=== PATIENT | female | born 1960 | race American Indian/Alaskan Native ===

== ENCOUNTER 2016-06-07 11:50 | Inpatient (IN) | payer OTHER ==
--- NOTE | 2016-06-07 12:10 | PDOC ---
History of Present Illness <Farrah Cortez - Last Filed: 06/08/16 00:45> - General History Source: Patient Exam Limitations: Clinical Condition - History of Present Illness Travel History: No Initial Comments: 06/07/16 12:28 55 yr female sent from [facility] for eval of Gtube that keeps falling out, NH states she needs larger tube. <Mary Arias - Last Filed: 06/10/16 09:44> - General Chief Complaint: G Tube Problem Stated Complaint: Tube Problem Time Seen by Provider: 06/07/16 12:09 Past History <Farrah Cortez - Last Filed: 06/08/16 00:45> - Past Medical History Dementia: Yes GI Disorders: Yes (PEG TUBE) Seizures: Yes (EPILEPSY) - Surgical History GI Surgery: Yes (GT - TUBE PLACEMENT) - Immunization History Immunization Up to Date: Yes - Psycho/Social/Smoking Cessation Hx Anxiety: No Suicidal Ideation: No Smoking History: Never smoked Have you smoked in the past 12 months: No Information on smoking cessation initiated: No Hx Alcohol Use: No Drug/Substance Use Hx: No Substance Use Type: None Hx Substance Use Treatment: No <Mary rAias - Last Filed: 06/10/16 09:44> - Past Medical History Allergies/Adverse Reactions: Allergies Allergy/AdvReac Type Severity Reaction Status Date / Time No Known Drug Allergies Allergy Verified 03/30/16 12:25 latex AdvReac Unknown Verified 03/30/16 12:25 Home Medications: Ambulatory Orders Acetaminophen Oral Solution [Tylenol 160mg/5mL Oral Solution -] 20 ml GT Q6H PRN 07/22/15 Valproate Sodium [Valproic Acid] 500 mg GT BID 07/22/15 Honey [Medihoney] 1 applic TD DAILY 03/30/16 *Physical Exam - Vital Signs Last Vital Signs Temp Pulse Resp BP Pulse Ox 98.4 F 88 17 165/90 97 06/07/16 11:57 06/07/16 15:48 06/07/16 15:48 06/07/16 15:48 06/07/16 15:48 <Farrah Cortez - Last Filed: 06/08/16 00:45> - Vital Signs Last Vital Signs Temp Pulse Resp BP Pulse Ox 98.4 F 83 18 161/94 98 06/07/16 11:57 06/07/16 11:57 06/07/16 11:57 06/07/16 11:57 06/07/16 11:57 - Physical Exam General Appearance: Yes: Nourished, Cachetic HEENT: positive: EOMI Respiratory/Chest: positive: Lungs Clear, Normal Breath Sounds Cardiovascular: positive: Regular Rhythm, Regular Rate Gastrointestinal/Abdominal: positive: Soft, Distended, Other (gtube in place 16 surinamese ). negative: Guarding <Mary Arias - Last Filed: 06/10/16 09:44> ED Treatment Course - LABORATORY CBC & Chemistry Diagram: 06/08/16 00:15 06/08/16 00:15 - ADDITIONAL ORDERS Additional order review: Laboratory Results 06/07/16 06/07/16 22:19 18:18 POC Glucometer 97.47453 82.57339 06/08/16 06/07/16 06/07/16 00:15 22:19 18:18 RBC 5.08 MCV 94.4 MCHC 32.8 RDW 13.1 MPV 9.3 Neutrophils % 56.0 Lymphocytes % 32.4 Monocytes % 10.6 H Eosinophils % 0.5 Basophils % 0.5 POC Glucometer 97.67567 82.99906 - Medications Given in the ED: ED Medications Discontinued Medications Generic Name Dose Route Start Last Admin Trade Name Dat PRN Reason Stop Dose Admin Morphine Sulfate 2 mg 06/07/16 23:22 06/07/16 23:49 Morphine Injection - IVPUSH 06/07/16 23:23 2 mg ONCE ONE Administration <Farrah Cortez - Last Filed: 06/08/16 00:45> - LABORATORY CBC & Chemistry Diagram: 06/10/16 08:40 06/09/16 07:40 <Mary Arias - Last Filed: 06/10/16 09:44> Progress Note - Progress Note Progress Note: SPOKE WITH DR. FIGUEROA REGARDING G-TUBE REPLACEMENT. UNABLE TO INSERT G-TUBE BACK THROUGH TRACK. DR. FIGUEROA MADE AWARE. PATIENT TO BE ADMITTED FOR POSSIBLE SURGERY SUNDAY OR SUNDAY. ALSO, SPOKE WITH DR. POND. DISCUSSED CASE. WILL ADMIT PATIENT INPATIENT. <Farrah Cortez - Last Filed: 06/08/16 00:45> Medical Decision Making - Medical Decision Making 06/07/16 12:29 cc: Gtube falling out needs larger size tube pt has [address] will consult with GI regarding larger tube placement spoke to (originally replaced 07/13) who will see pt at 5pm at bedside have 18 and 20 surinamese tube at bedside. 06/07/16 12:34 ER attending removed 16 surinamese tube that was in place, blood oozed from the site. unsuccessfull re-insertion with 20 surinamese tube, 18 surinamese tube minimally inserted with some resistance, unable to fully insert. tube taped securely to abdomen awaiting GI Dr. Barrow. 06/07/16 13:16 06/07/16 13:18 06/07/16 18:12 pt awaiting states will be in ER in approx 20 minutes. 06/07/16 19:02 signed out to FAMILY SERVICE WORKER Allen awaiting , <Mary Arias - Last Filed: 06/10/16 09:44> *DC/Admit/Observation/Transfer - Discharge Dispostion Admit: Yes <Farrah Cortez - Last Filed: 06/08/16 00:45> <Mary Arias - Last Filed: 06/10/16 09:44> Diagnosis at time of Disposition: PEG (percutaneous endoscopic gastrostomy) adjustment/replacement/removal, Gastrojejunostomy tube dislodgement - Discharge Dispostion Condition at time of disposition: Stable - Referrals - Patient Instructions
--- NOTE | 2016-06-07 12:53 | PN ---
Progress Note (short form) - Note Progress Note: called by ER regarding G-Tube malfunction. in review of [facility] it appears as though Dr. Peters placed G-Tube in patient 07/13. i advised Mary the ELECT[employer]ICIAN [employer]CRAFT that she should call Dr. Wilkinson / Jacobo for evaluation of the G-Tube.
[2016-06-07] MEDS ORDERED: HEMOQUE TEST 1 EACH EACH ONE (18:16)
[2016-06-07] MEDS ORDERED: morphine CARPU-JECT 2 MG/1 ML DISP.SYRIN IVPUSH ONE (23:22)
[2016-06-07] MEDS: DEXTROSE 5%-0.45% SALINE 1,000 ML IV SCH (23:44)
[2016-06-07] MEDS ORDERED: morphine CARPU-JECT 2 MG/1 ML DISP.SYRIN ONE (23:47)
[2016-06-08 00:35] LABS: BASOPHIL 0.5 % (0-2.0); EOSINOPHIL 0.5 % (0-4.5); MCHC 32.8 g/dl (32.0-36.0); MEAN CELL VOLUME 94.4 fl (80-96); MEAN PLT VOLUME 9.3 fl (7.5-11.1); PLATELET COUNT 201 K/MM3 (134-434); RDW 13.1 % (11.6-15.6); WHITE BLOOD COUNT 7.7 K/mm3 (4.0-10.0)
[2016-06-08 00:55] LABS: ALBUMIN 2.7 g/dl (3.4-5.0); ANION GAP 12 (8-16); BILIRUBIN,TOTAL 0.3 mg/dL (0.2-1.0); CALCIUM 9.1 mg/dL (8.5-10.1); CO2 30 mmol/L (21-32); CREATININE 0.5 mg/dL (0.55-1.02); GLUCOSE,RANDOM 86 mg/dL (74-106); SGOT/AST 33 U/L (15-37); SGPT/ALT 20 U/L (12-78); TOT PROT 8.2 g/dl (6.4-8.2)
[2016-06-08 00:56] LABS: ALK PHOS 36 U/L (45-117)
[2016-06-08] MEDS ORDERED: ACETAMINOPHEN 650 MG/20.3 ML ORAL SOLUTION (CUPS) GT PRN (07:26)
[2016-06-08] MEDS ORDERED: HONEY TD SCH (10:00)
[2016-06-08] MEDS ORDERED: VALPROATE SODIUM 250 MG/5 ML UNIT DOSE CUP GT SCH (10:00)
[2016-06-08 10:30] VITALS: BMI 25.6
[2016-06-08] MEDS ORDERED: VALPROATE SODIUM 500 MG/5 ML VIAL ONE (17:32)
[2016-06-08] MEDS: VALPROATE SODIUM 500 MG/5 ML VIAL IVPB SCH ×2 (18:00→23:20)
--- NOTE | 2016-06-08 19:33 | CONSULT ---
Consult Consult Specialty:: GI Referred by:: Dr Quezada Reason for Consultation:: Dislodged PEG - History of Present Illness Chief Complaint: Brought from [facility] with dislodged PEG History of Present Illness: 55 F with anoxic encephalopathy brought to ER with dislodged PEG I was notified by staff last night and was unable to see patient until today. I advised that she be placed on IVF until PEG placement - History Source History Provided By: Medical Record Limitations to Obtaining History: Clinical Condition - Past Medical History MANAGER IMAGING: Yes: Dementia, Seizure, Other (dysphagia, aphasia) ...: No - Alcohol/Substance Use Hx Alcohol Use: No History of Substance Use: reports: None - Smoking History Smoking history: Never smoked Have you smoked in the past 12 months: No - Social History Usual Living Arrangement: Halfway ADL: Support Services History of Recent Travel: No Home Medications - Allergies Allergies/Adverse Reactions: Allergies Allergy/AdvReac Type Severity Reaction Status Date / Time No Known Drug Allergies Allergy Verified 03/30/16 12:25 latex AdvReac Unknown Verified 03/30/16 12:25 - Home Medications Home Medications: Ambulatory Orders Acetaminophen Oral Solution [Tylenol 160mg/5mL Oral Solution -] 20 ml GT Q6H PRN 07/22/15 Valproate Sodium [Valproic Acid] 500 mg GT BID 07/22/15 Honey [Medihoney] 1 applic TD DAILY 03/30/16 Physical Exam-GI Vital Signs: Vital Signs Temperature 97 F L 06/08/16 10:22 Pulse Rate 92 H 06/08/16 10:22 Respiratory Rate 14 06/08/16 10:22 Blood Pressure 140/99 06/08/16 10:22 O2 Sat by Pulse Oximetry (%) 100 06/08/16 10:22 Constitutional: Yes: Well Nourished HENT: Yes: Normocephalic Neck: Yes: Supple Cardiovascular: Yes: Regular Rate and Rhythm Respiratory: Yes: CTA Bilaterally Gastrointestinal Inspection: Yes: WNL, Other (G tube site noted. No evidence of infection) ...Auscultate: Yes: Normoactive Bowel Sounds ...Palpate: Yes: Soft Labs: CBC, BMP 06/08/16 00:15 06/08/16 00:15 Hepatic Panel Total Bilirubin 0.3 mg/dL (0.2-1.0) D 06/08/16 00:15 AST 33 U/L (15-37) D 06/08/16 00:15 ALT 20 U/L (12-78) 06/08/16 00:15 Alkaline Phosphatase 36 U/L (45-117) L D 06/08/16 00:15 Albumin 2.7 g/dl (3.4-5.0) L D 06/08/16 00:15 Assessment/Plan Patietn in need of endoscopic PEG placement Will try to arrange for tomorrow but may be deferred until Sunday if unable to do
[2016-06-09] MEDS: DEXTROSE 5%-0.45% SALINE 1,000 ML IV SCH (00:59)
--- NOTE | 2016-06-09 02:04 | HP ---
Admitting History and Physical - Admission History of Present Illness: 55 F with anoxic encephalopathy brought to ER from [facility] with dislodged PEG patient unable to provide hx / non verbal she was started on IVF until PEG placement History Source: Medical Record Limitations to Obtaining History: Clinical Condition (anoxic encephalopathy) - Past Medical History MECHANIC RECOVERY: Yes: Dementia, Seizure, Other (dysphagia, aphasia) ...: No - Advance Directives Advance Directives: Yes: Health Care Proxy, DNR - Smoking History Smoking history: Never smoked Have you smoked in the past 12 months: No - Alcohol/Substance Use Hx Alcohol Use: No History of Substance Use: reports: None - Social History ADL: Support Services History of Recent Travel: No Home Medications - Allergies Allergies/Adverse Reactions: Allergies Allergy/AdvReac Type Severity Reaction Status Date / Time No Known Drug Allergies Allergy Verified 03/30/16 12:25 latex AdvReac Unknown Verified 03/30/16 12:25 - Home Medications Home Medications: Ambulatory Orders Acetaminophen Oral Solution [Tylenol 160mg/5mL Oral Solution -] 20 ml GT Q6H PRN 07/22/15 Valproate Sodium [Valproic Acid] 500 mg GT BID 07/22/15 Honey [Medihoney] 1 applic TD DAILY 03/30/16 Review of Systems - Review of Systems Constitutional: reports: No Symptoms Eyes: reports: No Symptoms Physical Examination Vital Signs: Vital Signs Temperature 98.4 F 06/08/16 22:00 Pulse Rate 93 H 06/08/16 22:00 Respiratory Rate 18 06/09/16 01:06 Blood Pressure 121/68 06/08/16 22:00 O2 Sat by Pulse Oximetry (%) 100 06/09/16 01:06 Constitutional: Yes: Mild Distress Eyes: Yes: Conjunctiva Clear HENT: Yes: Atraumatic Neck: Yes: Trachea Midline Cardiovascular: Yes: Regular Rate and Rhythm Respiratory: Yes: Regular, CTA Bilaterally Gastrointestinal: Yes: Normal Bowel Sounds, Soft, Other (peg site with minimal clear d/c) Musculoskeletal: Yes: Joint Stiffness, Other (contracted / muscle wasting) Edema: No Peripheral Pulses: Left Radial: 1+ Integumentary: Yes: WNL Neurological: Yes: Pre-Existing Deficit Problem List - Problems (1) Gastrojejunostomy tube dislodgement Code(s): Z43.4 - ENCOUNTER FOR ATTN TO OTH ARTIF OPENINGS OF DIGESTIVE TRACT (2) Anoxic brain damage Code(s): G93.1 - ANOXIC BRAIN DAMAGE, NOT ELSEWHERE CLASSIFIED (3) Seizure as late effect of cerebrovascular accident (CVA) Code(s): I69.398 - OTHER SEQUELAE OF CEREBRAL INFARCTION R56.9 - UNSPECIFIED CONVULSIONS Assessment/Plan awaiting GI for placement of G tube IV fluids with D5 until PEG replaced
[2016-06-09 08:13] LABS: BASOPHIL 0.5 % (0-2.0); EOSINOPHIL 0.8 % (0-4.5); MCH 32.3 pg (25.7-33.7); MCHC 33.9 g/dl (32.0-36.0); MEAN CELL VOLUME 95.1 fl (80-96); MEAN PLT VOLUME 8.7 fl (7.5-11.1); NEUTROPHILS 53.4 % (42.8-82.8); PLATELET COUNT 151 K/MM3 (134-434); RDW 13.1 % (11.6-15.6); WHITE BLOOD COUNT 6.1 K/mm3 (4.0-10.0)
[2016-06-09] MEDS ORDERED: PT OWN MED DRAWER 7, Y5N ONE ×2 (08:30→22:19)
[2016-06-09 08:36] LABS: ALK PHOS 29 U/L (45-117); ANION GAP 6 (8-16); BILIRUBIN,TOTAL 0.4 mg/dL (0.2-1.0); CALCIUM 7.7 mg/dL (8.5-10.1); CO2 28 mmol/L (21-32); CREATININE 0.3 mg/dL (0.55-1.02); GLUCOSE,RANDOM 109 mg/dL (74-106); SGOT/AST 21 U/L (15-37); SGPT/ALT 16 U/L (12-78); TOT PROT 6.4 g/dl (6.4-8.2)
[2016-06-09] MEDS: VALPROATE SODIUM 500 MG/5 ML VIAL IVPB SCH ×2 (09:39→22:27)
[2016-06-09] MEDS: ACETAMINOPHEN 650 MG SUPP.RECT PR PRN (17:28)
--- NOTE | 2016-06-09 17:41 | PN ---
Progress Note (short form) - Note Progress Note: in bed no distress non verbal Vital Signs Period Temp Pulse Resp BP Sys/Florentino Pulse Ox Last 24 Hr 97.8 F-98.9 F 90-100 18-18 121-140/68-78 100-100 neck supple heart reg lung clear bilet abd soft / peg site clean / no erythema ext contractures no edema + wasting CBC, BMP 06/09/16 07:40 06/09/16 07:40 discussed with GI for PEG placement today or tomorrow will keep IV fluids pending placement Problem List - Problems (1) Gastrojejunostomy tube dislodgement Code(s): Z43.4 - ENCOUNTER FOR ATTN TO OTH ARTIF OPENINGS OF DIGESTIVE TRACT (2) Anoxic brain damage Code(s): G93.1 - ANOXIC BRAIN DAMAGE, NOT ELSEWHERE CLASSIFIED (3) Seizure as late effect of cerebrovascular accident (CVA) Code(s): I69.398 - OTHER SEQUELAE OF CEREBRAL INFARCTION R56.9 - UNSPECIFIED CONVULSIONS
--- NOTE | 2016-06-09 17:44 | PN ---
Progress Note (short form) - Note Progress Note: Events noted Patient with anoxic encephalop-athy now with dislodged PEG Current Medications Generic Name Dose Route Start Last Admin Trade Name Freq PRN Reason Stop Dose Admin Acetaminophen 650 mg 06/08/16 07:26 Tylenol Oral Solution - GT Q6H PRN PAIN Acetaminophen 650 mg 06/09/16 17:04 06/09/16 17:28 Tylenol Suppository - [place] 650 mg Q6H PRN Administration FEVER OR PAIN Dextrose/Sodium Chloride 1,000 mls @ 100 mls/hr 06/07/16 23:30 06/09/16 00:59 D5-1/2ns - IV 100 mls/hr ASDIR JOSSE Administration Valproate Sodium 500 mg 06/08/16 16:15 06/09/16 09:39 Depacon Injection - IVPB 500 mg BID JOSSE Administration Exam: Awake, unresponsive Last Vital Signs Temp Pulse Resp BP Pulse Ox 98.9 F 100 H 18 122/74 100 06/09/16 15:20 06/09/16 15:20 06/09/16 11:49 06/09/16 15:20 06/09/16 11:44 Lungs clear Cor Reg Abd soft CBC, BMP 06/09/16 07:40 06/09/16 07:40 Hepatic Panel Total Bilirubin 0.4 mg/dL (0.2-1.0) D 06/09/16 07:40 AST 21 U/L (15-37) D 06/09/16 07:40 ALT 16 U/L (12-78) 06/09/16 07:40 Alkaline Phosphatase 29 U/L (45-117) L 06/09/16 07:40 Albumin 2.0 g/dl (3.4-5.0) L D 06/09/16 07:40 A/P Dislodged PEG-will need endoscopic replacement Will do tomorrow as Sunday is a holiday and she would have to wait 3 days otherwise.
[2016-06-10] MEDS: DEXTROSE 5%-0.45% SALINE 1,000 ML IV SCH (00:55)
[2016-06-10 09:02] LABS: BASOPHIL 0.5 % (0-2.0); EOSINOPHIL 1.2 % (0-4.5); MCH 32.1 pg (25.7-33.7); MCHC 33.4 g/dl (32.0-36.0); MEAN PLT VOLUME 8.4 fl (7.5-11.1); NEUTROPHILS 57.9 % (42.8-82.8); PLATELET COUNT 147 K/MM3 (134-434); RDW 12.5 % (11.6-15.6); WHITE BLOOD COUNT 4.8 K/mm3 (4.0-10.0)
[2016-06-10 09:16] LABS: INR 1.12 (0.82-1.09); PROTHROMBIN TIME (PATIENT) 12.4 SEC (9.98-11.88)
[2016-06-10 09:44] LABS: ALBUMIN 2.1 g/dl (3.4-5.0); ANION GAP 2 (8-16); CO2 22 mmol/L (21-32); GLUCOSE,RANDOM 83 mg/dL (74-106)
[2016-06-10 09:48] LABS: ALK PHOS 30 U/L (45-117); BILIRUBIN,TOTAL 0.6 mg/dL (0.2-1.0); CREATININE 0.4 mg/dL (0.55-1.02); SGPT/ALT 22 U/L (12-78); TOT PROT 6.8 g/dl (6.4-8.2)
[2016-06-10 09:55] LABS: SGOT/AST 40 U/L (15-37)
[2016-06-10] MEDS: VALPROATE SODIUM 500 MG/5 ML VIAL IVPB SCH ×2 (09:59→21:19)
--- NOTE | 2016-06-10 13:20 | PN ---
Progress Note (short form) - Note Progress Note: Events noted Patient with anoxic encephalop-athy now with dislodged PEG Current Medications Generic Name Dose Route Start Last Admin Trade Name Freq PRN Reason Stop Dose Admin Acetaminophen 650 mg 06/08/16 07:26 Tylenol Oral Solution - GT Q6H PRN PAIN Acetaminophen 650 mg 06/09/16 17:04 06/09/16 17:28 Tylenol Suppository - [place] 650 mg Q6H PRN Administration FEVER OR PAIN Dextrose/Sodium Chloride 1,000 mls @ 100 mls/hr 06/07/16 23:30 06/09/16 00:59 D5-1/2ns - IV 100 mls/hr ASDIR JOSSE Administration Valproate Sodium 500 mg 06/08/16 16:15 06/09/16 09:39 Depacon Injection - IVPB 500 mg BID JOSSE Administration Exam: Awake, unresponsive Last Vital Signs Temp Pulse Resp BP Pulse Ox 98.4 F 95 H 19 134/91 96 06/10/16 10:00 06/10/16 10:00 06/10/16 10:00 06/10/16 10:00 06/10/16 09:00 Lungs clear Cor Reg Abd soft CBC, BMP 06/10/16 08:40 06/10/16 06:00 Hepatic Panel Total Bilirubin 0.6 mg/dL (0.2-1.0) D 06/10/16 06:00 AST 40 U/L (15-37) H D 06/10/16 06:00 ALT 22 U/L (12-78) D 06/10/16 06:00 Alkaline Phosphatase 30 U/L (45-117) L 06/10/16 06:00 Albumin 2.1 g/dl (3.4-5.0) L 06/10/16 06:00 A/P Dislodged PEG-will need endoscopic replacement Based on OR schedule, will replace tomorrow AM.
[2016-06-10] MEDS: DEXTROSE 5%-NORMAL SALINE 1,000 ML IV SCH (19:00)
[2016-06-10] MEDS ORDERED: PT OWN MED DRAWER 7, Y5N ONE (21:05)
--- NOTE | 2016-06-10 22:51 | PN ---
Progress Note (short form) - Note Progress Note: in bed no distress non verbal Vital Signs Period Temp Pulse Resp BP Sys/Florentino Pulse Ox Last 24 Hr 97.8 F-98.9 F 90-100 18-18 121-140/68-78 100-100 neck supple heart reg lung clear bilet abd soft / peg site clean / no erythema ext contractures no edema + wasting CBC, BMP 06/10/16 08:40 06/10/16 06:00 discussed with GI this afternoon for PEG placement tomorrow ( due to OR schedule) will keep IV fluids pending placement Problem List - Problems (1) Gastrojejunostomy tube dislodgement Code(s): Z43.4 - ENCOUNTER FOR ATTN TO OTH ARTIF OPENINGS OF DIGESTIVE TRACT (2) Anoxic brain damage Code(s): G93.1 - ANOXIC BRAIN DAMAGE, NOT ELSEWHERE CLASSIFIED (3) Seizure as late effect of cerebrovascular accident (CVA) Code(s): I69.398 - OTHER SEQUELAE OF CEREBRAL INFARCTION R56.9 - UNSPECIFIED CONVULSIONS
--- NOTE | 2016-06-11 08:52 | PN ---
Progress Note (short form) - Note Progress Note: patient remains stable scheduled for PEG this am hyponatremia --- IV changed to NS awaiting this am labs Vital Signs Period Temp Pulse Resp BP Sys/Florentino Pulse Ox Last 24 Hr 97.7 F-98.6 F 80-103 18-20 134-149/70-91 96-96 neck - jvd heart regular lungs clear bilat abd soft ext contracted CBC, BMP 06/10/16 08:40 06/10/16 06:00 medically stable for PEG placement this am Problem List - Problems (1) Gastrojejunostomy tube dislodgement Code(s): Z43.4 - ENCOUNTER FOR ATTN TO OTH ARTIF OPENINGS OF DIGESTIVE TRACT (2) Anoxic brain damage Code(s): G93.1 - ANOXIC BRAIN DAMAGE, NOT ELSEWHERE CLASSIFIED (3) Seizure as late effect of cerebrovascular accident (CVA) Code(s): I69.398 - OTHER SEQUELAE OF CEREBRAL INFARCTION R56.9 - UNSPECIFIED CONVULSIONS
[2016-06-11] MEDS: VALPROATE SODIUM 500 MG/5 ML VIAL IVPB SCH ×2 (09:34→21:19)
[2016-06-11 10:00] LABS: BASOPHIL 0.6 % (0-2.0); EOSINOPHIL 0.4 % (0-4.5); MCH 32.5 pg (25.7-33.7); MCHC 33.9 g/dl (32.0-36.0); MEAN CELL VOLUME 95.8 fl (80-96); MEAN PLT VOLUME 8.5 fl (7.5-11.1); NEUTROPHILS 60.1 % (42.8-82.8); PLATELET COUNT 127 K/MM3 (134-434); RDW 12.6 % (11.6-15.6); WHITE BLOOD COUNT 5.2 K/mm3 (4.0-10.0)
[2016-06-11 10:08] LABS: CALCIUM 7.9 mg/dL (8.5-10.1); CREATININE 0.3 mg/dL (0.55-1.02)
[2016-06-11] MEDS ORDERED: PROPOFOL 20 ML ONE (12:14)
[2016-06-11] MEDS ORDERED: CLINDAMYCIN PHOSPHATE 600 MG/4 ML VIAL ONE (12:24)
--- NOTE | 2016-06-11 13:52 | PN ---
Progress Note (short form) - Note Progress Note: ADDENDUM: S/P PEG. Procedure tolerated well May resume TF with Jevity as per dietary recommendation. PEG maintenance orders written
[2016-06-11] MEDS: AMINO ACIDS/PROTEIN HYDROLYS SUGAR-FREE 30 ML PACKET GT SCH (17:08)
[2016-06-11] MEDS: DEXTROSE 5%-NORMAL SALINE 1,000 ML IV SCH (18:38)
[2016-06-11] MEDS ORDERED: PT OWN MED DRAWER 7, Y5N ONE (20:34)
[2016-06-12] MEDS: ACETAMINOPHEN 650 MG SUPP.RECT PR PRN (06:21)
[2016-06-12] MEDS ORDERED: FUROSEMIDE 40 MG/4 ML INJECTABLE VIAL ONE (06:35)
[2016-06-12] MEDS ORDERED: FUROSEMIDE 40 MG/4 ML INJECTABLE VIAL IVPUSH ONE (06:45)
[2016-06-12] MEDS ORDERED: PT OWN MED DRAWER 7, Y5N ONE ×3 (09:01→21:23)
[2016-06-12] MEDS: AMINO ACIDS/PROTEIN HYDROLYS SUGAR-FREE 30 ML PACKET GT SCH ×2 (09:50→17:41)
[2016-06-12] MEDS: VALPROATE SODIUM 500 MG/5 ML VIAL IVPB SCH ×2 (09:50→21:58)
--- NOTE | 2016-06-12 14:54 | PN ---
Progress Note (short form) - Note Progress Note: s/p peg / in bed NAD IV fluids off tolerating feeding "congested "earlier today non verbal Vital Signs Period Temp Pulse Resp BP Sys/Florentino Pulse Ox Last 24 Hr 97.1 F-100.8 F 81-112 18-22 128-142/66-71 100-100 neck supple heart reg S1/s2 Lungs clear abd soft ext contracted CBC, BMP 06/11/16 09:15 06/11/16 09:15 CXR no congestion / infiltrate S/P peg placement tolerating feeding well probably transfer back to [facility] in am Problem List - Problems (1) Gastrojejunostomy tube dislodgement Code(s): Z43.4 - ENCOUNTER FOR ATTN TO OTH ARTIF OPENINGS OF DIGESTIVE TRACT (2) Anoxic brain damage Code(s): G93.1 - ANOXIC BRAIN DAMAGE, NOT ELSEWHERE CLASSIFIED (3) Seizure as late effect of cerebrovascular accident (CVA) Code(s): I69.398 - OTHER SEQUELAE OF CEREBRAL INFARCTION R56.9 - UNSPECIFIED CONVULSIONS
[2016-06-13 07:17] VITALS: PULSE 98
[2016-06-13] MEDS: VALPROATE SODIUM 500 MG/5 ML VIAL IVPB SCH (10:02)
[2016-06-13] MEDS: AMINO ACIDS/PROTEIN HYDROLYS SUGAR-FREE 30 ML PACKET GT SCH (10:02)
[2016-06-13 10:36] VITALS: BP 142/88; TEMP 98.8
--- NOTE | 2016-06-13 12:21 | PATH ---
Surgical Pathology Report Patient Name: DENITA PINK [facility]. Rec. #: [id number] /Age/Gender: 1960 (Age: 55) / F Account: [id number] Location: [facility] PEDS/ADOL Taken: 06/11/2016 Received: 06/12/2016 Reported: 06/13/2016 Physicians: Bogdan Wilkinson M.D. Specimen(s) Received BX ANTRUM Clinical History Dislodged PEG Final Diagnosis STOMACH, ANTRUM, BIOPSY: GASTRIC ANTRAL MUCOSA WITH FOCALLY ACTIVE MARKED CHRONIC GASTRITIS IMMUNOSTAIN FOR H. PYLORI IS POSITIVE FOR ORGANISMS (MANY ORGANISMS). Electronically Signed Sylvester Luke M.D. Gross Description Received in formalin, labeled "biopsy antrum" are 2 hdez, irregular portions of soft tissue measuring 0.3 and 0.5 cm in greatest dimension. The specimens are submitted in toto in one cassette. /06/12/201606/12/2016
== END 2016-06-13 11:22 | DRG 394 ==
LOC: JER 11:50 → JERBED 06-08 00:10 → UNDOADMOB 06-08 00:10 → JERBED 06-08 01:33 → INTOOBSV 06-08 01:33 → J5S 06-08 19:59 → OBSVTOIN 06-08 19:59 → JERBED 06-08 20:53 → J5S 06-08 20:53 → J4S 06-09 04:33
PROVIDERS: ADMIT Family Medicine; ATTEND Family Medicine
PROC: 0DB68ZX Excision of Stomach, Via Natural or Artificial Opening Endoscopic, Diagnostic (ICD-10-PCS; 2016-06-11)
PROC: 0DH63UZ Insertion of Feeding Device into Stomach, Percutaneous Approach (ICD-10-PCS; principal; 2016-06-11 10:00)
DX: K94.23 Gastrostomy malfunction (principal); G93.1 Anoxic brain damage, not elsewhere classified; Y83.8 Other surgical procedures as the cause of abnormal reaction of the patient, or of later complication, without mention of misadventure at the time of the procedure; F03.90 Unspecified dementia, unspecified severity, without behavioral disturbance, psychotic disturbance, mood disturbance, and anxiety; R13.19 Other dysphagia; I69.398 Other sequelae of cerebral infarction; R56.9 Unspecified convulsions; K29.60 Other gastritis without bleeding; R47.02 Dysphasia; Z66 Do not resuscitate
CPT/HCPCS: 36415; 71010-TC; 80048; 80053; 85025; 85610; 86850; 86900; 86901; 88305-TC; 94760; 99283-25

== ENCOUNTER 2018-06-28 20:51 | Inpatient (IN) | payer OTHER ==
--- NOTE | 2018-06-28 21:07 | PDOC ---
Attending Attestation - HPI HPI: 06/28/18 23:10 The patient is a 57 year old female, with a significant past medical history of PEG tube placement, epilepsy, severe dementia, bedbound at baseline, chronic aspirations, who presents to the emergency department via EMS from [facility] with, respiratory distress. As per daughter at bedside, patient aspirates chronically and despite suctioning approximately a canister of fluids she was hypoxic. Allergies: Latex Social history: [facility] Primary Care Physician: Dr. Hogue <Adalberto Rich - Last Filed: 06/28/18 23:10> - Resident Resident Name: Merlyn Epstein - ED Attending Attestation I have performed the following: I have examined & evaluated the patient, The case was reviewed & discussed with the resident, I agree w/resident's findings & plan - Physicial Exam PE: 06/29/18 19:22 Pt comes with SOB; aspiration pneumonia. Bilat decreased and coarse breath sounds. Agree with resident exam - Medical Decision Making 06/29/18 19:22 ABX IVF admit to PMD. <Manuela Garg - Last Filed: 06/29/18 19:23> Attestations - Attestations 06/28/18 23:10 Documentation prepared by Adalberto Rich, acting as certified medical assistant for Manuela Garg MD. <Adalberto Rich - Last Filed: 06/28/18 23:10>
[2018-06-28] MEDS ORDERED: ALBUTEROL SO4 2.5/IPRATROPIUM 0.5 INH SOL 3 ML VIAL.NEB. NEB ONE (21:17)
--- NOTE | 2018-06-28 21:28 | PDOC ---
History of Present Illness - General Chief Complaint: Respiratory Distress Stated Complaint: Respiratory Distress Time Seen by Provider: 06/28/18 21:06 History Source: Patient, Family, Long-Term Records, Old Records Exam Limitations: Dementia - History of Present Illness Initial Comments: 06/28/18 21:20 57YOF with h/o PEG tube placement, epilepsy, severe dementia, bedbound at baseline, chronic aspirations, who was BIBEMS from [facility] for respiratory distress and hypotension. EMS states that she was hypoxic below 92% SpO2 for the duration of their care, and it would dip into the 80s when she was taken off the non-rebreather. They had difficulty measuring her BP but found her to be hypotensive when pressure was measured on the wrist. Per the daughters, the patient had been feeling well lately until tonight. At [facility], they note that the patient acutely became SOB and seemed to aspirate secretions. Staff reportedly suctioned half a cannister of secretions waiting for EMS to arrive. Past History - Past Medical History Allergies/Adverse Reactions: Allergies Allergy/AdvReac Type Severity Reaction Status Date / Time No Known Drug Allergies Allergy Verified 06/28/18 21:13 latex AdvReac Unknown Verified 06/28/18 21:13 Home Medications: Ambulatory Orders Acetaminophen Oral Solution [Tylenol 160mg/5mL Oral Solution -] 20 ml GT Q6H PRN 07/22/15 Valproate Sodium [Valproic Acid] 500 mg GT BID 07/22/15 Albuterol 2.5/Ipratropium 0.5 [Duoneb -] 1 neb IH QID PRN 06/28/18 Calcium Alginate [Du] 1 each TP DAILY 06/28/18 Polyethylene Glycol 3350 [Glycolax] 117 gm GT DAILY 06/28/18 Dementia: Yes GI Disorders: Yes (PEG TUBE) Seizures: Yes (EPILEPSY) - Surgical History GI Surgery: Yes (GT - TUBE PLACEMENT) - Immunization History Immunization Up to Date: Yes - Suicide/Smoking/Psychosocial Hx Smoking History: Unknown if ever smoked Have you smoked in the past 12 months: No Information on smoking cessation initiated: No Hx Alcohol Use: No Drug/Substance Use Hx: No Substance Use Type: None Hx Substance Use Treatment: No Review of Systems - Review of Systems Able to Perform ROS?: No (Dementia) *Physical Exam - Vital Signs Last Vital Signs Temp Pulse Resp BP Pulse Ox 133 H 30 H 166/82 100 06/28/18 21:13 06/28/18 21:13 06/28/18 21:13 06/28/18 21:13 - Physical Exam Comments: 06/28/18 21:10 GENERAL: obtunded, unable to answer questions, decreased response to verbal stimuli HEENT: PERRLA, EOMI, a bit dry mucous membranes, stridor noted but improving throughout my exam NECK/BACK: no spinal stepoff or deformity, no hematoma, neck supple CARDIOVASCULAR: regular rate/rhythm, normal S1S2, no MGR, capillary refill <2 seconds, extremities wwp, no edema LUNGS/RESPIRATORY: labored respirations, no focal areas of decreased lung sounds GI/ABDOMEN: symmetric [id number], normoactive BS, soft, no midline pulsatile masses, no organomegaly : normal external appearance, no lesions, no swelling, non-malodorous EXTREMITIES: chronic muscle atrophy, no acute deformity, no edema SKIN: left lateral ankle with skin ulceration with indwelling surgical screw visualized without active drainage, erythema, warmth, or e/o infection; otherwise skin is warm and dry, no pallor, no jaundice, no rash, no bruising, no skin breakdown, no cuts NEUROLOGICAL: Not alert or oriented, CN II-XII grossly intact, no obvious facial droop, otherwise patient is unable to participate in exam Moderate Sedation - Procedure Monitoring Vital Signs: Procedure Monitoring Vital Signs Temperature Pulse Rate 133 H 06/28/18 21:13 Respiratory Rate 30 H 06/28/18 21:13 Blood Pressure 166/82 06/28/18 21:13 O2 Sat by Pulse Oximetry (%) 100 06/28/18 21:13 ED Treatment Course - LABORATORY CBC & Chemistry Diagram: 06/28/18 21:27 06/28/18 21:27 Medical Decision Making - Medical Decision Making 06/28/18 22:40 Patient appears much more comfortable. No longer stridor, slightly coarse breath sounds, but no respiratory distress. I have placed order for Unasyn for aspiration pneumonitis with high risk for PNA. The Pt is unsafe for discharge at this time. They require further hospital observation, workup, and treatment. She is at high risk for developing PNA given large aspiration event. She was in near respiratory failure per SNF and EMS report. Still pending CMP so patient can be admitted. 06/28/18 23:05 Call has been placed to patient's PCP's on-call provider. Blank Decision to Admit order placed per ED protocol. *DC/Admit/Observation/Transfer Diagnosis at time of Disposition: Pneumonitis Aspiration into airway Qualifiers: Encounter type: initial encounter Qualified Code(s): T17.908A - Unspecified foreign body in respiratory tract, part unspecified causing other injury, initial encounter - Discharge Dispostion Condition at time of disposition: Guarded Decision to Admit order: Yes - Referrals Referrals: Bj Hogue MD [Primary Care Provider] - - Patient Instructions - Post Discharge Activity
[2018-06-28 21:54] LABS: BASO % 0.6 % (0-2.0); EOS % 0.3 % (0-4.5); HEMATOCRIT 50.1 % (32.4-45.2); HEMOGLOBIN 17.1 GM/dL (10.7-15.3); LYMPH % 33.8 % (8-40); MCH 33.4 pg (25.7-33.7); MCHC 34.1 g/dl (32.0-36.0); MEAN CELL VOLUME 98.2 fl (80-96); MONO % 7.4 % (3.8-10.2); NEUT % 57.9 % (42.8-82.8); PLATELET COUNT 190 K/MM3 (134-434); RDW 13.6 % (11.6-15.6); WHITE BLOOD COUNT 6.8 K/mm3 (4.0-10.0)
[2018-06-28 21:56] LABS: VENOUS PH 7.45 (7.32-7.42); VENOUS PO2 73.7 mmHg (28-48)
[2018-06-28] MEDS ORDERED: AMPICILLIN NA/SULBACTAM NA 1.5 GM in SODIUM CHLORIDE 100 ML IVPB ONE (21:56)
[2018-06-28 22:56] LABS: ANION GAP 12 MMOL/L (8-16); BLOOD UREA NITROGEN 16 mg/dL (7-18); CALCIUM 8.9 mg/dL (8.5-10.1); CHLORIDE 98 mmol/L (98-107); CO2 26 mmol/L (21-32); CREATININE 0.6 mg/dL (0.55-1.3); GLUCOSE,RANDOM 99 mg/dL (74-106); MAGNESIUM 2.1 mg/dL (1.8-2.4); PHOSPHOROUS 4.1 mg/dL (2.5-4.9); POTASSIUM 4.3 mmol/L (3.5-5.1); SODIUM 136 mmol/L (136-145)
[2018-06-28 22:57] LABS: ALBUMIN 2.5 g/dl (3.4-5.0); ALK PHOS 53 U/L (45-117); BILIRUBIN,TOTAL 0.3 mg/dL (0.2-1); N-TERMINAL BNP 225.26 pg/ml (5-125); SGOT/AST 66 U/L (15-37); SGPT/ALT 36 U/L (13-61); TOT PROT 9.1 g/dl (6.4-8.2)
[2018-06-29] MEDS ORDERED: ACETAMINOPHEN 650 MG/20.3 ML ORAL SOLUTION (CUPS) GT PRN (09:55)
[2018-06-29] MEDS ORDERED: VANCOMYCIN 1 GM in D5W (PRE-DOCKED) 1,000 MG/250 ML IVPB ONE (10:15)
--- NOTE | 2018-06-29 10:17 | HP ---
Admitting History and Physical - Primary Care Physician PCP: Kevin Quezada - Admission Chief Complaint: SEPSIS WITH RESPIRATORY FAILURE History of Present Illness: 57 Y/O FEMALE WITH HISTORY OF DEMENTIA APHASIA, ATAXIA, DYSPHAGIA WITH PEG TUBE SENT FROM PRISON FOR RESPIRATORY DISTRESS. History Source: Medical Record Limitations to Obtaining History: Clinical Condition, Dementia - Past Medical History [employer] DES[employer]: Yes: Dementia, Seizure, Other (dysphagia, aphasia) - Smoking History Smoking history: Unknown if ever smoked Have you smoked in the past 12 months: No - Alcohol/Substance Use Hx Alcohol Use: No History of Substance Use: reports: None - Social History ADL: Support Services History of Recent Travel: No Home Medications - Allergies Allergies/Adverse Reactions: Allergies Allergy/AdvReac Type Severity Reaction Status Date / Time No Known Drug Allergies Allergy Verified 06/28/18 21:13 latex AdvReac Unknown Verified 06/28/18 21:13 - Home Medications Home Medications: Ambulatory Orders Acetaminophen Oral Solution [Tylenol 160mg/5mL Oral Solution -] 20 ml GT Q6H PRN 07/22/15 Valproate Sodium [Valproic Acid] 500 mg GT BID 07/22/15 Albuterol 2.5/Ipratropium 0.5 [Duoneb -] 1 neb IH QID PRN 06/28/18 Calcium Alginate [Du] 1 each TP DAILY 06/28/18 Polyethylene Glycol 3350 [Glycolax] 117 gm GT DAILY 06/28/18 Review of Systems - Review of Systems Constitutional: reports: Loss of Appetite, Weakness Respiratory: reports: SOB Musculoskeletal: reports: Muscle Weakness Neurological: reports: Pre-Existing Deficit, Weakness Physical Examination Vital Signs: Vital Signs Temperature 98.9 F 06/29/18 09:00 Pulse Rate 99 H 06/29/18 09:00 Respiratory Rate 20 06/29/18 09:00 Blood Pressure 125/59 L 06/29/18 09:00 O2 Sat by Pulse Oximetry (%) 100 06/28/18 21:35 Constitutional: Yes: Mild Distress Eyes: Yes: Other HENT: Yes: Other Cardiovascular: Yes: Tachycardia Respiratory: Yes: Diminished, On Nasal O2 Gastrointestinal: Yes: Tenderness, Other Musculoskeletal: Yes: Muscle Weakness Extremities: Yes: Deformity, Other Integumentary: Yes: Other Labs: CBC, BMP 06/28/18 21:27 06/28/18 21:27 Imaging - Results Chest X-ray: Pending X-ray: Pending Problem List - Problems (1) Respiratory distress Code(s): R06.03 - ACUTE RESPIRATORY DISTRESS (2) Aspiration into airway Code(s): T17.908A - UNSP FB IN RESP TRACT, PART UNSP CAUSING OTH INJURY, INIT Qualifiers: Encounter type: initial encounter Qualified Code(s): T17.908A - Unspecified foreign body in respiratory tract, part unspecified causing other injury, initial encounter (3) Anoxic brain damage Code(s): G93.1 - ANOXIC BRAIN DAMAGE, NOT ELSEWHERE CLASSIFIED (4) Seizure as late effect of cerebrovascular accident (CVA) Code(s): I69.398 - OTHER SEQUELAE OF CEREBRAL INFARCTION; R56.9 - UNSPECIFIED CONVULSIONS Assessment/Plan IV ABX STAT IVF BLOOD AND URINE CX STAT CXR/ABD XRAY NEBS ID CONSULT REPEAT LABS DNR/DNI FAMILY BEDSIDE
[2018-06-29] MEDS ORDERED: PT OWN MED DRAWER 7, Y5N ONE ×3 (10:19→20:50)
[2018-06-29] MEDS ORDERED: LORazepam 2 MG/ML SDV VIAL ONE (10:23)
[2018-06-29 10:41] LABS: HEMATOCRIT 41.6 % (32.4-45.2); HEMOGLOBIN 14.5 GM/dL (10.7-15.3); MCH 34.1 pg (25.7-33.7); MCHC 34.8 g/dl (32.0-36.0); MEAN CELL VOLUME 97.9 fl (80-96); MEAN PLT VOLUME 8.1 fl (7.5-11.1); PLATELET COUNT 165 K/MM3 (134-434); RBC 4.25 M/mm3 (3.60-5.2); RDW 13.5 % (11.6-15.6); WHITE BLOOD COUNT 8.2 K/mm3 (4.0-10.0)
[2018-06-29] MEDS ORDERED: PIPERACILLIN/TAZOB 2.25 GM 2.25 GM in DEXTROSE 5%-WATER - 50 ML IVPB SCH (10:45)
[2018-06-29] MEDS: SODIUM CHLORIDE 1,000 ML IV SCH (10:58)
[2018-06-29 11:15] LABS: ALK PHOS 40 U/L (45-117); ANION GAP 9 MMOL/L (8-16); BILIRUBIN,TOTAL 0.4 mg/dL (0.2-1); BLOOD UREA NITROGEN 18 mg/dL (7-18); CALCIUM 8.5 mg/dL (8.5-10.1); CHLORIDE 99 mmol/L (98-107); CO2 30 mmol/L (21-32); CREATININE 0.5 mg/dL (0.55-1.3); GLUCOSE,RANDOM 88 mg/dL (74-106); LIPASE 147 U/L (73-393); POTASSIUM 4.2 mmol/L (3.5-5.1); SGOT/AST 40 U/L (15-37); SGPT/ALT 25 U/L (13-61); SODIUM 138 mmol/L (136-145); TOT PROT 7.1 g/dl (6.4-8.2)
[2018-06-29] MEDS ORDERED: DEXTROSE 5%-WATER - 50 ML IVPB ONE ×2 (12:22→17:09)
[2018-06-29] MEDS ORDERED: PIPERACILLIN/TAZOBACTAM 2.25 GM VIAL IVPB ONE (12:22)
[2018-06-29] MEDS: VALPROATE SODIUM 250 MG/5 ML UNIT DOSE CUP PO SCH ×2 (12:23→21:12)
[2018-06-29] MEDS: ALBUTEROL SO4 2.5/IPRATROPIUM 0.5 INH SOL 3 ML VIAL.NEB. NEB PRN ×2 (12:35→18:08)
[2018-06-29 13:58] VITALS: BMI 28.8
--- NOTE | 2018-06-29 14:29 | PN ---
Progress Note (short form) - Note Progress Note: ID consult dictated imp/reccd 57 yo female with dementia/aphasia- NHR for 6 years- nonverbal, nonambulatory- has GT admitted with respiratory distress and hypoxia developed acute SOB last night and had suctioning of secretions at [facility] lactic acidosis respiratory distress contiinue zosyn f/u cultures Problem List - Problems (1) Lactic acid acidosis Code(s): E87.2 - ACIDOSIS (2) Respiratory distress Code(s): R06.03 - ACUTE RESPIRATORY DISTRESS
[2018-06-29] MEDS ORDERED: PIPERACILLIN/TAZOB 3.375 GM 3.375 GM in DEXTROSE 5%-WATER - 50 ML IVPB SCH (14:30)
--- NOTE | 2018-06-29 16:19 | CONS ---
INFECTIOUS DISEASE CONSULTATION DATE OF CONSULTATION: DATE OF DICTATION: 06/29/2018 HISTORY OF PRESENT ILLNESS: This is a 57-year-old woman with a history of dementia, aphasia, ataxia, and seizure disorder, who has been a detention resident for the last 6 years. She is bedbound, nonambulatory, has a PEG, and is nonverbal. She was sent to the hospital yesterday, after she developed acute respiratory distress. The family reports that the staff at the detention suctioned half a canister of secretions from her mouth. They report she has chronic aspiration at the detention. She was brought to the emergency room for evaluation. She had no fever. She was noted to be tachycardiac. She was given some fluids. Apparently, this morning, she had a seizure and was given Ativan and Benadryl. I am asked to see her for an elevated lactic acid. The patient is nonverbal. All the history is from the family. She apparently has very few hospitalizations. She has been stabilely at the detention over the last 6 years. They report that she has no decubitus ulcers, but she has a wound on her left ankle where she had a prior ankle fracture and there is a known exposed screw at that site. PAST MEDICAL HISTORY: Is notable for dementia, seizure, dysphagia, aphasia, and G-tube, as well as the ankle fracture. ALLERGIES: She has no known drug allergies. MEDICATIONS: Include acetaminophen, valproic acid, DuoNeb, calcium, alendronate, and MiraLAX. FAMILY HISTORY: Is notable for dementia, including 4 of her 8 siblings have had dementia. REVIEW OF SYSTEMS: Per the family, there has been no nausea or vomiting at the detention that they are aware of or diarrhea. PHYSICAL EXAMINATION: Vital Signs: She has been afebrile since admission. T-maximum was 100.3, currently 79.9, pulse of 109, blood pressure 108/61, respiratory rate is 18. She is saturating 97% on room air. She weighs 73 kg. HEENT: She is normocephalic. Her eyes are anicteric. She has poor dentition. Lungs: Have diminished breath sounds at the bases. Heart: Regular rate and rhythm. Abdomen: Soft. She has a G-tube in place. Extremities: Are without edema. She has on her left ankle an exposed screw without any purulence or drainage. LABORATORY DATA: White count is 8.2, hemoglobin 14.5, platelets are 165. BUN and creatinine are 18 and 10.5. Lactic acid is 3.6. Blood cultures are pending. In summary, this is a 57-year-old woman with dementia, aphasia, from the detention with lactic acidosis and respiratory distress. Her chest x-ray at this point does not reveal any acute infiltrate, though it is obscured by her hand on the right part of her lung. She may have had an acute aspiration, given the description per the family. I would suggest at this time we continue her on Zosyn. Continue IV fluids, as well. Her lactic acidosis could be explained by seizures of which she has a history. Lastly, she appeared quite dehydrated on admission with repeat CBC showing a drop in hemoglobin from 17 to 14. She has not had a UA or urine culture sent, but as we have already started antibiotics at this point I am not sure if there is going to be a value to sending them at this late phase. SUDEEP SHANNON M.D. [id number]
--- NOTE | 2018-06-29 16:40 | EKG ---
Test Reason : Blood Pressure : / mmHG Vent. Rate : 128 BPM Atrial Rate : 115 BPM P-R Int : 120 ms QRS Dur : 060 ms QT Int : 340 ms P-R-T Axes : 075 -09 090 degrees QTc Int : 496 ms POOR DATA QUALITY, INTERPRETATION MAY BE ADVERSELY AFFECTED SINUS TACHYCARDIA LOW VOLTAGE QRS NONSPECIFIC ST AND T WAVE ABNORMALITY ABNORMAL ECG WHEN COMPARED WITH ECG OF 22-JUL-2015 10:57, NON-SPECIFIC CHANGE IN ST SEGMENT IN LATERAL LEADS Confirmed by Cammy Mello ([id number]) on 06/29/2018 4:39:52 PM Referred By: Confirmed By:Cammy Mello
[2018-06-29] MEDS ORDERED: PIPERACILLIN/TAZOBACTAM 3.375 GM VIAL IVPB ONE (17:09)
[2018-06-29] MEDS: PIPERACILLIN/TAZOB 3.375 GM 3.375 GM in DEXTROSE 5%-WATER - 50 ML IVPB SCH (17:13)
[2018-06-30] MEDS: PIPERACILLIN/TAZOB 3.375 GM 3.375 GM in DEXTROSE 5%-WATER - 50 ML IVPB SCH ×3 (02:15→17:24)
[2018-06-30] MEDS ORDERED: DEXTROSE 5%-WATER - 50 ML IVPB ONE ×3 (02:22→17:17)
[2018-06-30] MEDS ORDERED: PIPERACILLIN/TAZOBACTAM 3.375 GM VIAL IVPB ONE ×3 (02:22→17:17)
[2018-06-30 06:01] LABS: HEMATOCRIT 41.5 % (32.4-45.2); HEMOGLOBIN 14.2 GM/dL (10.7-15.3); MCH 33.3 pg (25.7-33.7); MCHC 34.3 g/dl (32.0-36.0); MEAN CELL VOLUME 97.2 fl (80-96); MEAN PLT VOLUME 7.7 fl (7.5-11.1); PLATELET COUNT 158 K/MM3 (134-434); RBC 4.27 M/mm3 (3.60-5.2); RDW 13.4 % (11.6-15.6); WHITE BLOOD COUNT 5.6 K/mm3 (4.0-10.0)
[2018-06-30 06:29] LABS: ALBUMIN 1.9 g/dl (3.4-5.0); ALK PHOS 38 U/L (45-117); ANION GAP 5 MMOL/L (8-16); BILIRUBIN,TOTAL 0.6 mg/dL (0.2-1); BLOOD UREA NITROGEN 13 mg/dL (7-18); CALCIUM 7.7 mg/dL (8.5-10.1); CHLORIDE 102 mmol/L (98-107); CO2 30 mmol/L (21-32); CREATININE 0.5 mg/dL (0.55-1.3); GLUCOSE,RANDOM 78 mg/dL (74-106); POTASSIUM 3.9 mmol/L (3.5-5.1); SGOT/AST 69 U/L (15-37); SGPT/ALT 29 U/L (13-61); SODIUM 137 mmol/L (136-145); TOT PROT 6.9 g/dl (6.4-8.2)
[2018-06-30] MEDS ORDERED: PT OWN MED DRAWER 7, Y5N ONE ×3 (09:05→21:06)
[2018-06-30] MEDS: VALPROATE SODIUM 250 MG/5 ML UNIT DOSE CUP PO SCH ×2 (09:07→21:35)
--- NOTE | 2018-06-30 09:32 | PN ---
Progress Note, Physician Chief Complaint: PATIENT COMFORTABLE NO NEW EVENTS OVERNIGHT - Current Medication List Current Medications: Active Medications Acetaminophen (Tylenol Oral Solution -) 650 mg GT Q6H PRN PRN Reason: PAIN OR FEVER Last Admin: 06/29/18 17:55 Dose: 650 mg Albuterol/Ipratropium (Duoneb -) 1 amp NEB Q6H PRN PRN Reason: SHORTNESS OF BREATH Last Admin: 06/29/18 18:08 Dose: 1 amp Sodium Chloride (Normal Saline -) 1,000 mls @ 75 mls/hr IV ASDIR JOSSE Last Admin: 06/29/18 10:58 Dose: 75 mls/hr Piperacillin Sod/Tazobactam (Sod 3.375 gm/ Dextrose) 50 mls @ 100 mls/hr IVPB Q8H-IV JOSSE; Protocol Last Admin: 06/30/18 09:07 Dose: 100 mls/hr Valproate Sodium (Depakene -) 500 mg PO BID JOSSE Last Admin: 06/30/18 09:07 Dose: 500 mg - Objective Vital Signs: Vital Signs Temperature 98.3 F 06/29/18 18:00 Pulse Rate 79 06/29/18 18:00 Respiratory Rate 24 H 06/29/18 18:00 Blood Pressure 114/57 L 06/29/18 18:00 O2 Sat by Pulse Oximetry (%) 96 06/29/18 21:00 Constitutional: Yes: Other Cardiovascular: Yes: Regular Rate and Rhythm Respiratory: Yes: Wheezes Gastrointestinal: Yes: Soft Genitourinary: Yes: Incontinence Musculoskeletal: Yes: Muscle Weakness Extremities: Yes: Deformity Integumentary: Yes: Other Neurological: Yes: Aphasia, Pre-Existing Deficit Labs: CBC, BMP 06/30/18 05:50 06/30/18 05:50 Problem List - Problems (1) Respiratory distress Code(s): R06.03 - ACUTE RESPIRATORY DISTRESS (2) Aspiration into airway Code(s): T17.908A - UNSP FB IN RESP TRACT, PART UNSP CAUSING OTH INJURY, INIT Qualifiers: Encounter type: initial encounter Qualified Code(s): T17.908A - Unspecified foreign body in respiratory tract, part unspecified causing other injury, initial encounter (3) Anoxic brain damage Code(s): G93.1 - ANOXIC BRAIN DAMAGE, NOT ELSEWHERE CLASSIFIED (4) Seizure as late effect of cerebrovascular accident (CVA) Code(s): I69.398 - OTHER SEQUELAE OF CEREBRAL INFARCTION; R56.9 - UNSPECIFIED CONVULSIONS Assessment/Plan PATIENT IMPROVED STATUS TODAY CONTINUE IV ZOSYN NEBS ORAL CLEANSING WITH SUCTION DVT PROPHYLAXIS START JEVITY 1.5 20CC HOUR INCREASE 10CC Q 6HRS FOR GOAL 55CC/HR ADD PROSTAT
[2018-06-30] MEDS: SODIUM CHLORIDE 1,000 ML IV SCH ×2 (10:45→15:36)
[2018-06-30] MEDS: ALBUTEROL SO4 2.5/IPRATROPIUM 0.5 INH SOL 3 ML VIAL.NEB. NEB PRN (12:08)
[2018-06-30] MEDS: AMINO ACIDS/PROTEIN HYDROLYS 30 ML LIQUID.PKT PO SCH (17:24)
[2018-06-30] MEDS ORDERED: PIPERACILLIN/TAZOB 2.25 GM 2.25 GM in DEXTROSE 5%-WATER - 50 ML IVPB SCH (18:00)
[2018-07-01] MEDS ORDERED: DEXTROSE 5%-WATER - 50 ML IVPB ONE ×4 (01:03→20:50)
[2018-07-01] MEDS ORDERED: PIPERACILLIN/TAZOBACTAM 3.375 GM VIAL IVPB ONE ×4 (01:03→20:49)
[2018-07-01] MEDS: PIPERACILLIN/TAZOB 3.375 GM 3.375 GM in DEXTROSE 5%-WATER - 50 ML IVPB SCH ×3 (01:14→17:37)
[2018-07-01] MEDS ORDERED: PT OWN MED DRAWER 7, Y5N ONE ×3 (09:19→23:12)
[2018-07-01] MEDS: VALPROATE SODIUM 250 MG/5 ML UNIT DOSE CUP PO SCH ×2 (09:28→23:10)
[2018-07-01] MEDS: AMINO ACIDS/PROTEIN HYDROLYS 30 ML LIQUID.PKT PO SCH ×2 (09:28→17:37)
[2018-07-01] MEDS: ALBUTEROL SO4 2.5/IPRATROPIUM 0.5 INH SOL 3 ML VIAL.NEB. NEB PRN ×2 (11:15→15:08)
--- NOTE | 2018-07-01 12:12 | PN ---
Progress Note (short form) - Note Progress Note: tolerating feeds +bm no fevers NAD Vital Signs Period Temp Pulse Resp BP Sys/Florentino Pulse Ox Last 24 Hr 97.5 F-99.4 F 86-94 18-24 112-152/65-79 97-97 cor-rrr lungs clear abd soft,nt ext no edema CBC, BMP 06/30/18 05:50 06/30/18 05:50 Microbiology 06/28/18 21:27 Blood - Peripheral Venous Blood Culture - Preliminary NO GROWTH OBTAINED AFTER 48 HOURS, INCUBATION TO CONTINUE FOR 3 DAYS. 06/28/18 21:27 Blood - Peripheral Venous Blood Culture - Preliminary NO GROWTH OBTAINED AFTER 48 HOURS, INCUBATION TO CONTINUE FOR 3 DAYS. cxray negative a/p 57 yo female with dementia/aphasia- NHR for 6 years- nonverbal, nonambulatory- has GT admitted with respiratory distress and hypoxia developed acute SOB last night and had suctioning of secretions at [facility] seizure 2/2 lactic acidosis-resolving- ?secondary to seizure respiratory distress resolved repeat labs now consider d/c antiiboitcs if lactic acid has resolved no clear source of infection and cultures are negative Problem List - Problems (1) Lactic acid acidosis Code(s): E87.2 - ACIDOSIS (2) Respiratory distress Code(s): R06.03 - ACUTE RESPIRATORY DISTRESS
--- NOTE | 2018-07-01 12:36 | PN ---
Progress Note, Physician - Current Medication List Current Medications: Active Medications Acetaminophen (Tylenol Oral Solution -) 650 mg GT Q6H PRN PRN Reason: PAIN OR FEVER Last Admin: 06/29/18 17:55 Dose: 650 mg Albuterol/Ipratropium (Duoneb -) 1 amp NEB Q6H PRN PRN Reason: SHORTNESS OF BREATH Last Admin: 07/01/18 11:15 Dose: 1 amp Amino Acids (Prosource No Carb Liquid Pkt) 30 ml PO BID@0800,1730 JOSSE Last Admin: 07/01/18 09:28 Dose: 30 ml Sodium Chloride (Normal Saline -) 1,000 mls @ 75 mls/hr IV ASDIR JOSSE Last Admin: 06/30/18 15:36 Dose: 75 mls/hr Piperacillin Sod/Tazobactam (Sod 3.375 gm/ Dextrose) 50 mls @ 100 mls/hr IVPB Q8H-IV JOSSE; Protocol Last Admin: 07/01/18 09:28 Dose: 100 mls/hr Valproate Sodium (Depakene -) 500 mg PO BID JOSSE Last Admin: 07/01/18 09:28 Dose: 500 mg - Objective Vital Signs: Vital Signs Temperature 97.5 F L 07/01/18 09:00 Pulse Rate 94 H 07/01/18 09:00 Respiratory Rate 20 07/01/18 09:00 Blood Pressure 152/79 07/01/18 09:00 O2 Sat by Pulse Oximetry (%) 97 07/01/18 09:00 non verbal Constitutional: Yes: Calm Neck: Yes: Other Cardiovascular: Yes: Regular Rate and Rhythm, S1, S2 Respiratory: Yes: Diminished Gastrointestinal: Yes: Normal Bowel Sounds, Soft, Other ( gtube) Extremities: Yes: Other (flexed) Edema: No Labs: CBC, BMP 06/30/18 05:50 06/30/18 05:50 Problem List - Problems (1) Respiratory distress Assessment/Plan: no fever no wbc count cultures negative santos repeat lactic acid Code(s): R06.03 - ACUTE RESPIRATORY DISTRESS (2) Seizure as late effect of cerebrovascular accident (CVA) Assessment/Plan: lactic acid maybe inc due to seizure will repeat on valproic acid Code(s): I69.398 - OTHER SEQUELAE OF CEREBRAL INFARCTION; R56.9 - UNSPECIFIED CONVULSIONS (3) Anoxic brain damage Assessment/Plan: s/p peg on jevity and prostat heparin sub q for dvt ppx Code(s): G93.1 - ANOXIC BRAIN DAMAGE, NOT ELSEWHERE CLASSIFIED
[2018-07-01 14:31] LABS: HEMOGLOBIN 15.3 GM/dL (10.7-15.3); MCH 34.1 pg (25.7-33.7); MCHC 34.7 g/dl (32.0-36.0); MEAN CELL VOLUME 98.2 fl (80-96); MEAN PLT VOLUME 7.9 fl (7.5-11.1); PLATELET COUNT 148 K/MM3 (134-434); RBC 4.48 M/mm3 (3.60-5.2); RDW 13.6 % (11.6-15.6); WHITE BLOOD COUNT 4.3 K/mm3 (4.0-10.0)
[2018-07-01 15:05] LABS: ANION GAP 6 MMOL/L (8-16); BLOOD UREA NITROGEN 9 mg/dL (7-18); CALCIUM 7.6 mg/dL (8.5-10.1); CHLORIDE 107 mmol/L (98-107); CO2 27 mmol/L (21-32); CREATININE 0.5 mg/dL (0.55-1.3); GLUCOSE,RANDOM 90 mg/dL (74-106); SODIUM 140 mmol/L (136-145)
--- NOTE | 2018-07-01 15:48 | PN ---
Progress Note (short form) - Note Progress Note: elevated lactic acid will get neurology as well to see patient for seizure disorder Problem List - Problems (1) Respiratory distress Code(s): R06.03 - ACUTE RESPIRATORY DISTRESS (2) Seizure as late effect of cerebrovascular accident (CVA) Code(s): I69.398 - OTHER SEQUELAE OF CEREBRAL INFARCTION; R56.9 - UNSPECIFIED CONVULSIONS (3) Anoxic brain damage Code(s): G93.1 - ANOXIC BRAIN DAMAGE, NOT ELSEWHERE CLASSIFIED
--- NOTE | 2018-07-01 21:03 | CONSULT ---
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 Chronic seizure disorder on Depakote 500 q 12 hrs via PEG. Chronic aspiration of oropharyngeal secretions requiring suctioning. Now admitted with increased secretions, stertorous respirations and low grade temps once here (100.3) Started on Zosin. H/H= suggesting dehydration One witnessed seizure noted in the chart. Archives indicate [address] scans of the brain. The first 12/27/06 (performed for uncertain indications) appears normal. The second (07/05/13) is strikingly abnormal with massive hydrocephalus and multiple areas of cortical and deep encephalomalacia appearing more like strokes than degenerative cortical atrophy. PIERO: No bruits. Cor reg. Contractures both ankles and early contractures both knees. NEURO: Awake. No response to name or sternal pressure No response to visual threat. Full roving EOM's (but not suggestive of ongoing seizures). Rigid tone. Brisk reflexes. B/L Babinskis. Only reflex withdrawal response to pain IMP: Severe, B/L cerebral dysfunction. Etiology uncertain but the radiological picture does NOT suggest Alzheimers disease but rather Obstructive hydrocephalus complicated by strokes ? Seizure disorder. Suggest: Continue antibiotics and hydration. Check Valproic acid level. If low would increase Depakote elixor to 500 mg q 8 hrs. Agree with DNR status. Thank you very much, Azeem Wu MD
[2018-07-01] MEDS: SODIUM CHLORIDE 1,000 ML IV SCH (23:10)
[2018-07-01] MEDS: HEPARIN NA (PORCINE) 5,000 UNITS/ML 1ML VIAL SQ SCH (23:11)
[2018-07-02] MEDS ORDERED: PIPERACILLIN/TAZOBACTAM 3.375 GM VIAL IVPB ONE ×3 (02:29→17:59)
[2018-07-02] MEDS ORDERED: DEXTROSE 5%-WATER - 50 ML IVPB ONE ×3 (02:29→17:59)
[2018-07-02] MEDS: PIPERACILLIN/TAZOB 3.375 GM 3.375 GM in DEXTROSE 5%-WATER - 50 ML IVPB SCH ×3 (02:32→18:03)
[2018-07-02] MEDS: AMINO ACIDS/PROTEIN HYDROLYS 30 ML LIQUID.PKT PO SCH ×2 (09:00→18:03)
--- NOTE | 2018-07-02 09:15 | PN ---
Progress Note, Physician Chief Complaint: LACTIC ACID ELEVATED YESTERDAY NO NEW EVENTS - Current Medication List Current Medications: Active Medications Acetaminophen (Tylenol Oral Solution -) 650 mg GT Q6H PRN PRN Reason: PAIN OR FEVER Last Admin: 06/29/18 17:55 Dose: 650 mg Albuterol/Ipratropium (Duoneb -) 1 amp NEB Q6H PRN PRN Reason: SHORTNESS OF BREATH Last Admin: 07/01/18 15:08 Dose: 1 amp Amino Acids (Prosource No Carb Liquid Pkt) 30 ml PO BID@0800,1730 [facility] Last Admin: 07/02/18 09:00 Dose: 30 ml Baclofen (Lioresal -) 5 mg GT TID [facility] Heparin Sodium (Porcine) (Heparin -) 5,000 unit SQ BID [facility] Last Admin: 07/01/18 23:11 Dose: 5,000 unit Sodium Chloride (Normal Saline -) 1,000 mls @ 75 mls/hr IV ASDIR [facility] Last Admin: 07/01/18 23:10 Dose: 75 mls/hr Piperacillin Sod/Tazobactam (Sod 3.375 gm/ Dextrose) 50 mls @ 100 mls/hr IVPB Q8H-IV JOSSE; Protocol Last Admin: 07/02/18 02:32 Dose: 100 mls/hr Valproate Sodium (Depakene -) 500 mg PO BID [facility] Last Admin: 07/01/18 23:10 Dose: 500 mg - Objective Vital Signs: Vital Signs Temperature 98.2 F 07/02/18 06:00 Pulse Rate 80 07/02/18 06:00 Respiratory Rate 20 07/02/18 06:00 Blood Pressure 137/71 07/02/18 06:00 O2 Sat by Pulse Oximetry (%) 97 07/01/18 21:00 Constitutional: Yes: Mild Distress Cardiovascular: Yes: Tachycardia Respiratory: Yes: Wheezes Gastrointestinal: Yes: Soft, Other (GTUBE) Musculoskeletal: Yes: Joint Stiffness, Muscle Weakness Extremities: Yes: Deformity Labs: CBC, BMP 07/01/18 13:40 07/01/18 13:40 Problem List - Problems (1) Respiratory distress Code(s): R06.03 - ACUTE RESPIRATORY DISTRESS (2) Aspiration into airway Code(s): T17.908A - UNSP FB IN RESP TRACT, PART UNSP CAUSING OTH INJURY, INIT Qualifiers: Encounter type: initial encounter Qualified Code(s): T17.908A - Unspecified foreign body in respiratory tract, part unspecified causing other injury, initial encounter (3) Anoxic brain damage Code(s): G93.1 - ANOXIC BRAIN DAMAGE, NOT ELSEWHERE CLASSIFIED (4) Seizure as late effect of cerebrovascular accident (CVA) Code(s): I69.398 - OTHER SEQUELAE OF CEREBRAL INFARCTION; R56.9 - UNSPECIFIED CONVULSIONS Assessment/Plan PATIENT IMPROVED STATUS TODAY CONTINUE IV ZOSYN NEBS ORAL CLEANSING WITH SUCTION DVT PROPHYLAXIS START JEVITY 1.5 20CC HOUR INCREASE 10CC Q 6HRS FOR GOAL 55CC/HR ADD PROSTAT
[2018-07-02 10:26] LABS: HEMATOCRIT 40.6 % (32.4-45.2); MCH 33.8 pg (25.7-33.7); MCHC 34.5 g/dl (32.0-36.0); MEAN CELL VOLUME 97.8 fl (80-96); MEAN PLT VOLUME 7.9 fl (7.5-11.1); PLATELET COUNT 151 K/MM3 (134-434); RBC 4.15 M/mm3 (3.60-5.2); WHITE BLOOD COUNT 4.5 K/mm3 (4.0-10.0)
[2018-07-02 10:41] LABS: ANION GAP 8 MMOL/L (8-16); BLOOD UREA NITROGEN 9 mg/dL (7-18); CHLORIDE 105 mmol/L (98-107); CO2 24 mmol/L (21-32); CREATININE 0.4 mg/dL (0.55-1.3); GLUCOSE,RANDOM 83 mg/dL (74-106); POTASSIUM 3.8 mmol/L (3.5-5.1); SODIUM 137 mmol/L (136-145)
[2018-07-02] MEDS: HEPARIN NA (PORCINE) 5,000 UNITS/ML 1ML VIAL SQ SCH ×2 (10:46→21:38)
[2018-07-02] MEDS: SODIUM CHLORIDE 1,000 ML IV SCH (11:04)
[2018-07-02] MEDS: ALBUTEROL SO4 2.5/IPRATROPIUM 0.5 INH SOL 3 ML VIAL.NEB. NEB PRN ×2 (13:50→19:36)
[2018-07-02] MEDS ORDERED: BACLOFEN 10 MG TABLET (FP) PO SCH (14:00)
[2018-07-02] MEDS ORDERED: PT OWN MED DRAWER 7, Y5N ONE (14:10)
[2018-07-02] MEDS: VALPROATE SODIUM 250 MG/5 ML UNIT DOSE CUP PO SCH ×2 (14:12→21:38)
[2018-07-02] MEDS: BACLOFEN 10 MG TABLET (FP) GT SCH ×2 (14:12→21:39)
[2018-07-03] MEDS ORDERED: PIPERACILLIN/TAZOBACTAM 3.375 GM VIAL IVPB ONE ×2 (01:08→10:06)
[2018-07-03] MEDS ORDERED: DEXTROSE 5%-WATER - 50 ML IVPB ONE ×2 (01:09→10:06)
[2018-07-03] MEDS: PIPERACILLIN/TAZOB 3.375 GM 3.375 GM in DEXTROSE 5%-WATER - 50 ML IVPB SCH ×2 (01:15→10:08)
[2018-07-03] MEDS: VALPROATE SODIUM 250 MG/5 ML UNIT DOSE CUP PO SCH (06:18)
[2018-07-03] MEDS: BACLOFEN 10 MG TABLET (FP) GT SCH (06:18)
[2018-07-03] MEDS: ALBUTEROL SO4 2.5/IPRATROPIUM 0.5 INH SOL 3 ML VIAL.NEB. NEB PRN (07:39)
[2018-07-03 07:46] LABS: HEMATOCRIT 37.9 % (32.4-45.2); HEMOGLOBIN 13.2 GM/dL (10.7-15.3); MCH 34.1 pg (25.7-33.7); MCHC 34.9 g/dl (32.0-36.0); MEAN CELL VOLUME 97.7 fl (80-96); MEAN PLT VOLUME 8.4 fl (7.5-11.1); PLATELET COUNT 142 K/MM3 (134-434); RBC 3.88 M/mm3 (3.60-5.2); WHITE BLOOD COUNT 4.6 K/mm3 (4.0-10.0)
[2018-07-03 08:21] LABS: ANION GAP 8 MMOL/L (8-16); BLOOD UREA NITROGEN 6 mg/dL (7-18); CALCIUM 7.7 mg/dL (8.5-10.1); CHLORIDE 106 mmol/L (98-107); CO2 27 mmol/L (21-32); CREATININE 0.4 mg/dL (0.55-1.3); GLUCOSE,RANDOM 95 mg/dL (74-106); MAGNESIUM 2.2 mg/dL (1.8-2.4); POTASSIUM 3.5 mmol/L (3.5-5.1); SODIUM 141 mmol/L (136-145)
[2018-07-03] MEDS: AMINO ACIDS/PROTEIN HYDROLYS 30 ML LIQUID.PKT PO SCH (08:22)
--- NOTE | 2018-07-03 08:25 | DS ---
Physical Examination Vital Signs: Vital Signs Temperature 99.6 F 07/02/18 16:50 Pulse Rate 71 07/02/18 16:50 Respiratory Rate 20 07/02/18 16:50 Blood Pressure 160/77 07/02/18 16:50 O2 Sat by Pulse Oximetry (%) 97 07/02/18 21:00 Constitutional: Yes: No Distress Cardiovascular: Yes: Regular Rate and Rhythm Respiratory: Yes: CTA Bilaterally Gastrointestinal: Yes: Soft Renal/: Yes: Incontinence Musculoskeletal: Yes: Muscle Weakness Extremities: Yes: Deformity, Other Edema: No Integumentary: Yes: Other Wound/Incision: Yes: Other Neurological: Yes: Pre-Existing Deficit, Weakness Labs: CBC, BMP 07/03/18 06:20 07/03/18 06:20 Discharge Summary Reason For Visit: ASPIRATION INTO AIRWAY PNEUMONITIS Current Active Problems Aspiration into airway (Acute) Lactic acid acidosis (Acute) Pneumonitis (Acute) Respiratory distress (Acute) Respiratory distress (Acute) Procedures: Principal: ADMITTED FOR SEPSIS, TREATED WITH IV ABX, NEBS, ID AND NEURO WORKUP Condition: Guarded - Instructions Diet, Activity, Other Instructions: JEVITY 1.5 DEPAKOTE LEVELS IN 2-3 DAYS THEN Q MONTHLY Referrals: Bj Hogue MD [Primary Care Provider] - Disposition: [facility] - Home Medications Comprehensive Discharge Medication List: Ambulatory Orders Acetaminophen Oral Solution [Tylenol 160mg/5mL Oral Solution -] 20 ml GT Q6H PRN 07/22/15 Albuterol 2.5/Ipratropium 0.5 [Duoneb -] 1 neb IH QID PRN 06/28/18 Calcium Alginate [Du] 1 each TP DAILY 06/28/18 Polyethylene Glycol 3350 [Glycolax] 117 gm GT DAILY 06/28/18 Albuterol 2.5/Ipratropium 0.5 [Duoneb -] 1 amp NEB Q6H PRN amp 07/03/18 Amino Acids/Protein Hydrolys [Prosource No Carb Liquid Pkt] 30 ml PO BID@0800, 1730 packet 07/03/18 Baclofen [Lioresal -] 5 mg GT TID tablet 07/03/18 Valproate Sodium [Depakene -] 500 mg PO TID cup 07/03/18
[2018-07-03 09:03] VITALS: BP 154/68; PULSE 98; TEMP 98.5
[2018-07-03] MEDS: HEPARIN NA (PORCINE) 5,000 UNITS/ML 1ML VIAL SQ SCH (10:08)
--- NOTE | 2018-07-05 07:33 | PN ---
Progress Note (short form) - Note Progress Note: ADDENDUM: pATIENT WITH DIAGNOSIS OF FUNCTIONAL QUADRIPLEGIA Problem List - Problems (1) Respiratory distress Code(s): R06.03 - ACUTE RESPIRATORY DISTRESS (2) Aspiration into airway Code(s): T17.908A - UNSP FB IN RESP TRACT, PART UNSP CAUSING OTH INJURY, INIT Qualifiers: Encounter type: initial encounter Qualified Code(s): T17.908A - Unspecified foreign body in respiratory tract, part unspecified causing other injury, initial encounter (3) Anoxic brain damage Code(s): G93.1 - ANOXIC BRAIN DAMAGE, NOT ELSEWHERE CLASSIFIED (4) Seizure as late effect of cerebrovascular accident (CVA) Code(s): I69.398 - OTHER SEQUELAE OF CEREBRAL INFARCTION; R56.9 - UNSPECIFIED CONVULSIONS
== END 2018-07-03 12:10 | DRG 871 ==
LOC: JER 20:51 → JERBED 23:01 → J8W 06-29 00:53
PROVIDERS: ADMIT Family Medicine; ATTEND Family Medicine
DX: A41.9 Sepsis, unspecified organism (principal); J69.0 Pneumonitis due to inhalation of food and vomit; R53.2 Functional quadriplegia; E87.2 Acidosis; R71.0 Precipitous drop in hematocrit; G93.1 Anoxic brain damage, not elsewhere classified; T17.908A Unspecified foreign body in respiratory tract, part unspecified causing other injury, initial encounter; F03.90 Unspecified dementia, unspecified severity, without behavioral disturbance, psychotic disturbance, mood disturbance, and anxiety; R06.03 Acute respiratory distress
CPT/HCPCS: 36415; 71045-TC-FY; 74018-TC-FY; 80048; 80053; 80164; 82550; 82803; 83605; 83690; 83735; 83880; 84100; 84484; 85025; 85027; 87040; 93005; 93010; 94640; 99285-25; J0475; J1644; J7030

== ENCOUNTER 2018-12-20 16:02 | Inpatient (IN) | payer OTHER ==
[2018-12-20] MEDS ORDERED: ALBUTEROL SO4 2.5/IPRATROPIUM 0.5 INH SOL 3 ML VIAL.NEB. NEB ONE (16:25)
--- NOTE | 2018-12-20 17:37 | PDOC ---
History of Present Illness - General Chief Complaint: G Tube Problem Stated Complaint: GTUBE REPLACEMENT History Source: Family Exam Limitations: No Limitations - History of Present Illness Initial Comments: 12/20/18 17:32 58 yo F wit h/o dementia cva anoxic brain injury, peg tube, seizure disorder recurrent aspiratoins here from [facility] for G tube malfunction. pt daughter at bedside states she has had tube since at least 2016 has been changed several times. last here at [facility]. per nursing at [facility], she just started shift, states there was concern on shift prior that the tube wasn't working and was coming out a bit. unceratin if it was dislodged or dysfunctional. no n/v no f/ c no other known concerns. Past History - Past Medical History Allergies/Adverse Reactions: Allergies Allergy/AdvReac Type Severity Reaction Status Date / Time No Known Drug Allergies Allergy Verified 12/20/18 16:43 latex AdvReac Unknown Verified 12/20/18 16:43 Home Medications: Ambulatory Orders Acetaminophen Oral Solution [Tylenol 160mg/5mL Oral Solution -] 20 ml GT Q6H PRN 07/22/15 Albuterol 2.5/Ipratropium 0.5 [Duoneb -] 1 neb IH QID PRN 06/28/18 Calcium Alginate [Du] 1 each TP DAILY 06/28/18 Polyethylene Glycol 3350 [Glycolax] 117 gm GT DAILY 06/28/18 Albuterol 2.5/Ipratropium 0.5 [Duoneb -] 1 amp NEB Q6H PRN amp 07/03/18 Amino Acids/Protein Hydrolys [Prosource No Carb Liquid Pkt] 30 ml PO BID@0800, 1730 packet 07/03/18 Baclofen [Lioresal -] 5 mg GT TID tablet 07/03/18 Valproate Sodium [Depakene -] 500 mg PO TID cup 07/03/18 COPD: No Dementia: Yes GI Disorders: Yes (PEG TUBE) HTN: Yes Seizures: Yes (EPILEPSY) - Surgical History GI Surgery: Yes (GT - TUBE PLACEMENT) - Immunization History Immunization Up to Date: Yes - Suicide/Smoking/Psychosocial Hx Smoking History: Never smoked Have you smoked in the past 12 months: No Information on smoking cessation initiated: No Hx Alcohol Use: No Drug/Substance Use Hx: No Substance Use Type: None Hx Substance Use Treatment: No Review of Systems - Review of Systems Able to Perform ROS?: No *Physical Exam - Vital Signs Last Vital Signs Temp Pulse Resp BP Pulse Ox 97.8 F 87 20 151/85 98 12/20/18 16:43 12/20/18 16:43 12/20/18 16:43 12/20/18 16:43 12/20/18 16:43 - Physical Exam Comments: 12/20/18 17:34 pt awake eyes open, nonverbal, lungs clear bilat. heart rrr no mrg abd soft, peg tube in place, mild erythema surrounding tube site 1 ena. gi / food contents in the tube. pt contracted. nuero ext contracted. does not follow commands. nonverbal.baseline. Heart Score/ECG Review #1 General ECG Interpretation: Sinus Rhythm, Normal Rate (77), Normal Intervals, No acute ischemic changes ED Treatment Course - LABORATORY CBC & Chemistry Diagram: 12/20/18 21:48 12/20/18 21:48 Medical Decision Making - Medical Decision Making 12/20/18 17:36 58 yo F with h/o peg, aspirations, seizure disorder, anoxic brain injury/ bed bound, here with dysfunctional peg tube. on my exam the tube is unabel to be removed, in place 20 bengali. mild surroudin erythema no warmth. will attempt flushing tube. and d/w pt GI. see's [facility] in the past. pgd, service being covered by DR Evans 12/20/18 18:49 pt peg tube cleared with flushing. gastrograffin in intestines. confirmed. d/w covering GI. there is surrounding erythema will treat for cellulitis. 12/20/18 19:59 d/w dr wheeler, would like pt admitted [facility]/ [facility]. will treat for cellulitis. GI consult in am. 12/20/18 22:15 d/w family regarding goals of care, would like to continue with tube feeds. should be rediscussed on admission. will admit . d/w admitting team. given clindamycin. *DC/Admit/Observation/Transfer Diagnosis at time of Disposition: Cellulitis, PEG tube malfunction - Discharge Dispostion Decision to Admit order: Yes - Referrals - Patient Instructions - Post Discharge Activity
[2018-12-20] MEDS ORDERED: CLINDAMYCIN 900 MG PREMIX IVPB 900 MG/50 ML BAG IVPB ONE ×2 (18:48→22:07)
[2018-12-20 21:54] LABS: BASO % 0.9 % (0-2.0); EOS % 0.4 % (0-4.5); HEMATOCRIT 42.4 % (32.4-45.2); HEMOGLOBIN 14.5 GM/dL (10.7-15.3); LYMPH % 37.4 % (8-40); MCH 33.2 pg (25.7-33.7); MCHC 34.2 g/dl (32.0-36.0); MEAN CELL VOLUME 97.1 fl (80-96); MEAN PLT VOLUME 7.6 fl (7.5-11.1); MONO % 12.7 % (3.8-10.2); NEUT % 48.6 % (42.8-82.8); PLATELET COUNT 134 K/MM3 (134-434); RBC 4.37 M/mm3 (3.60-5.2); WHITE BLOOD COUNT 7.1 K/mm3 (4.0-10.0)
--- NOTE | 2018-12-20 22:11 | HP ---
Admitting History and Physical - Primary Care Physician PCP: Rui Quezada - Admission Chief Complaint: GT leakage with cellulitus at insertion site History Source: Family Member, Medical Record Limitations to Obtaining History: Dementia, Other (aphasic) - Past Medical History EELER: Yes: CVA, Dementia, Seizure, Other (dysphagia, aphasia. Anoxic brain injury ) Gastrointestinal: Yes: Other (PEG tube) - Smoking History Smoking history: Never smoked Have you smoked in the past 12 months: No - Alcohol/Substance Use Hx Alcohol Use: No History of Substance Use: reports: None - Social History Usual Living Arrangement: Yes: Residential ADL: Support Services ([facility]) History of Recent Travel: No Home Medications - Allergies Allergies/Adverse Reactions: Allergies Allergy/AdvReac Type Severity Reaction Status Date / Time No Known Drug Allergies Allergy Verified 12/20/18 16:43 latex AdvReac Unknown Verified 12/20/18 16:43 - Home Medications Home Medications: Ambulatory Orders Acetaminophen Oral Solution [Tylenol 160mg/5mL Oral Solution -] 20 ml GT Q6H PRN 07/22/15 Albuterol 2.5/Ipratropium 0.5 [Duoneb -] 1 neb IH QID PRN 06/28/18 Calcium Alginate [Du] 1 each TP DAILY 06/28/18 Polyethylene Glycol 3350 [Glycolax] 117 gm GT DAILY 06/28/18 Albuterol 2.5/Ipratropium 0.5 [Duoneb -] 1 amp NEB Q6H PRN amp 07/03/18 Amino Acids/Protein Hydrolys [Prosource No Carb Liquid Pkt] 30 ml PO BID@0800, 1730 packet 07/03/18 Baclofen [Lioresal -] 5 mg GT TID tablet 07/03/18 Valproate Sodium [Depakene -] 500 mg PO TID cup 07/03/18 Family Disease History - Family Disease History Family History: Unable to Obtain Review of Systems Unable to obtain ROS, reason: unable to obtain Physical Examination Vital Signs: Vital Signs Temperature 97.8 F 12/20/18 16:43 Pulse Rate 87 12/20/18 16:43 Respiratory Rate 20 12/20/18 16:43 Blood Pressure 151/85 12/20/18 16:43 O2 Sat by Pulse Oximetry (%) 98 12/20/18 16:43 Constitutional: Yes: Mild Distress (grimacing) Eyes: Yes: WNL, Conjunctiva Clear, EOM Intact HENT: Yes: Other (poor dentation, increased oral secretions) Neck: Yes: WNL, Supple, Trachea Midline Cardiovascular: Yes: WNL, Regular Rate and Rhythm Respiratory: Yes: WNL, Regular, Diminished (at bases,) Gastrointestinal: Yes: Normal Bowel Sounds, Soft, Other (PEG to LUQ with purulent draiange and erythema around site) ...Rectal Exam: Yes: Deferred Renal/: Yes: Incontinence, Other (diaper in place) Breast(s): Yes: WNL Musculoskeletal: Yes: Other (contarctures to upper and lower extremeties) Extremities: Yes: Other (B/L contractures) Edema: Yes Edema: LLE: 2+, RLE: 2+ Peripheral Pulses WNL: Yes Integumentary: Yes: Venous Stasis Changes (to LE) Neurological: Yes: Other (reponds to painful stimuli) ...Motor Strength: LUE, LLE (contractured), RUE, RLE Labs: CBC, BMP 12/20/18 21:48 Imaging - Results X-ray: Image Reviewed (AXR: contrast seen in stomach) Problem List - Problems (1) Dementia Assessment/Plan: severe dementia resident of [facility] Code(s): F03.90 - UNSPECIFIED DEMENTIA WITHOUT BEHAVIORAL DISTURBANCE (2) CVA (cerebral vascular accident) Assessment/Plan: CVA with anoxic brain injury and seizures Code(s): I63.9 - CEREBRAL INFARCTION, UNSPECIFIED (3) Severe flexion contractures of all joints Assessment/Plan: PT for passive ROM turning and reposition q 2H Code(s): M24.50 - CONTRACTURE, UNSPECIFIED JOINT (4) Pulmonary aspiration, history of Assessment/Plan: NPO maintain in upright position when TF restarts Code(s): Z87.09 - PERSONAL HISTORY OF OTHER DISEASES OF THE RESPIRATORY SYSTEM (5) Prophylactic measure Assessment/Plan: FEN IVF while NPO monitor electrolytes NPO, no TF at this time DVT heparin tid Dispo admit to med surg full code discharge planning back to [facility] when medically stable Code(s): Z29.9 - ENCOUNTER FOR PROPHYLACTIC MEASURES, UNSPECIFIED (6) detention resident Assessment/Plan: will return to [facility] Code(s): Z59.3 - PROBLEMS RELATED TO LIVING IN RESIDENTIAL INSTITUTION (7) Cellulitis Assessment/Plan: c/w clindamycin PEG care Code(s): L03.90 - CELLULITIS, UNSPECIFIED (8) PEG tube malfunction Assessment/Plan: GI consultation in am maintain NPO except for medications Code(s): K94.23 - GASTROSTOMY MALFUNCTION (9) Anoxic brain damage Code(s): G93.1 - ANOXIC BRAIN DAMAGE, NOT ELSEWHERE CLASSIFIED (10) Seizure as late effect of cerebrovascular accident (CVA) Assessment/Plan: c/w depakene Code(s): I69.398 - OTHER SEQUELAE OF CEREBRAL INFARCTION; R56.9 - UNSPECIFIED CONVULSIONS Visit type - Emergency Visit Emergency Visit: Yes ED Registration Date: 12/20/18 Care time: The patient presented to the Emergency Department on the above date and was hospitalized for further evaluation of their emergent condition. - New Patient This patient is new to me today: Yes Date on this admission: 12/20/18 - Critical Care Critical Care patient: No
[2018-12-20 22:23] LABS: ALBUMIN 1.9 g/dl (3.4-5.0); BILIRUBIN,TOTAL 0.6 mg/dL (0.2-1); BLOOD UREA NITROGEN 17.7 mg/dL (7-18); CALCIUM 8.1 mg/dL (8.5-10.1); CREATININE 0.5 mg/dL (0.55-1.3); POTASSIUM 4.5 mmol/L (3.5-5.1); TOT PROT 8.2 g/dl (6.4-8.2)
[2018-12-20] MEDS ORDERED: ALBUTEROL SO4 2.5/IPRATROPIUM 0.5 INH SOL 3 ML VIAL.NEB. NEB PRN (23:15)
[2018-12-20] MEDS ORDERED: ACETAMINOPHEN GT PRN (23:15)
[2018-12-20] MEDS ORDERED: ACETAMINOPHEN 160 MG/5 ML *Children Solution GT PRN (23:39)
[2018-12-21] MEDS ORDERED: ALBUTEROL SO4 2.5/IPRATROPIUM 0.5 INH SOL 3 ML VIAL.NEB. NEB ONE (00:11)
[2018-12-21] MEDS: SODIUM CHLORIDE 1,000 ML IV SCH ×2 (00:50→12:23)
[2018-12-21] MEDS: CLINDAMYCIN 600MG PREMIX IVPB 600 MG/50 ML BAG IVPB SCH ×2 (02:13→09:39)
[2018-12-21] MEDS: HEPARIN NA (PORCINE) 5,000 UNITS/ML 1ML VIAL SQ SCH ×3 (02:13→18:00)
[2018-12-21 07:52] LABS: BASO % 0.2 % (0-2.0); EOS % 0.2 % (0-4.5); HEMATOCRIT 39.3 % (32.4-45.2); HEMOGLOBIN 13.2 GM/dL (10.7-15.3); LYMPH % 51.1 % (8-40); MCH 32.8 pg (25.7-33.7); MCHC 33.6 g/dl (32.0-36.0); MEAN CELL VOLUME 97.6 fl (80-96); MEAN PLT VOLUME 7.5 fl (7.5-11.1); MONO % 13.5 % (3.8-10.2); PLATELET COUNT 112 K/MM3 (134-434); RBC 4.02 M/mm3 (3.60-5.2); RDW 15.3 % (11.6-15.6); WHITE BLOOD COUNT 5.9 K/mm3 (4.0-10.0)
[2018-12-21] MEDS: VALPROATE SODIUM 250 MG/5 ML UNIT DOSE CUP PO SCH ×4 (07:58→17:41)
[2018-12-21] MEDS: BACLOFEN 10 MG TABLET (FP) GT SCH ×5 (07:59→22:39)
[2018-12-21 08:05] LABS: ALBUMIN 1.7 g/dl (3.4-5.0); BILIRUBIN,TOTAL 0.6 mg/dL (0.2-1); CREATININE 0.5 mg/dL (0.55-1.3); PHOSPHOROUS 4.1 mg/dL (2.5-4.9); POTASSIUM 4.2 mmol/L (3.5-5.1); TOT PROT 7.2 g/dl (6.4-8.2)
[2018-12-21 08:39] LABS: INR 1.19 (0.83-1.09); PROTHROMBIN TIME (PATIENT) 14.1 SEC (9.7-13.0)
--- NOTE | 2018-12-21 11:13 | PN ---
Progress Note (short form) - Note Progress Note: Old gastrostomy tube removed and replaced with 20 Fr replacement tube. Air and water passed through tube successfully. Can begin tube feedings. There does not appear to be significant cellulitis at the G tube site now.
[2018-12-21] MEDS ORDERED: ALBUTEROL SO4 2.5/IPRATROPIUM 0.5 INH SOL 3 ML VIAL.NEB. NEB SCH (12:46)
--- NOTE | 2018-12-21 12:48 | PN ---
Progress Note, Physician - Current Medication List Current Medications: Active Medications Acetaminophen (Tylenol *Children Solution* -) 640 mg GT Q6H PRN PRN Reason: PAIN Albuterol/Ipratropium (Duoneb -) 1 amp NEB Q6H [facility]OS[facility] Baclofen (Lioresal -) 5 mg GT TID JOSSE Last Admin: 12/21/18 09:40 Dose: 5 mg Heparin Sodium (Porcine) (Heparin -) 5,000 unit SQ Q8H-IV JOSES Last Admin: 12/21/18 09:41 Dose: 5,000 unit Sodium Chloride (Normal Saline -) 1,000 mls @ 75 mls/hr IV ASDIR JOSSE Last Admin: 12/21/18 12:23 Dose: 75 mls/hr Clindamycin Phosphate (Cleocin 600 Mg Premix Ivpb -) 600 mg in 50 mls @ 100 mls /hr IVPB Q8H-IV JOSSE; Protocol Last Admin: 12/21/18 09:39 Dose: 100 mls/hr Valproate Sodium (Depakene -) 500 mg PO TID JOSSE Last Admin: 12/21/18 09:39 Dose: 500 mg - Objective Vital Signs: Vital Signs Temperature 98.2 F 12/21/18 11:25 Pulse Rate 72 12/21/18 09:37 Respiratory Rate 22 H 12/21/18 09:37 Blood Pressure 114/52 L 12/21/18 09:37 O2 Sat by Pulse Oximetry (%) 95 12/21/18 02:46 Cardiovascular: Yes: S1, S2 Respiratory: Yes: Rhonchi Gastrointestinal: Yes: Normal Bowel Sounds, Soft, Other (g tube site minimal erythema) Extremities: Yes: Other (contractures) Integumentary: Yes: Pressure Ulcer (left heel) Labs: CBC, BMP 12/21/18 06:25 12/21/18 06:25 INR, PTT INR 1.19 (0.83-1.09) H 12/21/18 06:25 Problem List - Problems (1) PEG tube malfunction Assessment/Plan: Gi consult noted--tube changed feedings jevity 1.5 Code(s): K94.23 - GASTROSTOMY MALFUNCTION (2) Severe flexion contractures of all joints Code(s): M24.50 - CONTRACTURE, UNSPECIFIED JOINT (3) Anoxic brain damage Code(s): G93.1 - ANOXIC BRAIN DAMAGE, NOT ELSEWHERE CLASSIFIED (4) Seizure as late effect of cerebrovascular accident (CVA) Assessment/Plan: continue with meds Code(s): I69.398 - OTHER SEQUELAE OF CEREBRAL INFARCTION; R56.9 - UNSPECIFIED CONVULSIONS (5) Pulmonary aspiration, history of Assessment/Plan: follow up cxr nebs Code(s): Z87.09 - PERSONAL HISTORY OF OTHER DISEASES OF THE RESPIRATORY SYSTEM
--- NOTE | 2018-12-21 13:50 | PN ---
Progress Note (short form) - Note Progress Note: ID consult dictated imp/reccd 58 yo female with dementia, nonverbal sent from [place] with gt malfunction asked to see for possible gt site cellulitis GT changed by GI today no signs of any erythema at the site can d/c antibiotics please call back if needed Problem List - Problems (1) PEG tube malfunction Code(s): K94.23 - GASTROSTOMY MALFUNCTION (2) Cellulitis Code(s): L03.90 - CELLULITIS, UNSPECIFIED
--- NOTE | 2018-12-21 15:08 | CONS ---
INFECTIOUS DISEASE CONSULTATION DATE OF CONSULTATION: DATE OF DICTATION: 12/21/2018 REQUESTED BY: Caren Adler MD HISTORY OF PRESENT ILLNESS: This is a 58-year-old woman admitted from the senior living with a history of dementia. She has been a senior living resident for over 6 years. She is bed-bound and nonambulatory with a PEG tube. She was sent to the emergency room for PEG tube malfunction. She was noted to have some erythema at the site and I am asked to see her for this. She is currently resting comfortably. GI has been by to change her G-tube, which was done successfully, as well. There is no history of any fevers. She is nonverbal and cannot contribute to this history. PAST MEDICAL HISTORY: Notable for dementia, seizure disorder, dysphagia, aphasia. SURGICAL HISTORY: Notable for G-tube and prior ankle fracture. ALLERGIES: She has no known drug allergies. MEDICATIONS: Include acetaminophen, valproic acid, DuoNeb, Tylenol, and Baclofen. SOCIAL HISTORY: She has now resided for many years at the senior living. There is no history of any substance use. FAMILY HISTORY: Notable for dementia in 4 of her 8 siblings. REVIEW OF SYSTEMS: Is not obtainable. PHYSICAL EXAMINATION: General: She is resting comfortably. Vital Signs: She has had no fever since admission. HEENT: She is normocephalic. Musculoskeletal: She has increased tone throughout. Heart: Regular rate and rhythm. Lungs: Clear to auscultation. Abdomen: Soft. She has no erythema at the G-tube site. Extremities: Without edema. LABORATORIES: Her white count is 5.9, hemoglobin 13.2, platelets are 112. Her BUN and creatinine are 18 and 0.5. AST of 38. Blood cultures were sent; it is unclear why. IMAGING: A chest x-ray was done that has not been read yet, but I do not see any gross infiltrate. She had an abdominal x-ray done that was notable for a functional G-tube with tip in the stomach. In summary, this is a 58-year-old woman admitted for G-tube malfunction. There is no evidence of any erythema at the site. I suggest we stop all her antibiotics. Please call back if needed. Management of the remaining problems per the primary service. SUDEEP SHANNON M.D. [id number]
[2018-12-21] MEDS: ALBUTEROL SO4 2.5/IPRATROPIUM 0.5 INH SOL 3 ML VIAL.NEB. NEB SCH ×2 (15:47→20:30)
--- NOTE | 2018-12-21 22:42 | HOSP ---
Subjective - Review of Symptoms Subjective: Brief Note I was previously called by nursing to evaluate this patient for a dislodged G- Tube that had been previously placed in the morning. Pt's nurse had placed a tovar catheter into stoma the prior entry point with no visible bleeding, discharge from the wound site by the time of my arrival in pt' s room On exam Pt was noted to be in no visible distress, afebrile with stable hemodynamics, pt had clear breath sounds with no wheezing, stridor, rales or rhonchi, cardiac exam revealed NRRR, S1 &S2 of nrml intensity and no rubs, murmurs or gallops, Abd exam revealed soft abd with no rigidity guarding or distention+ normoactive bowel sounds. On examination of stoma site there was no visible bleeding, lacertation, or purulent discharge. Pt was not observed to have any visible GI bleeding, though rectal exam was deferred. I recommended for tube feeds to be held and PO medications to be held as well. Nurse confirmed pt's last dose of baclofen & depakote had been given at least 30 mins before dislodgement of PEG tube with no reported complication or resistance. I have ordered 500mg IV depakote to be ordered for next due dose at 2AM until alimentary access can be regained. Additionally I have advised for heparin to be held and provided DVT ppx with SCDs given reported rectal spotted bleeding, possible need for replacement of G tube by GI as well as downtrending Plt count per AM labs. I have placed an order for Abd KUB Xray to further assess for any possible structural issues related to G tube dislodgement. Pt also to have repeat CBC & coags in the morning. Pt's fluids adjusted from NS to D5 0.45 NS at 75ml to provide glucose as pt is NPO and lacks alimentary access. Physical Examination Vital Signs: Vital Signs Temperature 98.9 F 12/21/18 18:00 Pulse Rate 85 12/21/18 18:00 Respiratory Rate 20 12/21/18 18:00 Blood Pressure 125/53 L 12/21/18 18:00 O2 Sat by Pulse Oximetry (%) 95 12/21/18 02:46 Labs: CBC, BMP 12/21/18 06:25 12/21/18 06:25
[2018-12-21] MEDS: DEXTROSE 5%-0.45% SALINE 1,000 ML IV SCH (23:50)
[2018-12-22] MEDS ORDERED: VALPROATE SODIUM 500 MG/5 ML VIAL IVPB ONE ×2 (02:00→12:45)
[2018-12-22] MEDS: BACLOFEN 10 MG TABLET (FP) GT SCH ×3 (06:40→22:42)
[2018-12-22 08:22] LABS: BASO % 0.3 % (0-2.0); EOS % 0.5 % (0-4.5); HEMATOCRIT 37.4 % (32.4-45.2); HEMOGLOBIN 12.8 GM/dL (10.7-15.3); LYMPH % 46.4 % (8-40); MCH 33.4 pg (25.7-33.7); MCHC 34.3 g/dl (32.0-36.0); MEAN CELL VOLUME 97.6 fl (80-96); MEAN PLT VOLUME 7.4 fl (7.5-11.1); MONO % 11.2 % (3.8-10.2); NEUT % 41.6 % (42.8-82.8); PLATELET COUNT 116 K/MM3 (134-434); RBC 3.83 M/mm3 (3.60-5.2); RDW 15.2 % (11.6-15.6); WHITE BLOOD COUNT 5.3 K/mm3 (4.0-10.0)
[2018-12-22] MEDS: ALBUTEROL SO4 2.5/IPRATROPIUM 0.5 INH SOL 3 ML VIAL.NEB. NEB SCH ×4 (08:50→21:20)
[2018-12-22 09:07] LABS: INR 1.13 (0.83-1.09); PROTHROMBIN TIME (PATIENT) 13.4 SEC (9.7-13.0)
[2018-12-22 09:10] LABS: ACTIVATED PTT 36.1 SECONDS (25.2-36.5)
--- NOTE | 2018-12-22 09:13 | PN ---
Progress Note, Physician - Current Medication List Current Medications: Active Medications Acetaminophen (Tylenol *Children Solution* -) 640 mg GT Q6H PRN PRN Reason: PAIN Albuterol/Ipratropium (Duoneb -) 1 amp NEB RQID [facility] Last Admin: 12/22/18 08:50 Dose: 1 amp Baclofen (Lioresal -) 5 mg GT TID [facility] Last Admin: 12/22/18 06:40 Dose: Not Given Dextrose/Sodium Chloride (D5-1/2ns -) 1,000 mls @ 75 mls/hr IV ASDIR [facility] Last Admin: 12/21/18 23:50 Dose: 75 mls/hr Valproate Sodium (Depakene -) 500 mg PO TID [facility] Last Admin: 12/21/18 17:41 Dose: 500 mg - Objective Vital Signs: Vital Signs Temperature 97.5 F L 12/22/18 06:00 Pulse Rate 86 12/22/18 06:00 Respiratory Rate 20 12/22/18 06:00 Blood Pressure 122/65 12/22/18 06:00 O2 Sat by Pulse Oximetry (%) 96 12/21/18 22:00 Cardiovascular: Yes: Regular Rate and Rhythm Respiratory: Yes: On Nasal O2, Rhonchi Gastrointestinal: Yes: Normal Bowel Sounds, Soft Labs: CBC, BMP 12/22/18 07:05 12/21/18 06:25 INR, PTT INR 1.13 (0.83-1.09) H 12/22/18 07:05 Problem List - Problems (1) PEG tube malfunction Assessment/Plan: Gi consult noted--tube changed feedings jevity 1.5 Code(s): K94.23 - GASTROSTOMY MALFUNCTION (2) Severe flexion contractures of all joints Code(s): M24.50 - CONTRACTURE, UNSPECIFIED JOINT (3) Anoxic brain damage Code(s): G93.1 - ANOXIC BRAIN DAMAGE, NOT ELSEWHERE CLASSIFIED (4) Seizure as late effect of cerebrovascular accident (CVA) Assessment/Plan: continue with meds Code(s): I69.398 - OTHER SEQUELAE OF CEREBRAL INFARCTION; R56.9 - UNSPECIFIED CONVULSIONS (5) Pulmonary aspiration, history of Assessment/Plan: follow up cxr nebs pulm consult Code(s): Z87.09 - PERSONAL HISTORY OF OTHER DISEASES OF THE RESPIRATORY SYSTEM
--- NOTE | 2018-12-22 09:56 | PN ---
Progress Note (short form) - Note Progress Note: PULMONARY CONSULTATION DICTATED 12/22/18 IMP H/O ASPIRATION ANOXIC BRAIN INJURY S/P CVA BRONCHOSPASM ? UPPER AIRWAY DEMENTIA SEIZURE DISORDER G-TUBE MALFUNCTION PLAN O2 NEEDED INHALED BRONCHODILATORS PRN G- TUBE PER GI ASPIRATION PRECAUTIONS ENT EVALUATION DR CARLTON Problem List - Problems (1) CVA (cerebral vascular accident) Code(s): I63.9 - CEREBRAL INFARCTION, UNSPECIFIED (2) Dementia Code(s): F03.90 - UNSPECIFIED DEMENTIA WITHOUT BEHAVIORAL DISTURBANCE (3) PEG tube malfunction Code(s): K94.23 - GASTROSTOMY MALFUNCTION (4) Pulmonary aspiration, history of Code(s): Z87.09 - PERSONAL HISTORY OF OTHER DISEASES OF THE RESPIRATORY SYSTEM (5) Anoxic brain damage Code(s): G93.1 - ANOXIC BRAIN DAMAGE, NOT ELSEWHERE CLASSIFIED (6) Seizure as late effect of cerebrovascular accident (CVA) Code(s): I69.398 - OTHER SEQUELAE OF CEREBRAL INFARCTION; R56.9 - UNSPECIFIED CONVULSIONS (7) Bronchospasm Code(s): J98.01 - ACUTE BRONCHOSPASM (8) Severe flexion contractures of all joints Code(s): M24.50 - CONTRACTURE, UNSPECIFIED JOINT
--- NOTE | 2018-12-22 10:32 | PN ---
Progress Note (short form) - Note Progress Note: G tube replaced again. Tube feedings to be resumed. Heparin to be held as there was some bleeding at tube site.
--- NOTE | 2018-12-22 10:41 | EKG ---
Test Reason : Blood Pressure : / mmHG Vent. Rate : 077 BPM Atrial Rate : 077 BPM P-R Int : 086 ms QRS Dur : 064 ms QT Int : 388 ms P-R-T Axes : 068 025 038 degrees QTc Int : 439 ms POOR DATA QUALITY, INTERPRETATION MAY BE ADVERSELY AFFECTED SINUS RHYTHM WITH SHORT MT LOW VOLTAGE QRS BORDERLINE ECG WHEN COMPARED WITH ECG OF 28-JUN-2018 21:02, VENT. RATE HAS DECREASED BY 51 BPM Confirmed by IRAIDA VALENTE MD ([id number]) on 12/22/2018 10:40:43 AM Referred By: Confirmed By:IRAIDA VALENTE MD
[2018-12-22] MEDS ORDERED: PT OWN MED DRAWER 7, Y5N ONE (11:28)
[2018-12-22] MEDS ORDERED: VALPROATE SODIUM 500 MG/5 ML VIAL IVPB SCH (11:45)
--- NOTE | 2018-12-22 12:55 | CONS ---
DATE OF CONSULTATION: 12/22/2018 REFERRING PHYSICIAN: Caren Adler MD History is obtained from medical records. The patient has severe dementia, anoxic brain injury. The patient is a 58-year-old female with past medical history of dementia, status post CVA with anoxic brain injury, status post PEG, seizure disorder, recurrent aspirations, halfway resident, transferred to [facility] from [place] secondary to G-tube malfunction. Apparently the patient had that GT tube since 2016 and it has been changed several times, last here at [facility]. Apparently at the halfway, at the beginning of the shift, there was concern that the tube was not working and possibly dislodged, at which time she was transferred to ER. She was admitted with the above on admission. She was also noted, when being turned or woken up, to have episodes of some shortness of breath and wheezing. On hospitalization, she was started on albuterol inhaler, albuterol nebulizer therapy. She was evaluated by GI and the G tube was replaced without complications. No further history available at this time. Past medical history, again, includes anoxic brain injury, status post CVA, dementia, history of seizures and recurrent aspiration. REVIEW OF SYSTEMS: Unable to obtain. Current medications include Tylenol, Depakote, Depakene, DuoNeb, IV fluid, Lioresal. PHYSICAL EXAMINATION: General: The patient is a well-developed female. Contracted upper extremities, well nourished, awake, nonverbal, not responsive. Vital Signs: She is afebrile. Blood pressure is 123/63. Respiratory rate 20. O2 saturation 96% on room air. HEENT: Normocephalic, atraumatic. Neck: Supple. Heart: Regular, S1, S2. Chest: Clear when patient is at rest, but upon moving, develops wheezing, seems like transmitted upper airway breath sounds. Abdomen: Soft. Bowel sounds are present. Extremities: Upper extremity contractures. LABORATORY DATA: WBC is 5.3, hemoglobin 12.8, hematocrit 37.4, platelet count 116,000. INR is 1.13, BUN 18, creatinine 0.5. Chest x-ray: No infiltrates and no effusions. IMPRESSION: 1. History of aspiration. 2. Anoxic brain injury. 3. Status post cerebrovascular accident. 4. Bronchospasm, possible upper airway, micro-aspiration. 5. Dementia. 6. Seizure disorder. 7. G-tube malfunction. PLAN: O2 as needed, inhaled bronchodilators p.r.n. G tube as per GI. Aspiration precautions. Consider ENT evaluation. STEPHAN CARLTON M.D. [id number]
[2018-12-22] MEDS: VALPROATE SODIUM 250 MG/5 ML UNIT DOSE CUP PO SCH (22:41)
[2018-12-22] MEDS: DEXTROSE 5%-0.45% SALINE 1,000 ML IV SCH (22:48)
[2018-12-23] MEDS: VALPROATE SODIUM 250 MG/5 ML UNIT DOSE CUP PO SCH ×2 (05:58→15:21)
[2018-12-23] MEDS: BACLOFEN 10 MG TABLET (FP) GT SCH ×3 (06:04→22:24)
[2018-12-23 07:39] LABS: BASO % 0.2 % (0-2.0); EOS % 0.7 % (0-4.5); HEMATOCRIT 37.1 % (32.4-45.2); HEMOGLOBIN 12.8 GM/dL (10.7-15.3); LYMPH % 47.3 % (8-40); MCH 33.5 pg (25.7-33.7); MCHC 34.5 g/dl (32.0-36.0); MEAN CELL VOLUME 97.1 fl (80-96); MEAN PLT VOLUME 7.5 fl (7.5-11.1); MONO % 11.3 % (3.8-10.2); NEUT % 40.5 % (42.8-82.8); PLATELET COUNT 123 K/MM3 (134-434); RBC 3.82 M/mm3 (3.60-5.2); WHITE BLOOD COUNT 5.1 K/mm3 (4.0-10.0)
[2018-12-23] MEDS: ALBUTEROL SO4 2.5/IPRATROPIUM 0.5 INH SOL 3 ML VIAL.NEB. NEB SCH ×4 (07:40→20:39)
[2018-12-23 07:49] LABS: ALBUMIN 1.6 g/dl (3.4-5.0); BILIRUBIN,TOTAL 0.3 mg/dL (0.2-1); BLOOD UREA NITROGEN 6.4 mg/dL (7-18); CALCIUM 7.6 mg/dL (8.5-10.1); CREATININE 0.4 mg/dL (0.55-1.3); POTASSIUM 3.8 mmol/L (3.5-5.1); TOT PROT 6.9 g/dl (6.4-8.2)
--- NOTE | 2018-12-23 08:36 | CON.ORTH ---
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 Anoxic brain injury ) Gastrointestinal: Yes: Other (PEG tube) - Alcohol/Substance Use Hx Alcohol Use: No History of Substance Use: reports: None - Smoking History Smoking history: Never smoked Have you smoked in the past 12 months: No - Social History Usual Living Arrangement: Skilled Nursing ADL: Support Services ([facility]) History of Recent Travel: No Home Medications - Allergies Allergies/Adverse Reactions: Allergies Allergy/AdvReac Type Severity Reaction Status Date / Time No Known Drug Allergies Allergy Verified 12/20/18 16:43 latex AdvReac Unknown Verified 12/20/18 16:43 - Home Medications Home Medications: Ambulatory Orders Acetaminophen Oral Solution [Tylenol 160mg/5mL Oral Solution -] 20 ml GT Q6H PRN 07/22/15 Calcium Alginate [Du] 1 each TP BID 06/28/18 Polyethylene Glycol 3350 [Glycolax] 117 gm GT DAILY 06/28/18 Albuterol 2.5/Ipratropium 0.5 [Duoneb -] 1 amp NEB Q6H PRN amp 07/03/18 Baclofen [Lioresal -] 5 mg GT TID tablet 07/03/18 Valproate Sodium [Depakene -] 500 mg PO TID cup 07/03/18 Clotrimazole [Clotrimazole AF] 28 gm TP BID 12/20/18 Physical Exam for Ortho Vital Signs: Vital Signs Temperature 97.6 F 12/23/18 06:00 Pulse Rate 83 12/23/18 06:00 Respiratory Rate 18 12/23/18 06:00 Blood Pressure 123/78 12/23/18 06:00 O2 Sat by Pulse Oximetry (%) 98 12/22/18 21:00 Labs: CBC, BMP 12/23/18 06:45 12/23/18 06:45 INR, PTT INR 1.13 (0.83-1.09) H 12/22/18 07:05 - Lower Extremity Ankle: Yes: Left, Other (+ laceration over late mall, no drainage, no foul odor , no erythema) Imaging - Results X-ray: Report Reviewed, Image Reviewed Assessment/Plan 58 yo F wit h/o dementia cva anoxic brain injury, peg tube, seizure disorder recurrent aspiratoins here from [facility] for G tube malfunction. Pt was noted to have ulceration over left ankle ankle. Previous left ankle ORIF. a/p s/p left ankle orif with pressure ulcer over lateral malleolus wound care pressure heel pads NTD orthopedically reconsult prn d/w Dr. Spaulding
--- NOTE | 2018-12-23 12:50 | PN ---
Progress Note (short form) - Note Progress Note: PULMONARY Pt nonverbal. No fevers recorded. Hypotensive this AM. Vital Signs Period Temp Pulse Resp BP Sys/Florentino Pulse Ox Last 24 Hr 97.6 F-98.7 F 83-94 18-20 123-145/73-81 98 Gen: mildly tachypneic at rest Heart: RRR Lung: decreased breath sounds at the bases Abd: soft, nontender Ext: no edema CBC, BMP 12/23/18 06:45 12/23/18 06:45 Active Medications Acetaminophen (Tylenol *Children Solution* -) 640 mg GT Q6H PRN PRN Reason: PAIN Albuterol/Ipratropium (Duoneb -) 1 amp NEB RQID [facility] Last Admin: 12/23/18 11:23 Dose: 1 amp Baclofen (Lioresal -) 5 mg GT TID [facility] Last Admin: 12/23/18 06:04 Dose: 5 mg Dextrose/Sodium Chloride (D5-1/2ns -) 1,000 mls @ 75 mls/hr IV ASDIR [facility] Last Admin: 12/22/18 22:48 Dose: Not Given Valproate Sodium (Depakene -) 500 mg PO TID [facility]OS[facility] Last Admin: 12/23/18 05:58 Dose: 500 mg Valproate Sodium (Depacon Injection -) 500 mg IVPB BID [facility]OSSE A/P d MP H/O ASPIRATION ANOXIC BRAIN INJURY S/P CVA BRONCHOSPASM ? UPPER AIRWAY DEMENTIA SEIZURE DISORDER G-TUBE MALFUNCTION PLAN O2 NEEDED INHALED BRONCHODILATORS PRN G- TUBE PER GI ASPIRATION PRECAUTIONS ENT EVALUATION
[2018-12-23] MEDS ORDERED: SODIUM CHLORIDE 1,000 ML IV STA (12:52)
--- NOTE | 2018-12-23 14:01 | PN ---
Progress Note, Physician Chief Complaint: patient seen and examined awaiting ENT for see patient for possible upper airway bronchospasm - Current Medication List Current Medications: Active Medications Acetaminophen (Tylenol *Children Solution* -) 640 mg GT Q6H PRN PRN Reason: PAIN Albuterol/Ipratropium (Duoneb -) 1 amp NEB RQID [facility] Last Admin: 12/23/18 11:23 Dose: 1 amp Baclofen (Lioresal -) 5 mg GT TID [facility] Last Admin: 12/23/18 06:04 Dose: 5 mg Valproate Sodium (Depakene -) 500 mg PO TID [facility] Last Admin: 12/23/18 05:58 Dose: 500 mg Valproate Sodium (Depacon Injection -) 500 mg IVPB BID [facility] - Objective Vital Signs: Vital Signs Temperature 97.9 F 12/23/18 10:00 Pulse Rate 89 12/23/18 10:00 Respiratory Rate 18 12/23/18 10:00 Blood Pressure 83/39 L 12/23/18 10:00 O2 Sat by Pulse Oximetry (%) 97 12/23/18 09:00 Constitutional: Yes: Calm, Other (non verbal) Cardiovascular: Yes: Regular Rate and Rhythm, S1, S2 Respiratory: Yes: Diminished Gastrointestinal: Yes: Normal Bowel Sounds, Soft, Other ( g tube) Extremities: Yes: Other (contracted) Labs: CBC, BMP 12/23/18 06:45 12/23/18 06:45 INR, PTT INR 1.13 (0.83-1.09) H 12/22/18 07:05 Problem List - Problems (1) Bronchospasm Assessment/Plan: ENT eval for possible uper airway bronchospasm Code(s): J98.01 - ACUTE BRONCHOSPASM (2) PEG tube malfunction Assessment/Plan: consulted G i and tube changed Code(s): K94.23 - GASTROSTOMY MALFUNCTION (3) Seizure as late effect of cerebrovascular accident (CVA) Assessment/Plan: valproic acid bid Code(s): I69.398 - OTHER SEQUELAE OF CEREBRAL INFARCTION; R56.9 - UNSPECIFIED CONVULSIONS
[2018-12-23] MEDS: VALPROATE SODIUM 250 MG/5 ML UNIT DOSE CUP GT SCH (22:24)
[2018-12-24] MEDS: BACLOFEN 10 MG TABLET (FP) GT SCH ×3 (06:26→21:33)
[2018-12-24] MEDS: VALPROATE SODIUM 250 MG/5 ML UNIT DOSE CUP GT SCH ×3 (06:27→21:33)
[2018-12-24] MEDS: ALBUTEROL SO4 2.5/IPRATROPIUM 0.5 INH SOL 3 ML VIAL.NEB. NEB SCH ×4 (08:29→20:47)
--- NOTE | 2018-12-24 10:39 | PN ---
Progress Note, Physician - Current Medication List Current Medications: Active Medications Acetaminophen (Tylenol *Children Solution* -) 640 mg GT Q6H PRN PRN Reason: PAIN Albuterol/Ipratropium (Duoneb -) 1 amp NEB RQID [facility] Last Admin: 12/24/18 08:29 Dose: 1 amp Baclofen (Lioresal -) 5 mg GT TID [facility] Last Admin: 12/24/18 06:26 Dose: 5 mg Valproate Sodium (Depakene -) 500 mg GT TID [facility] Last Admin: 12/24/18 06:27 Dose: 500 mg - Objective Vital Signs: Vital Signs Temperature 99 F 12/24/18 02:00 Pulse Rate 95 H 12/24/18 08:30 Respiratory Rate 24 H 12/24/18 08:30 Blood Pressure 137/70 12/24/18 08:30 O2 Sat by Pulse Oximetry (%) 100 12/23/18 21:00 Cardiovascular: Yes: Regular Rate and Rhythm Respiratory: Yes: Diminished, On Nasal O2 Gastrointestinal: Yes: Normal Bowel Sounds, Soft Labs: CBC, BMP 12/23/18 06:45 12/23/18 06:45 INR, PTT INR 1.13 (0.83-1.09) H 12/22/18 07:05 Problem List - Problems (1) PEG tube malfunction Assessment/Plan: Gi consult noted--tube changed feedings jevity 1.5 Code(s): K94.23 - GASTROSTOMY MALFUNCTION (2) Severe flexion contractures of all joints Code(s): M24.50 - CONTRACTURE, UNSPECIFIED JOINT (3) Anoxic brain damage Code(s): G93.1 - ANOXIC BRAIN DAMAGE, NOT ELSEWHERE CLASSIFIED (4) Seizure as late effect of cerebrovascular accident (CVA) Assessment/Plan: continue with meds Code(s): I69.398 - OTHER SEQUELAE OF CEREBRAL INFARCTION; R56.9 - UNSPECIFIED CONVULSIONS (5) Pulmonary aspiration, history of Assessment/Plan: follow up cxr noted nebs pulm consult noted--ENT eval Code(s): Z87.09 - PERSONAL HISTORY OF OTHER DISEASES OF THE RESPIRATORY SYSTEM
--- NOTE | 2018-12-24 12:17 | PN ---
Progress Note (short form) - Note Progress Note: PULMONARY Pt nonverbal. No fevers recorded. Blood pressure better. CXR unchanged. Vital Signs Period Temp Pulse Resp BP Sys/Florentino Pulse Ox Last 24 Hr 98.7 F-99 F 87-96 18-24 104-145/51-83 100-100 Gen: mildly tachypneic at rest Heart: RRR Lung: decreased breath sounds at the bases Abd: soft, nontender Ext: no edema CBC, BMP 12/23/18 06:45 12/23/18 06:45 Active Medications Acetaminophen (Tylenol *Children Solution* -) 640 mg GT Q6H PRN PRN Reason: PAIN Albuterol/Ipratropium (Duoneb -) 1 amp NEB RQID [facility] Last Admin: 12/24/18 11:56 Dose: 1 amp Baclofen (Lioresal -) 5 mg GT TID [facility] Last Admin: 12/24/18 06:26 Dose: 5 mg Valproate Sodium (Depakene -) 500 mg GT TID [facility] Last Admin: 12/24/18 06:27 Dose: 500 mg A/P Dislodged G Tube Acute Bronchospasm improving Anoxic Brain Injury Seizure Disorder h/o CVA - inhaled bronchodilators - O2 to keep Spo2 >90% - aspiration precautions - DVT prophylaxis
[2018-12-24 18:12] LABS: ARTERIAL BLD GAS O2 SATURATION 96.1 % (95-98); ARTERIAL BLOOD GAS BASE EXCESS 2.2 meq/l (-2-2); ARTERIAL BLOOD GAS PCO2 32.1 mmHg (35-45); ARTERIAL BLOOD GAS PO2 73.8 mmHg (80-105); ARTERIAL BLOOD GAS pH 7.49 (7.35-7.45)
[2018-12-24 18:14] LABS: ALLENS TEST POSITIVE
--- NOTE | 2018-12-24 18:59 | HOSP ---
Physical Examination Vital Signs: Vital Signs Temperature 101.7 F H 12/24/18 18:14 Pulse Rate 114 H 12/24/18 18:40 Respiratory Rate 24 H 12/24/18 18:40 Blood Pressure 134/72 12/24/18 18:40 O2 Sat by Pulse Oximetry (%) 100 12/24/18 10:35 Labs: CBC, BMP 12/23/18 06:45 12/23/18 06:45 Hospitalist Encounter Assessment: Called by RN that patient is dyspneic and in distress. Advised RN to place patient on NC until I arrive Upon arrival patient is resting comfortably on NC, O2 sat 97%. Chest with scattered rhonchi BL. CXR with poor inspiratory effort. no effusion or infiltrates. Febrile to 101. Blood cultures ordered and urine cx pending. Negative for CDif.
[2018-12-24] MEDS ORDERED: ACETAMINOPHEN 160 MG/5 ML *Children Solution GT PRN (20:03)
[2018-12-24 20:18] LABS: ALBUMIN 1.9 g/dl (3.4-5.0); BILIRUBIN,TOTAL 0.4 mg/dL (0.2-1); BLOOD UREA NITROGEN 7.5 mg/dL (7-18); CALCIUM 8.4 mg/dL (8.5-10.1); CREATININE 0.6 mg/dL (0.55-1.3); POTASSIUM 4.4 mmol/L (3.5-5.1); TOT PROT 8.2 g/dl (6.4-8.2)
[2018-12-24 20:20] LABS: BASO % 0.5 % (0-2.0); EOS % 0.3 % (0-4.5); HEMATOCRIT 42.3 % (32.4-45.2); HEMOGLOBIN 14.2 GM/dL (10.7-15.3); LYMPH % 14.6 % (8-40); MCH 32.9 pg (25.7-33.7); MCHC 33.7 g/dl (32.0-36.0); MEAN CELL VOLUME 97.6 fl (80-96); MEAN PLT VOLUME 7.4 fl (7.5-11.1); MONO % 10.8 % (3.8-10.2); NEUT % 73.8 % (42.8-82.8); PLATELET COUNT 140 K/MM3 (134-434); RBC 4.33 M/mm3 (3.60-5.2); RDW 15.4 % (11.6-15.6); WHITE BLOOD COUNT 9.1 K/mm3 (4.0-10.0)
[2018-12-24] MEDS: ACETAMINOPHEN 650 MG/20.3 ML ORAL SOLUTION (CUPS) GT PRN (20:22)
[2018-12-25] MEDS: ACETAMINOPHEN 650 MG/20.3 ML ORAL SOLUTION (CUPS) GT PRN (04:58)
[2018-12-25] MEDS ORDERED: CEFTRIAXONE 2 GM in DEXTROSE 5%-WATER 100 ML IVPB ONE (05:00)
[2018-12-25] MEDS ORDERED: DEXTROSE 5%-WATER 100 ML IVPB ONE (05:10)
--- NOTE | 2018-12-25 05:12 | HOSP ---
Subjective - Review of Symptoms Events since last encounter: Called by RN, patient noted with temp of 103.6, in Am patient also has episode of dyspneic with b/l rhonchi and temp of 101, blood and urine culture pending give tylenol q 6 horus for temp greater than 99, will will Rocephin 2g x1 then Rocephin 1 g daily will switch to sensitivity once cultures are reported. Physical Examination Vital Signs: Vital Signs Temperature 103.6 F H 12/25/18 04:59 Pulse Rate 100 H 12/24/18 22:00 Respiratory Rate 24 H 12/24/18 22:00 Blood Pressure 139/75 12/24/18 22:00 O2 Sat by Pulse Oximetry (%) 99 12/24/18 21:00 Labs: CBC, BMP 12/24/18 19:30 12/24/18 19:30
[2018-12-25] MEDS: VALPROATE SODIUM 250 MG/5 ML UNIT DOSE CUP GT SCH ×2 (06:02→14:50)
[2018-12-25] MEDS: BACLOFEN 10 MG TABLET (FP) GT SCH ×2 (06:02→14:51)
[2018-12-25] MEDS: ALBUTEROL SO4 2.5/IPRATROPIUM 0.5 INH SOL 3 ML VIAL.NEB. NEB SCH ×4 (08:01→21:25)
--- NOTE | 2018-12-25 09:05 | PN ---
Progress Note (short form) - Note Progress Note: GO NOte: Notified of fever and abdominal distension by nursing staff this AM. 120cc of feedings yielded on suctioning. Suctioning, CBC and CT ordered stat to exclude peritonitis from displaced G tube.
--- NOTE | 2018-12-25 09:21 | PN ---
Progress Note, Physician - Current Medication List Current Medications: Active Medications Acetaminophen (Tylenol Oral Solution -) 640 mg GT Q6H PRN PRN Reason: FEVER Last Admin: 12/25/18 04:58 Dose: 640 mg Albuterol/Ipratropium (Duoneb -) 1 amp NEB RQID [facility] Last Admin: 12/25/18 08:01 Dose: 1 amp Baclofen (Lioresal -) 5 mg GT TID [facility] Last Admin: 12/25/18 06:02 Dose: 5 mg Ceftriaxone Sodium 1 gm/ (Dextrose) 50 mls @ 100 mls/hr IVPB Q24H [facility]; Protocol Valproate Sodium (Depakene -) 500 mg GT TID [facility] Last Admin: 12/25/18 06:02 Dose: 500 mg - Objective Vital Signs: Vital Signs Temperature 102 F H 12/25/18 06:00 Pulse Rate 112 H 12/25/18 06:00 Respiratory Rate 20 12/25/18 06:00 Blood Pressure 138/82 12/25/18 06:00 O2 Sat by Pulse Oximetry (%) 99 12/24/18 21:00 Cardiovascular: Yes: Regular Rate and Rhythm Respiratory: Yes: On Nasal O2, Rhonchi Gastrointestinal: Yes: Normal Bowel Sounds, Soft Labs: CBC, BMP 12/24/18 19:30 12/24/18 19:30 INR, PTT INR 1.13 (0.83-1.09) H 12/22/18 07:05 Problem List - Problems (1) PEG tube malfunction Assessment/Plan: Gi consult noted--tube changed residual noted--gi follow up--ct scan Code(s): K94.23 - GASTROSTOMY MALFUNCTION (2) Severe flexion contractures of all joints Code(s): M24.50 - CONTRACTURE, UNSPECIFIED JOINT (3) Anoxic brain damage Code(s): G93.1 - ANOXIC BRAIN DAMAGE, NOT ELSEWHERE CLASSIFIED (4) Seizure as late effect of cerebrovascular accident (CVA) Assessment/Plan: continue with meds Code(s): I69.398 - OTHER SEQUELAE OF CEREBRAL INFARCTION; R56.9 - UNSPECIFIED CONVULSIONS (5) Pulmonary aspiration, history of Assessment/Plan: follow up cxr noted nebs pulm consult noted--ENT eval Code(s): Z87.09 - PERSONAL HISTORY OF OTHER DISEASES OF THE RESPIRATORY SYSTEM (6) Fever Assessment/Plan: maybe aspiration cultures id abx await ct Code(s): R50.9 - FEVER, UNSPECIFIED
--- NOTE | 2018-12-25 10:07 | PN ---
Progress Note (short form) - Note Progress Note: GI Note: CT reveals G tube is in good position. No extravasation of contrast seen. Suspect gastroparesis/ileus. Will give G tube suctioning for 24 hrs. Reglan ordered. D5 1/2 NS ordered in the interim.
[2018-12-25] MEDS: DEXTROSE 5%-0.45% SALINE 1,000 ML IV SCH ×2 (10:32→18:38)
[2018-12-25] MEDS: METOCLOPRAMIDE HCL INJECTION 10 MG/2 ML VIAL IVPUSH SCH ×3 (10:33→21:32)
[2018-12-25 10:46] LABS: BASO % 0.1 % (0-2.0); EOS % 0.1 % (0-4.5); HEMATOCRIT 39.6 % (32.4-45.2); HEMOGLOBIN 13.4 GM/dL (10.7-15.3); LYMPH % 17.7 % (8-40); MCH 32.8 pg (25.7-33.7); MCHC 33.7 g/dl (32.0-36.0); MEAN CELL VOLUME 97.2 fl (80-96); MEAN PLT VOLUME 7.3 fl (7.5-11.1); MONO % 13.7 % (3.8-10.2); NEUT % 68.4 % (42.8-82.8); PLATELET COUNT 122 K/MM3 (134-434); RBC 4.07 M/mm3 (3.60-5.2); RDW 15.4 % (11.6-15.6); WHITE BLOOD COUNT 5.1 K/mm3 (4.0-10.0)
--- NOTE | 2018-12-25 10:50 | CON.ENT ---
Consult Consult Specialty:: ENT - History of Present Illness History of Present Illness: pt chronically ill admitted had displaced gastrostomy tube once replaced, tube feedings resumed was febrile to 103 episode this morning of abdominal distension associated with respiratory difficulties 300 cc residual in stomach removed respiratory status improved significantly after sputum noted to be green sputum culture considered Pulmonary evaluation identified bronchospasm - History Source History Provided By: Medical Record Limitations to Obtaining History: Unresponsive - Past Medical History [employer]ATING [employer]ATOR: Yes: CVA, Dementia, Seizure, Other (dysphagia, aphasia. Anoxic brain injury ) Gastrointestinal: Yes: Other (PEG tube) - Alcohol/Substance Use Hx Alcohol Use: No History of Substance Use: reports: None - Smoking History Smoking history: Never smoked Have you smoked in the past 12 months: No - Social History Usual Living Arrangement: [facility]L: Support Services ([facility]) History of Recent Travel: No Home Medications - Allergies Allergies/Adverse Reactions: Allergies Allergy/AdvReac Type Severity Reaction Status Date / Time No Known Drug Allergies Allergy Verified 12/20/18 16:43 latex AdvReac Unknown Verified 12/20/18 16:43 - Home Medications Home Medications: Ambulatory Orders Acetaminophen Oral Solution [Tylenol 160mg/5mL Oral Solution -] 20 ml GT Q6H PRN 07/22/15 Calcium Alginate [Du] 1 each TP BID 06/28/18 Polyethylene Glycol 3350 [Glycolax] 117 gm GT DAILY 06/28/18 Albuterol 2.5/Ipratropium 0.5 [Duoneb -] 1 amp NEB Q6H PRN amp 07/03/18 Baclofen [Lioresal -] 5 mg GT TID tablet 07/03/18 Valproate Sodium [Depakene -] 500 mg PO TID cup 07/03/18 Clotrimazole [Clotrimazole AF] 28 gm TP BID 12/20/18 Family Disease History - Family Disease History Family History: Unable to Obtain Physical Exam-ENT Vital Signs: Vital Signs Temperature 102 F H 12/25/18 06:00 Pulse Rate 112 H 12/25/18 06:00 Respiratory Rate 20 12/25/18 06:00 Blood Pressure 138/82 12/25/18 06:00 O2 Sat by Pulse Oximetry (%) 99 12/24/18 21:00 Head: Yes: WNL Face: Yes: Other (some left facial twitching) Eyes: Yes: Other (mild spontaneous nystagmus) Nose: Yes: WNL, Other (nasal cannulae, no bleeding or crusting anteriorly) Oral/Pharynx: Yes: Other (lower lip with traumatic fissures (chronic), poor debntition, sl dry oral mucosa, tongue position 3, hard palate normal, soft palate ?elongated. NO stridor or respiratory distress) Outer Ear: Yes: WNL Neck: Yes: WNL Neurological: Yes: Unresponsive Problem List - Problems (1) Respiratory distress Assessment/Plan: pt had episode of respiratory distress nursing staff states this has resolved after removal of 300 cc residual from stomach gastroparesis suspected, NOT GI obstruction pts respiratory status is stable on exam, no stridor or respiratory distress Code(s): R06.03 - ACUTE RESPIRATORY DISTRESS
[2018-12-25 10:57] LABS: INR 1.28 (0.83-1.09); PROTHROMBIN TIME (PATIENT) 15.2 SEC (9.7-13.0)
[2018-12-25 11:10] LABS: ALBUMIN 1.7 g/dl (3.4-5.0); BILIRUBIN,TOTAL 0.3 mg/dL (0.2-1); BLOOD UREA NITROGEN 8.7 mg/dL (7-18); CREATININE 0.5 mg/dL (0.55-1.3); POTASSIUM 3.8 mmol/L (3.5-5.1); TOT PROT 7.6 g/dl (6.4-8.2)
--- NOTE | 2018-12-25 14:05 | PN ---
Progress Note, Physician History of Present Illness: PULMONARY AWAKE,NON-VERBAL ,-RESP DISTRESS - Current Medication List Current Medications: Active Medications Acetaminophen (Tylenol Oral Solution -) 640 mg GT Q6H PRN PRN Reason: FEVER Last Admin: 12/25/18 04:58 Dose: 640 mg Albuterol/Ipratropium (Duoneb -) 1 amp NEB RQID [facility] Last Admin: 12/25/18 11:43 Dose: 1 amp Baclofen (Lioresal -) 5 mg GT TID [facility] Last Admin: 12/25/18 06:02 Dose: 5 mg Ceftriaxone Sodium 1 gm/ (Dextrose) 50 mls @ 100 mls/hr IVPB Q24H [facility]; Protocol Dextrose/Sodium Chloride (D5-1/2ns -) 1,000 mls @ 125 mls/hr IV ASDIR [facility] Last Admin: 12/25/18 10:32 Dose: 125 mls/hr Metoclopramide HCl (Reglan Injection -) 10 mg IVPUSH Q6H-IV [facility] Last Admin: 12/25/18 10:33 Dose: 10 mg Valproate Sodium (Depakene -) 500 mg GT TID [facility] Last Admin: 12/25/18 06:02 Dose: 500 mg - Objective Vital Signs: Vital Signs Temperature 99.9 F H 12/25/18 08:30 Pulse Rate 111 H 12/25/18 08:30 Respiratory Rate 20 12/25/18 08:30 Blood Pressure 137/63 12/25/18 08:30 O2 Sat by Pulse Oximetry (%) 94 L 12/25/18 07:30 Constitutional: Yes: Well Nourished, Calm Eyes: Yes: WNL HENT: Yes: WNL Neck: Yes: WNL Cardiovascular: Yes: Regular Rate and Rhythm, S1, S2 Respiratory: Yes: Rhonchi (FEW WHEEZES) Gastrointestinal: Yes: Normal Bowel Sounds, Soft Extremities: Yes: WNL Edema: No Labs: CBC, BMP 12/25/18 10:31 12/25/18 10:31 INR, PTT INR 1.28 (0.83-1.09) H 12/25/18 10:31 Problem List - Problems (1) CVA (cerebral vascular accident) Code(s): I63.9 - CEREBRAL INFARCTION, UNSPECIFIED (2) Dementia Code(s): F03.90 - UNSPECIFIED DEMENTIA WITHOUT BEHAVIORAL DISTURBANCE (3) PEG tube malfunction Code(s): K94.23 - GASTROSTOMY MALFUNCTION (4) Pulmonary aspiration, history of Code(s): Z87.09 - PERSONAL HISTORY OF OTHER DISEASES OF THE RESPIRATORY SYSTEM (5) Anoxic brain damage Code(s): G93.1 - ANOXIC BRAIN DAMAGE, NOT ELSEWHERE CLASSIFIED (6) Seizure as late effect of cerebrovascular accident (CVA) Code(s): I69.398 - OTHER SEQUELAE OF CEREBRAL INFARCTION; R56.9 - UNSPECIFIED CONVULSIONS (7) Bronchospasm Code(s): J98.01 - ACUTE BRONCHOSPASM (8) Severe flexion contractures of all joints Code(s): M24.50 - CONTRACTURE, UNSPECIFIED JOINT Assessment/Plan IMP H/O ASPIRATION ANOXIC BRAIN INJURY S/P CVA BRONCHOSPASM IMPROVING DEMENTIA SEIZURE DISORDER G-TUBE MALFUNCTION PLAN O2 NEEDED INHALED BRONCHODILATORS PRN ASPIRATION PRECAUTIONS DR CARLTON Problem List - Problems (1) CVA (cerebral vascular accident) Code(s): I63.9 - CEREBRAL INFARCTION, UNSPECIFIED (2) Dementia Code(s): F03.90 - UNSPECIFIED DEMENTIA WITHOUT BEHAVIORAL DISTURBANCE (3) PEG tube malfunction Code(s): K94.23 - GASTROSTOMY MALFUNCTION (4) Pulmonary aspiration, history of Code(s): Z87.09 - PERSONAL HISTORY OF OTHER DISEASES OF THE RESPIRATORY SYSTEM (5) Anoxic brain damage Code(s): G93.1 - ANOXIC BRAIN DAMAGE, NOT ELSEWHERE CLASSIFIED (6) Seizure as late effect of cerebrovascular accident (CVA) Code(s): I69.398 - OTHER SEQUELAE OF CEREBRAL INFARCTION; R56.9 - UNSPECIFIED CONVULSIONS (7) Bronchospasm Code(s): J98.01 - ACUTE BRONCHOSPASM (8) Severe flexion contractures of all joints Code(s): M24.50 - CONTRACTURE, UNSPECIFIED JOINT
--- NOTE | 2018-12-25 17:56 | PN ---
Progress Note (short form) - Note Progress Note: for f/u due to fevers over last 24 hours currently gtube feeds on hold nurse reports green sputum production Vital Signs Period Temp Pulse Resp BP Sys/Florentino Pulse Ox Last 24 Hr 98.3 F-103.6 F 99-114 20-28 113-146/50-83 94-99 cor-rrr lungs bilateral rhonchi and wheeze abd firm, nt +GT ext no edema CBC, BMP 12/25/18 10:31 12/25/18 10:31 Microbiology 12/23/18 22:30 Urine - Urine Clean Catch Urine Culture - Final NO GROWTH OBTAINED 12/20/18 20:40 Blood - Peripheral Venous Blood Culture - Preliminary NO GROWTH OBTAINED AFTER 96 HOURS, INCUBATION TO CONTINUE FOR 1 DAYS. 12/20/18 20:40 Blood - Peripheral Venous Blood Culture - Preliminary NO GROWTH OBTAINED AFTER 96 HOURS, INCUBATION TO CONTINUE FOR 1 DAYS. 12/24/18 11:20 Stool Clostridioides difficile Antigen - Final 12/24/18 11:20 Stool Clostridioides difficile Toxin Assay - Final ct scan gt in place, no extravasation Microbiology 12/23/18 22:30 Urine - Urine Clean Catch Urine Culture - Final NO GROWTH OBTAINED 12/20/18 20:40 Blood - Peripheral Venous Blood Culture - Preliminary NO GROWTH OBTAINED AFTER 96 HOURS, INCUBATION TO CONTINUE FOR 1 DAYS. 12/20/18 20:40 Blood - Peripheral Venous Blood Culture - Preliminary NO GROWTH OBTAINED AFTER 96 HOURS, INCUBATION TO CONTINUE FOR 1 DAYS. 12/24/18 11:20 Stool Clostridioides difficile Antigen - Final negative 12/24/18 11:20 Stool Clostridioides difficile Toxin Assay - Final- negative a/p suspect fevers due to aspiration from GT malfunction- she had very high residuals- now gt on suction started on ceftriaxone last night with improvement in fever curve can continue the same and f/u cultures for now no clear infiltrate on cxray Problem List - Problems (1) PEG tube malfunction Code(s): K94.23 - GASTROSTOMY MALFUNCTION (2) Cellulitis Code(s): L03.90 - CELLULITIS, UNSPECIFIED
[2018-12-25] MEDS: VALPROATE SODIUM 500 MG/5 ML VIAL IVPB SCH (22:32)
[2018-12-25] MEDS: ACETAMINOPHEN 1000 MG/100 ML VIAL (NON FORMULARY) IVPB PRN (23:55)
[2018-12-26] MEDS: METOCLOPRAMIDE HCL INJECTION 10 MG/2 ML VIAL IVPUSH SCH ×4 (02:08→22:41)
[2018-12-26] MEDS ORDERED: cefTRIAXone SODIUM 1 GM VIAL ONE (06:09)
[2018-12-26] MEDS ORDERED: DEXTROSE 5%-WATER - 50 ML IVPB ONE (06:10)
[2018-12-26] MEDS: CEFTRIAXONE 1 GM in DEXTROSE 5%-WATER - 50 ML IVPB SCH (06:38)
[2018-12-26] MEDS: ALBUTEROL SO4 2.5/IPRATROPIUM 0.5 INH SOL 3 ML VIAL.NEB. NEB SCH ×4 (07:45→21:45)
[2018-12-26] MEDS: DEXTROSE 5%-0.45% SALINE 1,000 ML IV SCH ×2 (08:01→10:33)
--- NOTE | 2018-12-26 08:25 | PN ---
Progress Note (short form) - Note Progress Note: Follow up, at the moment there are no orthopedic interventions necessary. We can continue to watch the exposed hardware around the ankle. No orthopedic surgical intervention recommended at this time. Will follow as needed. WBAT, activities as tolerated.
[2018-12-26] MEDS: VALPROATE SODIUM 500 MG/5 ML VIAL IVPB SCH ×2 (10:57→22:47)
--- NOTE | 2018-12-26 11:47 | PN ---
Progress Note (short form) - Note Progress Note: PULMONARY Pt nonverbal. Low grade fevers. Vital Signs Period Temp Pulse Resp BP Sys/Florentino Pulse Ox Last 24 Hr 98.2 F-100.8 F 79-99 20-24 113-150/50-80 97 Gen: mildly tachypneic at rest Heart: RRR Lung: upper airway wheezes Abd: soft, nontender Ext: no edema CBC, BMP 12/25/18 10:31 12/25/18 10:31 Active Medications Acetaminophen (Ofirmev Injection -) 1,000 mg IVPB Q6H PRN PRN Reason: FEVER Last Admin: 12/25/18 23:55 Dose: 1,000 mg Albuterol/Ipratropium (Duoneb -) 1 amp NEB RQID [facility] Last Admin: 12/26/18 11:25 Dose: 1 amp Ceftriaxone Sodium 1 gm/ (Dextrose) 50 mls @ 100 mls/hr IVPB Q24H [facility]; Protocol Last Admin: 12/26/18 06:38 Dose: 100 mls/hr Dextrose/Sodium Chloride (D5-1/2ns -) 1,000 mls @ 100 mls/hr IV ASDIR [facility] Last Admin: 12/26/18 10:33 Dose: 100 mls/hr Metoclopramide HCl (Reglan Injection -) 10 mg IVPUSH Q6H-IV [facility] Last Admin: 12/26/18 09:31 Dose: 10 mg Valproate Sodium (Depacon Injection -) 500 mg IVPB BID [facility] Last Admin: 12/26/18 10:57 Dose: 500 mg A/P Dislodged G Tube Acute Bronchospasm improving Anoxic Brain Injury Seizure Disorder h/o CVA - inhaled bronchodilators - will start systemic steroids - O2 to keep Spo2 >90% - aspiration precautions - DVT prophylaxis
[2018-12-26] MEDS ORDERED: PT OWN MED DRAWER 7, Y5N ONE ×3 (13:49→17:53)
[2018-12-26] MEDS: DEXAMETHASONE SOD PHOSPHATE 10 MG/1 ML VIAL IVPUSH SCH ×3 (13:55→22:51)
--- NOTE | 2018-12-26 14:28 | PN ---
Progress Note, Physician Chief Complaint: patient seen and examined temp 100.8 wheezing on exam started on iv steroids abdominal distension is better per nursing - Current Medication List Current Medications: Active Medications Acetaminophen (Ofirmev Injection -) 1,000 mg IVPB Q6H PRN PRN Reason: FEVER Last Admin: 12/25/18 23:55 Dose: 1,000 mg Albuterol/Ipratropium (Duoneb -) 1 amp NEB RQID [facility] Last Admin: 12/26/18 11:25 Dose: 1 amp Dexamethasone Sodium Phosphate (Decadron Injection -) 10 mg IVPUSH Q8H-IV [facility] Last Admin: 12/26/18 13:55 Dose: 10 mg Ceftriaxone Sodium 1 gm/ (Dextrose) 50 mls @ 100 mls/hr IVPB Q24H [facility]; Protocol Last Admin: 12/26/18 06:38 Dose: 100 mls/hr Dextrose/Sodium Chloride (D5-1/2ns -) 1,000 mls @ 100 mls/hr IV ASDIR [facility] Last Admin: 12/26/18 10:33 Dose: 100 mls/hr Metoclopramide HCl (Reglan Injection -) 10 mg IVPUSH Q6H-IV [facility] Last Admin: 12/26/18 09:31 Dose: 10 mg Valproate Sodium (Depacon Injection -) 500 mg IVPB BID [facility] Last Admin: 12/26/18 10:57 Dose: 500 mg - Objective Vital Signs: Vital Signs Temperature 97.9 F 12/26/18 11:40 Pulse Rate 88 12/26/18 11:00 Respiratory Rate 24 H 12/26/18 11:00 Blood Pressure 145/77 12/26/18 11:00 O2 Sat by Pulse Oximetry (%) 97 12/25/18 21:00 Constitutional: Yes: Calm Cardiovascular: Yes: S1, S2 Respiratory: Yes: Wheezes Gastrointestinal: Yes: Normal Bowel Sounds, Soft Labs: CBC, BMP 12/25/18 10:31 12/25/18 10:31 INR, PTT INR 1.28 (0.83-1.09) H 12/25/18 10:31 Problem List - Problems (1) Bronchospasm Assessment/Plan: ENT consult noted started on dexamethasone Code(s): J98.01 - ACUTE BRONCHOSPASM (2) PEG tube malfunction Assessment/Plan: Gi saw patient staretd on reglan Code(s): K94.23 - GASTROSTOMY MALFUNCTION (3) Seizure as late effect of cerebrovascular accident (CVA) Assessment/Plan: valproic acid bid Code(s): I69.398 - OTHER SEQUELAE OF CEREBRAL INFARCTION; R56.9 - UNSPECIFIED CONVULSIONS (4) Fever Assessment/Plan: started on Rocephin fever curve down trending Code(s): R50.9 - FEVER, UNSPECIFIED
--- NOTE | 2018-12-26 16:17 | PN ---
Progress Note (short form) - Note Progress Note: resting comfortably started on steroids today for wheezing still not being fed Vital Signs Period Temp Pulse Resp BP Sys/Florentino Pulse Ox Last 24 Hr 97.9 F-100.8 F 79-98 20-24 116-150/60-80 97 cor-rrr lungs clear abd soft,nt+GT ext no edema CBC, BMP 12/25/18 10:31 12/25/18 10:31 ct scan gt in place, no extravasation cxray no infiltrate Microbiology 12/20/18 20:40 Blood - Peripheral Venous Blood Culture - Final NO GROWTH AFTER 5 DAYS INCUBATION 12/20/18 20:40 Blood - Peripheral Venous Blood Culture - Final NO GROWTH AFTER 5 DAYS INCUBATION 12/24/18 20:00 Blood - Peripheral Venous Blood Culture - Preliminary NO GROWTH OBTAINED AFTER 24 HOURS, INCUBATION TO CONTINUE FOR 4 DAYS. 12/24/18 19:30 Blood - Peripheral Venous Blood Culture - Preliminary NO GROWTH OBTAINED AFTER 24 HOURS, INCUBATION TO CONTINUE FOR 4 DAYS. 12/23/18 22:30 Urine - Urine Clean Catch Urine Culture - Final NO GROWTH OBTAINED 12/24/18 11:20 Stool Clostridioides difficile Antigen - Final 12/24/18 11:20 Stool Clostridioides difficile Toxin Assay - Final a/p suspect fevers due to aspiration from GT malfunction- she had very high residuals- now gt on suction started on ceftriaxone day #2 if she remains afebrile can d/c ceftriaxone in am Problem List - Problems (1) PEG tube malfunction Code(s): K94.23 - GASTROSTOMY MALFUNCTION (2) Cellulitis Code(s): L03.90 - CELLULITIS, UNSPECIFIED
--- NOTE | 2018-12-26 21:29 | PN.GI ---
GI Progress Note Subjective: GI NOte: Has minimal G tube drainage. CT revealed that the G tube is in good position and revealed no extravasation of contrast. G tube site reveals no fluctuance. - Objective Vital Signs: Vital Signs Temperature 98.8 F 12/26/18 18:30 Pulse Rate 92 H 12/26/18 18:30 Respiratory Rate 22 H 12/26/18 18:30 Blood Pressure 127/65 12/26/18 18:30 O2 Sat by Pulse Oximetry (%) 97 12/25/18 21:00 Laboratory Tests 12/25/18 10:31 WBC 5.1 Hgb 13.4 Constitutional: No Distress Respiratory: Yes: Wheezes Gastrointestinal Inspection: Yes: Other (G tube site is clean) ...Auscultate: Yes: Hypoactive Bowel Sounds ...Palpate: Yes: Soft ...Percussion: Yes: Tympanitic Labs: CBC, BMP 12/25/18 10:31 12/25/18 10:31 INR, PTT INR 1.28 (0.83-1.09) H 12/25/18 10:31 Assessment/Plan Impression: - G tube in good position. Suspect a component of ileus Plan: -- Continue Reglan -- Resume feedings- discussed with the nurse Problem List - Problems (1) CVA (cerebral vascular accident) Code(s): I63.9 - CEREBRAL INFARCTION, UNSPECIFIED (2) PEG tube malfunction Code(s): K94.23 - GASTROSTOMY MALFUNCTION (3) Anoxic brain damage Code(s): G93.1 - ANOXIC BRAIN DAMAGE, NOT ELSEWHERE CLASSIFIED (4) Gastrojejunostomy tube dislodgement Code(s): Z43.4 - ENCOUNTER FOR ATTN TO OT ARTIF OPENINGS OF DIGESTIVE TRACT (5) PEG (percutaneous endoscopic gastrostomy) adjustment/replacement/removal Code(s): Z43.1 - ENCOUNTER FOR ATTENTION TO GASTROSTOMY
[2018-12-26] MEDS ORDERED: DEXTROSE 5%-0.45% SALINE 1,000 ML IV SCH (21:31)
[2018-12-26] MEDS: POLYETHYLENE GLYCOL 3350 119 GM BTL GT SCH (22:49)
[2018-12-27] MEDS: DEXAMETHASONE SOD PHOSPHATE 10 MG/1 ML VIAL IVPUSH SCH (03:56)
[2018-12-27] MEDS: METOCLOPRAMIDE HCL INJECTION 10 MG/2 ML VIAL IVPUSH SCH ×4 (04:22→22:28)
[2018-12-27] MEDS ORDERED: DEXAMETHASONE SOD PHOSPHATE 10 MG/1 ML VIAL IVPUSH SCH (06:00)
[2018-12-27] MEDS ORDERED: DEXTROSE 5%-WATER - 50 ML IVPB ONE (06:09)
[2018-12-27] MEDS ORDERED: cefTRIAXone SODIUM 1 GM VIAL ONE (06:09)
[2018-12-27] MEDS: CEFTRIAXONE 1 GM in DEXTROSE 5%-WATER - 50 ML IVPB SCH (06:44)
[2018-12-27] MEDS: ALBUTEROL SO4 2.5/IPRATROPIUM 0.5 INH SOL 3 ML VIAL.NEB. NEB SCH ×4 (07:55→20:50)
[2018-12-27 08:35] LABS: HEMATOCRIT 39.9 % (32.4-45.2); HEMOGLOBIN 13.6 GM/dL (10.7-15.3); LYMPH % 24.3 % (8-40); MCH 33.2 pg (25.7-33.7); MEAN CELL VOLUME 97.7 fl (80-96); MEAN PLT VOLUME 7.4 fl (7.5-11.1); MONO % 2.4 % (3.8-10.2); NEUT % 73.3 % (42.8-82.8); PLATELET COUNT 102 K/MM3 (134-434); RBC 4.08 M/mm3 (3.60-5.2); RDW 15.1 % (11.6-15.6); WHITE BLOOD COUNT 3.5 K/mm3 (4.0-10.0)
[2018-12-27 08:47] LABS: ALBUMIN 1.7 g/dl (3.4-5.0); BILIRUBIN,TOTAL 0.2 mg/dL (0.2-1); BLOOD UREA NITROGEN 9.2 mg/dL (7-18); CALCIUM 8.3 mg/dL (8.5-10.1); CREATININE 0.5 mg/dL (0.55-1.3); POTASSIUM 3.9 mmol/L (3.5-5.1); TOT PROT 7.4 g/dl (6.4-8.2)
--- NOTE | 2018-12-27 09:11 | PN ---
Progress Note (short form) - Note Progress Note: PULMONARY Pt nonverbal. No fevers recorded. Appears more comfortable. Vital Signs Period Temp Pulse Resp BP Sys/Florentino Pulse Ox Last 24 Hr 97.5 F-98.8 F 68-92 22-24 97-154/53-86 98-100 Gen: less tachypneic Heart: RRR Lung: no wheezes appreciated Abd: soft, nontender Ext: no edema CBC, BMP 12/27/18 07:55 Active Medications Acetaminophen (Ofirmev Injection -) 1,000 mg IVPB Q6H PRN PRN Reason: FEVER Last Admin: 12/25/18 23:55 Dose: 1,000 mg Albuterol/Ipratropium (Duoneb -) 1 amp NEB RQID [facility] Last Admin: 12/27/18 07:55 Dose: 1 amp Dexamethasone Sodium Phosphate (Decadron Injection -) 10 mg IVPUSH Q8H [facility] Last Admin: 12/27/18 06:45 Dose: 10 mg Ceftriaxone Sodium 1 gm/ (Dextrose) 50 mls @ 100 mls/hr IVPB Q24H [facility]; Protocol Last Admin: 12/27/18 06:44 Dose: 100 mls/hr Dextrose/Sodium Chloride (D5-1/2ns -) 1,000 mls @ 50 mls/hr IV ASDIR [facility] Last Admin: 12/26/18 22:43 Dose: 50 mls/hr Metoclopramide HCl (Reglan Injection -) 10 mg IVPUSH Q6H-IV [facility] Last Admin: 12/27/18 04:22 Dose: 10 mg Polyethylene Glycol (Miralax (For Daily Use) -) 17 gm GT BID [facility] Last Admin: 12/26/18 22:49 Dose: 17 grams Valproate Sodium (Depacon Injection -) 500 mg IVPB BID [facility] Last Admin: 12/26/18 22:47 Dose: 500 mg A/P Dislodged G Tube Acute Bronchospasm improving Anoxic Brain Injury Seizure Disorder h/o CVA - inhaled bronchodilators - will decrease decadron - O2 to keep Spo2 >90% - aspiration precautions - DVT prophylaxis
[2018-12-27] MEDS: VALPROATE SODIUM 500 MG/5 ML VIAL IVPB SCH ×2 (10:24→22:21)
[2018-12-27] MEDS: ACETAMINOPHEN 1000 MG/100 ML VIAL (NON FORMULARY) IVPB PRN (10:24)
[2018-12-27] MEDS: POLYETHYLENE GLYCOL 3350 119 GM BTL GT SCH ×2 (10:24→22:29)
--- NOTE | 2018-12-27 12:29 | PN ---
Progress Note, Physician Chief Complaint: seen and examined non verbal - Current Medication List Current Medications: Active Medications Acetaminophen (Ofirmev Injection -) 1,000 mg IVPB Q6H PRN PRN Reason: FEVER Last Admin: 12/27/18 10:24 Dose: 1,000 mg Albuterol/Ipratropium (Duoneb -) 1 amp NEB RQID [facility] Last Admin: 12/27/18 11:35 Dose: 1 amp Dexamethasone Sodium Phosphate (Decadron Injection -) 6 mg IVPUSH Q8H [facility] Ceftriaxone Sodium 1 gm/ (Dextrose) 50 mls @ 100 mls/hr IVPB Q24H [facility]; Protocol Last Admin: 12/27/18 06:44 Dose: 100 mls/hr Dextrose/Sodium Chloride (D5-1/2ns -) 1,000 mls @ 50 mls/hr IV ASDIR [facility]OS[facility] Last Admin: 12/26/18 22:43 Dose: 50 mls/hr Metoclopramide HCl (Reglan Injection -) 10 mg IVPUSH Q6H-IV [facility] Last Admin: 12/27/18 10:23 Dose: 10 mg Polyethylene Glycol (Miralax (For Daily Use) -) 17 gm GT BID [facility] Last Admin: 12/27/18 10:24 Dose: 119 grams Valproate Sodium (Depacon Injection -) 500 mg IVPB BID [facility] Last Admin: 12/27/18 10:24 Dose: 500 mg - Objective Vital Signs: Vital Signs Temperature 97.3 F L 12/27/18 09:31 Pulse Rate 95 H 12/27/18 09:31 Respiratory Rate 22 H 12/27/18 09:31 Blood Pressure 127/68 12/27/18 09:31 O2 Sat by Pulse Oximetry (%) 100 12/27/18 09:00 Constitutional: Yes: Calm Cardiovascular: Yes: Regular Rate and Rhythm, S1, S2 Respiratory: Yes: CTA Bilaterally Gastrointestinal: Yes: Normal Bowel Sounds, Soft, Other ( g tube) Extremities: Yes: Other (contracted) Edema: Yes Labs: CBC, BMP 12/27/18 07:55 12/27/18 07:55 INR, PTT INR 1.28 (0.83-1.09) H 12/25/18 10:31 Problem List - Problems (1) Bronchospasm Assessment/Plan: ENT consult noted started on dexamethasone evry 8 hrs Code(s): J98.01 - ACUTE BRONCHOSPASM (2) PEG tube malfunction Assessment/Plan: Gi saw patient staretd on reglan Code(s): K94.23 - GASTROSTOMY MALFUNCTION (3) Seizure as late effect of cerebrovascular accident (CVA) Assessment/Plan: valproic acid bid Code(s): I69.398 - OTHER SEQUELAE OF CEREBRAL INFARCTION; R56.9 - UNSPECIFIED CONVULSIONS (4) Fever Assessment/Plan: started on Rocephin fever curve down trending- now afebrile Code(s): R50.9 - FEVER, UNSPECIFIED
[2018-12-27] MEDS: DEXAMETHASONE SOD PHOSPHATE 4 MG/1 ML VIAL IVPUSH SCH ×2 (13:47→22:26)
[2018-12-27] MEDS ORDERED: PT OWN MED DRAWER 7, Y5N ONE (14:26)
--- NOTE | 2018-12-27 16:12 | PN ---
Progress Note (short form) - Note Progress Note: resting comfortably Vital Signs Period Temp Pulse Resp BP Sys/Florentino Pulse Ox Last 24 Hr 97.3 F-98.8 F 68-95 22-22 97-154/53-86 98-100 cor-rrr lungs decreased bs at bases abd soft,nt +GT ext no edema CBC, BMP 12/27/18 07:55 12/27/18 07:55 Microbiology 12/24/18 20:00 Blood - Peripheral Venous Blood Culture - Preliminary NO GROWTH OBTAINED AFTER 48 HOURS, INCUBATION TO CONTINUE FOR 3 DAYS. 12/24/18 19:30 Blood - Peripheral Venous Blood Culture - Preliminary NO GROWTH OBTAINED AFTER 48 HOURS, INCUBATION TO CONTINUE FOR 3 DAYS. 12/20/18 20:40 Blood - Peripheral Venous Blood Culture - Final NO GROWTH AFTER 5 DAYS INCUBATION 12/20/18 20:40 Blood - Peripheral Venous Blood Culture - Final NO GROWTH AFTER 5 DAYS INCUBATION 12/23/18 22:30 Urine - Urine Clean Catch Urine Culture - Final NO GROWTH OBTAINED 12/24/18 11:20 Stool Clostridioides difficile Antigen - Final 12/24/18 11:20 Stool Clostridioides difficile Toxin Assay - Final ct scan gt in place, no extravasation cxray no infiltrate a/p suspect fevers due to aspiration from GT malfunction- she had very high residuals- now back on tubefeeds day #3 rocephin would d/c antibiotics and observe Problem List - Problems (1) PEG tube malfunction Code(s): K94.23 - GASTROSTOMY MALFUNCTION (2) Cellulitis Code(s): L03.90 - CELLULITIS, UNSPECIFIED
[2018-12-28] MEDS: METOCLOPRAMIDE HCL INJECTION 10 MG/2 ML VIAL IVPUSH SCH ×2 (02:11→10:36)
[2018-12-28] MEDS ORDERED: cefTRIAXone SODIUM 1 GM VIAL ONE (06:22)
[2018-12-28] MEDS ORDERED: DEXTROSE 5%-WATER - 50 ML IVPB ONE (06:22)
[2018-12-28] MEDS: DEXAMETHASONE SOD PHOSPHATE 4 MG/1 ML VIAL IVPUSH SCH ×3 (06:50→22:20)
[2018-12-28] MEDS: CEFTRIAXONE 1 GM in DEXTROSE 5%-WATER - 50 ML IVPB SCH (06:50)
[2018-12-28] MEDS: ALBUTEROL SO4 2.5/IPRATROPIUM 0.5 INH SOL 3 ML VIAL.NEB. NEB SCH ×4 (08:00→20:50)
[2018-12-28] MEDS: VALPROATE SODIUM 500 MG/5 ML VIAL IVPB SCH (10:36)
[2018-12-28] MEDS: POLYETHYLENE GLYCOL 3350 119 GM BTL GT SCH ×2 (10:36→22:25)
--- NOTE | 2018-12-28 13:29 | PN ---
Progress Note (short form) - Note Progress Note: PULMONARY Pt nonverbal. No fevers recorded. Vital Signs Period Temp Pulse Resp BP Sys/Florentino Pulse Ox Last 24 Hr 97.3 F-98.7 F 83-101 22-22 116-135/60-74 98 Gen: less tachypneic Heart: RRR Lung: no wheezes appreciated Abd: soft, nontender Ext: no edema CBC, BMP 12/27/18 07:55 12/27/18 07:55 Active Medications Acetaminophen (Ofirmev Injection -) 1,000 mg IVPB Q6H PRN PRN Reason: FEVER Last Admin: 12/27/18 10:24 Dose: 1,000 mg Albuterol/Ipratropium (Duoneb -) 1 amp NEB RQID [facility] Last Admin: 12/28/18 11:54 Dose: 1 amp Dexamethasone Sodium Phosphate (Decadron Injection -) 6 mg IVPUSH Q8H [facility] Last Admin: 12/28/18 06:50 Dose: 6 mg Ceftriaxone Sodium 1 gm/ (Dextrose) 50 mls @ 100 mls/hr IVPB Q24H [facility]; Protocol Last Admin: 12/28/18 06:50 Dose: 100 mls/hr Metoclopramide HCl (Reglan Injection -) 10 mg IVPUSH Q6H-IV [facility] Last Admin: 12/28/18 10:36 Dose: 10 mg Polyethylene Glycol (Miralax (For Daily Use) -) 17 gm GT BID [facility] Last Admin: 12/28/18 10:36 Dose: 17 grams Valproate Sodium (Depacon Injection -) 500 mg IVPB BID [facility] Last Admin: 12/28/18 10:36 Dose: 500 mg A/P Dislodged G Tube Acute Bronchospasm improving Anoxic Brain Injury Seizure Disorder h/o CVA - inhaled bronchodilators - decadron taper - O2 to keep Spo2 >90% - aspiration precautions - DVT prophylaxis
[2018-12-28] MEDS ORDERED: ACETAMINOPHEN 650 MG/20.3 ML ORAL SOLUTION (CUPS) PO PRN (14:31)
--- NOTE | 2018-12-28 14:32 | PN ---
Progress Note, Physician Chief Complaint: Cellulitis History of Present Illness: NAD Non verbal - Current Medication List Current Medications: Active Medications Acetaminophen (Ofirmev Injection -) 1,000 mg IVPB Q6H PRN PRN Reason: FEVER Last Admin: 12/27/18 10:24 Dose: 1,000 mg Albuterol/Ipratropium (Duoneb -) 1 amp NEB RQID [facility] Last Admin: 12/28/18 11:54 Dose: 1 amp Amino Acids (Prosource No Carb Liquid Pkt) 30 ml PO BID@0800,1730 [facility] Dexamethasone Sodium Phosphate (Decadron Injection -) 6 mg IVPUSH Q8H [facility] Last Admin: 12/28/18 06:50 Dose: 6 mg Ceftriaxone Sodium 1 gm/ (Dextrose) 50 mls @ 100 mls/hr IVPB Q24H [facility]; Protocol Last Admin: 12/28/18 06:50 Dose: 100 mls/hr Metoclopramide HCl (Reglan Injection -) 10 mg IVPUSH Q6H-IV [facility] Last Admin: 12/28/18 10:36 Dose: 10 mg Multivitamins/Minerals (Certavite-Antioxidant Liquid) 15 ml PO DAILY [facility] Polyethylene Glycol (Miralax (For Daily Use) -) 17 gm GT BID [facility] Last Admin: 12/28/18 10:36 Dose: 17 grams Valproate Sodium (Depacon Injection -) 500 mg IVPB BID [facility] Last Admin: 12/28/18 10:36 Dose: 500 mg - Objective Vital Signs: Vital Signs Temperature 98.3 F 12/28/18 10:00 Pulse Rate 86 12/28/18 10:00 Respiratory Rate 22 H 12/28/18 10:00 Blood Pressure 129/71 12/28/18 10:00 O2 Sat by Pulse Oximetry (%) 98 12/27/18 21:00 Constitutional: Yes: Well Nourished, No Distress, Calm Cardiovascular: Yes: Regular Rate and Rhythm Respiratory: Yes: Regular Gastrointestinal: Yes: WNL Musculoskeletal: Yes: Other (generalized atrophy) Extremities: Yes: WNL Edema: No Peripheral Pulses WNL: Yes Neurological: Yes: Pre-Existing Deficit Labs: CBC, BMP 12/27/18 07:55 12/27/18 07:55 INR, PTT INR 1.28 (0.83-1.09) H 12/25/18 10:31 Assessment/Plan (1) Bronchospasm Assessment/Plan: -ENT consult noted -started on dexamethasone evry 8 hrs -pulmonary on board -Bronchodilators -Nasal O2 prn Code(s): J98.01 - ACUTE BRONCHOSPASM (2) PEG tube malfunction Assessment/Plan: -GI on board -Peg replaced -Tube feedings started-tolerating well -RD recommendations followed to change to fiber free formula-changed TF to Osmolite Code(s): K94.23 - GASTROSTOMY MALFUNCTION (3) Seizure as late effect of cerebrovascular accident (CVA) Assessment/Plan: -Switch valproic acid to PEG Code(s): I69.398 - OTHER SEQUELAE OF CEREBRAL INFARCTION; R56.9 - UNSPECIFIED CONVULSIONS (4) Fever Assessment/Plan: -on Rocephin -ID on board -afebrile -no leukocytosis -Cultures: Microbiology 12/24/18 20:00 Blood - Peripheral Venous Blood Culture - Preliminary NO GROWTH OBTAINED AFTER 72 HOURS, INCUBATION TO CONTINUE FOR 2 DAYS. 12/24/18 19:30 Blood - Peripheral Venous Blood Culture - Preliminary NO GROWTH OBTAINED AFTER 72 HOURS, INCUBATION TO CONTINUE FOR 2 DAYS. 12/20/18 20:40 Blood - Peripheral Venous Blood Culture - Final NO GROWTH AFTER 5 DAYS INCUBATION 12/20/18 20:40 Blood - Peripheral Venous Blood Culture - Final NO GROWTH AFTER 5 DAYS INCUBATION 12/23/18 22:30 Urine - Urine Clean Catch Urine Culture - Final NO GROWTH OBTAINED 12/24/18 11:20 Stool Clostridioides difficile Antigen - Final 12/24/18 11:20 Stool Clostridioides difficile Toxin Assay - Final Code(s): R50.9 - FEVER, UNSPECIFIED
[2018-12-28] MEDS: MULTIVIT-MINERALS ORAL LIQUID PO SCH (15:17)
[2018-12-28] MEDS: METOCLOPRAMIDE HCL 5 MG/5 ML UNIT DOSE CUP PO SCH ×2 (17:42→22:25)
[2018-12-28] MEDS: AMINO ACIDS/PROTEIN HYDROLYS 30 ML LIQUID.PKT PO SCH (17:42)
[2018-12-28] MEDS ORDERED: PT OWN MED DRAWER 7, Y5N ONE (22:23)
[2018-12-28] MEDS: DIVALPROEX SODIUM 125 MG SPRINKLE CAPS PEG SCH (22:39)
[2018-12-29] MEDS ORDERED: cefTRIAXone SODIUM 1 GM VIAL ONE (06:14)
[2018-12-29] MEDS ORDERED: DEXTROSE 5%-WATER - 50 ML IVPB ONE (06:14)
[2018-12-29] MEDS: DEXAMETHASONE SOD PHOSPHATE 4 MG/1 ML VIAL IVPUSH SCH ×3 (06:16→21:43)
[2018-12-29] MEDS: METOCLOPRAMIDE HCL 5 MG/5 ML UNIT DOSE CUP PO SCH ×4 (06:16→21:44)
[2018-12-29] MEDS: CEFTRIAXONE 1 GM in DEXTROSE 5%-WATER - 50 ML IVPB SCH (06:16)
[2018-12-29] MEDS: ALBUTEROL SO4 2.5/IPRATROPIUM 0.5 INH SOL 3 ML VIAL.NEB. NEB SCH ×4 (08:30→19:58)
[2018-12-29] MEDS ORDERED: PT OWN MED DRAWER 7, Y5N ONE (09:00)
[2018-12-29] MEDS: AMINO ACIDS/PROTEIN HYDROLYS 30 ML LIQUID.PKT PO SCH ×2 (10:24→16:29)
[2018-12-29] MEDS: POLYETHYLENE GLYCOL 3350 119 GM BTL GT SCH ×2 (10:25→21:44)
[2018-12-29] MEDS: MULTIVIT-MINERALS ORAL LIQUID PO SCH (10:25)
[2018-12-29] MEDS: DIVALPROEX SODIUM 125 MG SPRINKLE CAPS PEG SCH ×2 (10:25→21:44)
--- NOTE | 2018-12-29 12:19 | PN ---
Progress Note (short form) - Note Progress Note: PULMONARY Pt nonverbal. No fevers recorded. Vital Signs Period Temp Pulse Resp BP Sys/Florentino Pulse Ox Last 24 Hr 98 F-98.8 F 71-102 20-22 100-122/60-76 98 Gen: less tachypneic Heart: RRR Lung: upper airway wheezing Abd: soft, nontender Ext: no edema CBC, BMP 12/27/18 07:55 12/27/18 07:55 Active Medications Acetaminophen (Tylenol Oral Solution -) 650 mg PO Q4H PRN PRN Reason: PAIN OR FEVER Albuterol/Ipratropium (Duoneb -) 1 amp NEB RQID [facility] Last Admin: 12/29/18 11:35 Dose: 1 amp Amino Acids (Prosource No Carb Liquid Pkt) 30 ml PO BID@0800,1730 [facility] Last Admin: 12/29/18 10:24 Dose: 30 ml Dexamethasone Sodium Phosphate (Decadron Injection -) 6 mg IVPUSH Q8H [facility] Last Admin: 12/29/18 06:16 Dose: 6 mg Divalproex Sodium (Depakote Sprinkle Caps -) 500 mg PEG BID [facility] Last Admin: 12/29/18 10:25 Dose: 500 mg Ceftriaxone Sodium 1 gm/ (Dextrose) 50 mls @ 100 mls/hr IVPB Q24H [facility]; Protocol Last Admin: 12/29/18 06:16 Dose: 100 mls/hr Metoclopramide HCl (Reglan Oral Solution -) 10 mg PO ACHS [facility] Last Admin: 12/29/18 11:19 Dose: 10 mg Multivitamins/Minerals (Certavite-Antioxidant Liquid) 15 ml PO DAILY [facility] Last Admin: 12/29/18 10:25 Dose: 15 ml Polyethylene Glycol (Miralax (For Daily Use) -) 17 gm GT BID [facility] Last Admin: 12/29/18 10:25 Dose: 17 grams A/P Dislodged G Tube Acute Bronchospasm improving Anoxic Brain Injury Seizure Disorder h/o CVA - inhaled bronchodilators - decadron taper - O2 to keep Spo2 >90% - aspiration precautions - DVT prophylaxis
--- NOTE | 2018-12-29 12:38 | PN ---
Progress Note, Physician Chief Complaint: Cellulitis History of Present Illness: NAD Non verbal - Current Medication List Current Medications: Active Medications Acetaminophen (Tylenol Oral Solution -) 650 mg PO Q4H PRN PRN Reason: PAIN OR FEVER Albuterol/Ipratropium (Duoneb -) 1 amp NEB RQID [facility] Last Admin: 12/29/18 11:35 Dose: 1 amp Amino Acids (Prosource No Carb Liquid Pkt) 30 ml PO BID@0800,1730 [facility] Last Admin: 12/29/18 10:24 Dose: 30 ml Dexamethasone Sodium Phosphate (Decadron Injection -) 6 mg IVPUSH Q8H [facility] Last Admin: 12/29/18 06:16 Dose: 6 mg Divalproex Sodium (Depakote Sprinkle Caps -) 500 mg PEG BID [facility] Last Admin: 12/29/18 10:25 Dose: 500 mg Ceftriaxone Sodium 1 gm/ (Dextrose) 50 mls @ 100 mls/hr IVPB Q24H [facility]; Protocol Last Admin: 12/29/18 06:16 Dose: 100 mls/hr Metoclopramide HCl (Reglan Oral Solution -) 10 mg PO ACHS [facility] Last Admin: 12/29/18 11:19 Dose: 10 mg Multivitamins/Minerals (Certavite-Antioxidant Liquid) 15 ml PO DAILY [facility] Last Admin: 12/29/18 10:25 Dose: 15 ml Polyethylene Glycol (Miralax (For Daily Use) -) 17 gm GT BID [facility] Last Admin: 12/29/18 10:25 Dose: 17 grams - Objective Vital Signs: Vital Signs Temperature 98 F 12/29/18 10:00 Pulse Rate 83 12/29/18 10:00 Respiratory Rate 20 12/29/18 10:00 Blood Pressure 114/76 12/29/18 10:00 O2 Sat by Pulse Oximetry (%) 98 12/28/18 21:00 Constitutional: Yes: Well Nourished, No Distress, Calm Cardiovascular: Yes: WNL Respiratory: Yes: Regular Gastrointestinal: Yes: WNL, Normal Bowel Sounds, Soft Genitourinary: Yes: Incontinence Musculoskeletal: Yes: Muscle Weakness Extremities: Yes: WNL Edema: No Peripheral Pulses WNL: Yes Neurological: Yes: Pre-Existing Deficit Labs: CBC, BMP 12/27/18 07:55 12/27/18 07:55 INR, PTT INR 1.28 (0.83-1.09) H 12/25/18 10:31 Assessment/Plan (1) Bronchospasm Assessment/Plan: -ENT consult noted -started on dexamethasone evry 8 hrs -pulmonary on board -Bronchodilators -Nasal O2 prn Code(s): J98.01 - ACUTE BRONCHOSPASM (2) PEG tube malfunction Assessment/Plan: -GI on board -Peg replaced -Tube feedings started-tolerating well -RD recommendations followed to change to fiber free formula-changed TF to Osmolite Code(s): K94.23 - GASTROSTOMY MALFUNCTION (3) Seizure as late effect of cerebrovascular accident (CVA) Assessment/Plan: -Switch valproic acid to PEG Code(s): I69.398 - OTHER SEQUELAE OF CEREBRAL INFARCTION; R56.9 - UNSPECIFIED CONVULSIONS (4) Fever Assessment/Plan: -on Rocephin -ID on board -afebrile -no leukocytosis -Cultures: Microbiology 12/24/18 20:00 Blood - Peripheral Venous Blood Culture - Preliminary NO GROWTH OBTAINED AFTER 72 HOURS, INCUBATION TO CONTINUE FOR 2 DAYS. 12/24/18 19:30 Blood - Peripheral Venous Blood Culture - Preliminary NO GROWTH OBTAINED AFTER 72 HOURS, INCUBATION TO CONTINUE FOR 2 DAYS. 12/20/18 20:40 Blood - Peripheral Venous Blood Culture - Final NO GROWTH AFTER 5 DAYS INCUBATION 12/20/18 20:40 Blood - Peripheral Venous Blood Culture - Final NO GROWTH AFTER 5 DAYS INCUBATION 12/23/18 22:30 Urine - Urine Clean Catch Urine Culture - Final NO GROWTH OBTAINED 12/24/18 11:20 Stool Clostridioides difficile Antigen - Final 12/24/18 11:20 Stool Clostridioides difficile Toxin Assay - Final Code(s): R50.9 - FEVER, UNSPECIFIED
[2018-12-30] MEDS ORDERED: cefTRIAXone SODIUM 1 GM VIAL ONE (04:39)
[2018-12-30] MEDS ORDERED: DEXTROSE 5%-WATER - 50 ML IVPB ONE (04:39)
[2018-12-30] MEDS: DEXAMETHASONE SOD PHOSPHATE 4 MG/1 ML VIAL IVPUSH SCH ×2 (05:21→22:53)
[2018-12-30] MEDS: CEFTRIAXONE 1 GM in DEXTROSE 5%-WATER - 50 ML IVPB SCH (05:22)
[2018-12-30] MEDS: METOCLOPRAMIDE HCL 5 MG/5 ML UNIT DOSE CUP PO SCH ×4 (06:05→22:53)
[2018-12-30] MEDS ORDERED: INSULIN (NOVOLOG) ASPART 100 UNITS/ML 10ML VIAL ONE (06:45)
[2018-12-30] MEDS: ALBUTEROL SO4 2.5/IPRATROPIUM 0.5 INH SOL 3 ML VIAL.NEB. NEB SCH ×4 (07:45→20:22)
[2018-12-30] MEDS: DIVALPROEX SODIUM 125 MG SPRINKLE CAPS PEG SCH ×2 (10:39→22:52)
[2018-12-30] MEDS: AMINO ACIDS/PROTEIN HYDROLYS 30 ML LIQUID.PKT PO SCH ×2 (10:39→17:45)
[2018-12-30] MEDS: POLYETHYLENE GLYCOL 3350 119 GM BTL GT SCH ×2 (10:40→22:52)
[2018-12-30] MEDS: MULTIVIT-MINERALS ORAL LIQUID PO SCH (10:40)
--- NOTE | 2018-12-30 11:16 | PN ---
Progress Note (short form) - Note Progress Note: Nonverbal. No acute events overnight. No fevers recorded. Intake & Output 12/27/18 12/28/18 12/29/18 12/30/18 23:59 23:59 23:59 23:59 Intake Total 3043 328 6441 750 Balance 1536 396 6366 750 Weight 174 lb 12.8 oz Last Vital Signs Temp Pulse Resp BP Pulse Ox 97.9 F 92 H 16 130/67 99 12/30/18 09:00 12/30/18 09:00 12/30/18 09:00 12/30/18 09:00 12/29/18 21:00 Active Medications Acetaminophen (Tylenol Oral Solution -) 650 mg PO Q4H PRN PRN Reason: PAIN OR FEVER Albuterol/Ipratropium (Duoneb -) 1 amp NEB RQID [facility] Last Admin: 12/30/18 07:45 Dose: 1 amp Amino Acids (Prosource No Carb Liquid Pkt) 30 ml PO BID@0800,1730 [facility] Last Admin: 12/30/18 10:39 Dose: 30 ml Dexamethasone Sodium Phosphate (Decadron Injection -) 6 mg IVPUSH BID [facility] Divalproex Sodium (Depakote Sprinkle Caps -) 500 mg PEG BID [facility] Last Admin: 12/30/18 10:39 Dose: 500 mg Ceftriaxone Sodium 1 gm/ (Dextrose) 50 mls @ 100 mls/hr IVPB Q24H [facility]; Protocol Last Admin: 12/30/18 05:22 Dose: 100 mls/hr Metoclopramide HCl (Reglan Oral Solution -) 10 mg PO ACHS [facility] Last Admin: 12/30/18 10:39 Dose: 10 mg Multivitamins/Minerals (Certavite-Antioxidant Liquid) 15 ml PO DAILY [facility] Last Admin: 12/30/18 10:40 Dose: 15 ml Polyethylene Glycol (Miralax (For Daily Use) -) 17 gm GT BID [facility] Last Admin: 12/30/18 10:40 Dose: 17 grams Gen: NAD HEENT: No stridor Heart: RRR Lung: few scattered rhonchi, no wheezing Abd: soft, nontender Ext: no edema A/P Dislodged G Tube Acute Bronchospasm improving Anoxic Brain Injury Seizure Disorder h/o CVA - inhaled bronchodilators - decadron taper - O2 to keep Spo2 >90% - aspiration precautions - DVT prophylaxis Dr Bailey
--- NOTE | 2018-12-30 15:55 | PN ---
Progress Note, Physician Chief Complaint: afebrile on decadron taper - Current Medication List Current Medications: Active Medications Acetaminophen (Tylenol Oral Solution -) 650 mg PO Q4H PRN PRN Reason: PAIN OR FEVER Albuterol/Ipratropium (Duoneb -) 1 amp NEB RQID [facility] Last Admin: 12/30/18 15:10 Dose: 1 amp Amino Acids (Prosource No Carb Liquid Pkt) 30 ml PO BID@0800,1730 [facility] Last Admin: 12/30/18 10:39 Dose: 30 ml Dexamethasone Sodium Phosphate (Decadron Injection -) 6 mg IVPUSH BID [facility] Divalproex Sodium (Depakote Sprinkle Caps -) 500 mg PEG BID [facility] Last Admin: 12/30/18 10:39 Dose: 500 mg Ceftriaxone Sodium 1 gm/ (Dextrose) 50 mls @ 100 mls/hr IVPB Q24H [facility]; Protocol Last Admin: 12/30/18 05:22 Dose: 100 mls/hr Metoclopramide HCl (Reglan Oral Solution -) 10 mg PO ACHS [facility] Last Admin: 12/30/18 10:39 Dose: 10 mg Multivitamins/Minerals (Certavite-Antioxidant Liquid) 15 ml PO DAILY [facility] Last Admin: 12/30/18 10:40 Dose: 15 ml Polyethylene Glycol (Miralax (For Daily Use) -) 17 gm GT BID [facility] Last Admin: 12/30/18 10:40 Dose: 17 grams - Objective Vital Signs: Vital Signs Temperature 98.4 F 12/30/18 14:21 Pulse Rate 77 12/30/18 14:21 Respiratory Rate 20 12/30/18 14:21 Blood Pressure 125/54 L 12/30/18 14:21 O2 Sat by Pulse Oximetry (%) 99 12/29/18 21:00 Constitutional: Yes: Calm Cardiovascular: Yes: Regular Rate and Rhythm, S1, S2 Respiratory: Yes: Wheezes Gastrointestinal: Yes: Normal Bowel Sounds, Soft, Other ( g tube) Extremities: Yes: Other (contracted extremities) Neurological: Yes: Other (non verbal) Labs: CBC, BMP 12/27/18 07:55 12/27/18 07:55 INR, PTT INR 1.28 (0.83-1.09) H 12/25/18 10:31 Problem List - Problems (1) Bronchospasm Assessment/Plan: ENT consult noted started on dexamethasone evry 8 hrs now taper to bid Code(s): J98.01 - ACUTE BRONCHOSPASM (2) PEG tube malfunction Assessment/Plan: Gi saw patient staretd on reglan Code(s): K94.23 - GASTROSTOMY MALFUNCTION (3) Seizure as late effect of cerebrovascular accident (CVA) Assessment/Plan: valproic acid bid Code(s): I69.398 - OTHER SEQUELAE OF CEREBRAL INFARCTION; R56.9 - UNSPECIFIED CONVULSIONS (4) Fever Assessment/Plan: started on Rocephin day 5 fever curve down trending- now afebrile Code(s): R50.9 - FEVER, UNSPECIFIED
[2018-12-31] MEDS ORDERED: DEXTROSE 5%-WATER - 50 ML IVPB ONE (04:57)
[2018-12-31] MEDS ORDERED: cefTRIAXone SODIUM 1 GM VIAL ONE (04:57)
[2018-12-31] MEDS: CEFTRIAXONE 1 GM in DEXTROSE 5%-WATER - 50 ML IVPB SCH (05:07)
[2018-12-31] MEDS: METOCLOPRAMIDE HCL 5 MG/5 ML UNIT DOSE CUP PO SCH ×4 (06:07→22:54)
[2018-12-31] MEDS: ALBUTEROL SO4 2.5/IPRATROPIUM 0.5 INH SOL 3 ML VIAL.NEB. NEB SCH (07:40)
--- NOTE | 2018-12-31 08:30 | PN ---
Progress Note, Physician - Current Medication List Current Medications: Active Medications Acetaminophen (Tylenol Oral Solution -) 650 mg PO Q4H PRN PRN Reason: PAIN OR FEVER Albuterol/Ipratropium (Duoneb -) 1 amp NEB RQID [facility] Last Admin: 12/31/18 07:40 Dose: 1 amp Amino Acids (Prosource No Carb Liquid Pkt) 30 ml PO BID@0800,1730 [facility] Last Admin: 12/30/18 17:45 Dose: 30 ml Dexamethasone Sodium Phosphate (Decadron Injection -) 6 mg IVPUSH BID [facility] Last Admin: 12/30/18 22:53 Dose: 6 mg Divalproex Sodium (Depakote Sprinkle Caps -) 500 mg PEG BID [facility] Last Admin: 12/30/18 22:52 Dose: 500 mg Ceftriaxone Sodium 1 gm/ (Dextrose) 50 mls @ 100 mls/hr IVPB Q24H [facility]; Protocol Last Admin: 12/31/18 05:07 Dose: 100 mls/hr Metoclopramide HCl (Reglan Oral Solution -) 10 mg PO ACHS [facility] Last Admin: 12/31/18 06:07 Dose: 10 mg Multivitamins/Minerals (Certavite-Antioxidant Liquid) 15 ml PO DAILY [facility] Last Admin: 12/30/18 10:40 Dose: 15 ml Polyethylene Glycol (Miralax (For Daily Use) -) 17 gm GT BID [facility] Last Admin: 12/30/18 22:52 Dose: 17 grams - Objective Vital Signs: Vital Signs Temperature 98.1 F 12/31/18 06:33 Pulse Rate 70 12/31/18 06:33 Respiratory Rate 20 12/31/18 06:33 Blood Pressure 128/58 L 12/31/18 06:33 O2 Sat by Pulse Oximetry (%) 100 12/30/18 21:00 Cardiovascular: Yes: S1, S2 Respiratory: Yes: CTA Bilaterally, Diminished Gastrointestinal: Yes: Normal Bowel Sounds, Soft Labs: CBC, BMP 12/27/18 07:55 12/27/18 07:55 INR, PTT INR 1.28 (0.83-1.09) H 12/25/18 10:31 Problem List - Problems (1) PEG tube malfunction Code(s): K94.23 - GASTROSTOMY MALFUNCTION (2) Severe flexion contractures of all joints Code(s): M24.50 - CONTRACTURE, UNSPECIFIED JOINT (3) Anoxic brain damage Code(s): G93.1 - ANOXIC BRAIN DAMAGE, NOT ELSEWHERE CLASSIFIED (4) Seizure as late effect of cerebrovascular accident (CVA) Code(s): I69.398 - OTHER SEQUELAE OF CEREBRAL INFARCTION; R56.9 - UNSPECIFIED CONVULSIONS (5) Pulmonary aspiration, history of Code(s): Z87.09 - PERSONAL HISTORY OF OTHER DISEASES OF THE RESPIRATORY SYSTEM (6) Fever Code(s): R50.9 - FEVER, UNSPECIFIED Assessment/Plan (1) Bronchospasm Assessment/Plan: -ENT consult noted -started on dexamethasone evry 8 hrs -pulmonary on board -Bronchodilators -Nasal O2 prn Code(s): J98.01 - ACUTE BRONCHOSPASM (2) PEG tube malfunction Assessment/Plan: -GI on board -Peg replaced -Tube feedings started-tolerating well -RD recommendations followed to change to fiber free formula-changed TF to Osmolite Code(s): K94.23 - GASTROSTOMY MALFUNCTION (3) Seizure as late effect of cerebrovascular accident (CVA) Assessment/Plan: -Switch valproic acid to PEG Code(s): I69.398 - OTHER SEQUELAE OF CEREBRAL INFARCTION; R56.9 - UNSPECIFIED CONVULSIONS (4) Fever Assessment/Plan: -on Rocephin -ID on board -afebrile -no leukocytosis -Cultures: Microbiology 12/24/18 20:00 Blood - Peripheral Venous Blood Culture - Preliminary NO GROWTH OBTAINED AFTER 72 HOURS, INCUBATION TO CONTINUE FOR 2 DAYS. 12/24/18 19:30 Blood - Peripheral Venous Blood Culture - Preliminary NO GROWTH OBTAINED AFTER 72 HOURS, INCUBATION TO CONTINUE FOR 2 DAYS. 12/20/18 20:40 Blood - Peripheral Venous Blood Culture - Final NO GROWTH AFTER 5 DAYS INCUBATION 12/20/18 20:40 Blood - Peripheral Venous Blood Culture - Final NO GROWTH AFTER 5 DAYS INCUBATION 12/23/18 22:30 Urine - Urine Clean Catch Urine Culture - Final NO GROWTH OBTAINED 12/24/18 11:20 Stool Clostridioides difficile Antigen - Final 12/24/18 11:20 Stool Clostridioides difficile Toxin Assay - Final Code(s): R50.9 - FEVER, UNSPECIFIED
[2018-12-31] MEDS: AMINO ACIDS/PROTEIN HYDROLYS 30 ML LIQUID.PKT PO SCH ×2 (08:45→17:47)
[2018-12-31] MEDS ORDERED: PT OWN MED DRAWER 7, Y5N ONE (10:21)
[2018-12-31] MEDS: DEXAMETHASONE SOD PHOSPHATE 4 MG/1 ML VIAL IVPUSH SCH ×2 (10:22→22:58)
[2018-12-31] MEDS: POLYETHYLENE GLYCOL 3350 119 GM BTL GT SCH ×2 (10:23→22:53)
[2018-12-31] MEDS: MULTIVIT-MINERALS ORAL LIQUID PO SCH (10:23)
[2018-12-31] MEDS: DIVALPROEX SODIUM 125 MG SPRINKLE CAPS PEG SCH ×2 (10:50→22:54)
--- NOTE | 2018-12-31 11:34 | PN ---
Progress Note (short form) - Note Progress Note: Nonverbal. No acute events overnight. No fevers recorded. Intake & Output 12/28/18 12/29/18 12/30/18 12/31/18 23:59 23:59 23:59 23:59 Intake Total 650 1250 1650 50 Balance 650 1250 1650 50 Weight 174 lb 12.8 oz Last Vital Signs Temp Pulse Resp BP Pulse Ox 98.1 F 70 20 128/58 L 100 12/31/18 06:33 12/31/18 06:33 12/31/18 06:33 12/31/18 06:33 12/30/18 21:00 Active Medications Acetaminophen (Tylenol Oral Solution -) 650 mg PO Q4H PRN PRN Reason: PAIN OR FEVER Albuterol/Ipratropium (Duoneb -) 1 amp NEB RQID [facility] Last Admin: 12/31/18 07:40 Dose: 1 amp Amino Acids (Prosource No Carb Liquid Pkt) 30 ml PO BID@0800,1730 [facility] Last Admin: 12/31/18 08:45 Dose: 30 ml Dexamethasone Sodium Phosphate (Decadron Injection -) 6 mg IVPUSH BID [facility] Last Admin: 12/31/18 10:22 Dose: 6 mg Divalproex Sodium (Depakote Sprinkle Caps -) 500 mg PEG BID [facility] Last Admin: 12/31/18 10:50 Dose: 500 mg Ceftriaxone Sodium 1 gm/ (Dextrose) 50 mls @ 100 mls/hr IVPB Q24H [facility]; Protocol Last Admin: 12/31/18 05:07 Dose: 100 mls/hr Metoclopramide HCl (Reglan Oral Solution -) 10 mg PO ACHS [facility] Last Admin: 12/31/18 10:23 Dose: 10 mg Multivitamins/Minerals (Certavite-Antioxidant Liquid) 15 ml PO DAILY [facility] Last Admin: 12/31/18 10:23 Dose: 15 ml Polyethylene Glycol (Miralax (For Daily Use) -) 17 gm GT BID [facility] Last Admin: 12/31/18 10:23 Dose: 17 grams Gen: NAD HEENT: No stridor Heart: RRR Lung: few scattered rhonchi, no wheezing Abd: soft, nontender Ext: no edema A/P Dislodged G Tube Acute Bronchospasm improving Anoxic Brain Injury Seizure Disorder h/o CVA - inhaled bronchodilators - decadron taper - O2 to keep Spo2 >90% - aspiration precautions - DVT prophylaxis Dr Bailey
[2019-01-01] MEDS ORDERED: cefTRIAXone SODIUM 1 GM VIAL ONE (06:30)
[2019-01-01] MEDS ORDERED: DEXTROSE 5%-WATER - 50 ML IVPB ONE (06:31)
[2019-01-01] MEDS: CEFTRIAXONE 1 GM in DEXTROSE 5%-WATER - 50 ML IVPB SCH (06:35)
[2019-01-01] MEDS: METOCLOPRAMIDE HCL 5 MG/5 ML UNIT DOSE CUP PO SCH ×2 (06:36→11:41)
[2019-01-01] MEDS ORDERED: PT OWN MED DRAWER 7, Y5N ONE (08:45)
[2019-01-01] MEDS: AMINO ACIDS/PROTEIN HYDROLYS 30 ML LIQUID.PKT PO SCH (08:55)
[2019-01-01] MEDS: MULTIVIT-MINERALS ORAL LIQUID PO SCH (09:03)
[2019-01-01] MEDS: DIVALPROEX SODIUM 125 MG SPRINKLE CAPS PEG SCH (09:04)
[2019-01-01] MEDS: DEXAMETHASONE SOD PHOSPHATE 4 MG/1 ML VIAL IVPUSH SCH (09:04)
[2019-01-01] MEDS: POLYETHYLENE GLYCOL 3350 119 GM BTL GT SCH (09:08)
--- NOTE | 2019-01-01 10:52 | PN ---
Progress Note (short form) - Note Progress Note: Nonverbal. No acute events overnight. No fevers recorded. Intake & Output 12/29/18 12/30/18 12/31/18 01/01/19 23:59 23:59 23:59 23:59 Intake Total 1250 1650 50 0 Balance 1250 1650 50 0 Weight 174 lb 12.8 oz Last Vital Signs Temp Pulse Resp BP Pulse Ox 98.7 F 77 21 H 117/66 100 01/01/19 09:30 01/01/19 09:30 01/01/19 09:30 01/01/19 09:30 01/01/19 09:00 Active Medications Acetaminophen (Tylenol Oral Solution -) 650 mg PO Q4H PRN PRN Reason: PAIN OR FEVER Amino Acids (Prosource No Carb Liquid Pkt) 30 ml PO BID@0800,1730 [facility] Last Admin: 01/01/19 08:55 Dose: 30 ml Dexamethasone Sodium Phosphate (Decadron Injection -) 4 mg IVPUSH BID [facility] Divalproex Sodium (Depakote Sprinkle Caps -) 500 mg PEG BID [facility] Last Admin: 01/01/19 09:04 Dose: 500 mg Ceftriaxone Sodium 1 gm/ (Dextrose) 50 mls @ 100 mls/hr IVPB Q24H [facility]; Protocol Last Admin: 01/01/19 06:35 Dose: 100 mls/hr Metoclopramide HCl (Reglan Oral Solution -) 10 mg PO ACHS [facility] Last Admin: 01/01/19 06:36 Dose: 10 mg Multivitamins/Minerals (Certavite-Antioxidant Liquid) 15 ml PO DAILY [facility] Last Admin: 01/01/19 09:03 Dose: 15 ml Polyethylene Glycol (Miralax (For Daily Use) -) 17 gm GT BID [facility] Last Admin: 01/01/19 09:08 Dose: 17 grams Gen: NAD HEENT: No stridor Heart: RRR Lung: few scattered rhonchi, no wheezing Abd: soft, nontender Ext: no edema A/P Dislodged G Tube Acute Bronchospasm improving Anoxic Brain Injury Seizure Disorder h/o CVA - inhaled bronchodilators - decadron taper - O2 to keep Spo2 >90% - aspiration precautions - DVT prophylaxis - DC planning Dr Bailey
--- NOTE | 2019-01-01 11:28 | DS ---
Physical Examination Vital Signs: Vital Signs Temperature 98.7 F 01/01/19 09:30 Pulse Rate 77 01/01/19 09:30 Respiratory Rate 21 H 01/01/19 09:30 Blood Pressure 117/66 01/01/19 09:30 O2 Sat by Pulse Oximetry (%) 100 01/01/19 09:00 Findings/Remarks: 58 yo F wit h/o dementia cva anoxic brain injury, peg tube, seizure disorder recurrent aspiratoins here from [facility] for G tube malfunction. pt daughter at bedside states she has had tube since at least 2016 has been changed several times. last here at [facility]. per nursing at [facility], she just started shift, states there was concern on shift prior that the tube wasn't working and was coming out a bit. unceratin if it was dislodged or dysfunctional. no n/v no f/ c no other known concerns. Constitutional: Yes: Well Nourished, No Distress, Calm Cardiovascular: Yes: Regular Rate and Rhythm Respiratory: Yes: Regular Gastrointestinal: Yes: Normal Bowel Sounds, Soft Musculoskeletal: Yes: Muscle Weakness, Other (generalized atrophy) Edema: No Peripheral Pulses WNL: Yes Neurological: Yes: Pre-Existing Deficit Labs: CBC, BMP 12/27/18 07:55 12/27/18 07:55 Discharge Summary Reason For Visit: CELLULITUS Current Active Problems Bronchospasm (Acute) CVA (cerebral vascular accident) (Acute) Cellulitis (Acute) Dementia (Acute) Fever (Acute) [facility] resident (Acute) PEG tube malfunction (Acute) Prophylactic measure (Acute) Pulmonary aspiration, history of (Acute) Severe flexion contractures of all joints (Acute) Hospital Course: Laboratory Last Values WBC 3.5 K/mm3 (4.0-10.0) L 12/27/18 07:55 RBC 4.08 M/mm3 (3.60-5.2) 12/27/18 07:55 Hgb 13.6 GM/dL (10.7-15.3) 12/27/18 07:55 Hct 39.9 % (32.4-45.2) 12/27/18 07:55 MCV 97.7 fl (80-96) H 12/27/18 07:55 MCH 33.2 pg (25.7-33.7) 12/27/18 07:55 MCHC 34.0 g/dl (32.0-36.0) 12/27/18 07:55 RDW 15.1 % (11.6-15.6) 12/27/18 07:55 Plt Count 102 K/MM3 (134-434) L 12/27/18 07:55 MPV 7.4 fl (7.5-11.1) L 12/27/18 07:55 Absolute Neuts (auto) 2.6 K/mm3 (1.5-8.0) 12/27/18 07:55 Neutrophils % 73.3 % (42.8-82.8) 12/27/18 07:55 Lymphocytes % 24.3 % (8-40) D 12/27/18 07:55 Monocytes % 2.4 % (3.8-10.2) L D 12/27/18 07:55 Eosinophils % 0.0 % (0-4.5) D 12/27/18 07:55 Basophils % 0.0 % (0-2.0) 12/27/18 07:55 Nucleated RBC % 0 % (0-0) 12/27/18 07:55 PT with INR 15.20 SEC (9.7-13.0) H 12/25/18 10:31 INR 1.28 (0.83-1.09) H 12/25/18 10:31 PTT (Actin FS) 36.1 SECONDS (25.2-36.5) 12/22/18 07:05 Anticoagulation Therapy No Result Required. 12/24/18 18:00 Puncture Site Left radial 12/24/18 18:00 ABG pH 7.49 (7.35-7.45) H 12/24/18 18:00 ABG pCO2 at Pt Temp 32.1 mmHg (35-45) L 12/24/18 18:00 ABG pO2 at Pt Temp 73.8 mmHg (80-105) L 12/24/18 18:00 ABG HCO3 24.4 mmol/L (22-27) 12/24/18 18:00 ABG O2 Sat (Measured) 96.1 % (95-98) 12/24/18 18:00 ABG O2 Content 19.2 % vol (15-22) 12/24/18 18:00 ABG Base Excess 2.2 meq/l (-2-2) H 12/24/18 18:00 Owen Test Positive 12/24/18 18:00 O2 Delivery Device No Result Required. 12/24/18 18:00 Oxygen Flow Rate No Result Required. 12/24/18 18:00 Vent Mode No Result Required. 12/24/18 18:00 Vent Rate No Result Required. 12/24/18 18:00 Mechanical Rate No Result Required. 12/24/18 18:00 Pressure Support Vent No Result Required. 12/24/18 18:00 Sodium 139 mmol/L (136-145) 12/27/18 07:55 Potassium 3.9 mmol/L (3.5-5.1) 12/27/18 07:55 Chloride 106 mmol/L (98-107) 12/27/18 07:55 Carbon Dioxide 27 mmol/L (21-32) 12/27/18 07:55 Anion Gap 6 MMOL/L (8-16) L 12/27/18 07:55 BUN 9.2 mg/dL (7-18) 12/27/18 07:55 Creatinine 0.5 mg/dL (0.55-1.3) L 12/27/18 07:55 Est GFR (CKD-EPI)AfAm 124.52 12/27/18 07:55 Est GFR (CKD-EPI)NonAf 107.44 12/27/18 07:55 Random Glucose 163 mg/dL (74-106) H 12/27/18 07:55 Calcium 8.3 mg/dL (8.5-10.1) L 12/27/18 07:55 Phosphorus 4.1 mg/dL (2.5-4.9) 12/21/18 06:25 Magnesium 2.0 mg/dL (1.8-2.4) 12/24/18 19:30 Total Bilirubin 0.2 mg/dL (0.2-1) 12/27/18 07:55 AST 19 U/L (15-37) 12/27/18 07:55 ALT 16 U/L (13-61) 12/27/18 07:55 Alkaline Phosphatase 35 U/L (45-117) L 12/27/18 07:55 Total Protein 7.4 g/dl (6.4-8.2) 12/27/18 07:55 Albumin 1.7 g/dl (3.4-5.0) L 12/27/18 07:55 Microbiology 12/24/18 20:00 Blood - Peripheral Venous Blood Culture - Final NO GROWTH AFTER 5 DAYS INCUBATION 12/24/18 19:30 Blood - Peripheral Venous Blood Culture - Final NO GROWTH AFTER 5 DAYS INCUBATION 12/20/18 20:40 Blood - Peripheral Venous Blood Culture - Final NO GROWTH AFTER 5 DAYS INCUBATION 12/20/18 20:40 Blood - Peripheral Venous Blood Culture - Final NO GROWTH AFTER 5 DAYS INCUBATION 12/23/18 22:30 Urine - Urine Clean Catch Urine Culture - Final NO GROWTH OBTAINED 12/24/18 11:20 Stool Clostridioides difficile Antigen - Final 12/24/18 11:20 Stool Clostridioides difficile Toxin Assay - Final Vital Signs Period Temp Pulse Resp BP Sys/Florentino Pulse Ox Last 24 Hr 98.1 F-99.5 F 69-81 20-21 106-142/54-78 100-100 Vital Signs Temp 98.7 F 01/01/19 09:30 Pulse 77 01/01/19 09:30 Resp 21 H 01/01/19 09:30 BP 117/66 01/01/19 09:30 Pulse Ox 100 01/01/19 09:00 Intake & Output 12/31/18 12/31/18 01/01/19 11:59 23:59 11:59 Intake Total 50 0 0 Balance 50 0 0 Intake: IV 0 saline lock 0 IVPB 50 Oral 0 Other: Voiding Method Incontinent Incontinent Incontinent # Unmeasured Voids Void 1 1 Bowel Movement Yes No Yes # Bowel Movements 1 Condition: Stable - Instructions Disposition: [facility] - Home Medications Comprehensive Discharge Medication List: Ambulatory Orders Acetaminophen Oral Solution [Tylenol 160mg/5mL Oral Solution -] 20 ml GT Q6H PRN 07/22/15 Calcium Alginate [Du] 1 each TP BID 06/28/18 Polyethylene Glycol 3350 [Glycolax] 117 gm GT DAILY 06/28/18 Albuterol 2.5/Ipratropium 0.5 [Duoneb -] 1 amp NEB Q6H PRN amp 07/03/18 Baclofen [Lioresal -] 5 mg GT TID tablet 07/03/18 Valproate Sodium [Depakene -] 500 mg PO TID cup 07/03/18 Clotrimazole [Clotrimazole AF] 28 gm TP BID 12/20/18
[2019-01-01 12:30] VITALS: BMI 30.8
[2019-01-01 16:11] VITALS: BP 119/64; PULSE 73; TEMP 99
[2019-01-01] MEDS ORDERED: DEXAMETHASONE SOD PHOSPHATE 4 MG/1 ML VIAL IVPUSH SCH (22:00)
== END 2019-01-01 16:20 | DRG 394 ==
LOC: JER 16:02 → JERBED 22:16 → J5S 12-21 01:20
PROVIDERS: ADMIT Family Medicine; ATTEND Family Medicine
PROC: 0DH63UZ Insertion of Feeding Device into Stomach, Percutaneous Approach (ICD-10-PCS; principal; 2018-12-21)
PROC: 0DP6XUZ Removal of Feeding Device from Stomach, External Approach (ICD-10-PCS; 2018-12-21)
DX: K94.23 Gastrostomy malfunction (principal); G93.1 Anoxic brain damage, not elsewhere classified; J98.01 Acute bronchospasm; G40.909 Epilepsy, unspecified, not intractable, without status epilepticus; M24.50 Contracture, unspecified joint; I95.9 Hypotension, unspecified; F03.90 Unspecified dementia, unspecified severity, without behavioral disturbance, psychotic disturbance, mood disturbance, and anxiety; R50.9 Fever, unspecified; R06.82 Tachypnea, not elsewhere classified
CPT/HCPCS: 36415; 36600; 71045-TC-FY; 73610-TC-LT-FY; 74018-TC-FY; 74150-TC; 74241-TC-FY; 80053; 82803; 83735; 84100; 85025; 85610; 85730; 87040; 87086; 87324; 87449; 93005; 93010; 94640; 97161-GP; 99283-25; J0131; J0475; J1100; J1644; J7030

== ENCOUNTER 2019-01-07 12:54 | Inpatient (IN) | payer OTHER ==
--- NOTE | 2019-01-07 14:00 | PDOC ---
History of Present Illness - General Stated Complaint: FEVER Time Seen by Provider: 01/07/19 13:59 - History of Present Illness Initial Comments: 01/07/19 14:00 58 yo F with pmhx of dementia cva anoxic brain injury, peg tube, seizure disorder recurrent aspirations here from [facility] with fever this AM, did not record temp. In the past the patient has had an infection around her PEG tube site. Per daughters the patient has suctioning done regularly due to difficulty expectorating and has urinary and fecal incontinence. She has an ulcer on the L lateral heel ROS - cannot be obtained PE - limited / cooperation and contraction GENERAL: flushed on the body and face, warm to touch, contracted flexion of arms , extension of the legs HEAD: No signs of trauma, normocephalic, atraumatic EYES: EOMI, sclera anicteric, conjunctiva clear NECK: Normal ROM, supple LUNGS: No distress, speaks full sentences, clear to auscultation bilaterally HEART: tachycardic rate and rhythm, normal S1 and S2, no murmurs, rubs or gallops, peripheral pulses normal and equal bilaterally. ABDOMEN: Soft, nontender, EXTREMITIES : erythematous, flushed and contracted upper limbs, extended lower limbs NEUROLOGICAL: cannot be obtained SKIN: flushed throghout, L lateral ulcer metal instrumentation expsosed MDM 58 yo F with pmhx of dementia cva anoxic brain injury, peg tube, seizure disorder recurrent aspirations here from [facility] with fever this AM, did not record temp. DDX including but not limited to: sepsis w/ possible sourcs of urine, pulm, skin W/U: - sepsis set TX: - tylenol, ivf, vanc zosyn ED Course: Sepsis protocol initiated fluid resusc, empiric antibiotics and tylenol Patient with labs wbc 20s, lactic 7 pending urine results per straight cath Patient reassessed with downtrending temp, slight improvement in skin flushing Patient signed out to Gareth Zee NP who recommends ICU consult case discussed with resident Dr. Coronado Patient admitted to ICU Mary Cazares, PGY2 Emergency Medicine Past History - Past Medical History Allergies/Adverse Reactions: Allergies Allergy/AdvReac Type Severity Reaction Status Date / Time No Known Drug Allergies Allergy Verified 12/20/18 16:43 latex AdvReac Unknown Verified 12/20/18 16:43 Home Medications: Ambulatory Orders Acetaminophen Oral Solution [Tylenol 160mg/5mL Oral Solution -] 20 ml GT Q6H PRN 07/22/15 Calcium Alginate [Du] 1 each TP BID 06/28/18 Polyethylene Glycol 3350 [Glycolax] 117 gm GT DAILY 06/28/18 Albuterol 2.5/Ipratropium 0.5 [Duoneb -] 1 amp NEB Q6H PRN amp 07/03/18 Baclofen [Lioresal -] 5 mg GT TID tablet 07/03/18 Clotrimazole [Clotrimazole AF] 28 gm TP BID 12/20/18 Acetaminophen Oral Solution [Tylenol Oral Solution -] 650 mg PO Q4H PRN soln.oral 01/01/19 Amino Acids/Protein Hydrolys [Prosource No Carb Liquid Pkt] 30 ml PO BID@0800, 1730 packet 01/01/19 Dexamethasone [Decadron -] 4 mg PO BID #4 tablet 01/01/19 Dexamethasone [Decadron -] 42 mg PO BID #2 tablet 01/01/19 Divalproex Sprinkle [Depakote Sprinkle -] 500 mg PEG BID cap.sprink 01/01/19 Metoclopramide Oral Soln [Reglan Oral Solution -] 10 mg PO ACHS udc 01/01/19 Multivit-Minerals [Certavite-Antioxidant Liquid] 15 ml PO DAILY cup 01/01/19 Polyethylene Glycol 3350 [Miralax 119 gm Btl -] 17 gm GT BID bottle 01/01/19 COPD: No Dementia: Yes GI Disorders: Yes (PEG TUBE) HTN: Yes Seizures: Yes (EPILEPSY) - Surgical History GI Surgery: Yes (GT - TUBE PLACEMENT) - Immunization History Immunization Up to Date: Yes - Suicide/Smoking/Psychosocial Hx Smoking History: Never smoked Have you smoked in the past 12 months: No Hx Alcohol Use: No Drug/Substance Use Hx: No Substance Use Type: None Hx Substance Use Treatment: No ED Treatment Course - LABORATORY CBC & Chemistry Diagram: 01/09/19 07:00 01/09/19 07:00 *DC/Admit/Observation/Transfer Diagnosis at time of Disposition: Sepsis - Discharge Dispostion Condition at time of disposition: Stable Decision to Admit order: Yes - Referrals - Patient Instructions - Post Discharge Activity
[2019-01-07] MEDS ORDERED: ACETAMINOPHEN 1000 MG/100 ML VIAL (NON FORMULARY) IVPB ONE (14:15)
[2019-01-07] MEDS ORDERED: ACETAMINOPHEN INJECTION 100 ML IVPB ONE (14:28)
[2019-01-07 14:33] LABS: BASO % 0.2 % (0-2.0); EOS % 0.6 % (0-4.5); LYMPH % 16.9 % (8-40); MCH 33.1 pg (25.7-33.7); MCHC 33.9 g/dl (32.0-36.0); MEAN CELL VOLUME 97.7 fl (80-96); MEAN PLT VOLUME 9.5 fl (7.5-11.1); MONO % 10.9 % (3.8-10.2); NEUT % 71.4 % (42.8-82.8); PLATELET COUNT 250 K/MM3 (134-434); RBC 4.81 M/mm3 (3.60-5.2); RDW 16.1 % (11.6-15.6); WHITE BLOOD COUNT 20.9 K/mm3 (4.0-10.0)
[2019-01-07 14:41] LABS: INR 1.1 (0.83-1.09)
[2019-01-07 14:44] LABS: ACTIVATED PTT 27.3 SECONDS (25.2-36.5)
[2019-01-07 14:45] LABS: VENOUS PC02 23.1 mmHg (41-51); VENOUS PH 7.56 (7.31-7.41)
[2019-01-07 15:02] LABS: ANISOCYTOSIS 1+; MACROCYTOSIS 1+; PLATELET ESTIMATE NORMAL
[2019-01-07 15:07] LABS: ALBUMIN 2.9 g/dl (3.4-5.0); CALCIUM 9.2 mg/dL (8.5-10.1); CREATININE 0.9 mg/dL (0.55-1.3); POTASSIUM 5.3 mmol/L (3.5-5.1); TOT PROT 7.6 g/dl (6.4-8.2)
[2019-01-07] MEDS ORDERED: PIPERACILLIN/TAZOB 4.5 GM 4.5 GM in DEXTROSE 5%-WATER 100 ML IVPB ONE (15:07)
[2019-01-07] MEDS ORDERED: VANCOMYCIN 1,000 MG in DEXTROSE 5%-WATER - 250 ML IVPB ONE (15:07)
[2019-01-07] MEDS ORDERED: SODIUM CHLORIDE 2,313 ML IV ONE (15:12)
[2019-01-07] MEDS ORDERED: PIPERACILLIN/TAZOB 4.5 GM 4.5 GM/100 ML BAG IVPB ONE (15:29)
[2019-01-07] MEDS ORDERED: VANCOMYCIN 1 GRAM (PRE-DOCKED) 1,000 MG/250 ML BAG IVPB ONE (15:30)
--- NOTE | 2019-01-07 16:47 | PDOC ---
Documentation entered by Bhavin Cabrera SCRIBE, acting as scribe for Dakota Oliver MD. Dakota Oliver MD: This documentation has been prepared by the Deborah douglas Xhesika, SCRIBE, under my direction and personally reviewed by me in its entirety. I confirm that the documentation accurately reflects all work, treatment, procedures, and medical decision making performed by me. Attending Attestation - Resident Resident Name: Mary Cazares - ED Attending Attestation I have performed the following: I have examined & evaluated the patient, The case was reviewed & discussed with the resident, I agree w/resident's findings & plan, Exceptions are as noted - HPI HPI: 01/07/19 16:45 Reviewed Residents HPI - Physicial Exam PE: 01/07/19 16:45 Reviewed Residents PE - Medical Decision Making 01/07/19 16:45 58 yo F with pmhx of dementia cva anoxic brain injury, peg tube, seizure disorder recurrent aspirations here from [facility] with fever this AM, did not record temp. In the past the patient has had an infection around her PEG tube site. Per daughters the patient has suctioning done regularly due to difficulty expectorating and has urinary and fecal incontinence. She has an ulcer on the L lateral heel She presented to the emergency department fever tachycardia concerning for sepsis Sepsis workup was done. Broad-spectrum antibiotics and 30 mL/kg IV fluids ordered
--- NOTE | 2019-01-07 17:18 | CONSULT ---
Consultation: REQUESTING PROVIDER: CONSULT REQUEST: We have been asked to medically evaluate this patient for ( specify). HISTORY OF PRESENT ILLNESS: HPI as per EMR/[facility] Records, ED doctors/ nurses 58 year old female with a PMHx of CVA, Anoxic brain injury, Dementia, PEG Tube, Seizure disorder, Bronchospasm was BIBA form [facility] with a fever (no recorded temperature) earlier today. H/o recent hospitalization in 11/2018 for aspiration from dislodged G tube. ED course was for the followin. Febrile (Tmax 103)/Tachycardic 2. Leukocytosis 3. CXR with MARIA ESTHER lobe atelectasis 4. Vanc/Zosyn REVIEW OF SYSTEMS: unable to obtain 2/2 to clinical condition PHYSICAL EXAMINATION Vital Signs - 24 hr 01/07/19 01/07/19 01/07/19 14:09 14:35 14:57 Temperature 100.8 F H 101 F H 103.5 F H Pulse Rate 135 H Pulse Rate [ 115 H Left Radial] Respiratory 24 H 24 H Rate Blood Pressure 138/78 Blood Pressure 153/90 [Left Arm] O2 Sat by Pulse 100 98 Oximetry (%) General: non-verbal, tracks with eyes, responds to painful stimuli CV: Tachycardic, S1/S2, RRR Respiratory: CLTA B/L, no wheeze/crackle Abdomen: soft, (+) bowel sounds, equivocal TTP, PEG tube site with purulent discharge, no erythema/TTP Extremities: contracted UE/LE B/L; 2+ DP pulses; B/L 2+ pitting edema foot/ ankles Laboratory Results - last 24 hr 01/07/19 01/07/19 01/07/19 14:10 14:10 14:10 WBC 20.9 H RBC 4.81 Hgb 16.0 H Hct 47.0 H D MCV 97.7 H MCH 33.1 MCHC 33.9 RDW 16.1 H Plt Count 250 D MPV 9.5 D Absolute Neuts (auto) 14.9 H Neutrophils % 71.4 Neutrophils % (Manual) 74.5 Band Neutrophils % 0.0 Lymphocytes % 16.9 D Lymphocytes % (Manual) 11.7 Monocytes % 10.9 H D Monocytes % (Manual) 12 H Eosinophils % 0.6 D Eosinophils % (Manual) 1.0 Basophils % 0.2 D Basophils % (Manual) 0.0 Myelocytes % (Man) 0 Promyelocytes % (Man) 0 Blast Cells % (Manual) 0 Nucleated RBC % 0 Metamyelocytes 0 Hypochromia 0 Platelet Estimate Normal Polychromasia 0 Poikilocytosis 0 Anisocytosis 1+ Microcytosis 0 Macrocytosis 1+ PT with INR 13.00 INR 1.10 H PTT (Actin FS) 27.3 VBG pH POC VBG pCO2 POC VBG pO2 VBG HCO3 VBG O2 Sat (Nissa) VBG Base Excess Sodium Potassium Chloride Carbon Dioxide Anion Gap BUN Creatinine Est GFR (CKD-EPI)AfAm Est GFR (CKD-EPI)NonAf Random Glucose Lactic Acid Calcium Total Bilirubin AST ALT Alkaline Phosphatase Troponin I 0.04 Total Protein Albumin 01/07/19 01/07/19 01/07/19 14:10 14:10 14:10 WBC RBC Hgb Hct MCV MCH MCHC RDW Plt Count MPV Absolute Neuts (auto) Neutrophils % Neutrophils % (Manual) Band Neutrophils % Lymphocytes % Lymphocytes % (Manual) Monocytes % Monocytes % (Manual) Eosinophils % Eosinophils % (Manual) Basophils % Basophils % (Manual) Myelocytes % (Man) Promyelocytes % (Man) Blast Cells % (Manual) Nucleated RBC % Metamyelocytes Hypochromia Platelet Estimate Polychromasia Poikilocytosis Anisocytosis Microcytosis Macrocytosis PT with INR Cancelled INR Cancelled PTT (Actin FS) VBG pH POC VBG pCO2 POC VBG pO2 VBG HCO3 VBG O2 Sat (Nissa) VBG Base Excess Sodium 136 Potassium 5.3 H Chloride 98 Carbon Dioxide 24 Anion Gap 15 BUN 40.0 H Creatinine 0.9 Est GFR (CKD-EPI)AfAm 82.26 Est GFR (CKD-EPI)NonAf 70.98 Random Glucose 56 L Lactic Acid 7.1 H* Calcium 9.2 Total Bilirubin 1.0 AST 124 H ALT 89 H Alkaline Phosphatase 46 Troponin I Total Protein 7.6 Albumin 2.9 L 01/07/19 14:10 WBC RBC Hgb Hct MCV MCH MCHC RDW Plt Count MPV Absolute Neuts (auto) Neutrophils % Neutrophils % (Manual) Band Neutrophils % Lymphocytes % Lymphocytes % (Manual) Monocytes % Monocytes % (Manual) Eosinophils % Eosinophils % (Manual) Basophils % Basophils % (Manual) Myelocytes % (Man) Promyelocytes % (Man) Blast Cells % (Manual) Nucleated RBC % Metamyelocytes Hypochromia Platelet Estimate Polychromasia Poikilocytosis Anisocytosis Microcytosis Macrocytosis PT with INR INR PTT (Actin FS) VBG pH 7.56 H POC VBG pCO2 23.1 L POC VBG pO2 169 H VBG HCO3 20.8 L VBG O2 Sat (Nissa) 99.7 H VBG Base Excess 1.0 Sodium Potassium Chloride Carbon Dioxide Anion Gap BUN Creatinine Est GFR (CKD-EPI)AfAm Est GFR (CKD-EPI)NonAf Random Glucose Lactic Acid Calcium Total Bilirubin AST ALT Alkaline Phosphatase Troponin I Total Protein Albumin ASSESSMENT/PLAN: 58 y/o female with a PMHx of CVA, Anoxic brain injury, Dementia, PEG Tube, Seizure disorder, Bronchospasm who presents from [place] with fever (Tmax 103) of unspecified source. At baseline, patient is alert, non-verbal 2/2 to CVA. #SEPSIS - Tachycardic (HR 120's), Febrile (103) and Leukocytosis (20.9) @ presentation - Lactic Acid 7.1 - Source: UTI vs. PNA vs infected PEG - Blood, urine cultures pending - Continue empiric coverage with Vanc/Zosyn - Continue IV hydration #CARDIOVASCULAR - Continue home medications (Metoprolol 50 QD), Clopidrogel (75 mg QD) # RESPIRATORY - CXR shows HARIS atelectasis not appreciated on prior CXR - H/o bronchospasm - Continue Duo-Nebs PRN # NEURO - As per EMR and patient's family, patient @ baseline MS: non-verbal, withdraws from painful stimuli, intermittently tracks with eyes - H/o CVA w/residual seizures - Continue Depakote F/E/N Continue Tube Feeds IV NS Monitor electrolytes FULL CODE Disposition: patient stable for discharge to Med/Surg tomorrow (01/08/2019) Visit type - Emergency Visit Emergency Visit: Yes ED Registration Date: 01/07/19 Care time: The patient presented to the Emergency Department on the above date and was hospitalized for further evaluation of their emergent condition. - New Patient This patient is new to me today: Yes Date on this admission: 01/08/19 - Critical Care Critical Care patient: No ATTENDING PHYSICIAN STATEMENT I saw and evaluated the patient. I reviewed the resident's note and discussed the case with the resident. I agree with the resident's findings and plan as documented. SUBJECTIVE: OBJECTIVE: ASSESSMENT AND PLAN:
--- NOTE | 2019-01-07 17:42 | HP ---
Admitting History and Physical - Admission Chief Complaint: Fever History of Present Illness: Patient is a 58 y/o female with past medical history of CVA, Anoxic Brain Injury , Peg tube, Seizure Disorder. Patient presented to ER from [facility] for fever (tmax unknown). In ER patient noted with rectal temp 103F, elevated LA, tachycardic, and leukocytosis noted. Patient was recently discharged from [facility] for infection to PEG tube site. 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 Anoxic brain injury ) Gastrointestinal: Yes: Other (PEG tube) - Smoking History Smoking history: Never smoked Have you smoked in the past 12 months: No - Alcohol/Substance Use Hx Alcohol Use: No History of Substance Use: reports: None - Social History Usual Living Arrangement: Yes: Correction ADL: Support Services ([facility]) History of Recent Travel: No Home Medications - Allergies Allergies/Adverse Reactions: Allergies Allergy/AdvReac Type Severity Reaction Status Date / Time No Known Drug Allergies Allergy Verified 12/20/18 16:43 latex AdvReac Unknown Verified 12/20/18 16:43 - Home Medications Home Medications: Ambulatory Orders Acetaminophen Oral Solution [Tylenol 160mg/5mL Oral Solution -] 20 ml GT Q6H PRN 07/22/15 Calcium Alginate [Du] 1 each TP BID 06/28/18 Polyethylene Glycol 3350 [Glycolax] 117 gm GT DAILY 06/28/18 Albuterol 2.5/Ipratropium 0.5 [Duoneb -] 1 amp NEB Q6H PRN amp 07/03/18 Baclofen [Lioresal -] 5 mg GT TID tablet 07/03/18 Clotrimazole [Clotrimazole AF] 28 gm TP BID 12/20/18 Acetaminophen Oral Solution [Tylenol Oral Solution -] 650 mg PO Q4H PRN soln.oral 01/01/19 Amino Acids/Protein Hydrolys [Prosource No Carb Liquid Pkt] 30 ml PO BID@0800, 1730 packet 01/01/19 Dexamethasone [Decadron -] 4 mg PO BID #4 tablet 01/01/19 Dexamethasone [Decadron -] 42 mg PO BID #2 tablet 01/01/19 Divalproex Sprinkle [Depakote Sprinkle -] 500 mg PEG BID cap.sprink 01/01/19 Metoclopramide Oral Soln [Reglan Oral Solution -] 10 mg PO ACHS udc 01/01/19 Multivit-Minerals [Certavite-Antioxidant Liquid] 15 ml PO DAILY cup 01/01/19 Polyethylene Glycol 3350 [Miralax 119 gm Btl -] 17 gm GT BID bottle 01/01/19 Review of Systems Unable to obtain ROS, reason: due to mental status Physical Examination Vital Signs: Vital Signs Temperature 103.5 F H 01/07/19 14:57 Pulse Rate 135 H 01/07/19 14:35 Respiratory Rate 24 H 01/07/19 14:35 Blood Pressure 138/78 01/07/19 14:35 O2 Sat by Pulse Oximetry (%) 98 01/07/19 14:35 Constitutional: Yes: Well Nourished, Mild Distress Eyes: Yes: Conjunctiva Clear HENT: Yes: Atraumatic Cardiovascular: Yes: Tachycardia Respiratory: Yes: Regular, Diminished, On Nasal O2 Gastrointestinal: Yes: Normal Bowel Sounds, Soft, Other (G tube) Musculoskeletal: Yes: Other (b/l upper and lower extremity contraction) Edema: Yes Edema: LLE: 1+, RLE: 1+ Integumentary: Yes: Pressure Ulcer Wound/Incision: Yes: Dressing Dry and Intact Neurological: Yes: Alert, Pre-Existing Deficit Psychiatric: Yes: Alert Labs: CBC, BMP 01/07/19 14:10 01/07/19 14:10 Imaging - Results Chest X-ray: Report Reviewed Problem List - Problems (1) Sepsis Assessment/Plan: -ID consult -ICU consult -LA 7.1 -Vancomycin and Zosyn given in ER -tmax 103F--tylenol prn for temp >100F -BC, UC, wound culture ordered -CXR shows new atelectasis in the HARIS -Leukocytosis WBC 20.9 -IV hydration Code(s): A41.9 - SEPSIS, UNSPECIFIED ORGANISM (2) CVA (cerebral vascular accident) Assessment/Plan: -heparin sq Code(s): I63.9 - CEREBRAL INFARCTION, UNSPECIFIED (3) Dementia Code(s): F03.90 - UNSPECIFIED DEMENTIA WITHOUT BEHAVIORAL DISTURBANCE (4) Lactic acid acidosis Assessment/Plan: -LA 7.1 -IV hydration -will monitor for downtrend Code(s): E87.2 - ACIDOSIS (5) Severe flexion contractures of all joints Assessment/Plan: -turn q2h -offloading Code(s): M24.50 - CONTRACTURE, UNSPECIFIED JOINT (6) Bronchospasm Assessment/Plan: -bronchodilator -keep SpO2 >90% -O2 via NC Code(s): J98.01 - ACUTE BRONCHOSPASM (7) Seizure as late effect of cerebrovascular accident (CVA) Assessment/Plan: -Depakote -seixure precautions Code(s): I69.398 - OTHER SEQUELAE OF CEREBRAL INFARCTION; R56.9 - UNSPECIFIED CONVULSIONS Assessment/Plan see problem list dvt ppx
[2019-01-07] MEDS ORDERED: ACETAMINOPHEN 650 MG/20.3 ML ORAL SOLUTION (CUPS) PO PRN (17:50)
[2019-01-07] MEDS ORDERED: ALBUTEROL SO4 2.5/IPRATROPIUM 0.5 INH SOL 3 ML VIAL.NEB. NEB PRN (17:50)
[2019-01-07] MEDS ORDERED: METHADONE HCL 10 MG TABLET PO SCH (18:00)
[2019-01-07] MEDS ORDERED: SODIUM CHLORIDE 1,000 ML IV SCH (18:00)
[2019-01-07] MEDS ORDERED: ACETAMINOPHEN 1000 MG/100 ML VIAL (NON FORMULARY) IVPB PRN (18:03)
[2019-01-07] MEDS ORDERED: METOCLOPRAMIDE HCL 5 MG/5 ML UNIT DOSE CUP GT PRN (18:13)
[2019-01-07 19:07] LABS: EPI CELLS 1.5 /HPF (0-5/HPF); HYALINE CASTS 3 /lpf (0-8); URINE APPEARANCE CLEAR; URINE BILIRUBIN NEGATIVE (NEGATIVE); URINE COLOR YELLOW; URINE GLUCOSE (UA) NEGATIVE (NEGATIVE); URINE KETONE NEGATIVE (NEGATIVE); URINE LEUK ESTERASE TRACE (NEGATIVE); URINE NITRITE NEGATIVE (NEGATIVE); URINE PROTEIN NEGATIVE (NEGATIVE); URINE RBC 1 /hpf (0-4); URINE WBC 1 /hpf (0-5)
[2019-01-07] MEDS ORDERED: SODIUM CHLORIDE 500 ML IV STA (20:52)
[2019-01-07] MEDS: HEPARIN NA (PORCINE) 5,000 UNITS/ML 1ML VIAL SQ SCH (21:48)
[2019-01-07] MEDS: DEXAMETHASONE 4 MG TABLET (FP) GT SCH (21:48)
[2019-01-07] MEDS ORDERED: DIVALPROEX SODIUM 125 MG SPRINKLE CAPS PEG SCH (22:00)
[2019-01-07] MEDS ORDERED: GABAPENTIN 100 MG CAPSULE (FP) GT SCH (22:00)
[2019-01-07] MEDS ORDERED: HEPARIN NA (PORCINE) 5,000 UNITS/ML 1ML VIAL SQ SCH (22:00)
[2019-01-07] MEDS ORDERED: CHLORHEXIDINE GLUCONATE 4% CLEANSER FOR DECOLONIZATION TP SCH (22:00)
[2019-01-07] MEDS ORDERED: BACLOFEN 10 MG TABLET (FP) GT SCH (22:00)
[2019-01-07] MEDS ORDERED: NYSTATIN POWDER 100,000 UNITS/GM - 15 GM TOPICAL POWDER TP SCH (22:00)
[2019-01-07] MEDS ORDERED: FUROSEMIDE 40 MG TABLET (FP) GT SCH (22:00)
[2019-01-07] MEDS ORDERED: ATORVASTATIN CA 40 MG TABLET (FP) GT SCH (22:00)
[2019-01-07] MEDS ORDERED: CALCIUM ALGINATE TP SCH (22:00)
[2019-01-07] MEDS ORDERED: APIXABAN 5 MG TABLET PO SCH (22:00)
[2019-01-07] MEDS ORDERED: CLOTRIMAZOLE 1% CREAM 15 GM TUBE TP SCH (22:00)
[2019-01-07] MEDS: BACLOFEN 10 MG TABLET (FP) GT SCH (22:51)
[2019-01-07] MEDS: VALPROATE SODIUM 250 MG/5 ML UNIT DOSE CUP GT SCH (22:51)
[2019-01-07] MEDS: MUPIROCIN 2% TOPICAL OINTMENT FOR DECOLONIZATION NS SCH (22:51)
[2019-01-07] MEDS: NYSTATIN 100,000 UNIT/GM TOPICAL CREAM 15 GM TUBE TP SCH (22:52)
[2019-01-07] MEDS: CLOTRIMAZOLE 1% CREAM 15 GM TUBE TP SCH (22:52)
[2019-01-07] MEDS: POLYETHYLENE GLYCOL 3350 119 GM BTL GT SCH (22:54)
[2019-01-08] MEDS: BACLOFEN 10 MG TABLET (FP) GT SCH ×3 (05:29→22:46)
[2019-01-08 06:52] LABS: BASO % 0.2 % (0-2.0); EOS % 5.1 % (0-4.5); HEMATOCRIT 41.6 % (32.4-45.2); HEMOGLOBIN 14.1 GM/dL (10.7-15.3); LYMPH % 31.6 % (8-40); MCH 33.6 pg (25.7-33.7); MCHC 33.8 g/dl (32.0-36.0); MEAN CELL VOLUME 99.2 fl (80-96); MEAN PLT VOLUME 9.1 fl (7.5-11.1); MONO % 6.9 % (3.8-10.2); NEUT % 56.2 % (42.8-82.8); PLATELET COUNT 152 K/MM3 (134-434); RDW 15.9 % (11.6-15.6); WHITE BLOOD COUNT 10.5 K/mm3 (4.0-10.0)
[2019-01-08 06:57] LABS: ALBUMIN 2.2 g/dl (3.4-5.0); BILIRUBIN,TOTAL 1.2 mg/dL (0.2-1); BLOOD UREA NITROGEN 31.2 mg/dL (7-18); CALCIUM 7.4 mg/dL (8.5-10.1); CREATININE 0.4 mg/dL (0.55-1.3); MAGNESIUM 2.1 mg/dL (1.8-2.4); PHOSPHOROUS 3.2 mg/dL (2.5-4.9); TOT PROT 5.7 g/dl (6.4-8.2)
[2019-01-08] MEDS ORDERED: PT OWN MED DRAWER 7, Y5N ONE ×4 (09:02→16:02)
--- NOTE | 2019-01-08 09:46 | PN ---
Progress Note (short form) - Note Progress Note: ID consult dictated imp/reccd 58 yo female admitted from [place]- recent admission for gt dislodgement 12/20 to 01/01- developed fever during admission- felt to have aspiration, treated with ceftriaxone now admitted with fever- leukocytosis 20k, elevated lactic acid treated with vanco/zosyn tovar placed in ED sepsis bacteremia- gram positive anoxia s/p cva seizure disorder known exposed hardware left ankle-no signs drainage or erythema treat with vanco/zosyn f/u cultures no signs of uti or pneumonia will follow Problem List - Problems (1) Sepsis Code(s): A41.9 - SEPSIS, UNSPECIFIED ORGANISM (2) Bacteremia Code(s): R78.81 - BACTEREMIA (3) Anoxic brain damage Code(s): G93.1 - ANOXIC BRAIN DAMAGE, NOT ELSEWHERE CLASSIFIED
[2019-01-08] MEDS: HEPARIN NA (PORCINE) 5,000 UNITS/ML 1ML VIAL SQ SCH ×2 (09:51→22:45)
[2019-01-08] MEDS: DEXAMETHASONE 4 MG TABLET (FP) GT SCH ×2 (09:51→22:46)
[2019-01-08] MEDS: AMINO ACIDS/PROTEIN HYDROLYS 30 ML LIQUID.PKT PO SCH ×2 (09:51→16:44)
[2019-01-08] MEDS: MUPIROCIN 2% TOPICAL OINTMENT FOR DECOLONIZATION NS SCH ×2 (09:52→22:46)
[2019-01-08] MEDS: NYSTATIN 100,000 UNIT/GM TOPICAL CREAM 15 GM TUBE TP SCH ×2 (09:53→22:48)
[2019-01-08] MEDS: POLYETHYLENE GLYCOL 3350 119 GM BTL GT SCH ×2 (09:54→22:47)
[2019-01-08] MEDS: CLOTRIMAZOLE 1% CREAM 15 GM TUBE TP SCH ×2 (09:55→22:49)
[2019-01-08] MEDS ORDERED: POLYETHYLENE GLYCOL 3350 255 GM BTL PO SCH (10:00)
[2019-01-08] MEDS ORDERED: ASCORBIC ACID 500 MG TABLET (FP) GT SCH (10:00)
[2019-01-08] MEDS ORDERED: COLLAGENASE CLOSTRIDIUM HIST. 30 GRAMS TUBE TP SCH (10:00)
[2019-01-08] MEDS ORDERED: POLYETHYLENE GLYCOL 3350 119 GM BTL PO SCH (10:00)
[2019-01-08] MEDS ORDERED: CLOPIDOGREL BISULFATE 75 MG TABLET (FP) GT SCH (10:00)
[2019-01-08] MEDS ORDERED: VANCOMYCIN 1 GRAM (PRE-DOCKED) 1,000 MG/250 ML BAG IVPB SCH (10:00)
[2019-01-08] MEDS ORDERED: LACTOBACILLUS ACIDOPHILUS 1 TABLET GT SCH (10:00)
[2019-01-08] MEDS ORDERED: MULTIVIT-MINERALS ORAL LIQUID PO SCH (10:00)
[2019-01-08] MEDS ORDERED: DEXTROSE 5%-WATER 100 ML IVPB ONE ×2 (10:22→17:16)
[2019-01-08] MEDS ORDERED: PIPERACILLIN/TAZOBACTAM 4.5 GM VIAL IVPB ONE ×2 (10:22→17:16)
[2019-01-08] MEDS: VALPROATE SODIUM 250 MG/5 ML UNIT DOSE CUP GT SCH ×2 (10:29→22:50)
[2019-01-08] MEDS: PIPERACILLIN/TAZOB 4.5 GM 4.5 GM in DEXTROSE 5%-WATER 100 ML IVPB SCH ×3 (10:31→19:05)
--- NOTE | 2019-01-08 11:41 | PN ---
Physical Exam: SUBJECTIVE: Patient seen and examined at the bedside. There were no acute events overnight patient's WBC count is improving and labs are pending. Patient is stable for transfer to floors today. OBJECTIVE: Vital Signs Period Temp Pulse Resp BP Sys/Florentino Pulse Ox Last 24 Hr 98 F-103.5 F 70-135 15-32 105-166/52-94 98-100 GENERAL: The patient is awake, non-verbal, responds to painful stimuli HEAD: Normal with no signs of trauma. EYES: PERRL, sclera anicteric, conjunctiva clear. ENT: Ears normal, nares patent, dry mucous membranes. LUNGS: Breath sounds equal, clear to auscultation bilaterally, no wheezes, no crackles, no accessory muscle use. HEART: Regular rate and rhythm, S1, S2 without murmur, rub or gallop. ABDOMEN: Soft, nontender, nondistended, normoactive bowel sounds, PEG site appears clean and dry without obvious discharge, no erythema EXTREMITIES: contracted upper and lower extremities, 2+ DP pulses with 2+ pitting edema in bilateral feet/ ankles. L ankle has visibly protruding hardware from a broken ankle repair. There is no erythema or pus noted, site does not appear infected. SKIN: Warm, dry, normal turgor, no rashes or lesions noted Laboratory Results - last 24 hr 01/07/19 01/07/19 01/07/19 14:10 14:10 14:10 WBC 20.9 H RBC 4.81 Hgb 16.0 H Hct 47.0 H D MCV 97.7 H MCH 33.1 MCHC 33.9 RDW 16.1 H Plt Count 250 D MPV 9.5 D Absolute Neuts (auto) 14.9 H Neutrophils % 71.4 Neutrophils % (Manual) 74.5 Band Neutrophils % 0.0 Lymphocytes % 16.9 D Lymphocytes % (Manual) 11.7 Monocytes % 10.9 H D Monocytes % (Manual) 12 H Eosinophils % 0.6 D Eosinophils % (Manual) 1.0 Basophils % 0.2 D Basophils % (Manual) 0.0 Myelocytes % (Man) 0 Promyelocytes % (Man) 0 Blast Cells % (Manual) 0 Nucleated RBC % 0 Metamyelocytes 0 Hypochromia 0 Platelet Estimate Normal Polychromasia 0 Poikilocytosis 0 Anisocytosis 1+ Microcytosis 0 Macrocytosis 1+ PT with INR 13.00 INR 1.10 H PTT (Actin FS) 27.3 VBG pH POC VBG pCO2 POC VBG pO2 VBG HCO3 VBG O2 Sat (Nissa) VBG Base Excess Sodium Potassium Chloride Carbon Dioxide Anion Gap BUN Creatinine Est GFR (CKD-EPI)AfAm Est GFR (CKD-EPI)NonAf POC Glucometer Random Glucose Lactic Acid Calcium Phosphorus Magnesium Total Bilirubin AST ALT Alkaline Phosphatase Troponin I 0.04 B-Natriuretic Peptide Total Protein Albumin Urine Color Urine Appearance Urine pH Ur Specific Page Urine Protein Urine Glucose (UA) Urine Ketones Urine Blood Urine Nitrite Urine Bilirubin Urine Urobilinogen Ur Leukocyte Esterase Urine WBC (Auto) Urine RBC (Auto) Urine Casts (Auto) U Epithel Cells (Auto) Urine Bacteria (Auto) 01/07/19 01/07/19 01/07/19 14:10 14:10 14:10 WBC RBC Hgb Hct MCV MCH MCHC RDW Plt Count MPV Absolute Neuts (auto) Neutrophils % Neutrophils % (Manual) Band Neutrophils % Lymphocytes % Lymphocytes % (Manual) Monocytes % Monocytes % (Manual) Eosinophils % Eosinophils % (Manual) Basophils % Basophils % (Manual) Myelocytes % (Man) Promyelocytes % (Man) Blast Cells % (Manual) Nucleated RBC % Metamyelocytes Hypochromia Platelet Estimate Polychromasia Poikilocytosis Anisocytosis Microcytosis Macrocytosis PT with INR Cancelled INR Cancelled PTT (Actin FS) VBG pH POC VBG pCO2 POC VBG pO2 VBG HCO3 VBG O2 Sat (Nissa) VBG Base Excess Sodium 136 Potassium 5.3 H Chloride 98 Carbon Dioxide 24 Anion Gap 15 BUN 40.0 H Creatinine 0.9 Est GFR (CKD-EPI)AfAm 82.26 Est GFR (CKD-EPI)NonAf 70.98 POC Glucometer Random Glucose 56 L Lactic Acid 7.1 H* Calcium 9.2 Phosphorus Magnesium Total Bilirubin 1.0 AST 124 H ALT 89 H Alkaline Phosphatase 46 Troponin I B-Natriuretic Peptide Total Protein 7.6 Albumin 2.9 L Urine Color Urine Appearance Urine pH Ur Specific Page Urine Protein Urine Glucose (UA) Urine Ketones Urine Blood Urine Nitrite Urine Bilirubin Urine Urobilinogen Ur Leukocyte Esterase Urine WBC (Auto) Urine RBC (Auto) Urine Casts (Auto) U Epithel Cells (Auto) Urine Bacteria (Auto) 08/01/07/19 01/07/19 14:10 17:30 19:19 WBC RBC Hgb Hct MCV MCH MCHC RDW Plt Count MPV Absolute Neuts (auto) Neutrophils % Neutrophils % (Manual) Band Neutrophils % Lymphocytes % Lymphocytes % (Manual) Monocytes % Monocytes % (Manual) Eosinophils % Eosinophils % (Manual) Basophils % Basophils % (Manual) Myelocytes % (Man) Promyelocytes % (Man) Blast Cells % (Manual) Nucleated RBC % Metamyelocytes Hypochromia Platelet Estimate Polychromasia Poikilocytosis Anisocytosis Microcytosis Macrocytosis PT with INR INR PTT (Actin FS) VBG pH 7.56 H POC VBG pCO2 23.1 L POC VBG pO2 169 H VBG HCO3 20.8 L VBG O2 Sat (Nissa) 99.7 H VBG Base Excess 1.0 Sodium Potassium Chloride Carbon Dioxide Anion Gap BUN Creatinine Est GFR (CKD-EPI)AfAm Est GFR (CKD-EPI)NonAf POC Glucometer Random Glucose Lactic Acid 3.0 H* Calcium Phosphorus Magnesium Total Bilirubin AST ALT Alkaline Phosphatase Troponin I B-Natriuretic Peptide Total Protein Albumin Urine Color Yellow Urine Appearance Clear Urine pH 6.0 Ur Specific Page 1.017 Urine Protein Negative Urine Glucose (UA) Negative Urine Ketones Negative Urine Blood Negative Urine Nitrite Negative Urine Bilirubin Negative Urine Urobilinogen 1.0 Ur Leukocyte Esterase Trace Urine WBC (Auto) 1 Urine RBC (Auto) 1 Urine Casts (Auto) 3 U Epithel Cells (Auto) 1.5 Urine Bacteria (Auto) 3.0 01/07/19 01/07/19 01/08/19 20:59 21:40 05:00 WBC 10.5 H RBC 4.20 Hgb 14.1 Hct 41.6 MCV 99.2 H MCH 33.6 MCHC 33.8 RDW 15.9 H Plt Count 152 D MPV 9.1 Absolute Neuts (auto) 5.9 Neutrophils % 56.2 D Neutrophils % (Manual) Band Neutrophils % Lymphocytes % 31.6 D Lymphocytes % (Manual) Monocytes % 6.9 Monocytes % (Manual) Eosinophils % 5.1 H D Eosinophils % (Manual) Basophils % 0.2 Basophils % (Manual) Myelocytes % (Man) Promyelocytes % (Man) Blast Cells % (Manual) Nucleated RBC % 0 Metamyelocytes Hypochromia Platelet Estimate Polychromasia Poikilocytosis Anisocytosis Microcytosis Macrocytosis PT with INR INR PTT (Actin FS) VBG pH POC VBG pCO2 POC VBG pO2 VBG HCO3 VBG O2 Sat (Nissa) VBG Base Excess Sodium Potassium Chloride Carbon Dioxide Anion Gap BUN Creatinine Est GFR (CKD-EPI)AfAm Est GFR (CKD-EPI)NonAf POC Glucometer 75 Random Glucose Lactic Acid 2.1 H Calcium Phosphorus Magnesium Total Bilirubin AST ALT Alkaline Phosphatase Troponin I B-Natriuretic Peptide Total Protein Albumin Urine Color Urine Appearance Urine pH Ur Specific Page Urine Protein Urine Glucose (UA) Urine Ketones Urine Blood Urine Nitrite Urine Bilirubin Urine Urobilinogen Ur Leukocyte Esterase Urine WBC (Auto) Urine RBC (Auto) Urine Casts (Auto) U Epithel Cells (Auto) Urine Bacteria (Auto) 01/08/19 01/08/19 01/08/19 05:00 05:00 06:07 WBC RBC Hgb Hct MCV MCH MCHC RDW Plt Count MPV Absolute Neuts (auto) Neutrophils % Neutrophils % (Manual) Band Neutrophils % Lymphocytes % Lymphocytes % (Manual) Monocytes % Monocytes % (Manual) Eosinophils % Eosinophils % (Manual) Basophils % Basophils % (Manual) Myelocytes % (Man) Promyelocytes % (Man) Blast Cells % (Manual) Nucleated RBC % Metamyelocytes Hypochromia Platelet Estimate Polychromasia Poikilocytosis Anisocytosis Microcytosis Macrocytosis PT with INR INR PTT (Actin FS) VBG pH POC VBG pCO2 POC VBG pO2 VBG HCO3 VBG O2 Sat (Nissa) VBG Base Excess Sodium 141 Potassium 4.0 Chloride 107 Carbon Dioxide 27 Anion Gap 7 L BUN 31.2 H Creatinine 0.4 L Est GFR (CKD-EPI)AfAm 134.00 Est GFR (CKD-EPI)NonAf 115.62 POC Glucometer 60 Random Glucose 60 L Lactic Acid 1.4 Calcium 7.4 L Phosphorus 3.2 Magnesium 2.1 Total Bilirubin 1.2 H AST 84 H ALT 68 H Alkaline Phosphatase 35 L Troponin I B-Natriuretic Peptide 2026.0 H Total Protein 5.7 L Albumin 2.2 L Urine Color Urine Appearance Urine pH Ur Specific Page Urine Protein Urine Glucose (UA) Urine Ketones Urine Blood Urine Nitrite Urine Bilirubin Urine Urobilinogen Ur Leukocyte Esterase Urine WBC (Auto) Urine RBC (Auto) Urine Casts (Auto) U Epithel Cells (Auto) Urine Bacteria (Auto) Active Medications Generic Name Dose Route Start Last Admin Trade Name Freq PRN Reason Stop Dose Admin Acetaminophen 1,000 mg 01/07/19 18:03 01/07/19 21:41 Ofirmev Injection - IVPB 1,000 mg Q6H PRN Administration FEVER Albuterol/Ipratropium 1 amp 01/07/19 17:50 Duoneb - NEB Q6H PRN SHORTNESS OF BREATH Amino Acids 30 ml 01/08/19 08:00 01/08/19 09:51 Prosource No Carb Liquid Pkt PO 30 ml BID@0800,1730 JOSSE Administration Baclofen 5 mg 01/07/19 22:00 01/08/19 05:29 Lioresal - GT 5 mg TID JOSSE Administration Chlorhexidine Gluconate 1 applic 01/07/19 22:00 01/07/19 21:48 Hibiclens For Decolonization - TP 1 applic HS JOSSE Administration Clotrimazole 1 applic 01/07/19 22:00 01/08/19 09:55 Lotrimin 1% Cream - TP 1 applic BID JOSSE Administration Dexamethasone 2 mg 01/07/19 22:00 01/08/19 09:51 Decadron - GT 2 mg BID JOSSE Administration Heparin Sodium (Porcine) 5,000 unit 01/07/19 22:00 01/08/19 09:51 Heparin - SQ 5,000 unit BID JSOSE Administration Sodium Chloride 1,000 mls @ 75 mls/hr 01/07/19 18:00 01/07/19 19:40 Normal Saline - IV 75 mls/hr ASDIR JOSSE Administration Vancomycin HCl 1,000 mg in 250 mls @ 166.667 mls/hr 01/08/19 10:00 01/08/19 10:31 Vancomycin (Pre-Docked) IVPB 166.667 mls/hr Q12H JOSSE Administration Protocol Piperacillin Sod/Tazobactam 100 mls @ 200 mls/hr 01/08/19 10:00 01/08/19 10: 31 Sod 4.5 gm/ Dextrose IVPB 200 mls/hr Q8H-IV JOSSE Administration Protocol Metoclopramide HCl 10 mg 01/07/19 18:13 Reglan Oral Solution - GT Q12H PRN NAUSEA Multivitamins/Minerals 15 ml 01/08/19 10:00 01/08/19 10:30 Certavite-Antioxidant Liquid PO 15 ml DAILY JOSSE Administration Mupirocin 1 applic 01/07/19 22:00 01/08/19 09:52 Bactroban Ointment (For Decolonization) - NS 01/12/19 21:59 1 applic BID JOSSE Administration Nystatin 1 applic 01/07/19 22:00 01/08/19 09:53 Mycostatin Cream - TP 1 applic BID JOSSE Administration Polyethylene Glycol 17 gm 01/07/19 22:00 01/08/19 09:54 Miralax (For Daily Use) - GT 17 gm BID JOSSE Administration Valproate Sodium 500 mg 01/07/19 22:00 01/08/19 10:29 Depakene - GT 500 mg BID JOSSE Administration ASSESSMENT/PLAN: 58 y/o female with a PMHx of CVA, Anoxic brain injury, Dementia, PEG Tube, Seizure disorder, Bronchospasm who presents from [place] with fever (Tmax 103) of unspecified source. At baseline, patient is alert, non-verbal 2/2 to CVA. Neurologic - Patient currently at baseline, minimally responsive. - H/o CVA w/residual seizures - Continue Depakote CARDIOVASCULAR - Continue home medications (Metoprolol 50 QD), Clopidrogel (75 mg QD) Pulmonary - CXR shows HARIS atelectasis not appreciated on prior CXR - H/o bronchospasm - Continue Duo-Nebs PRN ID - Tachycardic (HR 120's), Febrile (103) and Leukocytosis (20.9) @ presentation, now improved. - WBC today 10.5 - Lactic Acid 7.1 on admission, now 1.4 - Unclear source of infection: UTI vs. PNA vs infected PEG - Blood cultures growing gram + cocci in clusters - Continue empiric coverage with Vanc/Zosyn - Continue IV hydration - Bolus 250-500cc NS for soft pressures - ID following, appreciate recommendations F/E/N Continue Tube Feeds IV NS 75cc/hr Monitor electrolytes DVT PPX: Heparin 5000 BID FULL CODE Disposition: patient stable for discharge to Med/Surg today Visit type - Emergency Visit Emergency Visit: Yes ED Registration Date: 01/07/19 Care time: The patient presented to the Emergency Department on the above date and was hospitalized for further evaluation of their emergent condition. - New Patient This patient is new to me today: Yes Date on this admission: 01/08/19 - Critical Care Critical Care patient: Yes Total Critical Care Time (in minutes): 40 Critical Care Statement: The care of this patient involved high complexity decision making to prevent further life threatening deterioration of the patient 's condition and/or to evaluate & treat vital organ system(s) failure or risk of failure. ATTENDING PHYSICIAN STATEMENT I saw and evaluated the patient. I reviewed the resident's note and discussed the case with the resident. I agree with the resident's findings and plan as documented. SUBJECTIVE: OBJECTIVE: ASSESSMENT AND PLAN:
--- NOTE | 2019-01-08 12:03 | CONS ---
DATE OF CONSULTATION: DATE OF DICTATION: 01/08/2019 REQUESTING PHYSICIAN: Kevin Quezada MD HISTORY OF PRESENT ILLNESS: This is a 58-[facility]-old [facility] , she has dementia, she is nonverbal, and she apparently has a history of CVA and anoxia and has a PEG tube. She was recently hospitalized from December 20 to January 01. During that admission, she was admitted with a G-tube malfunction. The G-tube was changed by GI. Ultimately, it was not functioning as well. She started having fever and was felt to have possible aspiration. She was treated with a course of ceftriaxone. [facility] the . She is now readmitted with fever, maximum temperature of 103 in the emergency room, tachycardia, leukocytosis, white count of 20,000, and elevated lactic acid. She was admitted to the ICU. She received empiric vancomycin and Zosyn. I am asked to see her for further recommendations. The patient is unable to give any history. PAST MEDICAL HISTORY: Notable for CVA, dementia, seizure disorder, dysphagia, aphasia. SURGICAL HISTORY: Notable for G-tube. She has had a prior ankle fracture, and she has a known exposed pin in the left ankle. ALLERGIES: She has no known drug allergies. MEDICATIONS: At [facility] include MiraLAX, Depakote, Decadron, calcium alginate, baclofen, Reglan. SOCIAL HISTORY: [facility] resides at the [facility]. She is nonverbal and nonambulatory. REVIEW OF SYSTEMS: As per HPI. PHYSICAL EXAMINATION Vital signs: Temperature was 98.2, maximum temperature was 103.5 yesterday, pulse is 73, blood pressure is 112/53, respiratory rate 16, she is saturating 100% on 2 L. HEENT: She is normocephalic. Her eyes are anicteric. She is rigid all over. Lungs: Clear to auscultation. Heart: Regular rate and rhythm. G-tube site is clean. Abdomen: Appears nontender on exam. Extremities: She has no sacral ulcers. She has an exposed pin in her left ankle medial malleolus. LABORATORY DATA: Notable for an admission white count of 20,000, today it is 10.5, hemoglobin 14.1, platelets of 152; her hemoglobin was 16 yesterday and today is 14 after hydration. INR is 1.1. Yesterday, BUN was 40 and creatinine was 0.9, with a glucose of 56, AST of 124, ALT of 89. Her lactic acid was 7, which has trended down and is now normal. Her albumin is 2.2. Urinalysis is negative. Chest x-ray reveals left upper lobe atelectasis. Blood culture 1 of 4 bottles is growing Gram positive cocci in clusters. SUMMARY: This is a 58-year-old woman with sepsis, Gram positive bacteremia, anoxia, status post CVA seizure disorder with known exposed hardware of the left ankle. I would continue to treat her empirically with vancomycin and Zosyn, follow up cultures. No signs of urinary tract infection or pneumonia. Will follow with you, and further recommendations based on her clinical course. She appears improved this morning. SUDEEP SHANNON M.D. [id number]
--- NOTE | 2019-01-08 12:50 | PN ---
Teaching Attending Note Name of Resident: Ruthie Poe ATTENDING PHYSICIAN STATEMENT I saw and evaluated the patient. I reviewed the resident's note and discussed the case with the resident. I agree with the resident's findings and plan as documented. SUBJECTIVE: Patient seen and examined in the ICU. Non-verbal. Hemodynamics have remained stable overnight without pressors. No acute events overnight. Intake & Output 01/05/19 01/06/19 01/07/19 01/08/19 23:59 23:59 23:59 23:59 Intake Total 1375 Output Total 100 300 Balance -100 1075 Weight 163 lb 1.6 oz 163 lb 2 oz Last Vital Signs Temp Pulse Resp BP Pulse Ox 98.4 F 75 18 156/82 100 01/08/19 12:00 01/08/19 12:00 01/08/19 12:00 01/08/19 12:00 01/08/19 07:49 Active Medications Acetaminophen (Ofirmev Injection -) 1,000 mg IVPB Q6H PRN PRN Reason: FEVER Last Admin: 01/07/19 21:41 Dose: 1,000 mg Albuterol/Ipratropium (Duoneb -) 1 amp NEB Q6H PRN PRN Reason: SHORTNESS OF BREATH Amino Acids (Prosource No Carb Liquid Pkt) 30 ml PO BID@0800,1730 [facility] Last Admin: 01/08/19 09:51 Dose: 30 ml Baclofen (Lioresal -) 5 mg GT TID [facility] Last Admin: 01/08/19 05:29 Dose: 5 mg Chlorhexidine Gluconate (Hibiclens For Decolonization -) 1 applic TP HS [facility] Last Admin: 01/07/19 21:48 Dose: 1 applic Clotrimazole (Lotrimin 1% Cream -) 1 applic TP BID [facility] Last Admin: 01/08/19 09:55 Dose: 1 applic Dexamethasone (Decadron -) 2 mg GT BID [facility] Last Admin: 01/08/19 09:51 Dose: 2 mg Heparin Sodium (Porcine) (Heparin -) 5,000 unit SQ BID [facility] Last Admin: 01/08/19 09:51 Dose: 5,000 unit Sodium Chloride (Normal Saline -) 1,000 mls @ 75 mls/hr IV ASDIR [facility] Last Admin: 01/07/19 19:40 Dose: 75 mls/hr Vancomycin HCl (Vancomycin (Pre-Docked)) 1,000 mg in 250 mls @ 166.667 mls/hr IVPB Q12H [facility]; Protocol Last Admin: 01/08/19 10:31 Dose: 166.667 mls/hr Piperacillin Sod/Tazobactam (Sod 4.5 gm/ Dextrose) 100 mls @ 200 mls/hr IVPB Q8H-IV JOSSE; Protocol Last Admin: 01/08/19 10:31 Dose: 200 mls/hr Metoclopramide HCl (Reglan Oral Solution -) 10 mg GT Q12H PRN PRN Reason: NAUSEA Multivitamins/Minerals (Certavite-Antioxidant Liquid) 15 ml PO DAILY [facility] Last Admin: 01/08/19 10:30 Dose: 15 ml Mupirocin (Bactroban Ointment (For Decolonization) -) 1 applic NS BID [facility] Stop: 01/12/19 21:59 Last Admin: 01/08/19 09:52 Dose: 1 applic Nystatin (Mycostatin Cream -) 1 applic TP BID [facility] Last Admin: 01/08/19 09:53 Dose: 1 applic Polyethylene Glycol (Miralax (For Daily Use) -) 17 gm GT BID [facility] Last Admin: 01/08/19 09:54 Dose: 17 gm Valproate Sodium (Depakene -) 500 mg GT BID [facility] Last Admin: 01/08/19 10:29 Dose: 500 mg General: non-verbal, responds to painful stimuli CV: S1/S2, RRR Respiratory: few scattered rhonchi, no wheeze/crackle Abdomen: soft, (+) bowel sounds, PEG tube site with purulent discharge, no erythema/TTP Extremities: contracted UE/LE B/L; 2+ DP pulses; B/L 2+ pitting edema foot/ ankles Laboratory Results - last 24 hr 01/07/19 01/07/19 01/07/19 14:10 14:10 14:10 WBC 20.9 H RBC 4.81 Hgb 16.0 H Hct 47.0 H D MCV 97.7 H MCH 33.1 MCHC 33.9 RDW 16.1 H Plt Count 250 D MPV 9.5 D Absolute Neuts (auto) 14.9 H Neutrophils % 71.4 Neutrophils % (Manual) 74.5 Band Neutrophils % 0.0 Lymphocytes % 16.9 D Lymphocytes % (Manual) 11.7 Monocytes % 10.9 H D Monocytes % (Manual) 12 H Eosinophils % 0.6 D Eosinophils % (Manual) 1.0 Basophils % 0.2 D Basophils % (Manual) 0.0 Myelocytes % (Man) 0 Promyelocytes % (Man) 0 Blast Cells % (Manual) 0 Nucleated RBC % 0 Metamyelocytes 0 Hypochromia 0 Platelet Estimate Normal Polychromasia 0 Poikilocytosis 0 Anisocytosis 1+ Microcytosis 0 Macrocytosis 1+ PT with INR 13.00 INR 1.10 H PTT (Actin FS) 27.3 VBG pH POC VBG pCO2 POC VBG pO2 VBG HCO3 VBG O2 Sat (Nissa) VBG Base Excess Sodium Potassium Chloride Carbon Dioxide Anion Gap BUN Creatinine Est GFR (CKD-EPI)AfAm Est GFR (CKD-EPI)NonAf Random Glucose Lactic Acid Calcium Total Bilirubin AST ALT Alkaline Phosphatase Troponin I 0.04 Total Protein Albumin 01/07/19 01/07/19 01/07/19 14:10 14:10 14:10 WBC RBC Hgb Hct MCV MCH MCHC RDW Plt Count MPV Absolute Neuts (auto) Neutrophils % Neutrophils % (Manual) Band Neutrophils % Lymphocytes % Lymphocytes % (Manual) Monocytes % Monocytes % (Manual) Eosinophils % Eosinophils % (Manual) Basophils % Basophils % (Manual) Myelocytes % (Man) Promyelocytes % (Man) Blast Cells % (Manual) Nucleated RBC % Metamyelocytes Hypochromia Platelet Estimate Polychromasia Poikilocytosis Anisocytosis Microcytosis Macrocytosis PT with INR Cancelled INR Cancelled PTT (Actin FS) VBG pH POC VBG pCO2 POC VBG pO2 VBG HCO3 VBG O2 Sat (Nissa) VBG Base Excess Sodium 136 Potassium 5.3 H Chloride 98 Carbon Dioxide 24 Anion Gap 15 BUN 40.0 H Creatinine 0.9 Est GFR (CKD-EPI)AfAm 82.26 Est GFR (CKD-EPI)NonAf 70.98 Random Glucose 56 L Lactic Acid 7.1 H* Calcium 9.2 Total Bilirubin 1.0 AST 124 H ALT 89 H Alkaline Phosphatase 46 Troponin I Total Protein 7.6 Albumin 2.9 L 01/07/19 14:10 WBC RBC Hgb Hct MCV MCH MCHC RDW Plt Count MPV Absolute Neuts (auto) Neutrophils % Neutrophils % (Manual) Band Neutrophils % Lymphocytes % Lymphocytes % (Manual) Monocytes % Monocytes % (Manual) Eosinophils % Eosinophils % (Manual) Basophils % Basophils % (Manual) Myelocytes % (Man) Promyelocytes % (Man) Blast Cells % (Manual) Nucleated RBC % Metamyelocytes Hypochromia Platelet Estimate Polychromasia Poikilocytosis Anisocytosis Microcytosis Macrocytosis PT with INR INR PTT (Actin FS) VBG pH 7.56 H POC VBG pCO2 23.1 L POC VBG pO2 169 H VBG HCO3 20.8 L VBG O2 Sat (Nissa) 99.7 H VBG Base Excess 1.0 Sodium Potassium Chloride Carbon Dioxide Anion Gap BUN Creatinine Est GFR (CKD-EPI)AfAm Est GFR (CKD-EPI)NonAf Random Glucose Lactic Acid Calcium Total Bilirubin AST ALT Alkaline Phosphatase Troponin I Total Protein Albumin ASSESSMENT/PLAN: Sepsis: sources UTI; R/O PNA CVA Anoxic brain injury Dementia PEG Tube Seizure disorder R/O Bronchospasm ABX per ID IVF Follow cultures Aspiration precautions O2 as needed Floor Dr Bailey
--- NOTE | 2019-01-08 18:00 | PN ---
Progress Note, Physician Chief Complaint: Sepsis History of Present Illness: Previous notes and events reviewed awake, non-verbal NAD LA trend down from 7.0 to 1.4 afebrile WBC trend down from 20.9 to 10.5 - Current Medication List Current Medications: Active Medications Acetaminophen (Ofirmev Injection -) 1,000 mg IVPB Q6H PRN PRN Reason: FEVER Albuterol/Ipratropium (Duoneb -) 1 amp NEB Q6H PRN PRN Reason: SHORTNESS OF BREATH Amino Acids (Prosource No Carb Liquid Pkt) 30 ml PO BID@0800,1730 [facility] Baclofen (Lioresal -) 5 mg GT TID [facility] Chlorhexidine Gluconate (Hibiclens For Decolonization -) 1 applic TP HS [facility] Clotrimazole (Lotrimin 1% Cream -) 1 applic TP BID [facility] Dexamethasone (Decadron -) 2 mg GT BID [facility] Heparin Sodium (Porcine) (Heparin -) 5,000 unit SQ BID [facility] Sodium Chloride (Normal Saline -) 1,000 mls @ 75 mls/hr IV ASDIR [facility] Vancomycin HCl (Vancomycin (Pre-Docked)) 1,000 mg in 250 mls @ 166.667 mls/hr IVPB Q12H [facility]; Protocol Piperacillin Sod/Tazobactam (Sod 4.5 gm/ Dextrose) 100 mls @ 200 mls/hr IVPB Q8H-IV [facility]; Protocol Metoclopramide HCl (Reglan Oral Solution -) 10 mg GT Q12H PRN PRN Reason: NAUSEA Multivitamins/Minerals (Certavite-Antioxidant Liquid) 15 ml PO DAILY [facility] Mupirocin (Bactroban Ointment (For Decolonization) -) 1 applic NS BID [facility] Stop: 01/12/19 21:59 Nystatin (Mycostatin Cream -) 1 applic TP BID [facility] Polyethylene Glycol (Miralax (For Daily Use) -) 17 gm GT BID [facility] Valproate Sodium (Depakene -) 500 mg GT BID [facility] - Objective Vital Signs: Vital Signs Temperature 98.7 F 01/08/19 14:00 Pulse Rate 81 01/08/19 16:00 Respiratory Rate 16 01/08/19 16:00 Blood Pressure 136/77 01/08/19 16:00 O2 Sat by Pulse Oximetry (%) 100 01/08/19 07:49 Constitutional: Yes: No Distress, Calm Eyes: Yes: Conjunctiva Clear HENT: Yes: Atraumatic Cardiovascular: Yes: Regular Rate and Rhythm Respiratory: Yes: Regular, On Nasal O2, Rhonchi Gastrointestinal: Yes: Normal Bowel Sounds, Soft, Other (G tube) Genitourinary: Yes: Incontinence Musculoskeletal: Yes: Other (contracted upper and lower extremity) Extremities: Yes: Other (contracted upper and lower extremity) Edema: Yes Edema: LLE: 1+, RLE: 1+ Neurological: Yes: Alert, Pre-Existing Deficit Psychiatric: Yes: Alert Labs: CBC, BMP 01/08/19 05:00 01/08/19 05:00 INR, PTT INR 1.10 (0.83-1.09) H 01/07/19 14:10 Microbiology 01/07/19 14:10 Blood - Peripheral Venous Blood Culture - Preliminary Pending Organism 01/07/19 14:10 Blood - Peripheral Venous Blood Culture - Preliminary Pending Organism 01/07/19 15:50 Abdomen Gram Stain - Final 01/07/19 15:50 Foot - Left Lateral Gram Stain - Final Problem List - Problems (1) Sepsis Assessment/Plan: -ID on board -transfer to med-surg -LA 7.1 to 1.4 -Vancomycin and Zosyn -afebrile -tylenol for temp >100F -BC, UC, wound culture pending -CXR shows new atelectasis in the HARIS -Leukocytosis WBC 10.5 -IV hydration Code(s): A41.9 - SEPSIS, UNSPECIFIED ORGANISM (2) CVA (cerebral vascular accident) Assessment/Plan: -heparin sq Code(s): I63.9 - CEREBRAL INFARCTION, UNSPECIFIED (3) Dementia Code(s): F03.90 - UNSPECIFIED DEMENTIA WITHOUT BEHAVIORAL DISTURBANCE (4) Lactic acid acidosis Assessment/Plan: -LA 7.1 to 1.4 -resolving -IV hydration -will monitor for downtrend Code(s): E87.2 - ACIDOSIS (5) Severe flexion contractures of all joints Assessment/Plan: -turn q2h -offloading Code(s): M24.50 - CONTRACTURE, UNSPECIFIED JOINT (6) Bronchospasm Assessment/Plan: -bronchodilator -keep SpO2 >90% -O2 via NC Code(s): J98.01 - ACUTE BRONCHOSPASM (7) Seizure as late effect of cerebrovascular accident (CVA) Assessment/Plan: -Depakote -seixure precautions Code(s): I69.398 - OTHER SEQUELAE OF CEREBRAL INFARCTION; R56.9 - UNSPECIFIED CONVULSIONS Assessment/Plan see problem list dvt ppx
[2019-01-08] MEDS: ALBUTEROL SO4 2.5/IPRATROPIUM 0.5 INH SOL 3 ML VIAL.NEB. NEB PRN (20:39)
[2019-01-08] MEDS: CHLORHEXIDINE GLUCONATE 4% CLEANSER FOR DECOLONIZATION TP SCH (22:46)
[2019-01-08] MEDS: SODIUM CHLORIDE 1,000 ML IV SCH (22:48)
[2019-01-08] MEDS: VANCOMYCIN 1 GRAM (PRE-DOCKED) 1,000 MG/250 ML BAG IVPB SCH (22:49)
[2019-01-09] MEDS ORDERED: DEXTROSE 5%-WATER 100 ML IVPB ONE ×4 (01:48→22:03)
[2019-01-09] MEDS ORDERED: PIPERACILLIN/TAZOBACTAM 4.5 GM VIAL IVPB ONE ×4 (01:48→22:03)
[2019-01-09] MEDS: PIPERACILLIN/TAZOB 4.5 GM 4.5 GM in DEXTROSE 5%-WATER 100 ML IVPB SCH ×3 (01:55→17:31)
[2019-01-09] MEDS: BACLOFEN 10 MG TABLET (FP) GT SCH ×3 (06:04→22:10)
[2019-01-09] MEDS: ALBUTEROL SO4 2.5/IPRATROPIUM 0.5 INH SOL 3 ML VIAL.NEB. NEB PRN ×2 (06:49→15:50)
[2019-01-09 07:56] LABS: HEMATOCRIT 45.7 % (32.4-45.2); HEMOGLOBIN 15.3 GM/dL (10.7-15.3); MCH 33.4 pg (25.7-33.7); MCHC 33.6 g/dl (32.0-36.0); MEAN CELL VOLUME 99.4 fl (80-96); MEAN PLT VOLUME 10.3 fl (7.5-11.1); PLATELET COUNT 165 K/MM3 (134-434); RBC 4.59 M/mm3 (3.60-5.2); RDW 15.6 % (11.6-15.6); WHITE BLOOD COUNT 15.5 K/mm3 (4.0-10.0)
[2019-01-09 08:08] LABS: BLOOD UREA NITROGEN 23.3 mg/dL (7-18); CALCIUM 8.5 mg/dL (8.5-10.1); CREATININE 0.8 mg/dL (0.55-1.3)
[2019-01-09] MEDS ORDERED: PT OWN MED DRAWER 7, Y5N ONE ×2 (09:46→22:02)
[2019-01-09] MEDS: AMINO ACIDS/PROTEIN HYDROLYS 30 ML LIQUID.PKT PO SCH ×2 (11:33→17:31)
[2019-01-09] MEDS: MUPIROCIN 2% TOPICAL OINTMENT FOR DECOLONIZATION NS SCH ×2 (11:33→22:17)
[2019-01-09] MEDS: DEXAMETHASONE 4 MG TABLET (FP) GT SCH ×2 (11:34→22:09)
[2019-01-09] MEDS: MULTIVIT-MINERALS ORAL LIQUID PO SCH (11:34)
[2019-01-09] MEDS: HEPARIN NA (PORCINE) 5,000 UNITS/ML 1ML VIAL SQ SCH ×2 (11:35→22:17)
[2019-01-09] MEDS: VALPROATE SODIUM 250 MG/5 ML UNIT DOSE CUP GT SCH ×2 (11:35→22:11)
[2019-01-09] MEDS: VANCOMYCIN 1 GRAM (PRE-DOCKED) 1,000 MG/250 ML BAG IVPB SCH ×2 (11:36→22:08)
[2019-01-09] MEDS: POLYETHYLENE GLYCOL 3350 119 GM BTL GT SCH ×2 (11:37→22:17)
[2019-01-09] MEDS: METOCLOPRAMIDE HCL 5 MG/5 ML UNIT DOSE CUP GT PRN (11:37)
[2019-01-09] MEDS: CLOTRIMAZOLE 1% CREAM 15 GM TUBE TP SCH ×2 (11:39→22:18)
[2019-01-09] MEDS: NYSTATIN 100,000 UNIT/GM TOPICAL CREAM 15 GM TUBE TP SCH ×2 (11:40→22:18)
--- NOTE | 2019-01-09 11:59 | PN ---
Progress Note, Physician Chief Complaint: events and notes reviewed moderate distress on ivf/abx 02 support nc - Current Medication List Current Medications: Active Medications Acetaminophen (Ofirmev Injection -) 1,000 mg IVPB Q6H PRN PRN Reason: FEVER Albuterol/Ipratropium (Duoneb -) 1 amp NEB Q6H PRN PRN Reason: SHORTNESS OF BREATH Last Admin: 01/09/19 06:49 Dose: 1 amp Amino Acids (Prosource No Carb Liquid Pkt) 30 ml PO BID@0800,1730 [facility] Last Admin: 01/09/19 11:33 Dose: 30 ml Baclofen (Lioresal -) 5 mg GT TID [facility] Last Admin: 01/09/19 06:04 Dose: 5 mg Chlorhexidine Gluconate (Hibiclens For Decolonization -) 1 applic TP HS [facility] Last Admin: 01/08/19 22:46 Dose: Not Given Clotrimazole (Lotrimin 1% Cream -) 1 applic TP BID [facility] Last Admin: 01/09/19 11:39 Dose: 1 applic Dexamethasone (Decadron -) 2 mg GT BID [facility] Last Admin: 01/09/19 11:34 Dose: 2 mg Heparin Sodium (Porcine) (Heparin -) 5,000 unit SQ BID [facility] Last Admin: 01/09/19 11:35 Dose: 5,000 unit Sodium Chloride (Normal Saline -) 1,000 mls @ 75 mls/hr IV ASDIR [facility] Last Admin: 01/08/19 22:48 Dose: Not Given Vancomycin HCl (Vancomycin (Pre-Docked)) 1,000 mg in 250 mls @ 166.667 mls/hr IVPB Q12H [facility]; Protocol Last Admin: 01/09/19 11:36 Dose: 166.667 mls/hr Piperacillin Sod/Tazobactam (Sod 4.5 gm/ Dextrose) 100 mls @ 200 mls/hr IVPB Q8H-IV [facility]; Protocol Last Admin: 01/09/19 11:36 Dose: 200 mls/hr Metoclopramide HCl (Reglan Oral Solution -) 10 mg GT Q12H PRN PRN Reason: NAUSEA Last Admin: 01/09/19 11:37 Dose: 10 mg Multivitamins/Minerals (Certavite-Antioxidant Liquid) 15 ml PO DAILY [facility] Last Admin: 01/09/19 11:34 Dose: 15 ml Mupirocin (Bactroban Ointment (For Decolonization) -) 1 applic NS BID [facility] Stop: 01/12/19 21:59 Last Admin: 01/09/19 11:33 Dose: Not Given Nystatin (Mycostatin Cream -) 1 applic TP BID [facility] Last Admin: 01/09/19 11:40 Dose: 1 applic Polyethylene Glycol (Miralax (For Daily Use) -) 17 gm GT BID [facility] Last Admin: 01/09/19 11:37 Dose: 17 grams Valproate Sodium (Depakene -) 500 mg GT BID [facility] Last Admin: 01/09/19 11:35 Dose: 500 mg - Objective Vital Signs: Vital Signs Temperature 99.4 F 01/09/19 06:00 Pulse Rate 111 H 01/09/19 06:00 Respiratory Rate 20 01/09/19 06:00 Blood Pressure 155/84 01/09/19 06:00 O2 Sat by Pulse Oximetry (%) 98 01/08/19 21:00 Constitutional: Yes: Moderate Distress Cardiovascular: Yes: Tachycardia Respiratory: Yes: On Nasal O2 Gastrointestinal: Yes: Soft, Other (gtube) Genitourinary: Yes: Incontinence Edema: No Integumentary: Yes: Rash Wound/Incision: Yes: Dressing Dry and Intact Neurological: Yes: Pre-Existing Deficit, Unresponsive Labs: CBC, BMP 01/09/19 07:00 01/09/19 07:00 INR, PTT INR 1.10 (0.83-1.09) H 01/07/19 14:10 Problem List - Problems (1) Sepsis Code(s): A41.9 - SEPSIS, UNSPECIFIED ORGANISM (2) Anoxic brain damage Code(s): G93.1 - ANOXIC BRAIN DAMAGE, NOT ELSEWHERE CLASSIFIED (3) Aspiration into airway Code(s): T17.908A - UNSP FB IN RESP TRACT, PART UNSP CAUSING OTH INJURY, INIT Qualifiers: Encounter type: initial encounter Qualified Code(s): T17.908A - Unspecified foreign body in respiratory tract, part unspecified causing other injury, initial encounter (4) Cellulitis Code(s): L03.90 - CELLULITIS, UNSPECIFIED (5) Dementia Code(s): F03.90 - UNSPECIFIED DEMENTIA WITHOUT BEHAVIORAL DISTURBANCE (6) Pneumonitis Code(s): J18.9 - PNEUMONIA, UNSPECIFIED ORGANISM (7) Seizure as late effect of cerebrovascular accident (CVA) Code(s): I69.398 - OTHER SEQUELAE OF CEREBRAL INFARCTION; R56.9 - UNSPECIFIED CONVULSIONS (8) Severe flexion contractures of all joints Code(s): M24.50 - CONTRACTURE, UNSPECIFIED JOINT Assessment/Plan iv abx wound care antifungal cream to groin gtubes restarted goals of care d/w daughter milan dvt prophylaxis
--- NOTE | 2019-01-09 14:17 | PN ---
Progress Note (short form) - Note Progress Note: NAD on NC O2. Temperatures are improving. No acute events overnight. Intake & Output 01/06/19 01/07/19 01/08/19 01/09/19 23:59 23:59 23:59 23:59 Intake Total 3595 1500 Output Total 100 1500 1450 Balance -100 2095 50 Weight 163 lb 1.6 oz 163 lb 2 oz 167 lb 12.8 oz Last Vital Signs Temp Pulse Resp BP Pulse Ox 99.4 F 111 H 20 155/84 98 01/09/19 06:00 01/09/19 06:00 01/09/19 06:00 01/09/19 06:00 01/08/19 21:00 Active Medications Acetaminophen (Ofirmev Injection -) 1,000 mg IVPB Q6H PRN PRN Reason: FEVER Albuterol/Ipratropium (Duoneb -) 1 amp NEB Q6H PRN PRN Reason: SHORTNESS OF BREATH Last Admin: 01/09/19 06:49 Dose: 1 amp Amino Acids (Prosource No Carb Liquid Pkt) 30 ml PO BID@0800,1730 [facility] Last Admin: 01/09/19 11:33 Dose: 30 ml Baclofen (Lioresal -) 5 mg GT TID [facility] Last Admin: 01/09/19 06:04 Dose: 5 mg Chlorhexidine Gluconate (Hibiclens For Decolonization -) 1 applic TP HS [facility] Last Admin: 01/08/19 22:46 Dose: Not Given Clotrimazole (Lotrimin 1% Cream -) 1 applic TP BID [facility] Last Admin: 01/09/19 11:39 Dose: 1 applic Dexamethasone (Decadron -) 2 mg GT BID [facility] Last Admin: 01/09/19 11:34 Dose: 2 mg Heparin Sodium (Porcine) (Heparin -) 5,000 unit SQ BID [facility] Last Admin: 01/09/19 11:35 Dose: 5,000 unit Sodium Chloride (Normal Saline -) 1,000 mls @ 75 mls/hr IV ASDIR [facility] Last Admin: 01/08/19 22:48 Dose: Not Given Vancomycin HCl (Vancomycin (Pre-Docked)) 1,000 mg in 250 mls @ 166.667 mls/hr IVPB Q12H [facility]; Protocol Last Admin: 01/09/19 11:36 Dose: 166.667 mls/hr Piperacillin Sod/Tazobactam (Sod 4.5 gm/ Dextrose) 100 mls @ 200 mls/hr IVPB Q8H-IV [facility]; Protocol Last Admin: 01/09/19 11:36 Dose: 200 mls/hr Metoclopramide HCl (Reglan Oral Solution -) 10 mg GT Q12H PRN PRN Reason: NAUSEA Last Admin: 01/09/19 11:37 Dose: 10 mg Multivitamins/Minerals (Certavite-Antioxidant Liquid) 15 ml PO DAILY [facility] Last Admin: 01/09/19 11:34 Dose: 15 ml Mupirocin (Bactroban Ointment (For Decolonization) -) 1 applic NS BID [facility] Stop: 01/12/19 21:59 Last Admin: 01/09/19 11:33 Dose: Not Given Nystatin (Mycostatin Cream -) 1 applic TP BID [facility] Last Admin: 01/09/19 11:40 Dose: 1 applic Polyethylene Glycol (Miralax (For Daily Use) -) 17 gm GT BID [facility] Last Admin: 01/09/19 11:37 Dose: 17 grams Valproate Sodium (Depakene -) 500 mg GT BID [facility] Last Admin: 01/09/19 11:35 Dose: 500 mg General: non-verbal, responds to painful stimuli CV: S1/S2, RRR Respiratory: few scattered rhonchi, no wheeze/crackle Abdomen: soft, (+) bowel sounds, PEG tube site with purulent discharge, no erythema/TTP Extremities: contracted UE/LE B/L; 2+ DP pulses; B/L 2+ pitting edema foot/ ankles Laboratory Results - last 24 hr 01/08/19 01/08/19 01/09/19 16:52 22:42 06:02 WBC RBC Hgb Hct MCV MCH MCHC RDW Plt Count MPV Sodium Potassium Chloride Carbon Dioxide Anion Gap BUN Creatinine Est GFR (CKD-EPI)AfAm Est GFR (CKD-EPI)NonAf POC Glucometer 106 86 115 Random Glucose Calcium 01/09/19 01/09/19 01/09/19 07:00 07:00 12:06 WBC 15.5 H RBC 4.59 Hgb 15.3 Hct 45.7 H MCV 99.4 H MCH 33.4 MCHC 33.6 RDW 15.6 Plt Count 165 MPV 10.3 D Sodium 138 Potassium 5.0 Chloride 104 Carbon Dioxide 24 Anion Gap 9 BUN 23.3 H Creatinine 0.8 Est GFR (CKD-EPI)AfAm 94.85 Est GFR (CKD-EPI)NonAf 81.84 POC Glucometer 124 Random Glucose 92 Calcium 8.5 ASSESSMENT/PLAN: Sepsis: sources Skin/soft tissue R/O UTI Low clinical suspicion of PNA CVA Anoxic brain injury Dementia PEG Tube Seizure disorder Resolved Bronchospasm Left atelectasis ABX per ID IVF Aspiration precautions O2 as needed BD [place] PRN Dr Bailey
[2019-01-09] MEDS: SODIUM CHLORIDE 1,000 ML IV SCH (18:15)
[2019-01-09] MEDS: CHLORHEXIDINE GLUCONATE 4% CLEANSER FOR DECOLONIZATION TP SCH (22:18)
[2019-01-10] MEDS: PIPERACILLIN/TAZOB 4.5 GM 4.5 GM in DEXTROSE 5%-WATER 100 ML IVPB SCH ×3 (01:14→17:59)
[2019-01-10] MEDS: ACETAMINOPHEN 1000 MG/100 ML VIAL (NON FORMULARY) IVPB PRN ×2 (02:27→10:16)
[2019-01-10] MEDS: BACLOFEN 10 MG TABLET (FP) GT SCH ×3 (06:16→22:20)
[2019-01-10] MEDS: ALBUTEROL SO4 2.5/IPRATROPIUM 0.5 INH SOL 3 ML VIAL.NEB. NEB PRN ×3 (07:32→20:25)
[2019-01-10 08:56] LABS: HEMOGLOBIN 13.8 GM/dL (10.7-15.3); MCH 33.7 pg (25.7-33.7); MCHC 33.6 g/dl (32.0-36.0); MEAN CELL VOLUME 100.2 fl (80-96); MEAN PLT VOLUME 9.5 fl (7.5-11.1); PLATELET COUNT 149 K/MM3 (134-434); RBC 4.09 M/mm3 (3.60-5.2); RDW 15.8 % (11.6-15.6); WHITE BLOOD COUNT 9.7 K/mm3 (4.0-10.0)
[2019-01-10] MEDS ORDERED: PT OWN MED DRAWER 7, Y5N ONE ×3 (09:07→22:02)
[2019-01-10 09:14] LABS: BLOOD UREA NITROGEN 23.8 mg/dL (7-18); CALCIUM 7.8 mg/dL (8.5-10.1); CREATININE 0.7 mg/dL (0.55-1.3); MAGNESIUM 2.1 mg/dL (1.8-2.4); PHOSPHOROUS 2.8 mg/dL (2.5-4.9); POTASSIUM 4.1 mmol/L (3.5-5.1)
--- NOTE | 2019-01-10 09:21 | PN ---
Progress Note, Physician Chief Complaint: awake nonverbal anxious - Current Medication List Current Medications: Active Medications Acetaminophen (Ofirmev Injection -) 1,000 mg IVPB Q6H PRN PRN Reason: FEVER Last Admin: 01/10/19 02:27 Dose: 1,000 mg Albuterol/Ipratropium (Duoneb -) 1 amp NEB Q6H PRN PRN Reason: SHORTNESS OF BREATH Last Admin: 01/10/19 07:32 Dose: 1 amp Amino Acids (Prosource No Carb Liquid Pkt) 30 ml PO BID@0800,1730 [facility] Last Admin: 01/09/19 17:31 Dose: 30 ml Baclofen (Lioresal -) 5 mg GT TID [facility] Last Admin: 01/10/19 06:16 Dose: 5 mg Chlorhexidine Gluconate (Hibiclens For Decolonization -) 1 applic TP HS [facility] Last Admin: 01/09/19 22:18 Dose: Not Given Clotrimazole (Lotrimin 1% Cream -) 1 applic TP BID [facility] Last Admin: 01/09/19 22:18 Dose: 1 applic Dexamethasone (Decadron -) 2 mg GT BID [facility] Last Admin: 01/09/19 22:09 Dose: 2 mg Heparin Sodium (Porcine) (Heparin -) 5,000 unit SQ BID [facility] Last Admin: 01/09/19 22:17 Dose: 5,000 unit Vancomycin HCl (Vancomycin (Pre-Docked)) 1,000 mg in 250 mls @ 166.667 mls/hr IVPB Q12H [facility]; Protocol Last Admin: 01/09/19 22:08 Dose: 166.667 mls/hr Piperacillin Sod/Tazobactam (Sod 4.5 gm/ Dextrose) 100 mls @ 200 mls/hr IVPB Q8H-IV [facility]; Protocol Last Admin: 01/10/19 01:14 Dose: 200 mls/hr Metoclopramide HCl (Reglan Oral Solution -) 10 mg GT Q12H PRN PRN Reason: NAUSEA Last Admin: 01/09/19 11:37 Dose: 10 mg Multivitamins/Minerals (Certavite-Antioxidant Liquid) 15 ml PO DAILY [facility] Last Admin: 01/09/19 11:34 Dose: 15 ml Mupirocin (Bactroban Ointment (For Decolonization) -) 1 applic NS BID [facility] Stop: 01/12/19 21:59 Last Admin: 01/09/19 22:17 Dose: Not Given Nystatin (Mycostatin Cream -) 1 applic TP BID [facility] Last Admin: 01/09/19 22:18 Dose: 1 applic Polyethylene Glycol (Miralax (For Daily Use) -) 17 gm GT BID [facility] Last Admin: 01/09/19 22:17 Dose: 17 grams Valproate Sodium (Depakene -) 500 mg GT BID [facility] Last Admin: 01/09/19 22:11 Dose: 500 mg - Objective Vital Signs: Vital Signs Temperature 99.4 F 01/10/19 06:00 Pulse Rate 96 H 01/10/19 06:00 Respiratory Rate 20 01/10/19 06:00 Blood Pressure 144/77 01/10/19 06:00 O2 Sat by Pulse Oximetry (%) 98 01/09/19 21:00 Constitutional: Yes: Mild Distress Cardiovascular: Yes: Tachycardia Respiratory: Yes: On Nasal O2 Gastrointestinal: Yes: Soft, Other (gtube) Genitourinary: Yes: [place] Present Edema: No Integumentary: Yes: Rash Wound/Incision: Yes: Dressing Dry and Intact Neurological: Yes: Pre-Existing Deficit, Weakness Labs: CBC, BMP 01/10/19 07:35 01/10/19 07:35 INR, PTT INR 1.10 (0.83-1.09) H 01/07/19 14:10 Problem List - Problems (1) Bacteremia Code(s): R78.81 - BACTEREMIA (2) Sepsis Code(s): A41.9 - SEPSIS, UNSPECIFIED ORGANISM (3) Anoxic brain damage Code(s): G93.1 - ANOXIC BRAIN DAMAGE, NOT ELSEWHERE CLASSIFIED (4) Aspiration into airway Code(s): T17.908A - UNSP FB IN RESP TRACT, PART UNSP CAUSING OTH INJURY, INIT Qualifiers: Encounter type: initial encounter Qualified Code(s): T17.908A - Unspecified foreign body in respiratory tract, part unspecified causing other injury, initial encounter (5) Bronchospasm Code(s): J98.01 - ACUTE BRONCHOSPASM (6) Cellulitis Code(s): L03.90 - CELLULITIS, UNSPECIFIED (7) Dementia Code(s): F03.90 - UNSPECIFIED DEMENTIA WITHOUT BEHAVIORAL DISTURBANCE (8) Fever Code(s): R50.9 - FEVER, UNSPECIFIED (9) Lactic acid acidosis Code(s): E87.2 - ACIDOSIS (10) Pneumonitis Code(s): J18.9 - PNEUMONIA, UNSPECIFIED ORGANISM (11) Pulmonary aspiration, history of Code(s): Z87.09 - PERSONAL HISTORY OF OTHER DISEASES OF THE RESPIRATORY SYSTEM (12) Seizure as late effect of cerebrovascular accident (CVA) Code(s): I69.398 - OTHER SEQUELAE OF CEREBRAL INFARCTION; R56.9 - UNSPECIFIED CONVULSIONS (13) Severe flexion contractures of all joints Code(s): M24.50 - CONTRACTURE, UNSPECIFIED JOINT Assessment/Plan ivf stopped on abx iv per id gtube functioning keep at 40cc/hr check labs [facility] d/w daughter milan
[2019-01-10] MEDS ORDERED: DEXTROSE 5%-WATER 100 ML IVPB ONE ×3 (09:23→20:48)
[2019-01-10] MEDS ORDERED: PIPERACILLIN/TAZOBACTAM 4.5 GM VIAL IVPB ONE ×3 (09:23→20:48)
--- NOTE | 2019-01-10 09:35 | PN ---
Progress Note, Physician - Current Medication List Current Medications: Active Medications Acetaminophen (Ofirmev Injection -) 1,000 mg IVPB Q6H PRN PRN Reason: FEVER Last Admin: 01/10/19 02:27 Dose: 1,000 mg Albuterol/Ipratropium (Duoneb -) 1 amp NEB Q6H PRN PRN Reason: SHORTNESS OF BREATH Last Admin: 01/10/19 07:32 Dose: 1 amp Amino Acids (Prosource No Carb Liquid Pkt) 30 ml PO BID@0800,1730 [facility] Last Admin: 01/09/19 17:31 Dose: 30 ml Baclofen (Lioresal -) 5 mg GT TID [facility] Last Admin: 01/10/19 06:16 Dose: 5 mg Chlorhexidine Gluconate (Hibiclens For Decolonization -) 1 applic TP HS [facility] Last Admin: 01/09/19 22:18 Dose: Not Given Clotrimazole (Lotrimin 1% Cream -) 1 applic TP BID [facility] Last Admin: 01/09/19 22:18 Dose: 1 applic Dexamethasone (Decadron -) 2 mg GT BID [facility] Last Admin: 01/09/19 22:09 Dose: 2 mg Heparin Sodium (Porcine) (Heparin -) 5,000 unit SQ BID [facility] Last Admin: 01/09/19 22:17 Dose: 5,000 unit Vancomycin HCl (Vancomycin (Pre-Docked)) 1,000 mg in 250 mls @ 166.667 mls/hr IVPB Q12H [facility]; Protocol Last Admin: 01/09/19 22:08 Dose: 166.667 mls/hr Piperacillin Sod/Tazobactam (Sod 4.5 gm/ Dextrose) 100 mls @ 200 mls/hr IVPB Q8H-IV [facility]; Protocol Last Admin: 01/10/19 01:14 Dose: 200 mls/hr Metoclopramide HCl (Reglan Oral Solution -) 10 mg GT Q12H PRN PRN Reason: NAUSEA Last Admin: 01/09/19 11:37 Dose: 10 mg Multivitamins/Minerals (Certavite-Antioxidant Liquid) 15 ml PO DAILY [facility] Last Admin: 01/09/19 11:34 Dose: 15 ml Mupirocin (Bactroban Ointment (For Decolonization) -) 1 applic NS BID [facility] Stop: 01/12/19 21:59 Last Admin: 01/09/19 22:17 Dose: Not Given Nystatin (Mycostatin Cream -) 1 applic TP BID [facility] Last Admin: 01/09/19 22:18 Dose: 1 applic Polyethylene Glycol (Miralax (For Daily Use) -) 17 gm GT BID [facility] Last Admin: 01/09/19 22:17 Dose: 17 grams Valproate Sodium (Depakene -) 500 mg GT BID [facility] Last Admin: 01/09/19 22:11 Dose: 500 mg - Objective Vital Signs: Vital Signs Temperature 99.4 F 01/10/19 06:00 Pulse Rate 96 H 01/10/19 06:00 Respiratory Rate 20 01/10/19 06:00 Blood Pressure 144/77 01/10/19 06:00 O2 Sat by Pulse Oximetry (%) 98 01/09/19 21:00 Labs: CBC, BMP 01/10/19 07:35 01/10/19 07:35 INR, PTT INR 1.10 (0.83-1.09) H 01/07/19 14:10
[2019-01-10] MEDS: MULTIVIT-MINERALS ORAL LIQUID PO SCH (10:06)
[2019-01-10] MEDS: MUPIROCIN 2% TOPICAL OINTMENT FOR DECOLONIZATION NS SCH ×2 (10:06→22:21)
[2019-01-10] MEDS: VALPROATE SODIUM 250 MG/5 ML UNIT DOSE CUP GT SCH ×2 (10:07→22:20)
[2019-01-10] MEDS: DEXAMETHASONE 4 MG TABLET (FP) GT SCH ×2 (10:07→22:19)
[2019-01-10] MEDS: HEPARIN NA (PORCINE) 5,000 UNITS/ML 1ML VIAL SQ SCH ×2 (10:07→22:21)
[2019-01-10] MEDS: VANCOMYCIN 1 GRAM (PRE-DOCKED) 1,000 MG/250 ML BAG IVPB SCH ×2 (10:07→22:19)
[2019-01-10] MEDS: CLOTRIMAZOLE 1% CREAM 15 GM TUBE TP SCH ×2 (10:08→22:21)
[2019-01-10] MEDS: NYSTATIN 100,000 UNIT/GM TOPICAL CREAM 15 GM TUBE TP SCH ×2 (10:09→22:22)
[2019-01-10] MEDS: POLYETHYLENE GLYCOL 3350 119 GM BTL GT SCH ×2 (10:15→22:20)
[2019-01-10] MEDS: AMINO ACIDS/PROTEIN HYDROLYS 30 ML LIQUID.PKT PO SCH ×3 (10:16→16:55)
--- NOTE | 2019-01-10 11:56 | EKG ---
Test Reason : Blood Pressure : / mmHG Vent. Rate : 110 BPM Atrial Rate : 110 BPM P-R Int : 124 ms QRS Dur : 064 ms QT Int : 336 ms P-R-T Axes : 069 012 038 degrees QTc Int : 454 ms SINUS TACHYCARDIA BIATRIAL ENLARGEMENT LOW VOLTAGE QRS ABNORMAL ECG Confirmed by DAX PEARSON MD ([id number]) on 01/10/2019 11:55:47 AM Referred By: Confirmed By:DAX PEARSON MD
--- NOTE | 2019-01-10 13:29 | PN ---
Progress Note (short form) - Note Progress Note: NAD on NC O2. Intermittent fever. No acute events overnight. Intake & Output 01/07/19 01/08/19 01/09/19 01/10/19 23:59 23:59 23:59 23:59 Intake Total 3595 3880 Output Total 100 1500 4150 1000 Balance -100 5175 -270 -1000 Weight 163 lb 1.6 oz 163 lb 2 oz 167 lb 165 lb 6.4 oz Last Vital Signs Temp Pulse Resp BP Pulse Ox 102 F H 118 H 22 H 154/76 98 01/10/19 10:00 01/10/19 10:00 01/10/19 10:00 01/10/19 10:00 01/10/19 09:00 Active Medications Acetaminophen (Ofirmev Injection -) 1,000 mg IVPB Q6H PRN PRN Reason: FEVER Last Admin: 01/10/19 10:16 Dose: 1,000 mg Albuterol/Ipratropium (Duoneb -) 1 amp NEB Q6H PRN PRN Reason: SHORTNESS OF BREATH Last Admin: 01/10/19 07:32 Dose: 1 amp Amino Acids (Prosource No Carb Liquid Pkt) 30 ml PO BID@0800,1730 [facility] Last Admin: 01/10/19 10:16 Dose: 30 ml Baclofen (Lioresal -) 5 mg GT TID [facility] Last Admin: 01/10/19 06:16 Dose: 5 mg Chlorhexidine Gluconate (Hibiclens For Decolonization -) 1 applic TP HS [facility] Last Admin: 01/09/19 22:18 Dose: Not Given Clotrimazole (Lotrimin 1% Cream -) 1 applic TP BID [facility] Last Admin: 01/10/19 10:08 Dose: 1 applic Dexamethasone (Decadron -) 2 mg GT BID [facility] Last Admin: 01/10/19 10:07 Dose: 2 mg Heparin Sodium (Porcine) (Heparin -) 5,000 unit SQ BID [facility] Last Admin: 01/10/19 10:07 Dose: 5,000 unit Vancomycin HCl (Vancomycin (Pre-Docked)) 1,000 mg in 250 mls @ 166.667 mls/hr IVPB Q12H [facility]; Protocol Last Admin: 01/10/19 10:07 Dose: 166.667 mls/hr Piperacillin Sod/Tazobactam (Sod 4.5 gm/ Dextrose) 100 mls @ 200 mls/hr IVPB Q8H-IV [facility]; Protocol Last Admin: 01/10/19 10:08 Dose: 200 mls/hr Metoclopramide HCl (Reglan Oral Solution -) 10 mg GT Q12H PRN PRN Reason: NAUSEA Last Admin: 01/09/19 11:37 Dose: 10 mg Multivitamins/Minerals (Certavite-Antioxidant Liquid) 15 ml PO DAILY [facility] Last Admin: 01/10/19 10:06 Dose: 15 ml Mupirocin (Bactroban Ointment (For Decolonization) -) 1 applic NS BID [facility] Stop: 01/12/19 21:59 Last Admin: 01/10/19 10:06 Dose: Not Given Nystatin (Mycostatin Cream -) 1 applic TP BID [facility] Last Admin: 01/10/19 10:09 Dose: 1 applic Polyethylene Glycol (Miralax (For Daily Use) -) 17 gm GT BID [facility] Last Admin: 01/10/19 10:15 Dose: 17 grams Valproate Sodium (Depakene -) 500 mg GT BID [facility] Last Admin: 01/10/19 10:07 Dose: 500 mg General: non-verbal, responds to painful stimuli CV: S1/S2, RRR Respiratory: few scattered rhonchi, no wheeze/crackle Abdomen: soft, (+) bowel sounds, PEG tube site with purulent discharge, no erythema/TTP Extremities: contracted UE/LE B/L; 2+ DP pulses; B/L 2+ pitting edema foot/ ankles Laboratory Results - last 24 hr 01/09/19 01/09/19 01/10/19 17:34 22:29 06:34 WBC RBC Hgb Hct MCV MCH MCHC RDW Plt Count MPV Sodium Potassium Chloride Carbon Dioxide Anion Gap BUN Creatinine Est GFR (CKD-EPI)AfAm Est GFR (CKD-EPI)NonAf POC Glucometer 159 136 93 Random Glucose Calcium Phosphorus Magnesium 01/10/19 01/10/19 07:35 07:35 WBC 9.7 RBC 4.09 Hgb 13.8 Hct 41.0 MCV 100.2 H MCH 33.7 MCHC 33.6 RDW 15.8 H Plt Count 149 MPV 9.5 Sodium 145 Potassium 4.1 Chloride 111 H Carbon Dioxide 25 Anion Gap 8 BUN 23.8 H Creatinine 0.7 Est GFR (CKD-EPI)AfAm 111.47 Est GFR (CKD-EPI)NonAf 96.18 POC Glucometer Random Glucose 87 Calcium 7.8 L Phosphorus 2.8 Magnesium 2.1 ASSESSMENT/PLAN: Sepsis: sources Skin/soft tissue R/O UTI Low clinical suspicion of PNA CVA Anoxic brain injury Dementia PEG Tube Seizure disorder Resolved Bronchospasm Left atelectasis Repeat CXR ABX per ID IVF Aspiration precautions O2 as needed BD [place] PRN Dr Bailey
--- NOTE | 2019-01-10 16:13 | PN ---
Progress Note (short form) - Note Progress Note: intermittent fevers on vancomycin and zosyn Vital Signs Period Temp Pulse Resp BP Sys/Florentino Pulse Ox Last 24 Hr 99.4 F-102 F 72-118 18-22 114-154/65-94 98-98 cor-rrr lungs clear abd soft, gt site is clean, no erythema or drainage ext contracted- left ankle with exposed screw- no erythema or drainage fungal rash under her breast and both groins CBC, BMP 01/10/19 07:35 01/10/19 07:35 Microbiology 01/07/19 15:50 Abdomen Gram Stain - Final 01/07/19 15:50 Abdomen Wound Culture - Final Klebsiella Pneumoniae - Esbl Proteus Mirabilis Enterococcus Faecalis Mr S Aureus 01/07/19 15:50 Foot - Left Lateral Gram Stain - Final 01/07/19 15:50 Foot - Left Lateral Wound Culture - Preliminary Proteus Mirabilis Morganella Morganii Klebsiella Pneumoniae - Esbl Group D Strep Or Entero Coccus Staphylococcus Species 01/07/19 14:10 Blood - Peripheral Venous Blood Culture - Preliminary Staphylococcus Coagulase Neg Staphylococcus Coagulase Neg#2 01/07/19 17:30 Urine - Urine - Catheterized Urine Culture - Final NO GROWTH OBTAINED 01/07/19 14:10 Blood - Peripheral Venous Blood Culture - Preliminary Staphylococcus Coagulase Neg cxray today-no infiltrate a/p recurrent fevers- repeat blood cultures-normal WBC, ?recurrent aspiration bacteremia- gram positive anoxia s/p cva seizure disorder known exposed hardware left ankle-no signs drainage or erythema fungal skin rash- add diflucan no sign of pneumonia, skin looks intact repeat blood cultures check vancomycin level contact isolation-MDRO skin colonizers -mrsa and kleb esbl will follow Problem List - Problems (1) Sepsis Code(s): A41.9 - SEPSIS, UNSPECIFIED ORGANISM (2) Bacteremia Code(s): R78.81 - BACTEREMIA (3) Anoxic brain damage Code(s): G93.1 - ANOXIC BRAIN DAMAGE, NOT ELSEWHERE CLASSIFIED
[2019-01-10] MEDS: FLUCONAZOLE 100 MG TABLET (UD) PO SCH ×2 (16:54→16:55)
[2019-01-10] MEDS: CHLORHEXIDINE GLUCONATE 4% CLEANSER FOR DECOLONIZATION TP SCH (22:21)
[2019-01-11] MEDS: PIPERACILLIN/TAZOB 4.5 GM 4.5 GM in DEXTROSE 5%-WATER 100 ML IVPB SCH ×3 (01:15→17:48)
[2019-01-11] MEDS: BACLOFEN 10 MG TABLET (FP) GT SCH ×3 (06:06→21:36)
[2019-01-11] MEDS: ACETAMINOPHEN 1000 MG/100 ML VIAL (NON FORMULARY) IVPB PRN (06:45)
[2019-01-11 08:35] LABS: BASO % 0.3 % (0-2.0); HEMATOCRIT 41.2 % (32.4-45.2); LYMPH % 26.5 % (8-40); MCH 33.4 pg (25.7-33.7); MCHC 33.8 g/dl (32.0-36.0); MEAN CELL VOLUME 98.8 fl (80-96); MEAN PLT VOLUME 9.7 fl (7.5-11.1); MONO % 8.2 % (3.8-10.2); PLATELET COUNT 146 K/MM3 (134-434); RBC 4.17 M/mm3 (3.60-5.2); RDW 15.4 % (11.6-15.6); WHITE BLOOD COUNT 11.5 K/mm3 (4.0-10.0)
[2019-01-11 09:06] LABS: ALBUMIN 2.4 g/dl (3.4-5.0); BILIRUBIN,TOTAL 1.1 mg/dL (0.2-1); BLOOD UREA NITROGEN 33.3 mg/dL (7-18); CALCIUM 8.5 mg/dL (8.5-10.1); CREATININE 0.8 mg/dL (0.55-1.3); POTASSIUM 3.9 mmol/L (3.5-5.1); TOT PROT 6.4 g/dl (6.4-8.2)
[2019-01-11] MEDS ORDERED: PT OWN MED DRAWER 7, Y5N ONE ×6 (09:24→21:39)
[2019-01-11] MEDS ORDERED: PIPERACILLIN/TAZOBACTAM 4.5 GM VIAL IVPB ONE ×2 (09:25→17:44)
[2019-01-11] MEDS ORDERED: DEXTROSE 5%-WATER 100 ML IVPB ONE ×3 (09:25→18:00)
[2019-01-11] MEDS: NYSTATIN 100,000 UNIT/GM TOPICAL CREAM 15 GM TUBE TP SCH ×2 (09:37→22:50)
[2019-01-11] MEDS: POLYETHYLENE GLYCOL 3350 119 GM BTL GT SCH ×2 (09:38→21:43)
[2019-01-11] MEDS: VALPROATE SODIUM 250 MG/5 ML UNIT DOSE CUP GT SCH ×2 (09:39→21:42)
[2019-01-11] MEDS: MULTIVIT-MINERALS ORAL LIQUID PO SCH (09:39)
[2019-01-11] MEDS: MUPIROCIN 2% TOPICAL OINTMENT FOR DECOLONIZATION NS SCH ×2 (09:39→21:36)
[2019-01-11] MEDS: AMINO ACIDS/PROTEIN HYDROLYS 30 ML LIQUID.PKT PO SCH ×2 (09:39→16:40)
[2019-01-11] MEDS: DEXAMETHASONE 4 MG TABLET (FP) GT SCH ×2 (09:40→21:36)
[2019-01-11] MEDS: CLOTRIMAZOLE 1% CREAM 15 GM TUBE TP SCH ×2 (09:41→21:51)
[2019-01-11] MEDS: FLUCONAZOLE 100 MG TABLET (UD) PO SCH (09:45)
[2019-01-11] MEDS: HEPARIN NA (PORCINE) 5,000 UNITS/ML 1ML VIAL SQ SCH ×2 (10:30→21:36)
--- NOTE | 2019-01-11 10:43 | PN ---
Progress Note, Physician Chief Complaint: FEVERS PERSIST TOLERATING PEG FEEDS - Current Medication List Current Medications: Active Medications Albuterol/Ipratropium (Duoneb -) 1 amp NEB Q6H PRN PRN Reason: SHORTNESS OF BREATH Last Admin: 01/10/19 20:25 Dose: 1 amp Amino Acids (Prosource No Carb Liquid Pkt) 30 ml PO BID@0800,1730 [facility] Last Admin: 01/11/19 09:39 Dose: 30 ml Baclofen (Lioresal -) 5 mg GT TID [facility] Last Admin: 01/11/19 06:06 Dose: 5 mg Chlorhexidine Gluconate (Hibiclens For Decolonization -) 1 applic TP HS [facility] Last Admin: 01/10/19 22:21 Dose: Not Given Clotrimazole (Lotrimin 1% Cream -) 1 applic TP BID [facility] Last Admin: 01/11/19 09:41 Dose: 1 applic Dexamethasone (Decadron -) 2 mg GT BID [facility] Last Admin: 01/11/19 09:40 Dose: 2 mg Fluconazole (Diflucan -) 100 mg PO DAILY [facility] Last Admin: 01/11/19 09:45 Dose: 100 mg Heparin Sodium (Porcine) (Heparin -) 5,000 unit SQ BID [facility] Last Admin: 01/11/19 10:30 Dose: 5,000 unit Vancomycin HCl (Vancomycin (Pre-Docked)) 1,000 mg in 250 mls @ 166.667 mls/hr IVPB Q12H [facility]; Protocol Last Admin: 01/10/19 22:19 Dose: 166.667 mls/hr Piperacillin Sod/Tazobactam (Sod 4.5 gm/ Dextrose) 100 mls @ 200 mls/hr IVPB Q8H-IV [facility]; Protocol Last Admin: 01/11/19 09:40 Dose: 200 mls/hr Metoclopramide HCl (Reglan Oral Solution -) 10 mg GT Q12H PRN PRN Reason: NAUSEA Last Admin: 01/09/19 11:37 Dose: 10 mg Multivitamins/Minerals (Certavite-Antioxidant Liquid) 15 ml PO DAILY [facility] Last Admin: 01/11/19 09:39 Dose: 15 ml Mupirocin (Bactroban Ointment (For Decolonization) -) 1 applic NS BID [facility] Stop: 01/12/19 21:59 Last Admin: 01/11/19 09:39 Dose: Not Given Nystatin (Mycostatin Cream -) 1 applic TP BID [facility] Last Admin: 01/11/19 09:37 Dose: 1 applic Polyethylene Glycol (Miralax (For Daily Use) -) 17 gm GT BID [facility] Last Admin: 01/11/19 09:38 Dose: 17 grams Valproate Sodium (Depakene -) 500 mg GT BID [facility] Last Admin: 01/11/19 09:39 Dose: 500 mg - Objective Vital Signs: Vital Signs Temperature 102 F H 01/11/19 06:00 Pulse Rate 113 H 01/11/19 06:00 Respiratory Rate 18 01/11/19 06:00 Blood Pressure 135/74 01/11/19 06:00 O2 Sat by Pulse Oximetry (%) 98 01/10/19 21:00 Constitutional: Yes: Mild Distress Cardiovascular: Yes: Tachycardia Respiratory: Yes: Diminished, On Nasal O2 Gastrointestinal: Yes: Soft, Other (PEG) Genitourinary: Yes: Blanchard Present Musculoskeletal: Yes: Muscle Weakness Edema: No Neurological: Yes: Pre-Existing Deficit ...Motor Strength: LLE, RLE Labs: CBC, BMP 01/11/19 06:20 01/11/19 06:20 INR, PTT INR 1.10 (0.83-1.09) H 01/07/19 14:10 Problem List - Problems (1) Sepsis Code(s): A41.9 - SEPSIS, UNSPECIFIED ORGANISM (2) Anoxic brain damage Code(s): G93.1 - ANOXIC BRAIN DAMAGE, NOT ELSEWHERE CLASSIFIED (3) Aspiration into airway Code(s): T17.908A - UNSP FB IN RESP TRACT, PART UNSP CAUSING OTH INJURY, INIT Qualifiers: Encounter type: initial encounter Qualified Code(s): T17.908A - Unspecified foreign body in respiratory tract, part unspecified causing other injury, initial encounter (4) Cellulitis Code(s): L03.90 - CELLULITIS, UNSPECIFIED (5) Dementia Code(s): F03.90 - UNSPECIFIED DEMENTIA WITHOUT BEHAVIORAL DISTURBANCE (6) Pneumonitis Code(s): J18.9 - PNEUMONIA, UNSPECIFIED ORGANISM (7) Seizure as late effect of cerebrovascular accident (CVA) Code(s): I69.398 - OTHER SEQUELAE OF CEREBRAL INFARCTION; R56.9 - UNSPECIFIED CONVULSIONS (8) Severe flexion contractures of all joints Code(s): M24.50 - CONTRACTURE, UNSPECIFIED JOINT Assessment/Plan iv abx wound care antifungal cream to groin gtubes restarted goals of care d/w daughter milan dvt prophylaxis
--- NOTE | 2019-01-11 10:56 | PN ---
Progress Note (short form) - Note Progress Note: NAD on NC O2. Still with fever. No acute events overnight. CXR: Poor inspiratory effort / no clear infiltrate or new findings Intake & Output 01/08/19 01/09/19 01/10/19 01/11/19 23:59 23:59 23:59 23:59 Intake Total 3595 3880 2120 Output Total 1500 4150 2200 500 Balance 2095 -270 -80 -500 Weight 163 lb 2 oz 167 lb 165 lb 6.4 oz Last Vital Signs Temp Pulse Resp BP Pulse Ox 102 F H 113 H 18 135/74 98 01/11/19 06:00 01/11/19 06:00 01/11/19 06:00 01/11/19 06:00 01/10/19 21:00 Active Medications Albuterol/Ipratropium (Duoneb -) 1 amp NEB Q6H PRN PRN Reason: SHORTNESS OF BREATH Last Admin: 01/10/19 20:25 Dose: 1 amp Amino Acids (Prosource No Carb Liquid Pkt) 30 ml PO BID@0800,1730 [facility]S [facility] Last Admin: 01/11/19 09:39 Dose: 30 ml Baclofen (Lioresal -) 5 mg GT TID [facility] 234 B[facility]S AT [facility] Last Admin: 01/11/19 06:06 Dose: 5 mg Chlorhexidine Gluconate (Hibiclens For Decolonization -) 1 applic TP HS [facility] 234 [facility]S [facility] Last Admin: 01/10/19 22:21 Dose: Not Given Clotrimazole (Lotrimin 1% Cream -) 1 applic TP BID [facility] 234 [facility]S [facility] Last Admin: 01/11/19 09:41 Dose: 1 applic Dexamethasone (Decadron -) 2 mg GT BID [facility] 234 [facility]S [facility] Last Admin: 01/11/19 09:40 Dose: 2 mg Fluconazole (Diflucan -) 100 mg PO DAILY [facility] 234 B[facility]S AT [facility] Last Admin: 01/11/19 09:45 Dose: 100 mg Heparin Sodium (Porcine) (Heparin -) 5,000 unit SQ BID [facility] 234 [facility]S [facility] Last Admin: 01/11/19 10:30 Dose: 5,000 unit Vancomycin HCl (Vancomycin (Pre-Docked)) 1,000 mg in 250 mls @ 166.667 mls/hr IVPB Q12H [facility] 234 BEDS AT [facility]; Protocol Last Admin: 01/10/19 22:19 Dose: 166.667 mls/hr Piperacillin Sod/Tazobactam (Sod 4.5 gm/ Dextrose) 100 mls @ 200 mls/hr IVPB Q8H-IV [facility]; Protocol Last Admin: 01/11/19 09:40 Dose: 200 mls/hr Metoclopramide HCl (Reglan Oral Solution -) 10 mg GT Q12H PRN PRN Reason: NAUSEA Last Admin: 01/09/19 11:37 Dose: 10 mg Multivitamins/Minerals (Certavite-Antioxidant Liquid) 15 ml PO DAILY [facility] 234 [facility]S [facility] Last Admin: 01/11/19 09:39 Dose: 15 ml Mupirocin (Bactroban Ointment (For Decolonization) -) 1 applic NS BID [facility] 234 BEDS AT [facility] Stop: 01/12/19 21:59 Last Admin: 01/11/19 09:39 Dose: Not Given Nystatin (Mycostatin Cream -) 1 applic TP BID [facility] 234 [facility]S AT [facility] Last Admin: 01/11/19 09:37 Dose: 1 applic Polyethylene Glycol (Miralax (For Daily Use) -) 17 gm GT BID [facility] 234 BEDS AT [facility] Last Admin: 01/11/19 09:38 Dose: 17 grams Valproate Sodium (Depakene -) 500 mg GT BID [facility] 234 BEDS AT [facility] Last Admin: 01/11/19 09:39 Dose: 500 mg General: non-verbal, responds to painful stimuli CV: S1/S2, RRR Respiratory: few scattered rhonchi, no wheeze/crackle Abdomen: soft, (+) bowel sounds, PEG tube site with purulent discharge, no erythema/TTP Extremities: contracted UE/LE B/L; 2+ DP pulses; B/L 2+ pitting edema foot/ ankles Laboratory Results - last 24 hr 01/09/19 01/09/19 01/10/19 17:34 22:29 06:34 WBC RBC Hgb Hct MCV MCH MCHC RDW Plt Count MPV Sodium Potassium Chloride Carbon Dioxide Anion Gap BUN Creatinine Est GFR (CKD-EPI)AfAm Est GFR (CKD-EPI)NonAf POC Glucometer 159 136 93 Random Glucose Calcium Phosphorus Magnesium 01/10/19 01/10/19 07:35 07:35 WBC 9.7 RBC 4.09 Hgb 13.8 Hct 41.0 MCV 100.2 H MCH 33.7 MCHC 33.6 RDW 15.8 H Plt Count 149 MPV 9.5 Sodium 145 Potassium 4.1 Chloride 111 H Carbon Dioxide 25 Anion Gap 8 BUN 23.8 H Creatinine 0.7 Est GFR (CKD-EPI)AfAm 111.47 Est GFR (CKD-EPI)NonAf 96.18 POC Glucometer Random Glucose 87 Calcium 7.8 L Phosphorus 2.8 Magnesium 2.1 ASSESSMENT/PLAN: Sepsis: sources Skin/soft tissue Low clinical suspicion of PNA: respiratory status stable and CXR unrevealing CVA Anoxic brain injury Dementia PEG Tube Seizure disorder Resolved Bronchospasm Left atelectasis ABX per ID IVF Aspiration precautions O2 as needed BD TX PRN DNR/DNI Dr Bailey
[2019-01-11] MEDS: VANCOMYCIN 1 GRAM (PRE-DOCKED) 1,000 MG/250 ML BAG IVPB SCH ×2 (14:45→21:37)
[2019-01-11] MEDS: ACETAMINOPHEN 650 MG/20.3 ML ORAL SOLUTION (CUPS) PO PRN (15:53)
[2019-01-11] MEDS: ALBUTEROL SO4 2.5/IPRATROPIUM 0.5 INH SOL 3 ML VIAL.NEB. NEB PRN (16:02)
--- NOTE | 2019-01-11 17:43 | PN ---
Progress Note, Physician Chief Complaint: ID Coverage Dr. Segura Fever History of Present Illness: Patient is a 58 yo female who was recently admitted for dislodged PEG, has been having persistent fevers. Chart and c/s were reviewed. She had (L) ankle surgery in the past and has an ulcer (L) lateral malleolus with visible screw. Asked to evaluate persistent fevers inspite of Rx - Vanco & Zosyn. - Current Medication List Current Medications: Active Medications Acetaminophen (Tylenol Oral Solution -) 650 mg PO Q6H PRN PRN Reason: FEVER Last Admin: 01/11/19 15:53 Dose: 650 mg Albuterol/Ipratropium (Duoneb -) 1 amp NEB Q6H PRN PRN Reason: SHORTNESS OF BREATH Last Admin: 01/11/19 16:02 Dose: 1 amp Amino Acids (Prosource No Carb Liquid Pkt) 30 ml PO BID@0800,1730 [facility] Last Admin: 01/11/19 16:40 Dose: 30 ml Baclofen (Lioresal -) 5 mg GT TID [facility] Last Admin: 01/11/19 14:50 Dose: 5 mg Chlorhexidine Gluconate (Hibiclens For Decolonization -) 1 applic TP HS [facility] Last Admin: 01/10/19 22:21 Dose: Not Given Clotrimazole (Lotrimin 1% Cream -) 1 applic TP BID [facility] Last Admin: 01/11/19 09:41 Dose: 1 applic Dexamethasone (Decadron -) 2 mg GT BID [facility] Last Admin: 01/11/19 09:40 Dose: 2 mg Fluconazole (Diflucan -) 100 mg PO DAILY [facility] Last Admin: 01/11/19 09:45 Dose: 100 mg Heparin Sodium (Porcine) (Heparin -) 5,000 unit SQ BID [facility] Last Admin: 01/11/19 10:30 Dose: 5,000 unit Vancomycin HCl (Vancomycin (Pre-Docked)) 1,000 mg in 250 mls @ 166.667 mls/hr IVPB Q12H [facility]; Protocol Last Admin: 01/11/19 14:45 Dose: Not Given Piperacillin Sod/Tazobactam (Sod 4.5 gm/ Dextrose) 100 mls @ 200 mls/hr IVPB Q8H-IV [facility]; Protocol Last Admin: 08/17/19 09:40 Dose: 200 mls/hr Metoclopramide HCl (Reglan Oral Solution -) 10 mg GT Q12H PRN PRN Reason: NAUSEA Last Admin: 01/09/19 11:37 Dose: 10 mg Multivitamins/Minerals (Certavite-Antioxidant Liquid) 15 ml PO DAILY [facility] Last Admin: 01/11/19 09:39 Dose: 15 ml Mupirocin (Bactroban Ointment (For Decolonization) -) 1 applic NS BID [facility] Stop: 01/12/19 21:59 Last Admin: 01/11/19 09:39 Dose: Not Given Nystatin (Mycostatin Cream -) 1 applic TP BID [facility] Last Admin: 01/11/19 09:37 Dose: 1 applic Polyethylene Glycol (Miralax (For Daily Use) -) 17 gm GT BID [facility] Last Admin: 01/11/19 09:38 Dose: 17 grams Valproate Sodium (Depakene -) 500 mg GT BID [facility] Last Admin: 01/11/19 09:39 Dose: 500 mg - Objective Vital Signs: Vital Signs Temperature 100.0 F H 01/11/19 15:34 Pulse Rate 101 H 01/11/19 15:34 Respiratory Rate 20 01/11/19 15:34 Blood Pressure 162/90 01/11/19 15:34 O2 Sat by Pulse Oximetry (%) 98 01/10/19 21:00 Constitutional: Yes: No Distress Eyes: Yes: Conjunctiva Clear, PERRL Neck: Yes: Trachea Midline Cardiovascular: Yes: Regular Rate and Rhythm Respiratory: Yes: Regular, Rhonchi. No: Wheezes Gastrointestinal: Yes: Normal Bowel Sounds, Soft, Other (PEG) Extremities: Yes: Other ((+) Ulcer (L) Lateral Malleolus without erythema or drainage.) Labs: CBC, BMP 01/11/19 06:20 01/11/19 06:20 INR, PTT INR 1.10 (0.83-1.09) H 01/07/19 14:10 Assessment/Plan Pt with Hx anoxic encephalopathy, Hx CVA evaluated for fevers. Leukocytosis - improved ? recurrent aspiration Hx PEG Dislodgement DC Zosyn Rx Meropenem 1 gr q 8 hrs Hold Vanco Check levels in AM Repeat CXR IF fevers persist, consider CT C/A/P (+C)
[2019-01-11] MEDS ORDERED: MEROPENEM 1 GM VIAL (RESTRICTED TO ID) IVPB ONE (18:00)
[2019-01-11] MEDS: MEROPENEM 1 GM in DEXTROSE 5%-WATER 100 ML IVPB SCH (18:07)
[2019-01-11] MEDS: METOCLOPRAMIDE HCL 5 MG/5 ML UNIT DOSE CUP GT PRN (21:35)
[2019-01-11] MEDS: CHLORHEXIDINE GLUCONATE 4% CLEANSER FOR DECOLONIZATION TP SCH (21:37)
[2019-01-12] MEDS: ALBUTEROL SO4 2.5/IPRATROPIUM 0.5 INH SOL 3 ML VIAL.NEB. NEB PRN ×2 (01:24→08:33)
[2019-01-12] MEDS ORDERED: DEXTROSE 5%-WATER 100 ML IVPB ONE ×3 (02:00→17:17)
[2019-01-12] MEDS ORDERED: MEROPENEM 1 GM VIAL (RESTRICTED TO ID) IVPB ONE ×3 (02:00→17:17)
[2019-01-12] MEDS: MEROPENEM 1 GM in DEXTROSE 5%-WATER 100 ML IVPB SCH ×3 (02:10→17:23)
[2019-01-12] MEDS: BACLOFEN 10 MG TABLET (FP) GT SCH ×3 (06:14→21:53)
[2019-01-12] MEDS: ACETAMINOPHEN 650 MG/20.3 ML ORAL SOLUTION (CUPS) PO PRN ×2 (08:48→15:40)
[2019-01-12] MEDS: AMINO ACIDS/PROTEIN HYDROLYS 30 ML LIQUID.PKT PO SCH ×2 (08:49→17:23)
[2019-01-12] MEDS ORDERED: PT OWN MED DRAWER 7, Y5N ONE ×2 (09:52→21:15)
[2019-01-12] MEDS: VALPROATE SODIUM 250 MG/5 ML UNIT DOSE CUP GT SCH ×2 (10:31→21:53)
[2019-01-12] MEDS: POLYETHYLENE GLYCOL 3350 119 GM BTL GT SCH ×2 (10:32→21:55)
[2019-01-12] MEDS: DEXAMETHASONE 4 MG TABLET (FP) GT SCH ×2 (10:32→21:53)
[2019-01-12] MEDS: FLUCONAZOLE 100 MG TABLET (UD) PO SCH (10:32)
[2019-01-12] MEDS: CLOTRIMAZOLE 1% CREAM 15 GM TUBE TP SCH ×2 (10:33→21:54)
[2019-01-12] MEDS: HEPARIN NA (PORCINE) 5,000 UNITS/ML 1ML VIAL SQ SCH ×2 (10:33→21:52)
[2019-01-12] MEDS: MULTIVIT-MINERALS ORAL LIQUID PO SCH (10:33)
[2019-01-12] MEDS: NYSTATIN 100,000 UNIT/GM TOPICAL CREAM 15 GM TUBE TP SCH ×2 (10:33→21:55)
[2019-01-12] MEDS: MUPIROCIN 2% TOPICAL OINTMENT FOR DECOLONIZATION NS SCH (10:34)
[2019-01-12] MEDS ORDERED: FUROSEMIDE 40 MG/4 ML INJECTABLE VIAL IVPUSH ONE (10:55)
--- NOTE | 2019-01-12 11:06 | PN ---
Progress Note, Physician Chief Complaint: PATIENT IN MODERATE DISTRESS CONGESTED AND ANXIOUS - Current Medication List Current Medications: Active Medications Acetaminophen (Tylenol Oral Solution -) 650 mg PO Q6H PRN PRN Reason: FEVER Last Admin: 01/12/19 08:48 Dose: 650 mg Albuterol/Ipratropium (Duoneb -) 1 amp NEB Q6H PRN PRN Reason: SHORTNESS OF BREATH Last Admin: 01/12/19 08:33 Dose: 1 amp Amino Acids (Prosource No Carb Liquid Pkt) 30 ml PO BID@0800,1730 [facility] Last Admin: 01/12/19 08:49 Dose: 30 ml Baclofen (Lioresal -) 5 mg GT TID [facility] Last Admin: 01/12/19 06:14 Dose: 5 mg Chlorhexidine Gluconate (Hibiclens For Decolonization -) 1 applic TP HS [facility] Last Admin: 01/11/19 21:37 Dose: Not Given Clotrimazole (Lotrimin 1% Cream -) 1 applic TP BID [facility] Last Admin: 01/12/19 10:33 Dose: 1 applic Dexamethasone (Decadron -) 2 mg GT BID [facility] Last Admin: 01/12/19 10:32 Dose: 2 mg Fluconazole (Diflucan -) 100 mg PO DAILY [facility] Last Admin: 01/12/19 10:32 Dose: 100 mg Furosemide (Lasix Injection -) 40 mg IVPUSH ONCE ONE Stop: 01/12/19 10:56 Heparin Sodium (Porcine) (Heparin -) 5,000 unit SQ BID [facility] Last Admin: 01/12/19 10:33 Dose: 5,000 unit Vancomycin HCl (Vancomycin (Pre-Docked)) 1,000 mg in 250 mls @ 166.667 mls/hr IVPB Q12H [facility]; Protocol Last Admin: 01/11/19 21:37 Dose: Not Given Meropenem 1 gm/ Dextrose 100 mls @ 200 mls/hr IVPB Q8H-IV [facility] Last Admin: 01/12/19 10:32 Dose: 200 mls/hr Metoclopramide HCl (Reglan Oral Solution -) 10 mg GT Q12H PRN PRN Reason: NAUSEA Last Admin: 01/11/19 21:35 Dose: 10 mg Multivitamins/Minerals (Certavite-Antioxidant Liquid) 15 ml PO DAILY [facility] Last Admin: 01/12/19 10:33 Dose: 15 ml Mupirocin (Bactroban Ointment (For Decolonization) -) 1 applic NS BID [facility] Stop: 01/12/19 21:59 Last Admin: 01/12/19 10:34 Dose: Not Given Nystatin (Mycostatin Cream -) 1 applic TP BID [facility] Last Admin: 01/12/19 10:33 Dose: 1 applic Polyethylene Glycol (Miralax (For Daily Use) -) 17 gm GT BID [facility] Last Admin: 01/12/19 10:32 Dose: 17 grams Valproate Sodium (Depakene -) 500 mg GT BID [facility] Last Admin: 01/12/19 10:31 Dose: 500 mg - Objective Vital Signs: Vital Signs Temperature 99.5 F 01/12/19 07:17 Pulse Rate 98 H 01/12/19 07:17 Respiratory Rate 22 H 01/11/19 21:00 Blood Pressure 159/77 01/12/19 07:17 O2 Sat by Pulse Oximetry (%) 96 01/11/19 21:00 Constitutional: Yes: Moderate Distress Cardiovascular: Yes: Tachycardia Respiratory: Yes: Diminished, Rhonchi Gastrointestinal: Yes: Soft, Other (GTUBE) Genitourinary: Yes: Blanchard Present Musculoskeletal: Yes: Muscle Weakness Neurological: Yes: Pre-Existing Deficit, Weakness Labs: INR, PTT INR 1.10 (0.83-1.09) H 01/07/19 14:10 Problem List - Problems (1) Sepsis Code(s): A41.9 - SEPSIS, UNSPECIFIED ORGANISM (2) Anoxic brain damage Code(s): G93.1 - ANOXIC BRAIN DAMAGE, NOT ELSEWHERE CLASSIFIED (3) Aspiration into airway Code(s): T17.908A - UNSP FB IN RESP TRACT, PART UNSP CAUSING OTH INJURY, INIT Qualifiers: Encounter type: initial encounter Qualified Code(s): T17.908A - Unspecified foreign body in respiratory tract, part unspecified causing other injury, initial encounter (4) Cellulitis Code(s): L03.90 - CELLULITIS, UNSPECIFIED (5) Dementia Code(s): F03.90 - UNSPECIFIED DEMENTIA WITHOUT BEHAVIORAL DISTURBANCE (6) Pneumonitis Code(s): J18.9 - PNEUMONIA, UNSPECIFIED ORGANISM (7) Seizure as late effect of cerebrovascular accident (CVA) Code(s): I69.398 - OTHER SEQUELAE OF CEREBRAL INFARCTION; R56.9 - UNSPECIFIED CONVULSIONS (8) Severe flexion contractures of all joints Code(s): M24.50 - CONTRACTURE, UNSPECIFIED JOINT Assessment/Plan CXR REVIEWED NO ACUTE CHANGES SONO ABDOMEN ORDERED TO EVALUATE TRANSAMINITIS 02 MASK ORDERED REDUCE ALBUTEROL WITH TACHYCARDIA IV ABX PER ID CHECK LABS AND LIPASE LEVEL HOLD GT FEEDS DNR/DNI STATUS REVIEWED WITH DAUGHTER
[2019-01-12 11:12] LABS: ALBUMIN 2.7 g/dl (3.4-5.0); BILIRUBIN,TOTAL 1.2 mg/dL (0.2-1); BLOOD UREA NITROGEN 34.2 mg/dL (7-18); CALCIUM 8.9 mg/dL (8.5-10.1); CREATININE 0.7 mg/dL (0.55-1.3); POTASSIUM 3.8 mmol/L (3.5-5.1); TOT PROT 6.4 g/dl (6.4-8.2)
--- NOTE | 2019-01-12 11:17 | PN ---
Progress Note (short form) - Note Progress Note: fevers down Vital Signs Period Temp Pulse Resp BP Sys/Florentino Pulse Ox Last 24 Hr 99.5 F-100.0 F 94-112 20-22 129-167/72-99 96 cor-rrr lungs decreased bs at bases abd firm, +GT ext no edema CBC, BMP 01/12/19 06:56 cbc pending Microbiology 01/07/19 14:10 Blood - Peripheral Venous Blood Culture - Final Staphylococcus Warneri 01/10/19 18:50 Blood - Peripheral Venous Blood Culture - Preliminary NO GROWTH OBTAINED AFTER 24 HOURS, INCUBATION TO CONTINUE FOR 4 DAYS. 01/10/19 19:00 Blood - Peripheral Venous Blood Culture - Preliminary NO GROWTH OBTAINED AFTER 24 HOURS, INCUBATION TO CONTINUE FOR 4 DAYS. 01/07/19 15:50 Foot - Left Lateral Gram Stain - Final 01/07/19 15:50 Foot - Left Lateral Wound Culture - Preliminary Proteus Mirabilis Morganella Morganii Klebsiella Pneumoniae - Esbl Enterococcus Faecalis Staphylococcus Species 01/07/19 14:10 Blood - Peripheral Venous Blood Culture - Preliminary Staphylococcus Epidermidis Staphylococcus Coagulase Neg#2 01/07/19 15:50 Abdomen Gram Stain - Final 01/07/19 15:50 Abdomen Wound Culture - Final Klebsiella Pneumoniae - Esbl Proteus Mirabilis Enterococcus Faecalis Mr S Aureus 01/07/19 17:30 Urine - Urine - Catheterized Urine Culture - Final NO GROWTH OBTAINED vanco level 12.9 a/p recurrent fevers- repeat blood cultures-normal WBC, ?recurrent aspiration bacteremia- coag neg staph anoxia s/p cva seizure disorder known exposed hardware left ankle-no signs drainage or erythema fungal skin rash- diflucan abnl lfts contact isolation-MDRO skin colonizers -mrsa and kleb esbl d/w PMD- will get sono of liver/gallbladder to r/o biliary disease now on vanco/meropenem will follow Problem List - Problems (1) Sepsis Code(s): A41.9 - SEPSIS, UNSPECIFIED ORGANISM (2) Bacteremia Code(s): R78.81 - BACTEREMIA (3) Anoxic brain damage Code(s): G93.1 - ANOXIC BRAIN DAMAGE, NOT ELSEWHERE CLASSIFIED
--- NOTE | 2019-01-12 11:21 | PN ---
Progress Note (short form) - Note Progress Note: NAD on NC O2. Low grade temperatures. No acute events overnight. Intake & Output 01/09/19 01/10/19 01/11/19 01/12/19 23:59 23:59 23:59 23:59 Intake Total 3880 2120 50 Output Total 4150 2200 1300 300 Balance - -250 Weight 167 lb 165 lb 6.4 oz 167 lb Last Vital Signs Temp Pulse Resp BP Pulse Ox 99.5 F 98 H 22 H 159/77 96 01/12/19 07:17 01/12/19 07:17 01/11/19 21:00 01/12/19 07:17 01/11/19 21:00 Active Medications Acetaminophen (Tylenol Oral Solution -) 650 mg PO Q6H PRN PRN Reason: FEVER Last Admin: 01/12/19 08:48 Dose: 650 mg Amino Acids (Prosource No Carb Liquid Pkt) 30 ml PO BID@0800,1730 [facility] Last Admin: 01/12/19 08:49 Dose: 30 ml Baclofen (Lioresal -) 5 mg GT TID [facility] Last Admin: 01/12/19 06:14 Dose: 5 mg Chlorhexidine Gluconate (Hibiclens For Decolonization -) 1 applic TP HS [facility] Last Admin: 01/11/19 21:37 Dose: Not Given Clotrimazole (Lotrimin 1% Cream -) 1 applic TP BID [facility] Last Admin: 01/12/19 10:33 Dose: 1 applic Dexamethasone (Decadron -) 2 mg GT BID [facility] Last Admin: 01/12/19 10:32 Dose: 2 mg Fluconazole (Diflucan -) 100 mg PO DAILY [facility] Last Admin: 01/12/19 10:32 Dose: 100 mg Heparin Sodium (Porcine) (Heparin -) 5,000 unit SQ BID [facility] Last Admin: 01/12/19 10:33 Dose: 5,000 unit Meropenem 1 gm/ Dextrose 100 mls @ 200 mls/hr IVPB Q8H-IV [facility] Last Admin: 01/12/19 10:32 Dose: 200 mls/hr Vancomycin HCl 1,000 mg/ (Dextrose) 250 mls @ 200 mls/hr IVPB Q24H [facility]; Protocol Ipratropium [place] (Atrovent 0.02% Nebulizer -) 1 amp NEB Q6H PRN PRN Reason: WHEEZING Metoclopramide HCl (Reglan Oral Solution -) 10 mg GT Q12H PRN PRN Reason: NAUSEA Last Admin: 01/11/19 21:35 Dose: 10 mg Multivitamins/Minerals (Certavite-Antioxidant Liquid) 15 ml PO DAILY [facility] Last Admin: 01/12/19 10:33 Dose: 15 ml Mupirocin (Bactroban Ointment (For Decolonization) -) 1 applic NS BID [facility] Stop: 01/12/19 21:59 Last Admin: 01/12/19 10:34 Dose: Not Given Nystatin (Mycostatin Cream -) 1 applic TP BID [facility] Last Admin: 01/12/19 10:33 Dose: 1 applic Polyethylene Glycol (Miralax (For Daily Use) -) 17 gm GT BID [facility] Last Admin: 01/12/19 10:32 Dose: 17 grams Valproate Sodium (Depakene -) 500 mg GT BID [facility] Last Admin: 01/12/19 10:31 Dose: 500 mg General: non-verbal, responds to painful stimuli CV: S1/S2, RRR Respiratory: few scattered rhonchi, no wheeze/crackle Abdomen: soft, (+) bowel sounds, PEG tube site with purulent discharge, no erythema/TTP Extremities: contracted UE/LE B/L; 2+ DP pulses; B/L 2+ pitting edema foot/ ankles Laboratory Results - last 24 hr 01/11/19 01/11/19 01/11/19 11:41 19:43 21:33 Sodium Potassium Chloride Carbon Dioxide Anion Gap BUN Creatinine Est GFR (CKD-EPI)AfAm Est GFR (CKD-EPI)NonAf POC Glucometer 103 92 84 Random Glucose Calcium Total Bilirubin AST ALT Alkaline Phosphatase Total Protein Albumin Lipase Random Vancomycin 01/12/19 01/12/19 01/12/19 06:24 06:56 06:56 Sodium 139 Potassium 3.8 Chloride 101 Carbon Dioxide 27 Anion Gap 11 BUN 34.2 H Creatinine 0.7 Est GFR (CKD-EPI)AfAm 111.47 Est GFR (CKD-EPI)NonAf 96.18 POC Glucometer 94 Random Glucose 73 L Calcium 8.9 Total Bilirubin 1.2 H AST 77 H ALT 62 H Alkaline Phosphatase 31 L Total Protein 6.4 Albumin 2.7 L Lipase 151 Random Vancomycin 12.9 L ASSESSMENT/PLAN: Sepsis: (?) Gall bladder Low clinical suspicion of PNA: respiratory status stable and CXR unrevealing CVA Anoxic brain injury Dementia PEG Tube Seizure disorder Resolved Bronchospasm Left atelectasis US of abdomen ABX per ID IVF Aspiration precautions O2 as needed BD TX PRN DNR/DNI Dr Bailey
[2019-01-12 11:22] LABS: HEMATOCRIT 40.8 % (32.4-45.2); HEMOGLOBIN 13.8 GM/dL (10.7-15.3); MCH 33.3 pg (25.7-33.7); MCHC 33.8 g/dl (32.0-36.0); MEAN CELL VOLUME 98.7 fl (80-96); MEAN PLT VOLUME 10.5 fl (7.5-11.1); PLATELET COUNT 127 K/MM3 (134-434); RBC 4.13 M/mm3 (3.60-5.2); RDW 15.4 % (11.6-15.6); WHITE BLOOD COUNT 6.7 K/mm3 (4.0-10.0)
[2019-01-12] MEDS: VANCOMYCIN 1 GRAM (PRE-DOCKED) 1,000 MG/250 ML BAG IVPB SCH ×2 (11:33→13:16)
[2019-01-12] MEDS: IPRATROPIUM BR 0.02% 0.5 MG/2.5 ML VIAL.NEB. NEB PRN (14:01)
[2019-01-12] MEDS: CHLORHEXIDINE GLUCONATE 4% CLEANSER FOR DECOLONIZATION TP SCH (21:53)
[2019-01-13] MEDS ORDERED: MEROPENEM 1 GM VIAL (RESTRICTED TO ID) IVPB ONE ×3 (01:15→17:46)
[2019-01-13] MEDS ORDERED: DEXTROSE 5%-WATER 100 ML IVPB ONE ×3 (01:15→17:46)
[2019-01-13] MEDS: MEROPENEM 1 GM in DEXTROSE 5%-WATER 100 ML IVPB SCH ×3 (01:45→18:03)
[2019-01-13] MEDS: BACLOFEN 10 MG TABLET (FP) GT SCH ×3 (06:27→22:53)
[2019-01-13] MEDS: ACETAMINOPHEN 650 MG/20.3 ML ORAL SOLUTION (CUPS) PO PRN ×2 (08:36→14:37)
[2019-01-13] MEDS: AMINO ACIDS/PROTEIN HYDROLYS 30 ML LIQUID.PKT PO SCH ×2 (08:36→18:03)
[2019-01-13] MEDS ORDERED: PT OWN MED DRAWER 7, Y5N ONE ×2 (09:12→22:42)
[2019-01-13] MEDS: DEXAMETHASONE 4 MG TABLET (FP) GT SCH ×2 (09:22→22:52)
[2019-01-13] MEDS: HEPARIN NA (PORCINE) 5,000 UNITS/ML 1ML VIAL SQ SCH ×2 (09:22→22:53)
[2019-01-13] MEDS: VALPROATE SODIUM 250 MG/5 ML UNIT DOSE CUP GT SCH ×2 (09:23→22:54)
[2019-01-13] MEDS: FLUCONAZOLE 100 MG TABLET (UD) PO SCH (09:23)
[2019-01-13] MEDS: MULTIVIT-MINERALS ORAL LIQUID PO SCH (09:24)
[2019-01-13] MEDS: NYSTATIN 100,000 UNIT/GM TOPICAL CREAM 15 GM TUBE TP SCH ×2 (09:25→22:56)
[2019-01-13] MEDS: CLOTRIMAZOLE 1% CREAM 15 GM TUBE TP SCH ×2 (09:25→22:56)
[2019-01-13] MEDS: POLYETHYLENE GLYCOL 3350 119 GM BTL GT SCH ×2 (09:37→23:00)
--- NOTE | 2019-01-13 09:56 | PN ---
Progress Note, Physician Chief Complaint: Sepsis History of Present Illness: Previous notes and events reviewed awake, non-verbal NAD less congested febrile temp 100F Abd US results reviewed feedings on hold--patient NPO - Current Medication List Current Medications: Active Medications Acetaminophen (Tylenol Oral Solution -) 650 mg PO Q6H PRN PRN Reason: FEVER Last Admin: 01/13/19 08:36 Dose: 650 mg Amino Acids (Prosource No Carb Liquid Pkt) 30 ml PO BID@0800,1730 [facility] [place] Last Admin: 01/13/19 08:36 Dose: 30 ml Baclofen (Lioresal -) 5 mg GT TID [facility] Last Admin: 01/13/19 06:27 Dose: 5 mg Chlorhexidine Gluconate (Hibiclens For Decolonization -) 1 applic TP HS [facility] Last Admin: 01/12/19 21:53 Dose: Not Given Clotrimazole (Lotrimin 1% Cream -) 1 applic TP BID [facility] Last Admin: 01/13/19 09:25 Dose: 1 applic Dexamethasone (Decadron -) 2 mg GT BID [facility] [place] Last Admin: 01/13/19 09:22 Dose: 2 mg Fluconazole (Diflucan -) 100 mg PO DAILY [facility] [place] Last Admin: 01/13/19 09:23 Dose: 100 mg Heparin Sodium (Porcine) (Heparin -) 5,000 unit SQ BID [facility] [place] Last Admin: 01/13/19 09:22 Dose: 5,000 unit Meropenem 1 gm/ Dextrose 100 mls @ 200 mls/hr IVPB Q8H-IV [facility] Last Admin: 01/13/19 09:22 Dose: 200 mls/hr Vancomycin HCl (Vancomycin (Pre-Docked)) 1,000 mg in 250 mls @ 200 mls/hr IVPB Q24H [facility] [place]; Protocol Last Admin: 01/12/19 13:16 Dose: 200 mls/hr Ipratropium [place] (Atrovent 0.02% Nebulizer -) 1 amp NEB Q6H PRN PRN Reason: WHEEZING Last Admin: 01/12/19 14:01 Dose: 1 amp Metoclopramide HCl (Reglan Oral Solution -) 10 mg GT Q12H PRN PRN Reason: NAUSEA Last Admin: 01/11/19 21:35 Dose: 10 mg Multivitamins/Minerals (Certavite-Antioxidant Liquid) 15 ml PO DAILY [facility] [place] Last Admin: 01/13/19 09:24 Dose: 15 ml Nystatin (Mycostatin Cream -) 1 applic TP BID [facility] [place] Last Admin: 01/13/19 09:25 Dose: 1 applic Polyethylene Glycol (Miralax (For Daily Use) -) 17 gm GT BID [facility] [place] Last Admin: 01/13/19 09:37 Dose: Not Given Valproate Sodium (Depakene -) 500 mg GT BID [facility] [place] Last Admin: 01/13/19 09:23 Dose: 500 mg - Objective Vital Signs: Vital Signs Temperature 100.0 F H 01/13/19 09:21 Pulse Rate 105 H 01/13/19 09:21 Respiratory Rate 26 H 01/13/19 09:21 Blood Pressure 155/89 01/13/19 09:21 O2 Sat by Pulse Oximetry (%) 99 01/12/19 21:00 Constitutional: Yes: No Distress, Calm, Other (non-verbal) Eyes: Yes: Conjunctiva Clear HENT: Yes: Atraumatic Cardiovascular: Yes: Tachycardia Respiratory: Yes: Regular, Diminished Gastrointestinal: Yes: Normal Bowel Sounds, Soft, Distention, Other (G tube) Genitourinary: Yes: Blanchard Present Musculoskeletal: Yes: Muscle Weakness Extremities: Yes: Other (contracted) Edema: Yes Edema: LLE: Trace, RLE: Trace Wound/Incision: Yes: Dressing Dry and Intact Neurological: Yes: Pre-Existing Deficit, Weakness Labs: CBC, BMP 01/12/19 06:56 01/12/19 06:56 INR, PTT INR 1.10 (0.83-1.09) H 01/07/19 14:10 Microbiology 01/10/19 18:50 Blood - Peripheral Venous Blood Culture - Preliminary NO GROWTH OBTAINED AFTER 48 HOURS, INCUBATION TO CONTINUE FOR 3 DAYS. 01/10/19 19:00 Blood - Peripheral Venous Blood Culture - Preliminary NO GROWTH OBTAINED AFTER 48 HOURS, INCUBATION TO CONTINUE FOR 3 DAYS. 01/07/19 14:10 Blood - Peripheral Venous Blood Culture - Final Staphylococcus Epidermidis Staph Hominis Sub Sp Hominis 01/07/19 14:10 Blood - Peripheral Venous Blood Culture - Final Staphylococcus Warneri 01/07/19 15:50 Foot - Left Lateral Gram Stain - Final 01/07/19 15:50 Foot - Left Lateral Wound Culture - Preliminary Proteus Mirabilis Morganella Morganii Klebsiella Pneumoniae - Esbl Enterococcus Faecalis Staphylococcus Species 01/07/19 15:50 Abdomen Gram Stain - Final 01/07/19 15:50 Abdomen Wound Culture - Final Klebsiella Pneumoniae - Esbl Proteus Mirabilis Enterococcus Faecalis S Aureus 01/07/19 17:30 Urine - Urine - Catheterized Urine Culture - Final NO GROWTH OBTAINED - ....Imaging Ultrasound: Report Reviewed Problem List - Problems (1) Sepsis Assessment/Plan: -ID on board -LA 7.1 to 1.4 -Vancomycin and Meropenem -febrile temp 100F--repeat BC from 01/10 neg -tylenol for temp >100F -BC from 01/07 positive -UC neg -Left foot ulcer and Abdomen culture positive -CXR shows new atelectasis in the HARIS -repeat CXR 01/11 shows a gross infiltrate is not seen -no leukocytosis -IV hydration Code(s): A41.9 - SEPSIS, UNSPECIFIED ORGANISM (2) CVA (cerebral vascular accident) Assessment/Plan: -heparin sq Code(s): I63.9 - CEREBRAL INFARCTION, UNSPECIFIED (3) Dementia Code(s): F03.90 - UNSPECIFIED DEMENTIA WITHOUT BEHAVIORAL DISTURBANCE (4) Lactic acid acidosis Assessment/Plan: -LA 7.1 to 1.4 -resolving -IV hydration -will monitor for downtrend Code(s): E87.2 - ACIDOSIS (5) Severe flexion contractures of all joints Assessment/Plan: -turn q2h -offloading Code(s): M24.50 - CONTRACTURE, UNSPECIFIED JOINT (6) Bronchospasm Assessment/Plan: -bronchodilator -keep SpO2 >90% -O2 via NC Code(s): J98.01 - ACUTE BRONCHOSPASM (7) Seizure as late effect of cerebrovascular accident (CVA) Assessment/Plan: -Depakote -seizure precautions Code(s): I69.398 - OTHER SEQUELAE OF CEREBRAL INFARCTION; R56.9 - UNSPECIFIED CONVULSIONS (8) Transaminitis Assessment/Plan: -GI consult -abdominal US shows findings suggestive of fatty liver vs hepatocellular disease , limited visualization of of partially distended gallbladder without gross intraluminal stones or wall thickening -AST 77, ALT 62 -monitor LFTs -lipase 151 Code(s): R74.0 - NONSPEC ELEV OF LEVELS OF TRANSAMNS & LACTIC ACID DEHYDRGNSE Assessment/Plan see problem list dvt ppx
[2019-01-13] MEDS: VANCOMYCIN 1 GRAM (PRE-DOCKED) 1,000 MG/250 ML BAG IVPB SCH (11:40)
--- NOTE | 2019-01-13 11:49 | PN ---
Progress Note (short form) - Note Progress Note: intermittent fevers Vital Signs Period Temp Pulse Resp BP Sys/Florentino Pulse Ox Last 24 Hr 99.8 F-100.5 F 88-121 20-34 129-170/69-103 99 cor-rrr lungs decreased bs at bases abd firm, nt ext no edema rash resolving under beasts and groin CBC, BMP 01/12/19 06:56 01/12/19 06:56 Microbiology 01/07/19 15:50 Foot - Left Lateral Gram Stain - Final 01/07/19 15:50 Foot - Left Lateral Wound Culture - Final Proteus Mirabilis Morganella Morganii Klebsiella Pneumoniae - Esbl Enterococcus Faecalis Staphylococcus Haemolyticus 01/10/19 18:50 Blood - Peripheral Venous Blood Culture - Preliminary NO GROWTH OBTAINED AFTER 48 HOURS, INCUBATION TO CONTINUE FOR 3 DAYS. 01/10/19 19:00 Blood - Peripheral Venous Blood Culture - Preliminary NO GROWTH OBTAINED AFTER 48 HOURS, INCUBATION TO CONTINUE FOR 3 DAYS. 01/07/19 14:10 Blood - Peripheral Venous Blood Culture - Final Staphylococcus Epidermidis Staph Hominis Sub Sp Hominis 01/07/19 14:10 Blood - Peripheral Venous Blood Culture - Final Staphylococcus Warneri 01/07/19 15:50 Abdomen Gram Stain - Final 01/07/19 15:50 Abdomen Wound Culture - Final Klebsiella Pneumoniae - Esbl Proteus Mirabilis Enterococcus Faecalis Mr S Aureus 01/07/19 17:30 Urine - Urine - Catheterized Urine Culture - Final NO GROWTH OBTAINED vanco level 12.9 Current Medications Acetaminophen (Tylenol Oral Solution -) 650 mg PO Q6H PRN PRN Reason: FEVER Last Admin: 01/13/19 08:36 Dose: 650 mg Amino Acids (Prosource No Carb Liquid Pkt) 30 ml PO BID@0800,1730 [facility] Last Admin: 01/13/19 08:36 Dose: 30 ml Baclofen (Lioresal -) 5 mg GT TID [facility] Last Admin: 01/13/19 06:27 Dose: 5 mg Chlorhexidine Gluconate (Hibiclens For Decolonization -) 1 applic TP HS [facility] Last Admin: 01/12/19 21:53 Dose: Not Given Clotrimazole (Lotrimin 1% Cream -) 1 applic TP BID [facility] Last Admin: 01/13/19 09:25 Dose: 1 applic Dexamethasone (Decadron -) 2 mg GT BID [facility] Last Admin: 01/13/19 09:22 Dose: 2 mg Fluconazole (Diflucan -) 100 mg PO DAILY [facility] Last Admin: 01/13/19 09:23 Dose: 100 mg Heparin Sodium (Porcine) (Heparin -) 5,000 unit SQ BID [facility] Last Admin: 01/13/19 09:22 Dose: 5,000 unit Meropenem 1 gm/ Dextrose 100 mls @ 200 mls/hr IVPB Q8H-IV [facility] Last Admin: 01/13/19 09:22 Dose: 200 mls/hr Vancomycin HCl (Vancomycin (Pre-Docked)) 1,000 mg in 250 mls @ 200 mls/hr IVPB Q24H [facility]; Protocol Last Admin: 01/13/19 11:40 Dose: 200 mls/hr Ipratropium [place] (Atrovent 0.02% Nebulizer -) 1 amp NEB Q6H PRN PRN Reason: WHEEZING Last Admin: 01/12/19 14:01 Dose: 1 amp Metoclopramide HCl (Reglan Oral Solution -) 10 mg GT Q12H PRN PRN Reason: NAUSEA Last Admin: 01/11/19 21:35 Dose: 10 mg Multivitamins/Minerals (Certavite-Antioxidant Liquid) 15 ml PO DAILY [facility] Last Admin: 01/13/19 09:24 Dose: 15 ml Nystatin (Mycostatin Cream -) 1 applic TP BID [facility] Last Admin: 01/13/19 09:25 Dose: 1 applic Polyethylene Glycol (Miralax (For Daily Use) -) 17 gm GT BID [facility] Last Admin: 01/13/19 09:37 Dose: Not Given Valproate Sodium (Depakene -) 500 mg GT BID [facility] Last Admin: 01/13/19 09:23 Dose: 500 mg a/p recurrent fevers- repeat blood cultures-normal WBC, ?recurrent aspiration bacteremia- coag neg staph anoxia s/p cva seizure disorder known exposed hardware left ankle-no signs drainage or erythema fungal skin rash- diflucan abnl lfts contact isolation-MDRO skin colonizers -mrsa and kleb esbl consider ct scan chest /abd/pelvis for persistent fevers currently on vancomycin and meropenem will follow Problem List - Problems (1) Sepsis Code(s): A41.9 - SEPSIS, UNSPECIFIED ORGANISM (2) Bacteremia Code(s): R78.81 - BACTEREMIA (3) Anoxic brain damage Code(s): G93.1 - ANOXIC BRAIN DAMAGE, NOT ELSEWHERE CLASSIFIED
--- NOTE | 2019-01-13 13:51 | PN ---
Progress Note (short form) - Note Progress Note: PULMONARY Still with low grade temps. Daughters at bedside, states occasional wheezing. Vital Signs Period Temp Pulse Resp BP Sys/Florentino Pulse Ox Last 24 Hr 99.8 F-100.5 F 88-121 20-34 129-170/69-103 99 Gen: mildly tachypneic at rest Heart: RRR Lung: decreased breath sounds at the bases Abd: soft, nontender Ext: no edema CBC, BMP 01/12/19 06:56 01/12/19 06:56 Active Medications Acetaminophen (Tylenol Oral Solution -) 650 mg PO Q6H PRN PRN Reason: FEVER Last Admin: 01/13/19 08:36 Dose: 650 mg Amino Acids (Prosource No Carb Liquid Pkt) 30 ml PO BID@0800,1730 [facility] Last Admin: 01/13/19 08:36 Dose: 30 ml Baclofen (Lioresal -) 5 mg GT TID [facility] Last Admin: 01/13/19 06:27 Dose: 5 mg Chlorhexidine Gluconate (Hibiclens For Decolonization -) 1 applic TP HS [facility] Last Admin: 01/12/19 21:53 Dose: Not Given Clotrimazole (Lotrimin 1% Cream -) 1 applic TP BID [facility] Last Admin: 01/13/19 09:25 Dose: 1 applic Dexamethasone (Decadron -) 2 mg GT BID [facility] Last Admin: 01/13/19 09:22 Dose: 2 mg Fluconazole (Diflucan -) 100 mg PO DAILY [facility] Last Admin: 01/13/19 09:23 Dose: 100 mg Heparin Sodium (Porcine) (Heparin -) 5,000 unit SQ BID [facility] Last Admin: 01/13/19 09:22 Dose: 5,000 unit Meropenem 1 gm/ Dextrose 100 mls @ 200 mls/hr IVPB Q8H-IV [facility] Last Admin: 01/13/19 09:22 Dose: 200 mls/hr Vancomycin HCl (Vancomycin (Pre-Docked)) 1,000 mg in 250 mls @ 200 mls/hr IVPB Q24H [facility]; Protocol Last Admin: 01/13/19 11:40 Dose: 200 mls/hr Ipratropium [place] (Atrovent 0.02% Nebulizer -) 1 amp NEB Q6H PRN PRN Reason: WHEEZING Last Admin: 01/12/19 14:01 Dose: 1 amp Metoclopramide HCl (Reglan Oral Solution -) 10 mg GT Q12H PRN PRN Reason: NAUSEA Last Admin: 01/11/19 21:35 Dose: 10 mg Multivitamins/Minerals (Certavite-Antioxidant Liquid) 15 ml PO DAILY [facility] Last Admin: 01/13/19 09:24 Dose: 15 ml Nystatin (Mycostatin Cream -) 1 applic TP BID [facility] Last Admin: 01/13/19 09:25 Dose: 1 applic Polyethylene Glycol (Miralax (For Daily Use) -) 17 gm GT BID [facility] Last Admin: 01/13/19 09:37 Dose: Not Given Valproate Sodium (Depakene -) 500 mg GT BID [facility] Last Admin: 01/13/19 09:23 Dose: 500 mg A/P Polymicrobial Bacteremia r/o Decubitus Ulcer infection Sepsis r/o Aspiration Bronchospasm improving Anoxic Brain Injury Seizure Disorder Dementia - antibiotics per ID - wound care - aspiration precautions - decadron taper - O2 to keep SpO2 >90% - DVT prophylaxis
--- NOTE | 2019-01-13 16:09 | CON.GI ---
Consult Consult Specialty:: GI Referred by:: Medicine Reason for Consultation:: abnormal LFTs, partially distended gallbladder - History of Present Illness Chief Complaint: fever History of Present Illness: 58F nonverbal, h/o CVA w anoxic brain injury, has PEG tube, presenting for evaluation of fevers. GI asked to consult for abnormal LFTs and distended GB on US. AST was mildly elevated on last hospitalization 11/2018 as well; ALT with new mild elevation. US with distended GB without pericholecystic fluid or wall thickening. Patient unable to provide further hx. 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 Anoxic brain injury ) Gastrointestinal: Yes: Other (PEG tube) - Alcohol/Substance Use Hx Alcohol Use: No History of Substance Use: reports: None - Smoking History Smoking history: Never smoked Have you smoked in the past 12 months: No - Social History Usual Living Arrangement: Longterm ADL: Support Services ([facility]) History of Recent Travel: No Home Medications - Allergies Allergies/Adverse Reactions: Allergies Allergy/AdvReac Type Severity Reaction Status Date / Time No Known Drug Allergies Allergy Verified 12/20/18 16:43 latex AdvReac Unknown Verified 12/20/18 16:43 - Home Medications Home Medications: Ambulatory Orders Acetaminophen Oral Solution [Tylenol 160mg/5mL Oral Solution -] 20 ml GT Q6H PRN 07/22/15 Calcium Alginate [Du] 1 each TP BID 06/28/18 Polyethylene Glycol 3350 [Glycolax] 117 gm GT DAILY 06/28/18 Albuterol 2.5/Ipratropium 0.5 [Duoneb -] 1 amp NEB Q6H PRN amp 07/03/18 Baclofen [Lioresal -] 5 mg GT TID tablet 07/03/18 Clotrimazole [Clotrimazole AF] 28 gm TP BID 12/20/18 Acetaminophen Oral Solution [Tylenol Oral Solution -] 650 mg PO Q4H PRN soln.oral 01/01/19 Amino Acids/Protein Hydrolys [Prosource No Carb Liquid Pkt] 30 ml PO BID@0800, 1730 packet 01/01/19 Dexamethasone [Decadron -] 4 mg PO BID #4 tablet 01/01/19 Dexamethasone [Decadron -] 42 mg PO BID #2 tablet 01/01/19 Divalproex Sprinkle [Depakote Sprinkle -] 500 mg PEG BID cap.sprink 01/01/19 Metoclopramide Oral Soln [Reglan Oral Solution -] 10 mg PO ACHS udc 01/01/19 Multivit-Minerals [Certavite-Antioxidant Liquid] 15 ml PO DAILY cup 01/01/19 Polyethylene Glycol 3350 [Miralax 119 gm Btl -] 17 gm GT BID bottle 01/01/19 Review of Systems Unable to obtain ROS, reason: nonverbal Physical Exam-GI Vital Signs: Vital Signs Temperature 98.9 F 01/13/19 14:41 Pulse Rate 105 H 01/13/19 09:21 Respiratory Rate 26 H 01/13/19 09:21 Blood Pressure 165/88 01/13/19 14:41 O2 Sat by Pulse Oximetry (%) 99 01/13/19 09:00 Constitutional: Yes: No Distress Eyes: Yes: Conjunctiva Clear Cardiovascular: Yes: Regular Rate and Rhythm Respiratory: Yes: CTA Bilaterally ...Palpate: Yes: Soft, Other (PEG site c/d/i). No: Tenderness ...Rectal Exam: Yes: Deferred Musculoskeletal: Yes: Other (Contracted) Integumentary: Yes: WNL Neurological: Yes: Unresponsive Labs: CBC, BMP 01/12/19 06:56 01/12/19 06:56 INR, PTT INR 1.10 (0.83-1.09) H 01/07/19 14:10 Hepatic Panel Total Bilirubin 1.2 mg/dL (0.2-1) H 01/12/19 06:56 AST 77 U/L (15-37) H 01/12/19 06:56 ALT 62 U/L (13-61) H 01/12/19 06:56 Alkaline Phosphatase 31 U/L (45-117) L 01/12/19 06:56 Albumin 2.7 g/dl (3.4-5.0) L 01/12/19 06:56 Imaging - Results Ultrasound: Report Reviewed Assessment/Plan Minimally elevated AST and ALT most likely drug induced - pt on AEDs chronically and now broad spectrum abx, also on fluconazole, all of which can cause this. Avoid hepatotoxins. Monitor LFTs. Avoid hepatotoxins. Can check viral hepatitis serologies if not already performed. Distended gallbladder - of unclear significance as no stones, no pericholecystic fluid or wall thickening.
[2019-01-13] MEDS: DEXTROSE 5%-NORMAL SALINE 1,000 ML IV SCH (19:08)
[2019-01-13] MEDS: IPRATROPIUM BR 0.02% 0.5 MG/2.5 ML VIAL.NEB. NEB PRN (20:44)
[2019-01-13] MEDS: CHLORHEXIDINE GLUCONATE 4% CLEANSER FOR DECOLONIZATION TP SCH (23:00)
[2019-01-14] MEDS ORDERED: MEROPENEM 1 GM VIAL (RESTRICTED TO ID) IVPB ONE ×4 (02:46→23:39)
[2019-01-14] MEDS ORDERED: DEXTROSE 5%-WATER 100 ML IVPB ONE ×4 (02:47→23:40)
[2019-01-14] MEDS: MEROPENEM 1 GM in DEXTROSE 5%-WATER 100 ML IVPB SCH ×3 (02:49→18:18)
[2019-01-14] MEDS: BACLOFEN 10 MG TABLET (FP) GT SCH ×3 (05:53→22:57)
[2019-01-14 07:58] LABS: HEMATOCRIT 36.4 % (32.4-45.2); HEMOGLOBIN 12.4 GM/dL (10.7-15.3); MCH 33.7 pg (25.7-33.7); MEAN CELL VOLUME 99.3 fl (80-96); MEAN PLT VOLUME 10.4 fl (7.5-11.1); PLATELET COUNT 99 K/MM3 (134-434); RBC 3.67 M/mm3 (3.60-5.2); RDW 14.6 % (11.6-15.6); WHITE BLOOD COUNT 6.6 K/mm3 (4.0-10.0)
[2019-01-14 08:03] LABS: ALBUMIN 2.6 g/dl (3.4-5.0); BILIRUBIN,TOTAL 1.1 mg/dL (0.2-1); BLOOD UREA NITROGEN 35.9 mg/dL (7-18); CALCIUM 8.6 mg/dL (8.5-10.1); CREATININE 0.4 mg/dL (0.55-1.3); POTASSIUM 3.1 mmol/L (3.5-5.1); TOT PROT 5.9 g/dl (6.4-8.2)
[2019-01-14] MEDS: AMINO ACIDS/PROTEIN HYDROLYS 30 ML LIQUID.PKT PO SCH ×2 (08:13→18:19)
[2019-01-14] MEDS ORDERED: POTASSIUM CHLORIDE ORAL LIQUID 20 MEQ/15 ML PO ONE (08:18)
--- NOTE | 2019-01-14 08:19 | PN ---
Progress Note, Physician Chief Complaint: EVENTS AND NOTES REVIEWED NO FEVER TODAY - Current Medication List Current Medications: Active Medications Acetaminophen (Tylenol Oral Solution -) 650 mg PO Q6H PRN PRN Reason: FEVER Last Admin: 01/13/19 14:37 Dose: 650 mg Amino Acids (Prosource No Carb Liquid Pkt) 30 ml PO BID@0800,1730 [facility] [place] Last Admin: 01/14/19 08:13 Dose: 30 ml Baclofen (Lioresal -) 5 mg GT TID [facility] [place] Last Admin: 01/14/19 05:53 Dose: 5 mg Chlorhexidine Gluconate (Hibiclens For Decolonization -) 1 applic TP HS [facility] [place] Last Admin: 01/13/19 23:00 Dose: Not Given Clotrimazole (Lotrimin 1% Cream -) 1 applic TP BID [facility] [place] Last Admin: 01/13/19 22:56 Dose: 1 applic Dexamethasone (Decadron -) 2 mg GT BID [facility] [place] Last Admin: 01/13/19 22:52 Dose: 2 mg Fluconazole (Diflucan -) 100 mg PO DAILY [facility] [place] Last Admin: 01/13/19 09:23 Dose: 100 mg Heparin Sodium (Porcine) (Heparin -) 5,000 unit SQ BID [facility] [place] Last Admin: 01/13/19 22:53 Dose: 5,000 unit Meropenem 1 gm/ Dextrose 100 mls @ 200 mls/hr IVPB Q8H-IV [facility] [place] Last Admin: 01/14/19 02:49 Dose: 200 mls/hr Vancomycin HCl (Vancomycin (Pre-Docked)) 1,000 mg in 250 mls @ 200 mls/hr IVPB Q24H [facility] [place]; Protocol Last Admin: 01/13/19 11:40 Dose: 200 mls/hr Dextrose/Sodium Chloride (D5-Ns -) 1,000 mls @ 42 mls/hr IV ASDIR [facility] [place] Last Admin: 01/13/19 19:08 Dose: 42 mls/hr Potassium Chloride (Potassium Chloride 10 Meq Premix Ivpb -) 10 meq in 100 mls @ 100 mls/hr IVPB Q60M [facility] [place] Stop: 01/14/19 09:29 Ipratropium [place] (Atrovent 0.02% Nebulizer -) 1 amp NEB Q6H PRN PRN Reason: WHEEZING Last Admin: 01/13/19 20:44 Dose: 1 amp Metoclopramide HCl (Reglan Oral Solution -) 10 mg GT Q12H PRN PRN Reason: NAUSEA Last Admin: 01/11/19 21:35 Dose: 10 mg Multivitamins/Minerals (Certavite-Antioxidant Liquid) 15 ml PO DAILY [facility] [place] Last Admin: 01/13/19 09:24 Dose: 15 ml Nystatin (Mycostatin Cream -) 1 applic TP BID [facility] [place] Last Admin: 01/13/19 22:56 Dose: 1 applic Polyethylene Glycol (Miralax (For Daily Use) -) 17 gm GT BID [facility] [place] Last Admin: 01/13/19 23:00 Dose: Not Given Potassium Chloride (Potassium Chloride Oral Liquid) 20 meq PO ONCE ONE Stop: 01/14/19 08:19 Valproate Sodium (Depakene -) 500 mg GT BID [facility] [place] Last Admin: 01/13/19 22:54 Dose: 500 mg - Objective Vital Signs: Vital Signs Temperature 98.2 F 01/14/19 08:05 Pulse Rate 82 01/14/19 08:05 Respiratory Rate 20 01/14/19 08:05 Blood Pressure 162/96 01/14/19 08:05 O2 Sat by Pulse Oximetry (%) 100 01/13/19 21:00 Constitutional: Yes: Moderate Distress Cardiovascular: Yes: Tachycardia Respiratory: Yes: Diminished, On Nasal O2 Gastrointestinal: Yes: Soft Genitourinary: Yes: Blanchard Present Musculoskeletal: Yes: Muscle Weakness Edema: No Neurological: Yes: Pre-Existing Deficit, Weakness Labs: CBC, BMP 01/14/19 06:18 INR, PTT INR 1.10 (0.83-1.09) H 01/07/19 14:10 Problem List - Problems (1) Sepsis Code(s): A41.9 - SEPSIS, UNSPECIFIED ORGANISM (2) Anoxic brain damage Code(s): G93.1 - ANOXIC BRAIN DAMAGE, NOT ELSEWHERE CLASSIFIED (3) Aspiration into airway Code(s): T17.908A - UNSP FB IN RESP TRACT, PART UNSP CAUSING OTH INJURY, INIT Qualifiers: Encounter type: initial encounter Qualified Code(s): T17.908A - Unspecified foreign body in respiratory tract, part unspecified causing other injury, initial encounter (4) Cellulitis Code(s): L03.90 - CELLULITIS, UNSPECIFIED (5) Dementia Code(s): F03.90 - UNSPECIFIED DEMENTIA WITHOUT BEHAVIORAL DISTURBANCE (6) Pneumonitis Code(s): J18.9 - PNEUMONIA, UNSPECIFIED ORGANISM (7) Seizure as late effect of cerebrovascular accident (CVA) Code(s): I69.398 - OTHER SEQUELAE OF CEREBRAL INFARCTION; R56.9 - UNSPECIFIED CONVULSIONS (8) Severe flexion contractures of all joints Code(s): M24.50 - CONTRACTURE, UNSPECIFIED JOINT Assessment/Plan CXR REVIEWED NO ACUTE CHANGES SONO ABDOMEN ORDERED TO EVALUATE TRANSAMINITIS 02 MASK ORDERED STOP TYLENOL REDUCE ALBUTEROL WITH TACHYCARDIA IV ABX PER ID CHECK LABS AND LIPASE LEVEL HOLD GT FEEDS DNR/DNI STATUS REVIEWED WITH DAUGHTER
[2019-01-14] MEDS ORDERED: KCL 10 MEQ IVPB 10 MEQ/100 ML INFUS.BAG IVPB SCH (08:30)
[2019-01-14] MEDS: DEXAMETHASONE 4 MG TABLET (FP) GT SCH ×2 (09:48→22:57)
[2019-01-14] MEDS: FLUCONAZOLE 100 MG TABLET (UD) PO SCH (09:48)
[2019-01-14] MEDS: HEPARIN NA (PORCINE) 5,000 UNITS/ML 1ML VIAL SQ SCH ×2 (09:49→22:56)
[2019-01-14] MEDS: MULTIVIT-MINERALS ORAL LIQUID PO SCH (09:49)
[2019-01-14] MEDS: CLOTRIMAZOLE 1% CREAM 15 GM TUBE TP SCH ×2 (09:50→22:54)
[2019-01-14] MEDS ORDERED: PT OWN MED DRAWER 7, Y5N ONE ×3 (10:05→23:39)
[2019-01-14] MEDS: POLYETHYLENE GLYCOL 3350 119 GM BTL GT SCH ×2 (11:49→22:52)
[2019-01-14] MEDS: NYSTATIN 100,000 UNIT/GM TOPICAL CREAM 15 GM TUBE TP SCH ×2 (11:50→23:00)
[2019-01-14] MEDS: VALPROATE SODIUM 250 MG/5 ML UNIT DOSE CUP GT SCH ×2 (12:43→22:59)
[2019-01-14] MEDS: VANCOMYCIN 1 GRAM (PRE-DOCKED) 1,000 MG/250 ML BAG IVPB SCH (12:45)
--- NOTE | 2019-01-14 15:56 | PN.GI ---
GI Progress Note Subjective: Recalled to evaluate leaking G-Tube No leaking today per nurse and patient being tube fed - Objective Vital Signs: Vital Signs Temperature 98.2 F 01/14/19 08:05 Pulse Rate 82 01/14/19 08:05 Respiratory Rate 20 01/14/19 08:05 Blood Pressure 162/96 01/14/19 08:05 O2 Sat by Pulse Oximetry (%) 100 01/14/19 09:00 Constitutional: Calm Eyes: No: Sclera Icterus Cardiovascular: Yes: Tachycardia Respiratory: Yes: Diminished (at bases b/l) Gastrointestinal Inspection: Yes: Other (G-Tube in LUQ with bolster at the 3cm kindra). No: Distention ...Palpate: Yes: Soft. No: Tenderness (No grimacing upon palpation) ...Percussion: No: Tympanitic Neurological: Yes: Other (Awake) Labs: CBC, BMP 01/14/19 06:19 01/14/19 06:18 INR, PTT INR 1.10 (0.83-1.09) H 01/07/19 14:10 Problem List - Problems (1) Abnormal liver function tests Assessment/Plan: Improving. suspected drug induced I stopped acetaminophen this morning Monitor LFTs. Avoid hepatotoxic agents Code(s): R94.5 - ABNORMAL RESULTS OF LIVER FUNCTION STUDIES (2) Leaking percutaneous endoscopic gastrostomy (PEG) tube Assessment/Plan: No leak noted per nurse and patient tolerating feeds Aspiration precautions Code(s): K94.23 - GASTROSTOMY MALFUNCTION
--- NOTE | 2019-01-14 16:24 | PN ---
Progress Note (short form) - Note Progress Note: PULMONARY Pt nonverbal. No fevers recorded. Vital Signs Period Temp Pulse Resp BP Sys/Florentino Pulse Ox Last 24 Hr 98.2 F-99.4 F 82-110 20-22 162-176/92-114 100-100 Gen: mildly tachypneic at rest Heart: RRR Lung: decreased breath sounds at the bases Abd: soft, nontender Ext: no edema CBC, BMP 01/14/19 06:19 01/14/19 06:18 Active Medications Amino Acids (Prosource No Carb Liquid Pkt) 30 ml PO BID@0800,1730 [facility] Last Admin: 01/14/19 08:13 Dose: 30 ml Baclofen (Lioresal -) 5 mg GT TID [facility] Last Admin: 01/14/19 13:20 Dose: 5 mg Chlorhexidine Gluconate (Hibiclens For Decolonization -) 1 applic TP HS [facility] Last Admin: 01/13/19 23:00 Dose: Not Given Clotrimazole (Lotrimin 1% Cream -) 1 applic TP BID [facility] Last Admin: 01/14/19 09:50 Dose: 1 applic Dexamethasone (Decadron -) 2 mg GT BID [facility] Last Admin: 01/14/19 09:48 Dose: 2 mg Fluconazole (Diflucan -) 100 mg PO DAILY [facility] Last Admin: 01/14/19 09:48 Dose: 100 mg Heparin Sodium (Porcine) (Heparin -) 5,000 unit SQ BID [facility] Last Admin: 01/14/19 09:49 Dose: 5,000 unit Meropenem 1 gm/ Dextrose 100 mls @ 200 mls/hr IVPB Q8H-IV [facility] Last Admin: 01/14/19 09:47 Dose: 200 mls/hr Vancomycin HCl (Vancomycin (Pre-Docked)) 1,000 mg in 250 mls @ 200 mls/hr IVPB Q24H [facility]; Protocol Last Admin: 01/14/19 12:45 Dose: 200 mls/hr Dextrose/Sodium Chloride (D5-Ns -) 1,000 mls @ 42 mls/hr IV ASDIR [facility] Last Admin: 01/13/19 19:08 Dose: 42 mls/hr Ipratropium [place] (Atrovent 0.02% Nebulizer -) 1 amp NEB Q6H PRN PRN Reason: WHEEZING Last Admin: 01/13/19 20:44 Dose: 1 amp Metoclopramide HCl (Reglan Oral Solution -) 10 mg GT Q12H PRN PRN Reason: NAUSEA Last Admin: 01/11/19 21:35 Dose: 10 mg Multivitamins/Minerals (Certavite-Antioxidant Liquid) 15 ml PO DAILY [facility] Last Admin: 01/14/19 09:49 Dose: 15 ml Nystatin (Mycostatin Cream -) 1 applic TP BID [facility] Last Admin: 01/14/19 11:50 Dose: 1 applic Polyethylene Glycol (Miralax (For Daily Use) -) 17 gm GT BID [facility] Last Admin: 01/14/19 11:49 Dose: 17 grams Valproate Sodium (Depakene -) 500 mg GT BID [facility] Last Admin: 01/14/19 12:43 Dose: 500 mg A/P Polymicrobial Bacteremia r/o Decubitus Ulcer infection Sepsis r/o Aspiration Bronchospasm improving Anoxic Brain Injury Seizure Disorder Dementia - antibiotics per ID - wound care - aspiration precautions - decadron taper - O2 to keep SpO2 >90% - DVT prophylaxis
[2019-01-14] MEDS: CHLORHEXIDINE GLUCONATE 4% CLEANSER FOR DECOLONIZATION TP SCH (22:45)
[2019-01-14] MEDS: DEXTROSE 5%-NORMAL SALINE 1,000 ML IV SCH (22:55)
[2019-01-15] MEDS: MEROPENEM 1 GM in DEXTROSE 5%-WATER 100 ML IVPB SCH ×3 (02:06→19:05)
[2019-01-15] MEDS: DEXTROSE 5%-NORMAL SALINE 1,000 ML IV SCH ×2 (02:06→21:13)
[2019-01-15] MEDS: BACLOFEN 10 MG TABLET (FP) GT SCH ×3 (06:29→21:13)
[2019-01-15 07:24] VITALS: BMI 28.1
--- NOTE | 2019-01-15 08:47 | PN ---
Progress Note, Physician Chief Complaint: FEVER OVERNIGHT MILD DISTRESS - Current Medication List Current Medications: Active Medications Acetaminophen (Tylenol Oral Solution -) 650 mg GT Q6H PRN PRN Reason: PAIN OR FEVER Amino Acids (Prosource No Carb Liquid Pkt) 30 ml PO BID@0800,1730 [facility] Last Admin: 01/14/19 18:19 Dose: 30 ml Baclofen (Lioresal -) 5 mg GT TID [facility] Last Admin: 01/15/19 06:29 Dose: 5 mg Chlorhexidine Gluconate (Hibiclens For Decolonization -) 1 applic TP HS [facility] Last Admin: 01/14/19 22:45 Dose: Not Given Clotrimazole (Lotrimin 1% Cream -) 1 applic TP BID [facility] Last Admin: 01/14/19 22:54 Dose: 1 applic Dexamethasone (Decadron -) 2 mg GT BID [facility] Last Admin: 01/14/19 22:57 Dose: 2 mg Fluconazole (Diflucan -) 100 mg PO DAILY [facility] Last Admin: 01/14/19 09:48 Dose: 100 mg Heparin Sodium (Porcine) (Heparin -) 5,000 unit SQ BID [facility] Last Admin: 01/14/19 22:56 Dose: 5,000 unit Meropenem 1 gm/ Dextrose 100 mls @ 200 mls/hr IVPB Q8H-IV [facility] Last Admin: 01/15/19 02:06 Dose: 200 mls/hr Vancomycin HCl (Vancomycin (Pre-Docked)) 1,000 mg in 250 mls @ 200 mls/hr IVPB Q24H [facility]; Protocol Last Admin: 01/14/19 12:45 Dose: 200 mls/hr Dextrose/Sodium Chloride (D5-Ns -) 1,000 mls @ 42 mls/hr IV ASDIR [facility] Last Admin: 01/15/19 02:06 Dose: 42 mls/hr Ipratropium [place] (Atrovent 0.02% Nebulizer -) 1 amp NEB Q6H PRN PRN Reason: WHEEZING Last Admin: 01/13/19 20:44 Dose: 1 amp Metoclopramide HCl (Reglan Oral Solution -) 10 mg GT Q12H PRN PRN Reason: NAUSEA Last Admin: 01/11/19 21:35 Dose: 10 mg Multivitamins/Minerals (Certavite-Antioxidant Liquid) 15 ml PO DAILY [facility] Last Admin: 01/14/19 09:49 Dose: 15 ml Nystatin (Mycostatin Cream -) 1 applic TP BID [facility] Last Admin: 01/14/19 23:00 Dose: 1 applic Polyethylene Glycol (Miralax (For Daily Use) -) 17 gm GT BID [facility] Last Admin: 01/14/19 22:52 Dose: 17 grams Valproate Sodium (Depakene -) 500 mg GT BID [facility] Last Admin: 01/14/19 22:59 Dose: 500 mg - Objective Vital Signs: Vital Signs Temperature 99.9 F H 01/15/19 06:38 Pulse Rate 105 H 01/15/19 06:38 Respiratory Rate 01/15/19 06:38 Blood Pressure 160/73 01/15/19 06:38 O2 Sat by Pulse Oximetry (%) 99 01/14/19 21:00 Constitutional: Yes: Mild Distress Cardiovascular: Yes: Tachycardia Respiratory: Yes: Diminished, On Nasal O2 Gastrointestinal: Yes: Soft, Tenderness Genitourinary: Yes: Angelo Present Musculoskeletal: Yes: Muscle Weakness Edema: Yes Integumentary: Yes: Rash, Other Wound/Incision: Yes: Dressing Dry and Intact Neurological: Yes: Pre-Existing Deficit ...Motor Strength: LLE, RLE Psychiatric: Yes: Other Labs: CBC, BMP 01/14/19 06:19 INR, PTT INR 1.10 (0.83-1.09) H 01/07/19 14:10 Problem List - Problems (1) Sepsis Code(s): A41.9 - SEPSIS, UNSPECIFIED ORGANISM (2) Anoxic brain damage Code(s): G93.1 - ANOXIC BRAIN DAMAGE, NOT ELSEWHERE CLASSIFIED (3) Aspiration into airway Code(s): T17.908A - UNSP FB IN RESP TRACT, PART UNSP CAUSING OTH INJURY, INIT Qualifiers: Encounter type: initial encounter Qualified Code(s): T17.908A - Unspecified foreign body in respiratory tract, part unspecified causing other injury, initial encounter (4) Cellulitis Code(s): L03.90 - CELLULITIS, UNSPECIFIED (5) Dementia Code(s): F03.90 - UNSPECIFIED DEMENTIA WITHOUT BEHAVIORAL DISTURBANCE (6) Pneumonitis Code(s): J18.9 - PNEUMONIA, UNSPECIFIED ORGANISM (7) Seizure as late effect of cerebrovascular accident (CVA) Code(s): I69.398 - OTHER SEQUELAE OF CEREBRAL INFARCTION; R56.9 - UNSPECIFIED CONVULSIONS (8) Severe flexion contractures of all joints Code(s): M24.50 - CONTRACTURE, UNSPECIFIED JOINT Assessment/Plan AWAITING CT SCAN RESULTS IV ABX PER ID POOR OVERALL PROGNOSIS D/W DAUGHTER PATIENT IS DNR/DNI ANG[facility]O RENEWAL GI AND ID F/U
[2019-01-15 09:26] LABS: BLOOD UREA NITROGEN 25.9 mg/dL (7-18); CALCIUM 8.6 mg/dL (8.5-10.1); CREATININE 0.4 mg/dL (0.55-1.3); MAGNESIUM 2.3 mg/dL (1.8-2.4); POTASSIUM 3.3 mmol/L (3.5-5.1)
[2019-01-15] MEDS ORDERED: POTASSIUM CHLORIDE ORAL LIQUID 20 MEQ/15 ML GT ONE (09:36)
[2019-01-15] MEDS ORDERED: POTASSIUM CHLORIDE ORAL LIQUID 20 MEQ/15 ML PO ONE (09:36)
--- NOTE | 2019-01-15 10:03 | PN.GI ---
GI Progress Note Subjective: Pt seen/examined at bedside. Non verbal. Tolerating feeds at 20cc/hr currently per nursing staff. Moving bowels. Still with fevers. - Objective Vital Signs: Vital Signs Temperature 99.9 F H 01/15/19 06:38 Pulse Rate 105 H 01/15/19 06:38 Respiratory Rate 20 01/15/19 06:38 Blood Pressure 160/73 01/15/19 06:38 O2 Sat by Pulse Oximetry (%) 99 01/14/19 21:00 Constitutional: No Distress, Calm Cardiovascular: Yes: WNL, Regular Rate and Rhythm Respiratory: Yes: WNL, Regular, CTA Bilaterally ...Palpate: Yes: Other (Abd soft, no tenderness elicited, non distended +PEG in place, feeds infusing at 20cc/hr) Labs: CBC, BMP 01/14/19 06:19 01/15/19 08:11 INR, PTT INR 1.10 (0.83-1.09) H 01/07/19 14:10 Problem List - Problems (1) Abnormal liver function tests Assessment/Plan: Likely multifactorial in setting of sepsis vs medications/antibiotics. Improving , no LFTs yet today. CT chest/abd/pelvis done for further infectious workup. -Continue to monitor LFT trend to ensure normalization (ordered repeat) -Await CT results -Check hepatitis serologies for completion -Continue to avoid nonessential hepatotoxic medications -Further infectious workup per ID and primary team Code(s): R94.5 - ABNORMAL RESULTS OF LIVER FUNCTION STUDIES (2) Leaking percutaneous endoscopic gastrostomy (PEG) tube Assessment/Plan: Functional and tolerating feeds, no leak reported. Code(s): K94.23 - GASTROSTOMY MALFUNCTION
[2019-01-15] MEDS ORDERED: DEXTROSE 5%-WATER 100 ML IVPB ONE ×2 (10:43→18:55)
[2019-01-15] MEDS ORDERED: MEROPENEM 1 GM VIAL (RESTRICTED TO ID) IVPB ONE ×2 (10:43→18:55)
[2019-01-15] MEDS ORDERED: PT OWN MED DRAWER 7, Y5N ONE ×2 (10:44→13:44)
[2019-01-15] MEDS: HEPARIN NA (PORCINE) 5,000 UNITS/ML 1ML VIAL SQ SCH ×2 (10:56→21:14)
[2019-01-15] MEDS: DEXAMETHASONE 4 MG TABLET (FP) GT SCH ×2 (10:56→21:13)
[2019-01-15] MEDS: FLUCONAZOLE 100 MG TABLET (UD) GT SCH (10:56)
[2019-01-15] MEDS: VALPROATE SODIUM 250 MG/5 ML UNIT DOSE CUP GT SCH ×2 (10:57→21:14)
[2019-01-15] MEDS: POLYETHYLENE GLYCOL 3350 119 GM BTL GT SCH ×2 (10:57→21:20)
[2019-01-15] MEDS: ACETAMINOPHEN 650 MG/20.3 ML ORAL SOLUTION (CUPS) GT PRN ×2 (10:58→19:05)
[2019-01-15] MEDS: AMINO ACIDS/PROTEIN HYDROLYS 30 ML LIQUID.PKT GT SCH ×2 (10:58→19:05)
[2019-01-15] MEDS: NYSTATIN 100,000 UNIT/GM TOPICAL CREAM 15 GM TUBE TP SCH ×2 (10:58→21:20)
[2019-01-15] MEDS: AMINO ACIDS/PROTEIN HYDROLYS 30 ML LIQUID.PKT PO SCH (11:00)
--- NOTE | 2019-01-15 11:03 | PN ---
Progress Note (short form) - Note Progress Note: ADDENDUM DIAGNOSIS: FUNCTIONAL QUADRIPLEGIA Problem List - Problems (1) Sepsis Code(s): A41.9 - SEPSIS, UNSPECIFIED ORGANISM (2) Anoxic brain damage Code(s): G93.1 - ANOXIC BRAIN DAMAGE, NOT ELSEWHERE CLASSIFIED (3) Aspiration into airway Code(s): T17.908A - UNSP FB IN RESP TRACT, PART UNSP CAUSING OTH INJURY, INIT Qualifiers: Encounter type: initial encounter Qualified Code(s): T17.908A - Unspecified foreign body in respiratory tract, part unspecified causing other injury, initial encounter (4) Cellulitis Code(s): L03.90 - CELLULITIS, UNSPECIFIED (5) Dementia Code(s): F03.90 - UNSPECIFIED DEMENTIA WITHOUT BEHAVIORAL DISTURBANCE (6) Pneumonitis Code(s): J18.9 - PNEUMONIA, UNSPECIFIED ORGANISM (7) Seizure as late effect of cerebrovascular accident (CVA) Code(s): I69.398 - OTHER SEQUELAE OF CEREBRAL INFARCTION; R56.9 - UNSPECIFIED CONVULSIONS (8) Severe flexion contractures of all joints Code(s): M24.50 - CONTRACTURE, UNSPECIFIED JOINT
[2019-01-15] MEDS: IPRATROPIUM BR 0.02% 0.5 MG/2.5 ML VIAL.NEB. NEB PRN (11:20)
[2019-01-15] MEDS: MULTIVIT-MINERALS ORAL LIQUID GT SCH (11:58)
[2019-01-15] MEDS: CLOTRIMAZOLE 1% CREAM 15 GM TUBE TP SCH ×2 (13:53→21:18)
[2019-01-15] MEDS: VANCOMYCIN 1 GRAM (PRE-DOCKED) 1,000 MG/250 ML BAG IVPB SCH (13:54)
--- NOTE | 2019-01-15 14:13 | PN ---
Progress Note, Physician History of Present Illness: PULMONARY AWAKE,NON-VERBAL,MILDLY TACHYPNEIC - Current Medication List Current Medications: Active Medications Acetaminophen (Tylenol Oral Solution -) 650 mg GT Q6H PRN PRN Reason: PAIN OR FEVER Last Admin: 01/15/19 10:58 Dose: 650 mg Amino Acids (Prosource No Carb Liquid Pkt) 30 ml GT BID@0800,1730 [facility] Last Admin: 01/15/19 10:58 Dose: 30 ml Baclofen (Lioresal -) 5 mg GT TID [facility] Last Admin: 01/15/19 13:54 Dose: 5 mg Chlorhexidine Gluconate (Hibiclens For Decolonization -) 1 applic TP HS [facility] Last Admin: 01/14/19 22:45 Dose: Not Given Clotrimazole (Lotrimin 1% Cream -) 1 applic TP BID [facility] Last Admin: 01/15/19 13:53 Dose: 1 applic Dexamethasone (Decadron -) 2 mg GT BID [facility] Last Admin: 01/15/19 10:56 Dose: 2 mg Fluconazole (Diflucan -) 100 mg GT DAILY [facility] Last Admin: 01/15/19 10:56 Dose: 100 mg Heparin Sodium (Porcine) (Heparin -) 5,000 unit SQ BID [facility] Last Admin: 01/15/19 10:56 Dose: 5,000 unit Meropenem 1 gm/ Dextrose 100 mls @ 200 mls/hr IVPB Q8H-IV [facility] Last Admin: 01/15/19 10:55 Dose: 200 mls/hr Vancomycin HCl (Vancomycin (Pre-Docked)) 1,000 mg in 250 mls @ 200 mls/hr IVPB Q24H [facility]; Protocol Last Admin: 01/15/19 13:54 Dose: 200 mls/hr Dextrose/Sodium Chloride (D5-Ns -) 1,000 mls @ 42 mls/hr IV ASDIR [facility] Last Admin: 01/15/19 02:06 Dose: 42 mls/hr Ipratropium [place] (Atrovent 0.02% Nebulizer -) 1 amp NEB Q6H PRN PRN Reason: WHEEZING Last Admin: 01/15/19 11:20 Dose: 1 amp Metoclopramide HCl (Reglan Oral Solution -) 10 mg GT Q12H PRN PRN Reason: NAUSEA Last Admin: 01/11/19 21:35 Dose: 10 mg Multivitamins/Minerals (Certavite-Antioxidant Liquid) 15 ml GT DAILY [facility] Last Admin: 01/15/19 11:58 Dose: 15 ml Nystatin (Mycostatin Cream -) 1 applic TP BID [facility] Last Admin: 01/15/19 10:58 Dose: 1 applic Polyethylene Glycol (Miralax (For Daily Use) -) 17 gm GT BID [facility] Last Admin: 01/15/19 10:57 Dose: Not Given Valproate Sodium (Depakene -) 500 mg GT BID [facility] Last Admin: 01/15/19 10:57 Dose: 500 mg - Objective Vital Signs: Vital Signs Temperature 99.9 F H 01/15/19 06:38 Pulse Rate 105 H 01/15/19 06:38 Respiratory Rate 20 01/15/19 06:38 Blood Pressure 160/73 01/15/19 06:38 O2 Sat by Pulse Oximetry (%) 99 01/14/19 21:00 Constitutional: Yes: Well Nourished, Calm Eyes: Yes: WNL HENT: Yes: WNL Neck: Yes: WNL Cardiovascular: Yes: Regular Rate and Rhythm, S1, S2 Respiratory: Yes: Rhonchi (FEW RHONCHI) Gastrointestinal: Yes: Normal Bowel Sounds, Soft Extremities: Yes: WNL Edema: No Labs: CBC, BMP 01/15/19 08:11 INR, PTT INR 1.10 (0.83-1.09) H 01/07/19 14:10 - ....Imaging Cat Scan: Image Reviewed Problem List - Problems (1) Bacteremia Code(s): R78.81 - BACTEREMIA (2) Anoxic brain damage Code(s): G93.1 - ANOXIC BRAIN DAMAGE, NOT ELSEWHERE CLASSIFIED (3) Aspiration into airway Code(s): T17.908A - UNSP FB IN RESP TRACT, PART UNSP CAUSING OTH INJURY, INIT Qualifiers: Encounter type: initial encounter Qualified Code(s): T17.908A - Unspecified foreign body in respiratory tract, part unspecified causing other injury, initial encounter (4) Bronchospasm Code(s): J98.01 - ACUTE BRONCHOSPASM Assessment/Plan A/P Polymicrobial Bacteremia r/o Decubitus Ulcer infection Sepsis r/o Aspiration Bronchospasm improving Anoxic Brain Injury Seizure Disorder Dementia - antibiotics per ID - wound care - aspiration precautions - decadron taper - O2 to keep SpO2 >90% - DVT prophylaxis DR CARLTON
[2019-01-15] MEDS: CHLORHEXIDINE GLUCONATE 4% CLEANSER FOR DECOLONIZATION TP SCH (21:14)
[2019-01-16] MEDS ORDERED: MEROPENEM 1 GM VIAL (RESTRICTED TO ID) IVPB ONE ×2 (01:52→10:18)
[2019-01-16] MEDS ORDERED: DEXTROSE 5%-WATER 100 ML IVPB ONE ×2 (01:52→10:18)
[2019-01-16] MEDS: MEROPENEM 1 GM in DEXTROSE 5%-WATER 100 ML IVPB SCH ×2 (02:07→10:22)
[2019-01-16] MEDS: BACLOFEN 10 MG TABLET (FP) GT SCH ×3 (06:24→21:41)
[2019-01-16 08:38] LABS: BASO % 0.3 % (0-2.0); HEMATOCRIT 36.7 % (32.4-45.2); HEMOGLOBIN 12.6 GM/dL (10.7-15.3); LYMPH % 25.8 % (8-40); MCHC 34.3 g/dl (32.0-36.0); MONO % 5.4 % (3.8-10.2); NEUT % 68.5 % (42.8-82.8); PLATELET COUNT 118 K/MM3 (134-434); RBC 3.71 M/mm3 (3.60-5.2); RDW 14.5 % (11.6-15.6); WHITE BLOOD COUNT 5.8 K/mm3 (4.0-10.0)
[2019-01-16] MEDS: DEXAMETHASONE 4 MG TABLET (FP) GT SCH (10:21)
[2019-01-16] MEDS: AMINO ACIDS/PROTEIN HYDROLYS 30 ML LIQUID.PKT GT SCH ×2 (10:21→20:00)
[2019-01-16] MEDS: NYSTATIN 100,000 UNIT/GM TOPICAL CREAM 15 GM TUBE TP SCH ×2 (10:22→21:45)
[2019-01-16] MEDS: FLUCONAZOLE 100 MG TABLET (UD) GT SCH (10:22)
[2019-01-16] MEDS: VALPROATE SODIUM 250 MG/5 ML UNIT DOSE CUP GT SCH ×2 (10:23→21:41)
[2019-01-16] MEDS: MULTIVIT-MINERALS ORAL LIQUID GT SCH (10:23)
[2019-01-16] MEDS: CLOTRIMAZOLE 1% CREAM 15 GM TUBE TP SCH (10:23)
[2019-01-16] MEDS: HEPARIN NA (PORCINE) 5,000 UNITS/ML 1ML VIAL SQ SCH ×2 (10:24→21:41)
[2019-01-16] MEDS: POLYETHYLENE GLYCOL 3350 119 GM BTL GT SCH ×2 (10:27→21:45)
[2019-01-16 10:59] LABS: ALBUMIN 2.8 g/dl (3.4-5.0); BILIRUBIN,TOTAL 0.7 mg/dL (0.2-1); BLOOD UREA NITROGEN 19.6 mg/dL (7-18); CALCIUM 8.8 mg/dL (8.5-10.1); CREATININE 0.4 mg/dL (0.55-1.3); MAGNESIUM 2.1 mg/dL (1.8-2.4); POTASSIUM 3.6 mmol/L (3.5-5.1); TOT PROT 6.3 g/dl (6.4-8.2)
[2019-01-16] MEDS: DEXTROSE 5%-NORMAL SALINE 1,000 ML IV SCH ×2 (13:23→19:41)
--- NOTE | 2019-01-16 14:14 | PN ---
Progress Note, Physician Chief Complaint: patient seen non verbal eyes open - Current Medication List Current Medications: Active Medications Acetaminophen (Tylenol Oral Solution -) 650 mg GT Q6H PRN PRN Reason: PAIN OR FEVER Last Admin: 01/15/19 19:05 Dose: 650 mg Amino Acids (Prosource No Carb Liquid Pkt) 30 ml GT BID@0800,1730 [facility] Last Admin: 01/16/19 10:21 Dose: 30 ml Baclofen (Lioresal -) 5 mg GT TID [facility] Last Admin: 01/16/19 06:24 Dose: 5 mg Chlorhexidine Gluconate (Hibiclens For Decolonization -) 1 applic TP HS [facility] Last Admin: 01/15/19 21:14 Dose: Not Given Clotrimazole (Lotrimin 1% Cream -) 1 applic TP BID [facility] Last Admin: 01/16/19 10:23 Dose: 1 applic Dexamethasone (Decadron -) 2 mg GT DAILY [facility] Fluconazole (Diflucan -) 100 mg GT DAILY [facility] Last Admin: 01/16/19 10:22 Dose: 100 mg Heparin Sodium (Porcine) (Heparin -) 5,000 unit SQ BID [facility] Last Admin: 01/16/19 10:24 Dose: 5,000 unit Meropenem 1 gm/ Dextrose 100 mls @ 200 mls/hr IVPB Q8H-IV [facility] Last Admin: 01/16/19 10:22 Dose: 200 mls/hr Vancomycin HCl (Vancomycin (Pre-Docked)) 1,000 mg in 250 mls @ 200 mls/hr IVPB Q24H [facility]; Protocol Last Admin: 01/15/19 13:54 Dose: 200 mls/hr Dextrose/Sodium Chloride (D5-Ns -) 1,000 mls @ 42 mls/hr IV ASDIR [facility] Last Admin: 01/16/19 13:23 Dose: 42 mls/hr Ipratropium [place] (Atrovent 0.02% Nebulizer -) 1 amp NEB Q6H PRN PRN Reason: WHEEZING Last Admin: 01/15/19 11:20 Dose: 1 amp Metoclopramide HCl (Reglan Oral Solution -) 10 mg GT Q12H PRN PRN Reason: NAUSEA Last Admin: 01/11/19 21:35 Dose: 10 mg Multivitamins/Minerals (Certavite-Antioxidant Liquid) 15 ml GT DAILY [facility] Last Admin: 01/16/19 10:23 Dose: 15 ml Nystatin (Mycostatin Cream -) 1 applic TP BID [facility] Last Admin: 01/16/19 10:22 Dose: 1 applic Polyethylene Glycol (Miralax (For Daily Use) -) 17 gm GT BID [facility] Last Admin: 01/16/19 10:27 Dose: 17 grams Valproate Sodium (Depakene -) 500 mg GT BID [facility] Last Admin: 01/16/19 10:23 Dose: 500 mg - Objective Vital Signs: Vital Signs Temperature 99.2 F 01/16/19 10:00 Pulse Rate 105 H 01/16/19 10:00 Respiratory Rate 20 01/16/19 10:00 Blood Pressure 157/96 01/16/19 10:00 O2 Sat by Pulse Oximetry (%) 99 01/15/19 21:00 Constitutional: Yes: Calm Cardiovascular: Yes: Regular Rate and Rhythm, S1, S2 Respiratory: Yes: Diminished Gastrointestinal: Yes: Normal Bowel Sounds, Soft, Other (g tube) Extremities: Yes: Other (contracted) Labs: CBC, BMP 01/16/19 06:30 01/16/19 06:30 INR, PTT INR 1.10 (0.83-1.09) H 01/07/19 14:10 Problem List - Problems (1) Bacteremia Assessment/Plan: iv abx Microbiology 01/07/19 14:10 Blood - Peripheral Venous Blood Culture - Final Staphylococcus Warneri 01/07/19 14:10 Blood - Peripheral Venous Blood Culture - Final Staphylococcus Epidermidis Staph Hominis Sub Sp Hominis vancomycin Code(s): R78.81 - BACTEREMIA (2) Anoxic brain damage Assessment/Plan: s/p peg non verbal frequent turn position Code(s): G93.1 - ANOXIC BRAIN DAMAGE, NOT ELSEWHERE CLASSIFIED
--- NOTE | 2019-01-16 14:55 | PN.GI ---
GI Progress Note Subjective: Asked to reevalute G-Tube. CT scan revealed G-tube balloon to be abutting the gastric wall but not intraluminal. - Objective Vital Signs: Vital Signs Temperature 99.2 F 01/16/19 10:00 Pulse Rate 105 H 01/16/19 10:00 Respiratory Rate 20 01/16/19 10:00 Blood Pressure 157/96 01/16/19 10:00 O2 Sat by Pulse Oximetry (%) 99 01/15/19 21:00 Constitutional: Calm Eyes: No: Sclera Icterus Cardiovascular: Yes: Regular Rate and Rhythm Respiratory: Yes: Diminished (at bases bilaterally with poor inso effort.) ...Auscultate: Yes: Normoactive Bowel Sounds, Other (G-Tube balloon deflated. There was 3cc of fluid in the balloon (6cc balloon). It was able to be adanced through the stoma without difficulty and the external bolster rested at the 5cm kindra. The G-Tube flushed without resistance or leakage and gastric content was aspirated. 7cc of sterile water was instilled into the balloon.) ...Palpate: No: Guarding, Tenderness (No grimacing upin palpation) ...Percussion: No: Tympanitic Neurological: Yes: Other (Awake) Labs: CBC, BMP 01/16/19 06:30 01/16/19 06:30 INR, PTT INR 1.10 (0.83-1.09) H 01/07/19 14:10 Hepatic Panel Total Bilirubin 0.7 mg/dL (0.2-1) 01/16/19 06:30 AST 101 U/L (15-37) H 01/16/19 06:30 ALT 82 U/L (13-61) H 01/16/19 06:30 Alkaline Phosphatase 37 U/L (45-117) L 01/16/19 06:30 Albumin 2.8 g/dl (3.4-5.0) L 01/16/19 06:30 Problem List - Problems (1) Abnormal liver function tests Assessment/Plan: Bump in transaminases today. Question of addition of diflucan contributing to this. Consider D/C of diflucan if feasible D/C acetaminophen Code(s): R94.5 - ABNORMAL RESULTS OF LIVER FUNCTION STUDIES (2) Leaking percutaneous endoscopic gastrostomy (PEG) tube Assessment/Plan: G-Tube repositioned. Ordered bedside G-Tube study to confirm intraluminal repositioning of G-Tube. Tube feeds have been held until confirmation of position. Code(s): K94.23 - GASTROSTOMY MALFUNCTION
--- NOTE | 2019-01-16 15:22 | PN ---
Progress Note (short form) - Note Progress Note: afebrile Vital Signs Period Temp Pulse Resp BP Sys/Florentino Pulse Ox Last 24 Hr 98.9 F-101.8 F 94-110 20-20 157-167/90-106 99 cor-rrr lungs decreased bs at bases abd firm, NT GT no erythema fungal rash resolved ext no edema CBC, BMP 01/16/19 06:30 01/16/19 06:30 Microbiology 01/10/19 18:50 Blood - Peripheral Venous Blood Culture - Final NO GROWTH AFTER 5 DAYS INCUBATION 01/10/19 19:00 Blood - Peripheral Venous Blood Culture - Final NO GROWTH AFTER 5 DAYS INCUBATION 01/07/19 15:50 Foot - Left Lateral Gram Stain - Final 01/07/19 15:50 Foot - Left Lateral Wound Culture - Final Proteus Mirabilis Morganella Morganii Klebsiella Pneumoniae - Esbl Enterococcus Faecalis Staphylococcus Haemolyticus 01/07/19 14:10 Blood - Peripheral Venous Blood Culture - Final Staphylococcus Epidermidis Staph Hominis Sub Sp Hominis 01/07/19 14:10 Blood - Peripheral Venous Blood Culture - Final Staphylococcus Warneri 01/07/19 15:50 Abdomen Gram Stain - Final 01/07/19 15:50 Abdomen Wound Culture - Final Klebsiella Pneumoniae - Esbl Proteus Mirabilis Enterococcus Faecalis Mr S Aureus 01/07/19 17:30 Urine - Urine - Catheterized Urine Culture - Final NO GROWTH OBTAINED Current Medications Acetaminophen (Tylenol Oral Solution -) 650 mg GT Q6H PRN PRN Reason: PAIN OR FEVER Last Admin: 01/15/19 19:05 Dose: 650 mg Amino Acids (Prosource No Carb Liquid Pkt) 30 ml GT BID@0800,1730 [facility] Last Admin: 01/16/19 10:21 Dose: 30 ml Baclofen (Lioresal -) 5 mg GT TID [facility] Last Admin: 01/16/19 06:24 Dose: 5 mg Chlorhexidine Gluconate (Hibiclens For Decolonization -) 1 applic TP HS [facility] Last Admin: 01/15/19 21:14 Dose: Not Given Clotrimazole (Lotrimin 1% Cream -) 1 applic TP BID [facility] Last Admin: 01/16/19 10:23 Dose: 1 applic Dexamethasone (Decadron -) 2 mg GT DAILY [facility] Fluconazole (Diflucan -) 100 mg GT DAILY [facility] Last Admin: 01/16/19 10:22 Dose: 100 mg Heparin Sodium (Porcine) (Heparin -) 5,000 unit SQ BID [facility] Last Admin: 01/16/19 10:24 Dose: 5,000 unit Meropenem 1 gm/ Dextrose 100 mls @ 200 mls/hr IVPB Q8H-IV [facility] Last Admin: 01/16/19 10:22 Dose: 200 mls/hr Vancomycin HCl (Vancomycin (Pre-Docked)) 1,000 mg in 250 mls @ 200 mls/hr IVPB Q24H [facility]; Protocol Last Admin: 01/15/19 13:54 Dose: 200 mls/hr Dextrose/Sodium Chloride (D5-Ns -) 1,000 mls @ 42 mls/hr IV ASDIR [facility] Last Admin: 01/16/19 13:23 Dose: 42 mls/hr Ipratropium [place] (Atrovent 0.02% Nebulizer -) 1 amp NEB Q6H PRN PRN Reason: WHEEZING Last Admin: 01/15/19 11:20 Dose: 1 amp Metoclopramide HCl (Reglan Oral Solution -) 10 mg GT Q12H PRN PRN Reason: NAUSEA Last Admin: 01/11/19 21:35 Dose: 10 mg Multivitamins/Minerals (Certavite-Antioxidant Liquid) 15 ml GT DAILY [facility] Last Admin: 01/16/19 10:23 Dose: 15 ml Nystatin (Mycostatin Cream -) 1 applic TP BID [facility] Last Admin: 01/16/19 10:22 Dose: 1 applic Polyethylene Glycol (Miralax (For Daily Use) -) 17 gm GT BID [facility] Last Admin: 01/16/19 10:27 Dose: 17 grams Valproate Sodium (Depakene -) 500 mg GT BID [facility] Last Admin: 01/16/19 10:23 Dose: [address] scan chest /abd/pelvis- no pneumonia, no intra-abdominal pathology a/p recurrent fevers- repeat blood cultures-normal WBC, ?recurrent aspiration bacteremia- coag neg staph anoxia s/p cva seizure disorder known exposed hardware left ankle-no signs drainage or erythema abnl lfts-d/c diflucan- fungal rash resolved contact isolation-MDRO skin colonizers -mrsa and kleb esbl day #5 meropenem day #9 vancomycin will d/c antibiotoics will follow Problem List - Problems (1) Sepsis Code(s): A41.9 - SEPSIS, UNSPECIFIED ORGANISM (2) Bacteremia Code(s): R78.81 - BACTEREMIA (3) Anoxic brain damage Code(s): G93.1 - ANOXIC BRAIN DAMAGE, NOT ELSEWHERE CLASSIFIED
[2019-01-16] MEDS: VANCOMYCIN 1 GRAM (PRE-DOCKED) 1,000 MG/250 ML BAG IVPB SCH (15:56)
--- NOTE | 2019-01-16 16:00 | PN ---
Progress Note (short form) - Note Progress Note: PULMONARY Pt nonverbal. Febrile to 101.8. CT A/P showing G tube in wrong location. Vital Signs Period Temp Pulse Resp BP Sys/Florentino Pulse Ox Last 24 Hr 98.9 F-101.8 F 94-110 20-20 157-167/90-106 99 Gen: mildly tachypneic at rest Heart: RRR Lung: decreased breath sounds at the bases Abd: soft, nontender Ext: no edema CBC, BMP 01/16/19 06:30 01/16/19 06:30 Active Medications Acetaminophen (Tylenol Oral Solution -) 650 mg GT Q6H PRN PRN Reason: PAIN OR FEVER Last Admin: 01/15/19 19:05 Dose: 650 mg Amino Acids (Prosource No Carb Liquid Pkt) 30 ml GT BID@0800,1730 [facility] Last Admin: 01/16/19 10:21 Dose: 30 ml Baclofen (Lioresal -) 5 mg GT TID [facility] Last Admin: 01/16/19 06:24 Dose: 5 mg Chlorhexidine Gluconate (Hibiclens For Decolonization -) 1 applic TP HS [facility] Last Admin: 01/15/19 21:14 Dose: Not Given Dexamethasone (Decadron -) 2 mg GT DAILY [facility] Heparin Sodium (Porcine) (Heparin -) 5,000 unit SQ BID [facility] Last Admin: 01/16/19 10:24 Dose: 5,000 unit Dextrose/Sodium Chloride (D5-Ns -) 1,000 mls @ 42 mls/hr IV ASDIR [facility] Last Admin: 01/16/19 13:23 Dose: 42 mls/hr Ipratropium [place] (Atrovent 0.02% Nebulizer -) 1 amp NEB Q6H PRN PRN Reason: WHEEZING Last Admin: 01/15/19 11:20 Dose: 1 amp Metoclopramide HCl (Reglan Oral Solution -) 10 mg GT Q12H PRN PRN Reason: NAUSEA Last Admin: 01/11/19 21:35 Dose: 10 mg Multivitamins/Minerals (Certavite-Antioxidant Liquid) 15 ml GT DAILY [facility] Last Admin: 01/16/19 10:23 Dose: 15 ml Nystatin (Mycostatin Cream -) 1 applic TP BID [facility] Last Admin: 01/16/19 10:22 Dose: 1 applic Polyethylene Glycol (Miralax (For Daily Use) -) 17 gm GT BID [facility] Last Admin: 01/16/19 10:27 Dose: 17 grams Valproate Sodium (Depakene -) 500 mg GT BID [facility] Last Admin: 01/16/19 10:23 Dose: 500 mg A/P Polymicrobial Bacteremia r/o Decubitus Ulcer infection Sepsis r/o Aspiration Bronchospasm improving Anoxic Brain Injury Seizure Disorder Dementia - antibiotics per ID - wound care - aspiration precautions - decadron taper - O2 to keep SpO2 >90% - DVT prophylaxis
[2019-01-16] MEDS ORDERED: PT OWN MED DRAWER 7, Y5N ONE (21:11)
[2019-01-16] MEDS: CHLORHEXIDINE GLUCONATE 4% CLEANSER FOR DECOLONIZATION TP SCH (21:43)
[2019-01-17] MEDS: BACLOFEN 10 MG TABLET (FP) GT SCH ×3 (06:24→22:29)
[2019-01-17] MEDS ORDERED: PT OWN MED DRAWER 7, Y5N ONE (10:50)
[2019-01-17] MEDS: HEPARIN NA (PORCINE) 5,000 UNITS/ML 1ML VIAL SQ SCH ×2 (10:55→22:29)
[2019-01-17] MEDS: AMINO ACIDS/PROTEIN HYDROLYS 30 ML LIQUID.PKT GT SCH ×2 (10:55→18:05)
[2019-01-17] MEDS: DEXAMETHASONE 4 MG TABLET (FP) GT SCH (10:56)
[2019-01-17] MEDS: VALPROATE SODIUM 250 MG/5 ML UNIT DOSE CUP GT SCH ×2 (10:57→22:29)
[2019-01-17] MEDS: NYSTATIN 100,000 UNIT/GM TOPICAL CREAM 15 GM TUBE TP SCH ×2 (10:58→22:30)
[2019-01-17] MEDS: MULTIVIT-MINERALS ORAL LIQUID GT SCH (10:59)
[2019-01-17] MEDS: POLYETHYLENE GLYCOL 3350 119 GM BTL GT SCH ×2 (11:18→22:40)
--- NOTE | 2019-01-17 11:47 | PN.GI ---
GI Progress Note Subjective: No acute events Tolerating feeds No significant leakage from G-Tube site No fevers overnight - Objective Vital Signs: Vital Signs Temperature 99.0 F 01/17/19 04:00 Pulse Rate 101 H 01/17/19 04:00 Respiratory Rate 18 01/17/19 04:00 Blood Pressure 158/94 01/17/19 04:00 O2 Sat by Pulse Oximetry (%) 98 01/16/19 21:00 Constitutional: Calm Eyes: No: Sclera Icterus Cardiovascular: Yes: Tachycardia Respiratory: Yes: Diminished (at bases bilaterally) Gastrointestinal Inspection: No: Distention ...Auscultate: Yes: Normoactive Bowel Sounds ...Palpate: Yes: Soft. No: Tenderness (No grimacing upon palpation) Labs: NO AM Labs Problem List - Problems (1) Abnormal liver function tests Assessment/Plan: Ordered repeat hepatic panel for today Discontinued acetaminophen Diflucan has been discontinued yesterday per ID Code(s): R94.5 - ABNORMAL RESULTS OF LIVER FUNCTION STUDIES (2) Leaking percutaneous endoscopic gastrostomy (PEG) tube Assessment/Plan: G-Tube study showed filling of the stomach after adjustment as noted in yesterday's note. Patient tolerating tube feeds. bolster at the 5cm kindra at level of abdominal wall. Aspiration precautions Code(s): K94.23 - GASTROSTOMY MALFUNCTION
--- NOTE | 2019-01-17 13:24 | PN ---
Progress Note (short form) - Note Progress Note: afebrile off antiibotics Vital Signs Period Temp Pulse Resp BP Sys/Florentino Pulse Ox Last 24 Hr 98.8 F-99.5 F 96-108 18-20 125-161/94-104 98 cor-rrr lungs clear abd soft, +GT ext no edema CBC, BMP 01/16/19 06:30 01/16/19 06:30 Microbiology 01/10/19 18:50 Blood - Peripheral Venous Blood Culture - Final NO GROWTH AFTER 5 DAYS INCUBATION 01/10/19 19:00 Blood - Peripheral Venous Blood Culture - Final NO GROWTH AFTER 5 DAYS INCUBATION 01/07/19 15:50 Foot - Left Lateral Gram Stain - Final 01/07/19 15:50 Foot - Left Lateral Wound Culture - Final Proteus Mirabilis Morganella Morganii Klebsiella Pneumoniae - Esbl Enterococcus Faecalis Staphylococcus Haemolyticus 01/07/19 14:10 Blood - Peripheral Venous Blood Culture - Final Staphylococcus Epidermidis Staph Hominis Sub Sp Hominis 01/07/19 14:10 Blood - Peripheral Venous Blood Culture - Final Staphylococcus Warneri 01/07/19 15:50 Abdomen Gram Stain - Final 01/07/19 15:50 Abdomen Wound Culture - Final Klebsiella Pneumoniae - Esbl Proteus Mirabilis Enterococcus Faecalis Mr S Aureus 01/07/19 17:30 Urine - Urine - Catheterized Urine Culture - Final NO GROWTH OBTAINED ct scan chest /abd/pelvis- no pneumonia, no intra-abdominal pathology a/p fevers resolved, afebrile off antiibotics anoxia s/p cva seizure disorder known exposed hardware left ankle-no signs drainage or erythema abnl lfts-d/c diflucan- fungal rash resolved contact isolation-MDRO skin colonizers -mrsa and kleb esbl please call back if needed Problem List - Problems (1) Sepsis Code(s): A41.9 - SEPSIS, UNSPECIFIED ORGANISM (2) Bacteremia Code(s): R78.81 - BACTEREMIA (3) Anoxic brain damage Code(s): G93.1 - ANOXIC BRAIN DAMAGE, NOT ELSEWHERE CLASSIFIED
[2019-01-17 13:44] LABS: ALBUMIN 2.6 g/dl (3.4-5.0); BILIRUBIN,DIRECT 0.3 mg/dL (0.0-0.2); BILIRUBIN,TOTAL 0.6 mg/dL (0.2-1); TOT PROT 5.8 g/dl (6.4-8.2)
--- NOTE | 2019-01-17 14:31 | DS ---
Physical Examination Vital Signs: Vital Signs Temperature 99.0 F 01/17/19 04:00 Pulse Rate 101 H 01/17/19 04:00 Respiratory Rate 18 01/17/19 04:00 Blood Pressure 158/94 01/17/19 04:00 O2 Sat by Pulse Oximetry (%) 98 01/16/19 21:00 non verbal contracted extremities Constitutional: Yes: Calm Cardiovascular: Yes: Regular Rate and Rhythm, S1, S2 Labs: CBC, BMP 01/16/19 06:30 01/16/19 06:30 Discharge Summary Reason For Visit: SEPSIS Current Active Problems Abnormal liver function tests (Acute) Bacteremia (Acute) Leaking percutaneous endoscopic gastrostomy (PEG) tube (Acute) Sepsis (Acute) Transaminitis (Acute) Hospital Course: patient admitted with fevers, now afebrile fever resolved off antibiotic ct scan of abdomen done no acute pathology Microbiology 01/07/19 15:50 Foot - Left Lateral Gram Stain - Final 01/07/19 15:50 Foot - Left Lateral Wound Culture - Final Proteus Mirabilis Morganella Morganii Klebsiella Pneumoniae - Esbl Enterococcus Faecalis Staphylococcus Haemolyticus 01/07/19 15:50 Abdomen Gram Stain - Final 01/07/19 15:50 Abdomen Wound Culture - Final Klebsiella Pneumoniae - Esbl Proteus Mirabilis Enterococcus Faecalis Mr S Aureus 01/07/19 14:10 Blood - Peripheral Venous Blood Culture - Final Staphylococcus Warneri 01/07/19 14:10 Blood - Peripheral Venous Blood Culture - Final Staphylococcus Epidermidis Staph Hominis Sub Sp Hominis decadron taper to stop in AM Condition: Stable - Instructions [facility]position: [facility] - Home Medications Comprehensive Discharge Medication List: Ambulatory Orders Acetaminophen Oral Solution [Tylenol 160mg/5mL Oral Solution -] 20 ml GT Q6H PRN 07/22/15 Calcium Alginate [Du] 1 each TP BID 06/28/18 Polyethylene Glycol 3350 [Glycolax] 117 gm GT DAILY 06/28/18 Albuterol 2.5/Ipratropium 0.5 [Duoneb -] 1 amp NEB Q6H PRN amp 07/03/18 Baclofen [Lioresal -] 5 mg GT TID tablet 07/03/18 Clotrimazole [Clotrimazole AF] 28 gm TP BID 12/20/18 Acetaminophen Oral Solution [Tylenol Oral Solution -] 650 mg PO Q4H PRN soln.oral 01/01/19 Amino Acids/Protein Hydrolys [Prosource No Carb Liquid Pkt] 30 ml PO BID@0800, 1730 packet 01/01/19 Dexamethasone [Decadron -] 4 mg PO BID #4 tablet 01/01/19 Dexamethasone [Decadron -] 42 mg PO BID #2 tablet 01/01/19 Divalproex Sprinkle [Depakote Sprinkle -] 500 mg PEG BID cap.sprink 01/01/19 Metoclopramide Oral Soln [Reglan Oral Solution -] 10 mg PO ACHS udc 01/01/19 Multivit-Minerals [Certavite-Antioxidant Liquid] 15 ml PO DAILY cup 01/01/19 Polyethylene Glycol 3350 [Miralax 119 gm Btl -] 17 gm GT BID bottle 01/01/19
--- NOTE | 2019-01-17 14:57 | PN ---
Progress Note (short form) - Note Progress Note: to check lft in Am if down trending then dc to NH Problem List - Problems (1) Bacteremia Code(s): R78.81 - BACTEREMIA (2) Anoxic brain damage Code(s): G93.1 - ANOXIC BRAIN DAMAGE, NOT ELSEWHERE CLASSIFIED
[2019-01-17] MEDS: CHLORHEXIDINE GLUCONATE 4% CLEANSER FOR DECOLONIZATION TP SCH (22:40)
[2019-01-18] MEDS: BACLOFEN 10 MG TABLET (FP) GT SCH ×3 (05:49→23:25)
[2019-01-18 07:35] LABS: ALBUMIN 2.4 g/dl (3.4-5.0); BILIRUBIN,TOTAL 0.6 mg/dL (0.2-1); CALCIUM 8.8 mg/dL (8.5-10.1); CREATININE 0.3 mg/dL (0.55-1.3); POTASSIUM 3.3 mmol/L (3.5-5.1); TOT PROT 5.5 g/dl (6.4-8.2)
[2019-01-18] MEDS ORDERED: PT OWN MED DRAWER 7, Y5N ONE ×2 (09:21→23:22)
[2019-01-18] MEDS: AMINO ACIDS/PROTEIN HYDROLYS 30 ML LIQUID.PKT GT SCH ×2 (09:28→18:46)
[2019-01-18] MEDS: HEPARIN NA (PORCINE) 5,000 UNITS/ML 1ML VIAL SQ SCH ×2 (09:28→23:24)
[2019-01-18] MEDS: VALPROATE SODIUM 250 MG/5 ML UNIT DOSE CUP GT SCH ×2 (09:28→23:24)
[2019-01-18] MEDS: DEXAMETHASONE 4 MG TABLET (FP) GT SCH (09:28)
[2019-01-18] MEDS: NYSTATIN 100,000 UNIT/GM TOPICAL CREAM 15 GM TUBE TP SCH ×2 (09:29→23:26)
[2019-01-18] MEDS: POLYETHYLENE GLYCOL 3350 119 GM BTL GT SCH ×2 (09:32→23:25)
--- NOTE | 2019-01-18 12:47 | PN ---
Progress Note (short form) - Note Progress Note: LFTs trending downward,tolerating tube feeds
[2019-01-18] MEDS ORDERED: POTASSIUM CHLORIDE ORAL LIQUID 20 MEQ/15 ML GT ONE (15:39)
--- NOTE | 2019-01-18 16:08 | PN ---
Progress Note, Physician Chief Complaint: Sepsis History of Present Illness: Previous notes and events reviewed awake, non-verbal NAD LFTs trending down discharge back to SNF - Current Medication List Current Medications: Active Medications Amino Acids (Prosource No Carb Liquid Pkt) 30 ml GT BID@0800,1730 [facility] Last Admin: 01/18/19 09:28 Dose: 30 ml Baclofen (Lioresal -) 5 mg GT TID [facility] Last Admin: 01/18/19 14:50 Dose: 5 mg Chlorhexidine Gluconate (Hibiclens For Decolonization -) 1 applic TP HS [facility] Last Admin: 01/17/19 22:40 Dose: Not Given Dexamethasone (Decadron -) 2 mg GT DAILY [facility] Last Admin: 01/18/19 09:28 Dose: 2 mg Heparin Sodium (Porcine) (Heparin -) 5,000 unit SQ BID [facility] Last Admin: 01/18/19 09:28 Dose: 5,000 unit Ipratropium [place] (Atrovent 0.02% Nebulizer -) 1 amp NEB Q6H PRN PRN Reason: WHEEZING Last Admin: 01/15/19 11:20 Dose: 1 amp Metoclopramide HCl (Reglan Oral Solution -) 10 mg GT Q12H PRN PRN Reason: NAUSEA Last Admin: 01/11/19 21:35 Dose: 10 mg Multivitamins/Minerals (Certavite-Antioxidant Liquid) 15 ml GT DAILY [facility] Last Admin: 01/17/19 10:59 Dose: 15 ml Nystatin (Mycostatin Cream -) 1 applic TP BID [facility] Last Admin: 01/18/19 09:29 Dose: 1 applic Polyethylene Glycol (Miralax (For Daily Use) -) 17 gm GT BID [facility] Last Admin: 01/18/19 09:32 Dose: 17 grams Valproate Sodium (Depakene -) 500 mg GT BID [facility] Last Admin: 01/18/19 09:28 Dose: 500 mg - Objective Vital Signs: Vital Signs Temperature 98.5 F 01/18/19 05:56 Pulse Rate 94 H 01/18/19 05:56 Respiratory Rate 16 01/18/19 05:56 Blood Pressure 151/101 H 01/18/19 05:56 O2 Sat by Pulse Oximetry (%) 98 01/17/19 21:00 Constitutional: Yes: No Distress, Calm Eyes: Yes: Conjunctiva Clear HENT: Yes: Atraumatic Cardiovascular: Yes: Regular Rate and Rhythm Respiratory: Yes: Regular, Diminished Gastrointestinal: Yes: Normal Bowel Sounds, Soft, Other (GT) Musculoskeletal: Yes: Muscle Weakness Extremities: Yes: Other (contracted b/l upper extremities) Edema: No Wound/Incision: Yes: Dressing Dry and Intact Neurological: Yes: Pre-Existing Deficit Labs: CBC, BMP 01/16/19 06:30 01/18/19 06:00 INR, PTT INR 1.10 (0.83-1.09) H 01/07/19 14:10 Microbiology 01/10/19 18:50 Blood - Peripheral Venous Blood Culture - Final NO GROWTH AFTER 5 DAYS INCUBATION 01/10/19 19:00 Blood - Peripheral Venous Blood Culture - Final NO GROWTH AFTER 5 DAYS INCUBATION 01/07/19 15:50 Foot - Left Lateral Gram Stain - Final 01/07/19 15:50 Foot - Left Lateral Wound Culture - Final Proteus Mirabilis Morganella Morganii Klebsiella Pneumoniae - Esbl Enterococcus Faecalis Staphylococcus Haemolyticus 01/07/19 14:10 Blood - Peripheral Venous Blood Culture - Final Staphylococcus Epidermidis Staph Hominis Sub Sp Hominis 01/07/19 14:10 Blood - Peripheral Venous Blood Culture - Final Staphylococcus Warneri 01/07/19 15:50 Abdomen Gram Stain - Final 01/07/19 15:50 Abdomen Wound Culture - Final Klebsiella Pneumoniae - Esbl Proteus Mirabilis Enterococcus Faecalis Mr S Aureus 01/07/19 17:30 Urine - Urine - Catheterized Urine Culture - Final NO GROWTH OBTAINED Problem List - Problems (1) Sepsis Assessment/Plan: -ID on board -LA 7.1 to 1.4 -tylenol for temp >100F -BC from 01/07 positive -UC neg -Left foot ulcer and Abdomen culture positive -CXR shows new atelectasis in the HARIS -repeat CXR 01/11 shows a gross infiltrate is not seen -no leukocytosis Code(s): A41.9 - SEPSIS, UNSPECIFIED ORGANISM (2) CVA (cerebral vascular accident) Assessment/Plan: -heparin sq Code(s): I63.9 - CEREBRAL INFARCTION, UNSPECIFIED (3) Dementia Code(s): F03.90 - UNSPECIFIED DEMENTIA WITHOUT BEHAVIORAL DISTURBANCE (4) Lactic acid acidosis Assessment/Plan: -LA 7.1 to 1.4 -resolving Code(s): E87.2 - ACIDOSIS (5) Severe flexion contractures of all joints Assessment/Plan: -turn q2h -offloading Code(s): M24.50 - CONTRACTURE, UNSPECIFIED JOINT (6) Bronchospasm Assessment/Plan: -bronchodilator -keep SpO2 >90% -O2 via NC Code(s): J98.01 - ACUTE BRONCHOSPASM (7) Seizure as late effect of cerebrovascular accident (CVA) Assessment/Plan: -Depakote -seizure precautions Code(s): I69.398 - OTHER SEQUELAE OF CEREBRAL INFARCTION; R56.9 - UNSPECIFIED CONVULSIONS (8) Transaminitis Assessment/Plan: -GI on board -abdominal US shows findings suggestive of fatty liver vs hepatocellular disease , limited visualization of of partially distended gallbladder without gross intraluminal stones or wall thickening -AST 98, ALT 104, Alk Phos 40 -monitor LFTs Code(s): R74.0 - NONSPEC ELEV OF LEVELS OF TRANSAMNS & LACTIC ACID DEHYDRGNSE Assessment/Plan see problem list dvt ppx d/c back to SNF
[2019-01-18] MEDS: MULTIVIT-MINERALS ORAL LIQUID GT SCH (18:46)
[2019-01-18] MEDS: CHLORHEXIDINE GLUCONATE 4% CLEANSER FOR DECOLONIZATION TP SCH (23:22)
[2019-01-18] MEDS: IPRATROPIUM BR 0.02% 0.5 MG/2.5 ML VIAL.NEB. NEB PRN (23:59)
[2019-01-19] MEDS: BACLOFEN 10 MG TABLET (FP) GT SCH ×3 (06:32→23:09)
[2019-01-19 08:04] LABS: ALBUMIN 2.8 g/dl (3.4-5.0); BILIRUBIN,TOTAL 0.6 mg/dL (0.2-1); BLOOD UREA NITROGEN 23.9 mg/dL (7-18); CALCIUM 9.3 mg/dL (8.5-10.1); CREATININE 0.5 mg/dL (0.55-1.3); POTASSIUM 4.5 mmol/L (3.5-5.1); TOT PROT 6.3 g/dl (6.4-8.2)
[2019-01-19] MEDS ORDERED: PT OWN MED DRAWER 7, Y5N ONE (09:49)
[2019-01-19] MEDS: MULTIVIT-MINERALS ORAL LIQUID GT SCH (10:09)
[2019-01-19] MEDS: VALPROATE SODIUM 250 MG/5 ML UNIT DOSE CUP GT SCH ×2 (10:09→23:10)
[2019-01-19] MEDS: DEXAMETHASONE 4 MG TABLET (FP) GT SCH (10:09)
[2019-01-19] MEDS: AMINO ACIDS/PROTEIN HYDROLYS 30 ML LIQUID.PKT GT SCH ×2 (10:09→17:59)
[2019-01-19] MEDS: HEPARIN NA (PORCINE) 5,000 UNITS/ML 1ML VIAL SQ SCH ×2 (10:09→23:10)
[2019-01-19] MEDS: POLYETHYLENE GLYCOL 3350 119 GM BTL GT SCH ×2 (10:11→23:10)
[2019-01-19] MEDS: NYSTATIN 100,000 UNIT/GM TOPICAL CREAM 15 GM TUBE TP SCH ×2 (10:12→23:10)
--- NOTE | 2019-01-19 12:14 | PN ---
Progress Note, Physician Chief Complaint: Sepsis History of Present Illness: Previous notes and events reviewed awake, non-verbal NAD LFTs trending down discharge back to SNF today--spoke with SW for transportation set up - Current Medication List Current Medications: Active Medications Amino Acids (Prosource No Carb Liquid Pkt) 30 ml GT BID@0800,1730 [facility] Last Admin: 01/19/19 10:09 Dose: 30 ml Baclofen (Lioresal -) 5 mg GT TID [facility] Last Admin: 01/19/19 06:32 Dose: 5 mg Chlorhexidine Gluconate (Hibiclens For Decolonization -) 1 applic TP HS [facility] Last Admin: 01/18/19 23:22 Dose: Not Given Dexamethasone (Decadron -) 2 mg GT DAILY [facility] Last Admin: 01/19/19 10:09 Dose: 2 mg Heparin Sodium (Porcine) (Heparin -) 5,000 unit SQ BID [facility] Last Admin: 01/19/19 10:09 Dose: 5,000 unit Ipratropium [place] (Atrovent 0.02% Nebulizer -) 1 amp NEB Q6H PRN PRN Reason: WHEEZING Last Admin: 01/18/19 23:59 Dose: 1 amp Metoclopramide HCl (Reglan Oral Solution -) 10 mg GT Q12H PRN PRN Reason: NAUSEA Last Admin: 01/11/19 21:35 Dose: 10 mg Multivitamins/Minerals (Certavite-Antioxidant Liquid) 15 ml GT DAILY [facility] Last Admin: 01/19/19 10:09 Dose: 15 ml Nystatin (Mycostatin Cream -) 1 applic TP BID [facility] Last Admin: 01/19/19 10:12 Dose: 1 applic Polyethylene Glycol (Miralax (For Daily Use) -) 17 gm GT BID [facility] Last Admin: 01/19/19 10:11 Dose: 17 grams Valproate Sodium (Depakene -) 500 mg GT BID [facility] Last Admin: 01/19/19 10:09 Dose: 500 mg - Objective Vital Signs: Vital Signs Temperature 98 F 01/19/19 06:00 Pulse Rate 98 H 01/19/19 06:00 Respiratory Rate 20 01/19/19 06:00 Blood Pressure 147/88 01/19/19 06:00 O2 Sat by Pulse Oximetry (%) 100 01/18/19 21:00 Constitutional: Yes: No Distress, Calm Eyes: Yes: Conjunctiva Clear HENT: Yes: Atraumatic Cardiovascular: Yes: Regular Rate and Rhythm Respiratory: Yes: Regular, Diminished Gastrointestinal: Yes: Normal Bowel Sounds, Soft, Other (G tube) Genitourinary: Yes: Blanchard Present Musculoskeletal: Yes: Other (upper extremity contracture) Extremities: Yes: WNL Edema: No Wound/Incision: Yes: Dressing Dry and Intact Neurological: Yes: Alert, Pre-Existing Deficit Psychiatric: Yes: Alert Labs: CBC, BMP 01/16/19 06:30 01/19/19 06:45 INR, PTT INR 1.10 (0.83-1.09) H 01/07/19 14:10 Microbiology 01/10/19 18:50 Blood - Peripheral Venous Blood Culture - Final NO GROWTH AFTER 5 DAYS INCUBATION 01/10/19 19:00 Blood - Peripheral Venous Blood Culture - Final NO GROWTH AFTER 5 DAYS INCUBATION 01/07/19 15:50 Foot - Left Lateral Gram Stain - Final 01/07/19 15:50 Foot - Left Lateral Wound Culture - Final Proteus Mirabilis Morganella Morganii Klebsiella Pneumoniae - Esbl Enterococcus Faecalis Staphylococcus Haemolyticus 01/07/19 14:10 Blood - Peripheral Venous Blood Culture - Final Staphylococcus Epidermidis Staph Hominis Sub Sp Hominis 01/07/19 14:10 Blood - Peripheral Venous Blood Culture - Final Staphylococcus Warneri 01/07/19 15:50 Abdomen Gram Stain - Final 01/07/19 15:50 Abdomen Wound Culture - Final Klebsiella Pneumoniae - Esbl Proteus Mirabilis Enterococcus Faecalis Mr S Aureus 01/07/19 17:30 Urine - Urine - Catheterized Urine Culture - Final NO GROWTH OBTAINED Problem List - Problems (1) Sepsis Assessment/Plan: -ID on board -LA 7.1 to 1.4 -tylenol for temp >100F -BC from 01/07 positive -UC neg -Left foot ulcer and Abdomen culture positive -CXR shows new atelectasis in the HARIS -repeat CXR 01/11 shows a gross infiltrate is not seen -no leukocytosis Code(s): A41.9 - SEPSIS, UNSPECIFIED ORGANISM (2) CVA (cerebral vascular accident) Assessment/Plan: -heparin sq Code(s): I63.9 - CEREBRAL INFARCTION, UNSPECIFIED (3) Dementia Code(s): F03.90 - UNSPECIFIED DEMENTIA WITHOUT BEHAVIORAL DISTURBANCE (4) Lactic acid acidosis Assessment/Plan: -LA 7.1 to 1.4 -resolving Code(s): E87.2 - ACIDOSIS (5) Severe flexion contractures of all joints Assessment/Plan: -turn q2h -offloading Code(s): M24.50 - CONTRACTURE, UNSPECIFIED JOINT (6) Bronchospasm Assessment/Plan: -bronchodilator -keep SpO2 >90% -O2 via NC Code(s): J98.01 - ACUTE BRONCHOSPASM (7) Seizure as late effect of cerebrovascular accident (CVA) Assessment/Plan: -Depakote -seizure precautions Code(s): I69.398 - OTHER SEQUELAE OF CEREBRAL INFARCTION; R56.9 - UNSPECIFIED CONVULSIONS (8) Transaminitis Assessment/Plan: -GI on board -abdominal US shows findings suggestive of fatty liver vs hepatocellular disease , limited visualization of of partially distended gallbladder without gross intraluminal stones or wall thickening -AST 88, ALT 124, Alk Phos 49 -monitor LFTs Code(s): R74.0 - NONSPEC ELEV OF LEVELS OF TRANSAMNS & LACTIC ACID DEHYDRGNSE Assessment/Plan see problem list dvt ppx d/c back to SNF
[2019-01-19] MEDS: IPRATROPIUM BR 0.02% 0.5 MG/2.5 ML VIAL.NEB. NEB PRN (21:50)
[2019-01-19] MEDS: CHLORHEXIDINE GLUCONATE 4% CLEANSER FOR DECOLONIZATION TP SCH (23:24)
[2019-01-20] MEDS: BACLOFEN 10 MG TABLET (FP) GT SCH (06:43)
[2019-01-20] MEDS: IPRATROPIUM BR 0.02% 0.5 MG/2.5 ML VIAL.NEB. NEB PRN (07:39)
[2019-01-20 08:31] LABS: HEMATOCRIT 38.6 % (32.4-45.2); HEMOGLOBIN 13.5 GM/dL (10.7-15.3); MCH 34.5 pg (25.7-33.7); MCHC 34.9 g/dl (32.0-36.0); MEAN CELL VOLUME 98.9 fl (80-96); MEAN PLT VOLUME 9.1 fl (7.5-11.1); PLATELET COUNT 202 K/MM3 (134-434); RBC 3.91 M/mm3 (3.60-5.2)
[2019-01-20 09:11] LABS: ALBUMIN 2.9 g/dl (3.4-5.0); BILIRUBIN,TOTAL 0.7 mg/dL (0.2-1); BLOOD UREA NITROGEN 27.2 mg/dL (7-18); CREATININE 0.4 mg/dL (0.55-1.3); POTASSIUM 4.3 mmol/L (3.5-5.1); TOT PROT 6.6 g/dl (6.4-8.2)
[2019-01-20] MEDS ORDERED: PT OWN MED DRAWER 7, Y5N ONE ×2 (09:26→09:29)
[2019-01-20] MEDS: HEPARIN NA (PORCINE) 5,000 UNITS/ML 1ML VIAL SQ SCH (10:26)
[2019-01-20] MEDS: DEXAMETHASONE 4 MG TABLET (FP) GT SCH (10:27)
[2019-01-20] MEDS: VALPROATE SODIUM 250 MG/5 ML UNIT DOSE CUP GT SCH (10:29)
[2019-01-20] MEDS: AMINO ACIDS/PROTEIN HYDROLYS 30 ML LIQUID.PKT GT SCH (10:29)
[2019-01-20] MEDS: MULTIVIT-MINERALS ORAL LIQUID GT SCH (10:30)
[2019-01-20] MEDS: NYSTATIN 100,000 UNIT/GM TOPICAL CREAM 15 GM TUBE TP SCH (10:31)
[2019-01-20] MEDS: POLYETHYLENE GLYCOL 3350 119 GM BTL GT SCH (10:34)
[2019-01-20 12:33] VITALS: BP 142/84; PULSE 108; TEMP 98.9
== END 2019-01-20 12:47 | DRG 871 ==
LOC: JER 12:54 → JERBED 16:58 → JICU 21:09 → J8W 01-08 18:20
PROVIDERS: ADMIT Family Medicine; ATTEND Family Medicine
DX: A41.1 Sepsis due to other specified staphylococcus (principal); R53.2 Functional quadriplegia; R47.01 Aphasia; G93.1 Anoxic brain damage, not elsewhere classified; J98.11 Atelectasis; E87.2 Acidosis; L03.90 Cellulitis, unspecified; K94.23 Gastrostomy malfunction; F03.90 Unspecified dementia, unspecified severity, without behavioral disturbance, psychotic disturbance, mood disturbance, and anxiety; G40.909 Epilepsy, unspecified, not intractable, without status epilepticus; M24.50 Contracture, unspecified joint; J98.01 Acute bronchospasm; I69.398 Other sequelae of cerebral infarction; D72.829 Elevated white blood cell count, unspecified; R00.0 Tachycardia, unspecified; B36.9 Superficial mycosis, unspecified; Z66 Do not resuscitate; R74.0 Nonspecific elevation of levels of transaminase and lactic acid dehydrogenase [LDH]; K82.8 Other specified diseases of gallbladder; R94.5 Abnormal results of liver function studies; Z87.09 Personal history of other diseases of the respiratory system; Z93.1 Gastrostomy status
CPT/HCPCS: 36415; 71045-TC-FY; 71250-TC; 74018-TC-FY; 74176-TC; 76705-TC; 80048; 80053; 80074; 80076; 81003; 82803; 82962; 83605; 83690; 83735; 83880; 84100; 84484; 85025; 85027; 85610; 85730; 87040; 87070; 87086; 87186; 87205; 93005; 93010; 94640; 99285-25; G0480; J0131; J0475; J1644; J7030; Q9967

== ENCOUNTER 2019-02-14 12:35 | Inpatient (IN) | payer OTHER ==
[2019-02-14 13:06] VITALS: BMI 31.8
[2019-02-14] MEDS ORDERED: SODIUM CHLORIDE 1,000 ML IV STA ×2 (14:05→18:37)
--- NOTE | 2019-02-14 14:20 | PDOC ---
History of Present Illness - General Chief Complaint: G Tube Problem Stated Complaint: PEG TUBE REPLACE Time Seen by Provider: 02/14/19 13:13 - History of Present Illness Initial Comments: 02/14/19 14:20 HPI: 58 y/o F with hx of dementia, ?CVA, anoxic brain injury, PEG tube replaced , seizure disorder presenting from [facility] for PEG tube malfunction. Family and NH report yesterday they noted bloody drainage around the G tube site and increased abdominal distention more than usual. Family reversed [facility] order for current presentation but maintains DNR/DNI. They also noted that she was regurgitating Gtube feeds orally. In addition, patient was starte on lasix 20mg per gtube 3 days ago for new HTN. Patient is still awake but nonverbal with adeqaute UOP and having BMs. PMHx: as noted above ROS: as noted SHx: n/a Allergies: NKDA ROS: unable to assess due to patient mental status PE: GENERAL: Awake, nonverbal HEAD: No signs of trauma, normocephalic, atraumatic EYES: EOMI, sclera anicteric, conjunctiva clear ENT: Auricles normal inspection, hearing grossly normal, nares patent, oropharynx clear without exudates. Moist mucosa NECK: Normal ROM, no lymphadenopathy LUNGS: No increased work of breathing HEART: tachycardix, peripheral pulses 2+ and equal bilaterally. ABDOMEN: Soft, distended, Gtube site present with no surrounding erythema but with bloody ooze around the site, normoactive bowel sounds. No guarding, no rebound. No masses EXTREMITIES: contracted flexion of arms, extension of the legs NEUROLOGICAL: nonverbal SKIN: Warm, Dry, normal turgor, no rashes or lesions noted Past History - Past Medical History Allergies/Adverse Reactions: Allergies Allergy/AdvReac Type Severity Reaction Status Date / Time No Known Drug Allergies Allergy Verified 12/20/18 16:43 latex AdvReac Unknown Verified 12/20/18 16:43 Home Medications: Ambulatory Orders Acetaminophen Oral Solution [Tylenol 160mg/5mL Oral Solution -] 20 ml GT Q6H PRN 07/22/15 Calcium Alginate [Du] 1 each TP BID 06/28/18 Polyethylene Glycol 3350 [Glycolax] 117 gm GT BID 06/28/18 Albuterol 2.5/Ipratropium 0.5 [Duoneb -] 1 amp NEB Q6H PRN amp 07/03/18 Baclofen [Lioresal -] 5 mg GT TID tablet 07/03/18 Clotrimazole [Clotrimazole AF] 28 gm TP BID 12/20/18 Acetaminophen Oral Solution [Tylenol Oral Solution -] 650 mg PO Q4H PRN soln.oral 01/01/19 Amino Acids/Protein Hydrolys [Prosource No Carb Liquid Pkt] 30 ml PO BID@0800, 1730 packet 01/01/19 Dexamethasone [Decadron -] 4 mg PO BID #4 tablet 01/01/19 Divalproex Sprinkle [Depakote Sprinkle -] 500 mg PEG BID cap.sprink 01/01/19 Metoclopramide Oral Soln [Reglan Oral Solution -] 10 mg PO ACHS udc 01/01/19 Multivit-Minerals [Certavite-Antioxidant Liquid] 15 ml PO DAILY cup 01/01/19 Dextran 70/Hypromellose [Artificial Tears Eye Drops] 1 drop OU BID 02/14/19 Metoprolol Tartrate [Lopressor] 50 mg GT DAILY 02/14/19 Morphine Sulfate [Morphine Sulfate ER] 7.5 mg GT Q6H PRN 02/14/19 Anemia: No Asthma: No Cancer: No Cardiac Disorders: No CVA: No COPD: No (anoxic brain, DNR/DNI) CHF: No Dementia: Yes Diabetes: No GI Disorders: Yes (PEG TUBE) Disorders: No HTN: Yes Hypercholesterolemia: No Liver Disease: No Seizures: Yes (EPILEPSY) Thyroid Disease: No - Surgical History Abdominal Surgery: No Appendectomy: No Cardiac Surgery: No Cholecystectomy: No GI Surgery: Yes (GT - TUBE PLACEMENT) Lung Surgery: No Neurologic Surgery: No Orthopedic Surgery: No - Immunization History Immunization Up to Date: Yes - Suicide/Smoking/Psychosocial Hx Smoking History: Unknown if ever smoked Have you smoked in the past 12 months: No Information on smoking cessation initiated: No Hx Alcohol Use: No Drug/Substance Use Hx: No Substance Use Type: None Hx Substance Use Treatment: No *Physical Exam - Vital Signs Last Vital Signs Temp Pulse Resp BP Pulse Ox 98.3 F 109 H 16 121/77 100 02/14/19 12:35 02/14/19 12:35 02/14/19 12:35 02/14/19 12:35 02/14/19 12:35 ED Treatment Course - LABORATORY CBC & Chemistry Diagram: 02/14/19 14:50 02/14/19 14:50 - RADIOLOGY Radiology Studies Ordered: Category Date Time Status ABDOMEN & PELVIS CT WITH CONTR [CT] Stat CT Scan 02/14/19 14:05 Ordered Medical Decision Making - Medical Decision Making 02/14/19 14:30 58 y/o F with hx of dementia, ?CVA, anoxic brain injury, PEG tube replaced , seizure disorder presenting from [facility] for PEG tube malfunction with bloody drainage around the site and oral regurgitation of feeds. Vitals HR 120s. PE notable for dark red blood oozing at PEG tube site -IVF -cbc, cmp -ct abd/pel with contrast 02/14/19 18:38 Patient continues to be tachycardic 140s-150s and repeat temp 100.7 Will initiate sepsis order set and give ofirmev family requesting morphine for comfort since patient is on comfort care but would also like for symptoms to be treated 02/14/19 19:28 CT/ABDOMEN PELVIS CT WITH CONTR Abdomen and pelvis CT with intravenous contrast Clinical information: malfunctioning gastrostomy tube area multiplanar imaging was performed following intravenous administration of nonionic contrast. Enteric contrast was not administered. In comparison to a prior CT study of 01/14 a percutaneous gastrostomy tube is again seen in place. On the current exam the balloon portion of the gastrostomy tube is noted to be within the superficial half of the subcutaneous fat. At the time the previous exam the balloon portion was located within the deep half of the subcutaneous fat. Increased fluid is seen within the rectosigmoid colon which could be on the basis of a diarrheal illness. Correlate clinically. There is no obvious associated wall thickening or pericolonic edema/ fluid. A small amount of air is seen within the urinary bladder lumen possibly due to recent catheterization versus possible cystitis. Clinical/laboratory correlation is suggested. There has been interval removal of a Blanchard catheter. Interval development of a minimal acute/subacute T11 superior endplate compression fracture is seen without bony retropulsion. The remainder of the exam demonstrates no obvious interval change. No evidence of pneumoperitoneum, abscess, free intraperitoneal fluid or bowel obstruction. There is no gastric distention. The liver, spleen, pancreas, gallbladder, adrenal glands and kidneys demonstrate no obvious abnormality allowing for respiratory motion artifact. There is no aortic aneurysm. No gross lymphadenopathy is noted. There is no obvious CT evidence of acute appendicitis or diverticulitis. No gross small bowel pathology is visualized. Mild left posterior basilar discoid atelectasis and scarring. Impression: A percutaneous gastrostomy tube is seen in place with the balloon portion within the subcutaneous fat as noted above. Somewhat increased fluid is noted within the rectosigmoid colon which could be on the basis of a current diarrheal illness. Correlate clinically. A small amount of air is noted within the urinary bladder lumen. Interval development of a minimal acute/subacute T11 vertebral body compression fracture is noted in comparison to the previous abdomen/pelvic CT study of 01/14/2019. 02/14/19 19:46 will cover with broad spectrum abx with eben villeda Consulted Dr Centeno for malfunctioning g tube and based on CT of balloon in subq fat, recommends to remove g tube and clean skin with betadine solution and cover with gauze Will admit for sepsis and g tube requiring further management 02/14/19 20:40 Admitted to tele under Dr Quezada lactate elevated 5.6; will continue resuscitation per sepsis protocol *DC/Admit/Observation/Transfer Diagnosis at time of Disposition: Sepsis, Gastrostomy malfunction - Discharge Dispostion Condition at time of disposition: Stable Decision to Admit order: Yes - Referrals Referrals: Rasheed Kasper [Primary Care Provider] - - Patient Instructions - Post Discharge Activity
[2019-02-14 15:05] LABS: BASO % 0.4 % (0-2.0); HEMATOCRIT 34.2 % (32.4-45.2); HEMOGLOBIN 11.7 GM/dL (10.7-15.3); LYMPH % 34.9 % (8-40); MCH 33.9 pg (25.7-33.7); MCHC 34.1 g/dl (32.0-36.0); MEAN CELL VOLUME 99.2 fl (80-96); MEAN PLT VOLUME 8.1 fl (7.5-11.1); MONO % 3.4 % (3.8-10.2); NEUT % 61.3 % (42.8-82.8); PLATELET COUNT 230 K/MM3 (134-434); RBC 3.45 M/mm3 (3.60-5.2); RDW 14.5 % (11.6-15.6); WHITE BLOOD COUNT 11.6 K/mm3 (4.0-10.0)
--- NOTE | 2019-02-14 15:20 | PDOC ---
Attending Attestation - Resident Resident Name: Layton,Gera - ED Attending Attestation I have performed the following: I have examined & evaluated the patient, The case was reviewed & discussed with the resident, I agree w/resident's findings & plan, Exceptions are as noted - HPI HPI: 02/14/19 15:18 58 F with h/o anoxic brain injury, s/p PEG tube 01/15/19, seizure d/o, presenting from [facility] for abdominal distention and bleeding around PEG site. Pt was also noted to be vomiting tube feeds. Pt unable to contribute history. - Physicial Exam PE: 02/14/19 15:19 Agree with resident exam - Medical Decision Making 02/14/19 15:19 58 F with bleeding from PEG site, abdominal distention, and vomiting. Will evaluate for PEG tube dislodgment or bowel obstruction. - Labs - CTAP
[2019-02-14 15:27] LABS: ALBUMIN 2.5 g/dl (3.4-5.0); BILIRUBIN,TOTAL 0.6 mg/dL (0.2-1); BLOOD UREA NITROGEN 46.8 mg/dL (7-18); CALCIUM 8.8 mg/dL (8.5-10.1); CREATININE 0.4 mg/dL (0.55-1.3); POTASSIUM 3.6 mmol/L (3.5-5.1); TOT PROT 5.4 g/dl (6.4-8.2)
[2019-02-14 17:10] LABS: MACROCYTOSIS 1+; PLATELET ESTIMATE ADEQUATE
[2019-02-14] MEDS ORDERED: ACETAMINOPHEN INJECTION 100 ML IVPB ONE (18:36)
[2019-02-14] MEDS ORDERED: MORPHINE SULFATE 2 MG/ML VIAL ONE (18:36)
[2019-02-14] MEDS ORDERED: ACETAMINOPHEN 1000 MG/100 ML VIAL (NON FORMULARY) IVPB ONE (18:37)
[2019-02-14] MEDS ORDERED: morphine CARPU-JECT 2 MG/1 ML DISP.SYRIN IVPUSH ONE (18:38)
[2019-02-14 19:29] LABS: PH,URINE 5.5 (5.0-8.0); URINE APPEARANCE CLEAR; URINE BILIRUBIN NEGATIVE (NEGATIVE); URINE COLOR YELLOW; URINE GLUCOSE (UA) NEGATIVE (NEGATIVE); URINE KETONE NEGATIVE (NEGATIVE); URINE LEUK ESTERASE NEGATIVE (NEGATIVE); URINE NITRITE NEGATIVE (NEGATIVE); URINE PROTEIN NEGATIVE (NEGATIVE)
[2019-02-14] MEDS ORDERED: VANCOMYCIN 1,000 MG in DEXTROSE 5%-WATER - 250 ML IVPB ONE (19:31)
[2019-02-14] MEDS ORDERED: PIPERACILLIN/TAZOB 4.5 GM 4.5 GM in DEXTROSE 5%-WATER 100 ML IVPB ONE (19:31)
[2019-02-14 19:37] LABS: VENOUS PH 7.21 (7.31-7.41)
[2019-02-14 19:43] LABS: ACTIVATED PTT 27.8 SECONDS (25.2-36.5)
[2019-02-14 19:49] LABS: INR 1.05 (0.83-1.09); PROTHROMBIN TIME (PATIENT) 12.4 SEC (9.7-13.0)
[2019-02-14] MEDS ORDERED: SODIUM CHLORIDE 2,449 ML IV ONE (20:23)
[2019-02-14] MEDS ORDERED: VANCOMYCIN 1 GRAM (PRE-DOCKED) 1,000 MG/250 ML BAG IVPB ONE (20:28)
[2019-02-14] MEDS ORDERED: PIPERACILLIN/TAZOB 4.5 GM 4.5 GM/100 ML BAG IVPB ONE (20:28)
--- NOTE | 2019-02-14 23:12 | HP ---
Admitting History and Physical - Primary Care Physician PCP: Dr. Quezada - Admission Chief Complaint: G Tube not working History of Present Illness: 58 year old female with PMHx of dementia, CVA, anoxic brain injury, seizure disorder and s/p PEG tube replaced 01/15/19, arrived from [facility] for PEG tube malfunction. As per daughter at beside at [place] yesterday patient aspirated on peg feeds yesterday, so DE held feeding and started on IV fluids, also there was bloody drainage from G-tube site. As per ED noted patient was started on lasix 20mg 3 days ago for new HTN. Patient awake, nonverbal. Unable to obtain ROS due to medical condition . 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 Anoxic brain injury ) Cardiovascular: Yes: HTN - Past Surgical History Additional Past Surgical History: post G-tube - Advance Directives Advance Directives: Yes: MOLST (DNR/DNI) - Smoking History Smoking history: Unknown if ever smoked Have you smoked in the past 12 months: No - Alcohol/Substance Use Hx Alcohol Use: No History of Substance Use: reports: None - Social History Usual Living Arrangement: Yes: [facility] ADL: Support Services ([facility]) History of Recent Travel: No Home Medications - Allergies Allergies/Adverse Reactions: Allergies Allergy/AdvReac Type Severity Reaction Status Date / Time No Known Drug Allergies Allergy Verified 12/20/18 16:43 latex AdvReac Unknown Verified 12/20/18 16:43 - Home Medications Home Medications: Ambulatory Orders Acetaminophen Oral Solution [Tylenol 160mg/5mL Oral Solution -] 20 ml GT Q6H PRN 07/22/15 Calcium Alginate [Du] 1 each TP BID 06/28/18 Polyethylene Glycol 3350 [Glycolax] 117 gm GT BID 06/28/18 Albuterol 2.5/Ipratropium 0.5 [Duoneb -] 1 amp NEB Q6H PRN amp 07/03/18 Baclofen [Lioresal -] 5 mg GT TID tablet 07/03/18 Clotrimazole [Clotrimazole AF] 28 gm TP BID 12/20/18 Acetaminophen Oral Solution [Tylenol Oral Solution -] 650 mg PO Q4H PRN soln.oral 01/01/19 Amino Acids/Protein Hydrolys [Prosource No Carb Liquid Pkt] 30 ml PO BID@0800, 1730 packet 01/01/19 Dexamethasone [Decadron -] 4 mg PO BID #4 tablet 01/01/19 Divalproex Sprinkle [Depakote Sprinkle -] 500 mg PEG BID cap.sprink 01/01/19 Metoclopramide Oral Soln [Reglan Oral Solution -] 10 mg PO ACHS udc 01/01/19 Multivit-Minerals [Certavite-Antioxidant Liquid] 15 ml PO DAILY cup 01/01/19 Dextran 70/Hypromellose [Artificial Tears Eye Drops] 1 drop OU BID 02/14/19 Metoprolol Tartrate [Lopressor] 50 mg GT DAILY 02/14/19 Morphine Sulfate [Morphine Sulfate ER] 7.5 mg GT Q6H PRN 02/14/19 Family Medical History Family History: Unable to Obtain Review of Systems Unable to obtain ROS, reason: due to mental status Physical Examination Vital Signs: Vital Signs Temperature 100.7 F H 02/14/19 18:42 Pulse Rate 109 H 02/14/19 12:35 Respiratory Rate 16 02/14/19 12:35 Blood Pressure 121/77 02/14/19 12:35 O2 Sat by Pulse Oximetry (%) 100 02/14/19 12:35 Constitutional: Yes: No Distress, Obese Eyes: Yes: Conjunctiva Clear HENT: Yes: Atraumatic, Normocephalic Neck: Yes: Supple, Trachea Midline Cardiovascular: Yes: Regular Rate and Rhythm Respiratory: Yes: Regular, CTA Bilaterally Gastrointestinal: Yes: Normal Bowel Sounds, Soft, Distention, Other (G-tube) Extremities: Yes: Other (contracted flexion of arms, extension of the legs) Integumentary: Yes: Other (warm, dry, no rashes) Neurological: Yes: Other (non-verbal, awake) Labs: CBC, BMP 02/14/19 14:50 02/14/19 14:50 Imaging - Results Chest X-ray: Report Reviewed (no acute pathology) Cat Scan: Report Reviewed (CT Abd Impression: A percutaneous gastrostomy tube is seen in place with the balloon portion within the subcutaneous fat as noted above. Somewhat increased fluid is noted within the rectosigmoid colon which could be on the basis of a current diarrheal illness. Correlate clinically. A small amount of air is noted within the urinary bladder lumen. Interval development of a minimal acute/subacute T11 vertebral body compression fracture is noted in comparison to the previous abdomen/pelvic CT study of 01/14/2019.) Other: Report Reviewed (lactate elevated 5.6, wbc: 11.6) Problem List - Problems (1) Sepsis Code(s): A41.9 - SEPSIS, UNSPECIFIED ORGANISM (2) Gastrostomy malfunction Code(s): K94.23 - GASTROSTOMY MALFUNCTION (3) HTN (hypertension) Code(s): I10 - ESSENTIAL (PRIMARY) HYPERTENSION (4) Constipation Code(s): K59.00 - CONSTIPATION, UNSPECIFIED (5) Anoxic brain damage Code(s): G93.1 - ANOXIC BRAIN DAMAGE, NOT ELSEWHERE CLASSIFIED (6) Dementia Code(s): F03.90 - UNSPECIFIED DEMENTIA WITHOUT BEHAVIORAL DISTURBANCE Assessment/Plan 58 year old female with dementia, CVA, anoxic brain injury, seizure disorder, PEG tube arrived from [facility] for PEG tube malfunction. As per family G- tube noted with bloody drainage and increased abdominal distention # sepsis # G-tube malfunction v/s in ED: tachy in 140-150s temp of 100.7 lactate elevated 5.6, wbc: 11.6 - CXR: no acute patho - UA: no leukocyte, nitrite noted - CT abd: Percutaneous gastrostomy tube is seen in place with the balloon portion within the subcutaneous fat as noted above. Somewhat increased fluid is noted within the rectosigmoid colon which could be on the basis of a current diarrheal illness. ED consulted with Dr. Centeno (remove g tube and clean skin with betadine solution and cover with gauze) - given vanco and zosyn in ED x1, NS 1L, Morphine sulfate and Ofirmev IVPB x1 - NPO - continue with IV fluids - will follow repeat lactic level - cbc, bmp and cxr in AM - follow up blood, urine culture - continue with zosyn q 8 hours - follow up GI & ID in AM # seizures - once G-tube inserted tomorrow, start Divalproex Sprinkle 500 mg PEG BID - monitor for acute seizure activity # HTN - if BP elevated consider Metoprolol IV push until G-tube inserted - once tube inserted start metoprolol 50 mg daily via G-tube # dementia # anoxia brain injury - member on Dexamethasone 4 mg PO BID once G-tube inserted in Am - currently DNR/DNI - per ED family requesting morphine for comfort since patient is on comfort care but also symptoms to be treated - Palliative consult - continue with morphine 1 g IV q 6 hours PRN DIET: NPO, G-tube needs to replace DVT: Heparin SQ Visit type - Emergency Visit Emergency Visit: Yes ED Registration Date: 02/14/19 Care time: The patient presented to the Emergency Department on the above date and was hospitalized for further evaluation of their emergent condition. - New Patient This patient is new to me today: Yes Date on this admission: 02/14/19 - Critical Care Critical Care patient: No
[2019-02-14] MEDS ORDERED: ACETAMINOPHEN 325 MG TABLET (FP) PO PRN (23:43)
[2019-02-14] MEDS ORDERED: SODIUM CHLORIDE 1,000 ML IV SCH (23:45)
[2019-02-15] MEDS ORDERED: DEXTROSE 5%-WATER - 50 ML IVPB ONE ×2 (01:24→09:52)
[2019-02-15] MEDS ORDERED: PIPERACILLIN/TAZOBACTAM 3.375 GM VIAL IVPB ONE ×3 (01:24→17:46)
[2019-02-15] MEDS: PIPERACILLIN/TAZOB 3.375 GM 3.375 GM in DEXTROSE 5%-WATER - 50 ML IVPB SCH ×3 (01:30→17:47)
[2019-02-15 06:40] LABS: HEMATOCRIT 29.2 % (32.4-45.2); HEMOGLOBIN 10.2 GM/dL (10.7-15.3); MCH 34.5 pg (25.7-33.7); MCHC 34.9 g/dl (32.0-36.0); MEAN CELL VOLUME 99.1 fl (80-96); MEAN PLT VOLUME 8.2 fl (7.5-11.1); PLATELET COUNT 198 K/MM3 (134-434); RBC 2.94 M/mm3 (3.60-5.2); RDW 14.5 % (11.6-15.6); WHITE BLOOD COUNT 8.8 K/mm3 (4.0-10.0)
[2019-02-15 07:01] LABS: BLOOD UREA NITROGEN 36.8 mg/dL (7-18); CALCIUM 7.9 mg/dL (8.5-10.1); CREATININE 0.4 mg/dL (0.55-1.3)
[2019-02-15] MEDS: ACETAMINOPHEN 1000 MG/100 ML VIAL (NON FORMULARY) IVPB PRN ×2 (07:50→13:49)
[2019-02-15] MEDS: HEPARIN NA (PORCINE) 5,000 UNITS/ML 1ML VIAL SQ SCH ×2 (10:20→22:43)
[2019-02-15] MEDS: MORPHINE SULFATE 2 MG/ML VIAL IVPUSH PRN ×3 (10:21→22:52)
--- NOTE | 2019-02-15 11:35 | CON.ID ---
Consult Consult Specialty:: infectious diseases Referred by:: markos Reason for Consultation:: fever,gm positive bacteremia - History of Present Illness Chief Complaint: fever History of Present Illness: history cannot be obtained from the patient because of the mental condition , which is tken from the charts 58 year old female with PMHx of dementia, CVA, anoxic brain injury, seizure disorder and s/p PEG tube replaced 01/15/19, arrived from [facility] for PEG tube malfunction. As per daughter a patient aspirated on peg feeds yesterday, so VT held feeding and started on IV fluids, also there was bloody drainage from G-tube site. As per ED noted patient was started on lasix 20mg 3 days ago for new HTN. 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 Anoxic brain injury ) Cardio/Vascular: Yes: HTN Gastrointestinal: Yes: Other (PEG tube) - Alcohol/Substance Use Hx Alcohol Use: No History of Substance Use: reports: None - Smoking History Smoking history: Unknown if ever smoked Have you smoked in the past 12 months: No - Social History Usual Living Arrangement: [facility] ADL: Support Services ([facility]) History of Recent Travel: No Home Medications - Allergies Allergies/Adverse Reactions: Allergies Allergy/AdvReac Type Severity Reaction Status Date / Time No Known Drug Allergies Allergy Verified 12/20/18 16:43 latex AdvReac Unknown Verified 12/20/18 16:43 - Home Medications Home Medications: Ambulatory Orders Acetaminophen Oral Solution [Tylenol 160mg/5mL Oral Solution -] 20 ml GT Q6H PRN 07/22/15 Calcium Alginate [Du] 1 each TP BID 06/28/18 Polyethylene Glycol 3350 [Glycolax] 117 gm GT BID 06/28/18 Albuterol 2.5/Ipratropium 0.5 [Duoneb -] 1 amp NEB Q6H PRN amp 07/03/18 Baclofen [Lioresal -] 5 mg GT TID tablet 07/03/18 Clotrimazole [Clotrimazole AF] 28 gm TP BID 12/20/18 Acetaminophen Oral Solution [Tylenol Oral Solution -] 650 mg PO Q4H PRN soln.oral 01/01/19 Amino Acids/Protein Hydrolys [Prosource No Carb Liquid Pkt] 30 ml PO BID@0800, 1730 packet 01/01/19 Dexamethasone [Decadron -] 4 mg PO BID #4 tablet 01/01/19 Divalproex Sprinkle [Depakote Sprinkle -] 500 mg PEG BID cap.sprink 01/01/19 Metoclopramide Oral Soln [Reglan Oral Solution -] 10 mg PO ACHS udc 01/01/19 Multivit-Minerals [Certavite-Antioxidant Liquid] 15 ml PO DAILY cup 01/01/19 Dextran 70/Hypromellose [Artificial Tears Eye Drops] 1 drop OU BID 02/14/19 Metoprolol Tartrate [Lopressor] 50 mg GT DAILY 02/14/19 Morphine Sulfate [Morphine Sulfate ER] 7.5 mg GT Q6H PRN 02/14/19 Review of Systems Unable to obtain ROS, reason: unable to obtain - Review of Systems Constitutional: reports: Fever Physical Exam Vital Signs: Vital Signs Temperature 101.4 F H 02/15/19 06:38 Pulse Rate 131 H 02/15/19 06:38 Respiratory Rate 18 02/15/19 06:38 Blood Pressure 172/79 H 02/15/19 06:38 O2 Sat by Pulse Oximetry (%) 98 02/14/19 20:02 Constitutional: Yes: Other Neck: Yes: Supple Cardiovascular: Yes: Regular Rate and Rhythm Respiratory: Yes: On Nasal O2, Poor Air Entry, Rhonchi Labs: CBC, BMP 02/15/19 05:35 02/15/19 05:35
--- NOTE | 2019-02-15 11:45 | PN ---
Progress Note (short form) - Note Progress Note: dr Segura will take care of the patient informed her
--- NOTE | 2019-02-15 14:22 | PN ---
Progress Note (short form) - Note Progress Note: ID consult dictated imp/reccd infected GT- now out bacteremia-gram positive midline site looks clean dementia/anoxia/seizures history of MRSA and Klebsiella ESBL-contact isolation continue vancomycin /zosyn continue seizure meds
--- NOTE | 2019-02-15 14:28 | PN ---
Progress Note, Physician Chief Complaint: EVENTS AND NOTES REVIEWED FAMILY BEDSIDE - Current Medication List Current Medications: Active Medications Acetaminophen (Ofirmev Injection -) 1,000 mg IVPB Q6H PRN PRN Reason: PAIN LEVEL 1-5 Last Admin: 02/15/19 13:49 Dose: 1,000 mg Heparin Sodium (Porcine) (Heparin -) 5,000 unit SQ BID JOSSE Last Admin: 02/15/19 10:20 Dose: 5,000 unit Sodium Chloride (Normal Saline -) 1,000 mls @ 75 mls/hr IV ASDIR JOSSE Last Admin: 02/15/19 01:16 Dose: 75 mls/hr Piperacillin Sod/Tazobactam (Sod 3.375 gm/ Dextrose) 50 mls @ 100 mls/hr IVPB Q8H-IV JOSSE Piperacillin Sod/Tazobactam (Sod 3.375 gm/ Dextrose) 50 mls @ 100 mls/hr IVPB Q8H-IV JOSSE Stop: 02/15/19 18:29 Last Admin: 02/15/19 10:21 Dose: 100 mls/hr Potassium Chloride (Potassium Chloride 10 Meq Premix Ivpb -) 10 meq in 100 mls @ 100 mls/hr IVPB Q60M [facility] Stop: 02/15/19 17:29 Morphine Sulfate (Morphine Sulfate) 1 mg IVPUSH Q6H PRN PRN Reason: PAIN LEVEL 6-10 Last Admin: 02/15/19 10:21 Dose: 1 mg - Objective Vital Signs: Vital Signs Temperature 100 F H 02/15/19 11:00 Pulse Rate 89 02/15/19 14:10 Respiratory Rate 20 02/15/19 14:10 Blood Pressure 147/70 02/15/19 14:10 O2 Sat by Pulse Oximetry (%) 98 02/15/19 09:00 Constitutional: Yes: Other Cardiovascular: Yes: Regular Rate and Rhythm Respiratory: Yes: On Nasal O2, Rhonchi Gastrointestinal: Yes: Distention, Other (GTUBE DISLODGED, BROWN DISCHARE FROM ORIFICE) Genitourinary: Yes: Incontinence Extremities: Yes: Deformity (CONTRACTED LLE ANKLE PREVIOUS SCREWW VISIBLE) Edema: Yes Integumentary: Yes: Pressure Ulcer (LEFT HEEL) Neurological: Yes: Aphasia, Ataxia, Pre-Existing Deficit Labs: CBC, BMP 02/15/19 05:35 02/15/19 05:35 INR, PTT INR 1.05 (0.83-1.09) 02/14/19 19:23 Problem List - Problems (1) Gastrostomy malfunction Code(s): K94.23 - GASTROSTOMY MALFUNCTION (2) Anoxic brain damage Code(s): G93.1 - ANOXIC BRAIN DAMAGE, NOT ELSEWHERE CLASSIFIED (3) Bacteremia Code(s): R78.81 - BACTEREMIA (4) Seizure as late effect of cerebrovascular accident (CVA) Code(s): I69.398 - OTHER SEQUELAE OF CEREBRAL INFARCTION; R56.9 - UNSPECIFIED CONVULSIONS Assessment/Plan SPOKE WITH THE PATIENT'S DAUGHTERS AND TO DISCUSS END OF LIFE CARE. I HAVE RECOMMENDED HOSPICE CARE AT THIS POINT HOWEVER I TOLD THE DAUGHTERS IT IS THEIR DECISION AND IF THE WANT A GTUBE REPLACED WE WILL D/W GI OR I.R. IV ABX WOUND CARE ID CONSULT POOR OVERALL PROGNOSIS
[2019-02-15] MEDS ORDERED: VANCOMYCIN 1,000 MG in DEXTROSE 5%-WATER - 250 ML IVPB SCH (15:00)
--- NOTE | 2019-02-15 15:06 | CONS ---
INFECTIOUS DISEASE CONSULTATION DATE OF CONSULTATION: DATE OF DICTATION: 02/15/2019 REQUESTED BY: Kevin Quezada MD HISTORY OF PRESENT ILLNESS: A 58-year-old woman I know from prior admissions. She is a longterm resident. She has a history of dementia, CVA, anoxic brain injury, and seizure disorder. She has been in the hospital multiple times, most recently in November and December of this year, when she required multiple attempts at G-tube replacement. She also had fevers and was noted to be colonized with multiple drug-resistant organisms including MRSA and a Klebsiella ESBL. Last time, she had recurrent fevers and concern was for recurrent aspiration. She was ultimately discharged to the longterm where the family reports she has had some intermittent fevers. She recently had some issues with hypertension that were severe. Yesterday, the daughter noticed that she had dried blood around her G-tube and requested transfer to the hospital. Up to that point, she had been DNR, DNI, and DNH at the longterm. In the emergency room, she was noted to have dark blood oozing from the G-tube site. She had a CAT scan that showed the balloon was in the subcutaneous fat. They spoke with GI who recommended removal which was done. She has had fever as high as 101.4 rectally and I am asked to see her for further evaluation. Blood cultures 1 of 4 bottles is growing gram-positive cocci. She received vancomycin and Zosyn in the emergency room. She is unable to give any history. PAST MEDICAL HISTORY: Is notable for CVA, dementia, seizure disorder, dysphagia, and aphasia. She has a G-tube. She had a prior ankle fracture and she has an exposed pin in the left ankle. ALLERGIES: She has no known drug allergies. She is allergic to LATEX. SOCIAL HISTORY: There is no history of cigarettes or substance use and she resides at the longterm. Her daughters are very actively involved in her care. MEDICATIONS: At the longterm include artificial tears, atropine solution for secretions, she was getting Baclofen, valproic acid, dexamethasone, MiraLAX, ipratropium-albumin nebulizers, metoclopramide, metoprolol, morphine, multivitamins, mupirocin ointment to G-tube and to her ankle. FAMILY HISTORY: Not available. REVIEW OF SYSTEMS: Per the daughters is as per HPI. PHYSICAL EXAMINATION: Vital Signs: Her T-maximum was 101.4 rectally, current temp is 100, pulse of 89, blood pressure is 147/70, respiratory rate is 20. HEENT: She is normocephalic. She is rigid all over. She has no thrush. Lungs: Have diminished breath sounds at the bases. She sounds quite congested. Heart: Regular rate and rhythm. Abdomen: Soft. The G-tube site is oozing still dark blood. The dressing had both black blood and some purulence. Extremities: Without edema. She has contracted hands. Her index finger on her right hand has an ulcer at the tip that extends to the bone which is open and palpable; it is malodorous. On the left ankle, she has an exposed pin without any erythema or drainage. LABORATORY DATA: White count yesterday was 11.6, today is 8.8, hemoglobin is 10.2. INR is 1. BUN 36 and creatinine 0.4. LFTs were normal. Urinalysis is negative. IMAGING: Chest x-ray has no infiltrates. CAT scan findings as previously stated. ASSESSMENT AND PLAN: 1. In summary, this is a 58-year-old woman with a malfunctioning gastrostomy tube that was removed, drainage from the gastrostomy tube site, as well as fever, and bacteremia. She has a history of MRSA in the past, so would resume vancomycin. Given the fact that she has had a klebsiella ESBL in her prior G-tube site, would resume ertapenem at this time. Regarding the hand, I really do not think there is much to do, as this is a pressure ulcer, and her hands and fingers remain severely contracted. This was discussed at length with the daughters, as well as the chronic exposed pin which they have elected also to medically manage. 2. Anoxia. 3. Seizure disorder. She has DNR, DNI status, but the family has elected for antibiotics and medical management in the hospital. Case was discussed at length with her daughters, as well as the attending physician. SUDEEP SHANNON M.D. [id number]
[2019-02-15] MEDS: KCL 10 MEQ IVPB 10 MEQ/100 ML INFUS.BAG IVPB SCH ×2 (15:45→17:40)
[2019-02-15] MEDS: VANCOMYCIN 1 GRAM (PRE-DOCKED) 1,000 MG/250 ML BAG IVPB SCH (22:53)
[2019-02-15] MEDS ORDERED: DEXTROSE 5%-NORMAL SALINE 1,000 ML IV SCH (23:45)
[2019-02-15] MEDS ORDERED: DEXTROSE 50%-WATER - 25 GM/50 ML VIAL IVPUSH ONE ×2 (23:45)
--- NOTE | 2019-02-15 23:50 | EKG ---
Test Reason : Blood Pressure : / mmHG Vent. Rate : 145 BPM Atrial Rate : 145 BPM P-R Int : 122 ms QRS Dur : 062 ms QT Int : 284 ms P-R-T Axes : 070 -01 067 degrees QTc Int : 441 ms POOR DATA QUALITY, INTERPRETATION MAY BE ADVERSELY AFFECTED SINUS TACHYCARDIA BIATRIAL ENLARGEMENT NONSPECIFIC ST ABNORMALITY ABNORMAL ECG WHEN COMPARED WITH ECG OF 07-JAN-2019 16:38, NO SIGNIFICANT CHANGE WAS FOUND Confirmed by RACHEL PIKE MD ([id number]) on 02/15/2019 11:50:12 PM Referred By: Confirmed By:RACHEL PIKE MD
[2019-02-16] MEDS ORDERED: PIPERACILLIN/TAZOBACTAM 3.375 GM VIAL IVPB ONE ×3 (01:37→17:23)
[2019-02-16] MEDS ORDERED: DEXTROSE 5%-WATER - 50 ML IVPB ONE ×3 (01:37→17:23)
[2019-02-16] MEDS: PIPERACILLIN/TAZOB 3.375 GM 3.375 GM in DEXTROSE 5%-WATER - 50 ML IVPB SCH ×3 (01:47→18:04)
[2019-02-16] MEDS: VANCOMYCIN 1 GRAM (PRE-DOCKED) 1,000 MG/250 ML BAG IVPB SCH ×2 (03:51→14:46)
[2019-02-16] MEDS: MORPHINE SULFATE 2 MG/ML VIAL IVPUSH PRN ×2 (03:52→14:57)
[2019-02-16] MEDS ORDERED: PT OWN MED DRAWER 7, Y5N ONE (05:25)
[2019-02-16 06:44] LABS: HEMATOCRIT 25.7 % (32.4-45.2); HEMOGLOBIN 8.7 GM/dL (10.7-15.3); MCHC 33.7 g/dl (32.0-36.0); PLATELET COUNT 134 K/MM3 (134-434); RBC 2.54 M/mm3 (3.60-5.2); RDW 14.7 % (11.6-15.6); WHITE BLOOD COUNT 4.4 K/mm3 (4.0-10.0)
[2019-02-16 07:22] LABS: BLOOD UREA NITROGEN 18.2 mg/dL (7-18); CALCIUM 7.9 mg/dL (8.5-10.1); CREATININE 0.4 mg/dL (0.55-1.3)
[2019-02-16 07:28] LABS: POTASSIUM 2.6 mmol/L (3.5-5.1)
[2019-02-16] MEDS: HEPARIN NA (PORCINE) 5,000 UNITS/ML 1ML VIAL SQ SCH ×2 (10:36→23:22)
[2019-02-16] MEDS ORDERED: POTASSIUM CHLORIDE 10 MEQ in DEXTROSE 5%-NORMAL SALINE 995 ML IVPB SCH (10:41)
[2019-02-16] MEDS: KCL 10 MEQ IVPB 10 MEQ/100 ML INFUS.BAG IVPB SCH ×6 (11:14→19:30)
--- NOTE | 2019-02-16 14:09 | CON.GI ---
Consult Consult Specialty:: GI - History of Present Illness History of Present Illness: Patient was seen yesturday She was transferred from ID after PEG malfunction. In the ER, she has bloody and foul smelling discharge, This was cleansed and Betadine solution was applied. 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 Anoxic brain injury ) Cardio/Vascular: Yes: HTN Gastrointestinal: Yes: Other (PEG tube) - Alcohol/Substance Use Hx Alcohol Use: No History of Substance Use: reports: None - Smoking History Smoking history: Unknown if ever smoked Have you smoked in the past 12 months: No - Social History Usual Living Arrangement: Snf ADL: Support Services ([facility]) History of Recent Travel: No Home Medications - Allergies Allergies/Adverse Reactions: Allergies Allergy/AdvReac Type Severity Reaction Status Date / Time No Known Drug Allergies Allergy Verified 12/20/18 16:43 latex AdvReac Unknown Verified 12/20/18 16:43 - Home Medications Home Medications: Ambulatory Orders Acetaminophen Oral Solution [Tylenol 160mg/5mL Oral Solution -] 20 ml GT Q6H PRN 07/22/15 Calcium Alginate [Du] 1 each TP BID 06/28/18 Polyethylene Glycol 3350 [Glycolax] 117 gm GT BID 06/28/18 Albuterol 2.5/Ipratropium 0.5 [Duoneb -] 1 amp NEB Q6H PRN amp 07/03/18 Baclofen [Lioresal -] 5 mg GT TID tablet 07/03/18 Clotrimazole [Clotrimazole AF] 28 gm TP BID 12/20/18 Acetaminophen Oral Solution [Tylenol Oral Solution -] 650 mg PO Q4H PRN soln.oral 01/01/19 Amino Acids/Protein Hydrolys [Prosource No Carb Liquid Pkt] 30 ml PO BID@0800, 1730 packet 01/01/19 Dexamethasone [Decadron -] 4 mg PO BID #4 tablet 01/01/19 Divalproex Sprinkle [Depakote Sprinkle -] 500 mg PEG BID cap.sprink 01/01/19 Metoclopramide Oral Soln [Reglan Oral Solution -] 10 mg PO ACHS udc 01/01/19 Multivit-Minerals [Certavite-Antioxidant Liquid] 15 ml PO DAILY cup 01/01/19 Dextran 70/Hypromellose [Artificial Tears Eye Drops] 1 drop OU BID 02/14/19 Metoprolol Tartrate [Lopressor] 50 mg GT DAILY 02/14/19 Morphine Sulfate [Morphine Sulfate ER] 7.5 mg GT Q6H PRN 02/14/19 Physical Exam-GI Vital Signs: Vital Signs Temperature 98.3 F 02/16/19 10:00 Pulse Rate 94 H 02/16/19 10:00 Respiratory Rate 24 H 02/16/19 10:00 Blood Pressure 149/72 02/16/19 10:00 O2 Sat by Pulse Oximetry (%) 94 L 02/16/19 09:00 Constitutional: Yes: Well Nourished Eyes: Yes: Conjunctiva Clear HENT: Yes: Atraumatic Neck: Yes: Supple Cardiovascular: Yes: Regular Rate and Rhythm Respiratory: Yes: CTA Bilaterally ...Auscultate: Yes: Other (the pegiste was nearly closed, there was no erythema , no pus could be expressed.) ...Palpate: Yes: Soft. No: Firm/Rigid, Guarding, Hepatomegaly, Mass, Pulsatile Mass, Splenomegaly, Tenderness Labs: CBC, BMP 02/16/19 06:05 02/16/19 06:05 INR, PTT INR 1.05 (0.83-1.09) 02/14/19 19:23 Problem List - Problems (1) Gastrostomy malfunction Assessment/Plan: R> the gastrostomy tube should be replaced endoscopically Dr Efe salguero resume care in am Code(s): K94.23 - GASTROSTOMY MALFUNCTION
--- NOTE | 2019-02-16 16:23 | PN ---
Progress Note, Physician Chief Complaint: AWAITING FOR FAMILY TO MAKE DECISION ON PEG PLACEMENT CALM NO ACUTE CHANGES - Current Medication List Current Medications: Active Medications Acetaminophen (Ofirmev Injection -) 1,000 mg IVPB Q6H PRN PRN Reason: PAIN LEVEL 1-5 Last Admin: 02/15/19 13:49 Dose: 1,000 mg Heparin Sodium (Porcine) (Heparin -) 5,000 unit SQ BID JOSSE Last Admin: 02/16/19 10:36 Dose: 5,000 unit Piperacillin Sod/Tazobactam (Sod 3.375 gm/ Dextrose) 50 mls @ 100 mls/hr IVPB Q8H-IV JOSSE Last Admin: 02/16/19 10:36 Dose: 100 mls/hr Vancomycin HCl (Vancomycin (Pre-Docked)) 1,000 mg in 250 mls @ 166.667 mls/hr IVPB Q12H JOSSE; Protocol Last Admin: 02/16/19 14:46 Dose: 166.667 mls/hr Potassium Chloride 10 meq/ (Dextrose/Sodium Chloride) 1,000 mls @ 75 mls/hr IVPB Q13H JOSSE Potassium Chloride (Potassium Chloride 10 Meq Premix Ivpb -) 10 meq in 100 mls @ 100 mls/hr IVPB Q60M JOSSE Stop: 02/16/19 19:14 Morphine Sulfate (Morphine Sulfate) 1 mg IVPUSH Q6H PRN PRN Reason: PAIN LEVEL 6-10 Last Admin: 02/16/19 14:57 Dose: 1 mg - Objective Vital Signs: Vital Signs Temperature 97.3 F L 02/16/19 14:00 Pulse Rate 71 02/16/19 14:00 Respiratory Rate 20 02/16/19 14:00 Blood Pressure 101/55 L 02/16/19 14:00 O2 Sat by Pulse Oximetry (%) 94 L 02/16/19 09:00 Constitutional: Yes: Mild Distress Cardiovascular: Yes: Regular Rate and Rhythm Respiratory: Yes: Rhonchi Gastrointestinal: Yes: Soft, Other (DISCHARGE FROM GTUBE SITE BROWN DISCHARGE) Genitourinary: Yes: Incontinence Musculoskeletal: Yes: Muscle Weakness Neurological: Yes: Pre-Existing Deficit, Weakness Labs: CBC, BMP 02/16/19 06:05 02/16/19 06:05 INR, PTT INR 1.05 (0.83-1.09) 02/14/19 19:23 Problem List - Problems (1) Gastrostomy malfunction Code(s): K94.23 - GASTROSTOMY MALFUNCTION (2) Anoxic brain damage Code(s): G93.1 - ANOXIC BRAIN DAMAGE, NOT ELSEWHERE CLASSIFIED (3) Bacteremia Code(s): R78.81 - BACTEREMIA (4) Seizure as late effect of cerebrovascular accident (CVA) Code(s): I69.398 - OTHER SEQUELAE OF CEREBRAL INFARCTION; R56.9 - UNSPECIFIED CONVULSIONS Assessment/Plan SPOKE WITH THE PATIENT'S DAUGHTERS AND TO DISCUSS END OF LIFE CARE. I HAVE RECOMMENDED HOSPICE CARE AT THIS POINT HOWEVER I TOLD THE DAUGHTERS IT IS THEIR DECISION AND IF THE WANT A GTUBE REPLACED WE WILL D/W GI OR I.R. IV ABX WOUND CARE ID CONSULT POOR OVERALL PROGNOSIS
--- NOTE | 2019-02-16 16:30 | CONSULT ---
Consult Consult Specialty:: Nephrology Reason for Consultation:: hypokalemia - History of Present Illness Chief Complaint: sent in for peg malfunction History of Present Illness: Pt is a 58 year old female with pmhx of dementia, anoxic brain injury, epilepsy , and peg tube who was sent in from the senior living for PEG tube malfunction. I was called to evaluate her for persistent hypokalemia. She is unable to give history. She was started on lasix in [place] for htn. There was blood and drainage from peg tube in [place]. - History Source History Provided By: Medical Record - Past Medical History PROTOTYPE CARPENTER: Yes: CVA, Dementia, Seizure, Other (dysphagia, aphasia. Anoxic brain injury ) Cardio/Vascular: Yes: HTN Gastrointestinal: Yes: Other (PEG tube) - Alcohol/Substance Use Hx Alcohol Use: No History of Substance Use: reports: None - Smoking History Smoking history: Unknown if ever smoked Have you smoked in the past 12 months: No - Social History Usual Living Arrangement: Prison ADL: Support Services ([facility]) History of Recent Travel: No Home Medications - Allergies Allergies/Adverse Reactions: Allergies Allergy/AdvReac Type Severity Reaction Status Date / Time No Known Drug Allergies Allergy Verified 12/20/18 16:43 latex AdvReac Unknown Verified 12/20/18 16:43 - Home Medications Home Medications: Ambulatory Orders Acetaminophen Oral Solution [Tylenol 160mg/5mL Oral Solution -] 20 ml GT Q6H PRN 07/22/15 Calcium Alginate [Du] 1 each TP BID 06/28/18 Polyethylene Glycol 3350 [Glycolax] 117 gm GT BID 06/28/18 Albuterol 2.5/Ipratropium 0.5 [Duoneb -] 1 amp NEB Q6H PRN amp 07/03/18 Baclofen [Lioresal -] 5 mg GT TID tablet 07/03/18 Clotrimazole [Clotrimazole AF] 28 gm TP BID 12/20/18 Acetaminophen Oral Solution [Tylenol Oral Solution -] 650 mg PO Q4H PRN soln.oral 01/01/19 Amino Acids/Protein Hydrolys [Prosource No Carb Liquid Pkt] 30 ml PO BID@0800, 1730 packet 01/01/19 Dexamethasone [Decadron -] 4 mg PO BID #4 tablet 01/01/19 Divalproex Sprinkle [Depakote Sprinkle -] 500 mg PEG BID cap.sprink 01/01/19 Metoclopramide Oral Soln [Reglan Oral Solution -] 10 mg PO ACHS udc 01/01/19 Multivit-Minerals [Certavite-Antioxidant Liquid] 15 ml PO DAILY cup 01/01/19 Dextran 70/Hypromellose [Artificial Tears Eye Drops] 1 drop OU BID 02/14/19 Metoprolol Tartrate [Lopressor] 50 mg GT DAILY 02/14/19 Morphine Sulfate [Morphine Sulfate ER] 7.5 mg GT Q6H PRN 02/14/19 Family Medical History Family History: Unable to Obtain Review of Systems Unable to obtain ROS, reason: not verbal Physical Exam Vital Signs: Vital Signs Temperature 97.3 F L 02/16/19 14:00 Pulse Rate 71 02/16/19 14:00 Respiratory Rate 20 02/16/19 14:00 Blood Pressure 101/55 L 02/16/19 14:00 O2 Sat by Pulse Oximetry (%) 94 L 02/16/19 09:00 Constitutional: Yes: Calm Eyes: Yes: Conjunctiva Clear Cardiovascular: Yes: S1, S2 Respiratory: Yes: CTA Bilaterally Gastrointestinal: Yes: Soft, Other (peg) Renal/: Yes: Incontinence Musculoskeletal: Yes: Muscle Weakness Edema: Yes Edema: LLE: Trace, RLE: Trace Neurological: Yes: Lethargy, Pre-Existing Deficit Labs: CBC, BMP 02/16/19 06:05 02/16/19 06:05 Laboratory Tests 02/14/19 02/14/19 02/15/19 14:50 19:23 01:00 Sodium Potassium 3.6 BUN Creatinine Lactic Acid 5.6 H* 2.3 H* Calcium 02/15/19 02/16/19 05:35 06:05 Sodium 137 Potassium 3.0 L 2.6 L* BUN 36.8 H 18.2 H Creatinine 0.4 L 0.4 L Lactic Acid Calcium 7.9 L Imaging - Results Cat Scan: Report Reviewed Problem List - Problems (1) Hypokalemia Code(s): E87.6 - HYPOKALEMIA (2) Gastrostomy malfunction Code(s): K94.23 - GASTROSTOMY MALFUNCTION (3) HTN (hypertension) Code(s): I10 - ESSENTIAL (PRIMARY) HYPERTENSION (4) Anoxic brain damage Code(s): G93.1 - ANOXIC BRAIN DAMAGE, NOT ELSEWHERE CLASSIFIED (5) Lactic acid acidosis Code(s): E87.2 - ACIDOSIS Assessment/Plan Current Medications Generic Name Dose Route Start Last Admin Trade Name Freq PRN Reason Stop Dose Admin Acetaminophen 1,000 mg 02/14/19 23:50 02/15/19 13:49 Ofirmev Injection - IVPB 1,000 mg Q6H PRN Administration PAIN LEVEL 1-5 Heparin Sodium (Porcine) 5,000 unit 02/15/19 10:00 02/16/19 10:36 Heparin - SQ 5,000 unit BID JOSSE Administration Piperacillin Sod/Tazobactam 50 mls @ 100 mls/hr 02/15/19 18:00 02/16/19 10:36 Sod 3.375 gm/ Dextrose IVPB 100 mls/hr Q8H-IV JOSSE Administration Vancomycin HCl 1,000 mg in 250 mls @ 166.667 mls/hr 02/15/19 15:00 02/16/19 14:46 Vancomycin (Pre-Docked) IVPB 166.667 mls/hr Q12H JOSSE Administration Protocol Potassium Chloride 10 meq/ 1,000 mls @ 75 mls/hr 02/16/19 10:41 Dextrose/Sodium Chloride IVPB Q13H JOSSE Potassium Chloride 10 meq in 100 mls @ 100 mls/hr 02/16/19 16:15 Potassium Chloride 10 Meq Premix Ivpb - IVPB 02/16/19 19:14 Q60M JOSSE Morphine Sulfate 1 mg 02/14/19 23:50 02/16/19 14:57 Morphine Sulfate IVPUSH 1 mg Q6H PRN Administration PAIN LEVEL 6-10 Impression 1. hypokalemia 2. anoxic brain injury 3. peg tube malfunciton 4. epilepsy Plan - replace potassium - check mag level - add potassium to fluids - keep lasix on hold - GI eval for peg tube
[2019-02-16] MEDS: D5-1/2NS+20 MEQ KCL - 20 MEQ/1,000 ML INFUS.BAG IV SCH (18:04)
[2019-02-17] MEDS ORDERED: DEXTROSE 5%-WATER - 50 ML IVPB ONE ×3 (03:16→18:00)
[2019-02-17] MEDS ORDERED: PIPERACILLIN/TAZOBACTAM 3.375 GM VIAL IVPB ONE ×3 (03:16→18:00)
[2019-02-17] MEDS: PIPERACILLIN/TAZOB 3.375 GM 3.375 GM in DEXTROSE 5%-WATER - 50 ML IVPB SCH ×3 (03:25→18:02)
[2019-02-17] MEDS: VANCOMYCIN 1 GRAM (PRE-DOCKED) 1,000 MG/250 ML BAG IVPB SCH ×2 (03:37→16:50)
[2019-02-17 06:40] LABS: HEMATOCRIT 25.5 % (32.4-45.2); HEMOGLOBIN 8.8 GM/dL (10.7-15.3); MCH 34.7 pg (25.7-33.7); MCHC 34.7 g/dl (32.0-36.0); MEAN CELL VOLUME 99.8 fl (80-96); MEAN PLT VOLUME 8.2 fl (7.5-11.1); PLATELET COUNT 143 K/MM3 (134-434); RBC 2.55 M/mm3 (3.60-5.2); RDW 14.8 % (11.6-15.6); WHITE BLOOD COUNT 4.9 K/mm3 (4.0-10.0)
[2019-02-17 06:51] LABS: PROTHROMBIN TIME (PATIENT) 11.8 SEC (9.7-13.0)
[2019-02-17 06:57] LABS: BILIRUBIN,TOTAL 0.8 mg/dL (0.2-1); BLOOD UREA NITROGEN 14.3 mg/dL (7-18); CALCIUM 7.9 mg/dL (8.5-10.1); CREATININE 0.8 mg/dL (0.55-1.3); MAGNESIUM 1.9 mg/dL (1.8-2.4); POTASSIUM 3.9 mmol/L (3.5-5.1); TOT PROT 4.4 g/dl (6.4-8.2)
[2019-02-17] MEDS: HEPARIN NA (PORCINE) 5,000 UNITS/ML 1ML VIAL SQ SCH ×2 (10:18→22:37)
--- NOTE | 2019-02-17 11:09 | PN ---
Progress Note (short form) - Note Progress Note: Follow up PEG replacement Spoke with pts daughterEloisa by phone, and discussed risks/benefits of PEG replacement endoscopically vs IR. Pts verbalized understanding daughter does not want to proceed with PEG replacement endoscopically or via IR and wants to pursue hospice care. Discussed NG placement in the interim for feeds and medication administration however pts daughter also declines NG tube at this time. Recommend palliative care consult to further address goals of care and hospice. Please recall GI if any questions.
--- NOTE | 2019-02-17 13:06 | PN ---
Progress Note, Physician Chief Complaint: patient awake gi noted seen no peg or ng tube daughter wants hospice palliative consult ordered - Current Medication List Current Medications: Active Medications Acetaminophen (Ofirmev Injection -) 1,000 mg IVPB Q6H PRN PRN Reason: PAIN LEVEL 1-5 Last Admin: 02/15/19 13:49 Dose: 1,000 mg Heparin Sodium (Porcine) (Heparin -) 5,000 unit SQ BID JOSSE Last Admin: 02/17/19 10:18 Dose: 5,000 unit Piperacillin Sod/Tazobactam (Sod 3.375 gm/ Dextrose) 50 mls @ 100 mls/hr IVPB Q8H-IV JOSSE Last Admin: 02/17/19 10:17 Dose: 100 mls/hr Vancomycin HCl (Vancomycin (Pre-Docked)) 1,000 mg in 250 mls @ 166.667 mls/hr IVPB Q12H JOSSE; Protocol Last Admin: 02/17/19 03:37 Dose: 166.667 mls/hr Potassium Chloride/Dextrose/Sod Cl (D5-1/2ns+20 Meq Kcl -) 20 meq in 1,000 mls @ 75 mls/hr IV ASDIR JOSSE Last Admin: 02/16/19 18:04 Dose: 75 mls/hr Morphine Sulfate (Morphine Sulfate) 1 mg IVPUSH Q6H PRN PRN Reason: PAIN LEVEL 6-10 Last Admin: 02/16/19 14:57 Dose: 1 mg - Objective Vital Signs: Vital Signs Temperature 98.4 F 02/17/19 09:34 Pulse Rate 82 02/17/19 09:34 Respiratory Rate 24 H 02/17/19 09:34 Blood Pressure 174/81 H 02/17/19 09:34 O2 Sat by Pulse Oximetry (%) 95 02/17/19 09:00 Constitutional: Yes: Calm Eyes: Yes: Other (eyes open) Cardiovascular: Yes: Regular Rate and Rhythm, S1, S2 Respiratory: Yes: Diminished Gastrointestinal: Yes: Normal Bowel Sounds, Soft Extremities: Yes: Other (contracted) Neurological: Yes: Other (non verbal) Labs: CBC, BMP 02/17/19 05:05 02/17/19 05:05 INR, PTT INR 1.00 (0.83-1.09) 02/17/19 05:05 Problem List - Problems (1) Gastrostomy malfunction Assessment/Plan: GI noted reviwed daughter doesnot want peg tube or ng tube palliative care consult Code(s): K94.23 - GASTROSTOMY MALFUNCTION (2) Sepsis Assessment/Plan: Microbiology 02/14/19 19:25 Blood - Peripheral Venous Blood Culture - Preliminary Staphylococcus Coagulase Neg 02/14/19 19:11 Urine - Urine - Catheterized Urine Culture - Preliminary Escherichia Coli Klebsiella Pneumoniae Proteus Mirabilis Group D Strep Or Entero Coccus vancopand zosyn h/o klebsileea ESBL on contact isolation Code(s): A41.9 - SEPSIS, UNSPECIFIED ORGANISM
--- NOTE | 2019-02-17 13:15 | PN ---
Progress Note, Physician History of Present Illness: Pt seen and examined at bedside. She is more awake today. GI note reviewed, family do not want peg or NG tube and have asked for hospice. - Current Medication List Current Medications: Active Medications Acetaminophen (Ofirmev Injection -) 1,000 mg IVPB Q6H PRN PRN Reason: PAIN LEVEL 1-5 Last Admin: 02/15/19 13:49 Dose: 1,000 mg Heparin Sodium (Porcine) (Heparin -) 5,000 unit SQ BID JOSSE Last Admin: 02/17/19 10:18 Dose: 5,000 unit Piperacillin Sod/Tazobactam (Sod 3.375 gm/ Dextrose) 50 mls @ 100 mls/hr IVPB Q8H-IV JOSSE Last Admin: 02/17/19 10:17 Dose: 100 mls/hr Vancomycin HCl (Vancomycin (Pre-Docked)) 1,000 mg in 250 mls @ 166.667 mls/hr IVPB Q12H JOSSE; Protocol Last Admin: 02/17/19 03:37 Dose: 166.667 mls/hr Potassium Chloride/Dextrose/Sod Cl (D5-1/2ns+20 Meq Kcl -) 20 meq in 1,000 mls @ 75 mls/hr IV ASDIR JOSSE Last Admin: 02/16/19 18:04 Dose: 75 mls/hr Morphine Sulfate (Morphine Sulfate) 1 mg IVPUSH Q6H PRN PRN Reason: PAIN LEVEL 6-10 Last Admin: 02/16/19 14:57 Dose: 1 mg - Objective Vital Signs: Vital Signs Temperature 98.4 F 02/17/19 09:34 Pulse Rate 82 02/17/19 09:34 Respiratory Rate 24 H 02/17/19 09:34 Blood Pressure 174/81 H 02/17/19 09:34 O2 Sat by Pulse Oximetry (%) 95 02/17/19 09:00 Constitutional: Yes: Calm Eyes: Yes: Conjunctiva Clear Cardiovascular: Yes: S1, S2 Respiratory: Yes: CTA Bilaterally Gastrointestinal: Yes: Soft, Other (peg) Genitourinary: Yes: Incontinence Musculoskeletal: Yes: Muscle Weakness Edema: Yes Edema: LLE: Trace, RLE: Trace Neurological: Yes: Pre-Existing Deficit Labs: CBC, BMP 02/17/19 05:05 02/17/19 05:05 INR, PTT INR 1.00 (0.83-1.09) 02/17/19 05:05 Problem List - Problems (1) Hypokalemia Code(s): E87.6 - HYPOKALEMIA (2) Gastrostomy malfunction Code(s): K94.23 - GASTROSTOMY MALFUNCTION (3) HTN (hypertension) Code(s): I10 - ESSENTIAL (PRIMARY) HYPERTENSION (4) Anoxic brain damage Code(s): G93.1 - ANOXIC BRAIN DAMAGE, NOT ELSEWHERE CLASSIFIED (5) Lactic acid acidosis Code(s): E87.2 - ACIDOSIS Assessment/Plan Current Medications Generic Name Dose Route Start Last Admin Trade Name Freq PRN Reason Stop Dose Admin Acetaminophen 1,000 mg 02/14/19 23:50 02/15/19 13:49 Ofirmev Injection - IVPB 1,000 mg Q6H PRN Administration PAIN LEVEL 1-5 Heparin Sodium (Porcine) 5,000 unit 02/15/19 10:00 02/17/19 10:18 Heparin - SQ 5,000 unit BID JOSSE Administration Piperacillin Sod/Tazobactam 50 mls @ 100 mls/hr 02/15/19 18:00 02/17/19 10:17 Sod 3.375 gm/ Dextrose IVPB 100 mls/hr Q8H-IV JOSSE Administration Vancomycin HCl 1,000 mg in 250 mls @ 166.667 mls/hr 02/15/19 15:00 02/17/19 03:37 Vancomycin (Pre-Docked) IVPB 166.667 mls/hr Q12H JOSSE Administration Protocol Potassium Chloride/Dextrose/Sod Cl 20 meq in 1,000 mls @ 75 mls/hr 02/16/19 16 :45 02/16/19 18:04 D5-1/2ns+20 Meq Kcl - IV 75 mls/hr ASDIR JOSSE Administration Morphine Sulfate 1 mg 02/14/19 23:50 02/16/19 14:57 Morphine Sulfate IVPUSH 1 mg Q6H PRN Administration PAIN LEVEL 6-10 Impression 1. hypokalemia 2. anoxic brain injury 3. peg tube malfunciton 4. epilepsy Plan - family have asked for hospice - GI note reviewed - pt is on fluids - will be on standby for further management
--- NOTE | 2019-02-17 13:30 | PN ---
Progress Note (short form) - Note Progress Note: fevers resolved resting comfortably no plans for GT Vital Signs Period Temp Pulse Resp BP Sys/Florentino Pulse Ox Last 24 Hr 97.3 F-99.2 F 71-98 20- 101-174/55-106 94-95 cor-rrr lungs clear abd soft,nt dressing intact, still some drainage (black) on the gauze ext no edema contracted CBC, BMP 02/17/19 05:05 02/17/19 05:05 Microbiology 02/14/19 19:11 Urine - Urine - Catheterized Urine Culture - Preliminary Escherichia Coli Klebsiella Pneumoniae Proteus Mirabilis Group D Strep Or Entero Coccus 02/14/19 19:20 Blood - Peripheral Venous Blood Culture - Preliminary NO GROWTH OBTAINED AFTER 48 HOURS, INCUBATION TO CONTINUE FOR 3 DAYS. 02/14/19 19:25 Blood - Peripheral Venous Blood Culture - Preliminary Staphylococcus Coagulase Neg a/p infected GT- now out bacteremia-contaminant midline site looks clean dementia/anoxia/seizures history of MRSA and Klebsiella ESBL-contact isolation continue vanco/zosyn day #2, no objection to d/c antibioitcs in am if she remains afebrile palliative care consult pending
[2019-02-17] MEDS: D5-1/2NS+20 MEQ KCL - 20 MEQ/1,000 ML INFUS.BAG IV SCH (16:51)
[2019-02-18] MEDS: PIPERACILLIN/TAZOB 3.375 GM 3.375 GM in DEXTROSE 5%-WATER - 50 ML IVPB SCH ×2 (03:30→11:44)
[2019-02-18] MEDS ORDERED: PIPERACILLIN/TAZOBACTAM 3.375 GM VIAL IVPB ONE ×2 (03:49→11:41)
[2019-02-18] MEDS ORDERED: DEXTROSE 5%-WATER - 50 ML IVPB ONE ×2 (03:49→11:42)
[2019-02-18] MEDS ORDERED: PT OWN MED DRAWER 7, Y5N ONE (03:51)
[2019-02-18] MEDS: VANCOMYCIN 1 GRAM (PRE-DOCKED) 1,000 MG/250 ML BAG IVPB SCH (04:09)
--- NOTE | 2019-02-18 09:52 | PN ---
Progress Note, Physician - Current Medication List Current Medications: Active Medications Acetaminophen (Ofirmev Injection -) 1,000 mg IVPB Q6H PRN PRN Reason: PAIN LEVEL 1-5 Last Admin: 02/15/19 13:49 Dose: 1,000 mg Heparin Sodium (Porcine) (Heparin -) 5,000 unit SQ BID JOSSE Last Admin: 02/17/19 22:37 Dose: 5,000 unit Piperacillin Sod/Tazobactam (Sod 3.375 gm/ Dextrose) 50 mls @ 100 mls/hr IVPB Q8H-IV JOSSE Last Admin: 02/18/19 03:30 Dose: 100 mls/hr Vancomycin HCl (Vancomycin (Pre-Docked)) 1,000 mg in 250 mls @ 166.667 mls/hr IVPB Q12H JOSSE; Protocol Last Admin: 02/18/19 04:09 Dose: 166.667 mls/hr Potassium Chloride/Dextrose/Sod Cl (D5-1/2ns+20 Meq Kcl -) 20 meq in 1,000 mls @ 75 mls/hr IV ASDIR JOSSE Last Admin: 02/17/19 16:51 Dose: 75 mls/hr - Objective Vital Signs: Vital Signs Temperature 98.6 F 02/18/19 05:00 Pulse Rate 104 H 02/18/19 05:00 Respiratory Rate 20 02/18/19 05:00 Blood Pressure 125/74 02/18/19 05:00 O2 Sat by Pulse Oximetry (%) 95 02/17/19 21:00 Cardiovascular: Yes: S1, S2 Respiratory: Yes: Regular, CTA Bilaterally Gastrointestinal: Yes: Normal Bowel Sounds, Soft Labs: CBC, BMP 02/17/19 05:05 02/17/19 05:05 INR, PTT INR 1.00 (0.83-1.09) 02/17/19 05:05 Assessment/Plan - Problems (1) Gastrostomy malfunction Assessment/Plan: GI noted reviwed daughter does not want peg tube or ng tube palliative care consult noted--waiting for family decision on GOA Code(s): K94.23 - GASTROSTOMY MALFUNCTION (2) Sepsis Assessment/Plan: Microbiology 02/14/19 19:25 Blood - Peripheral Venous Blood Culture - Preliminary Staphylococcus Coagulase Neg 02/14/19 19:11 Urine - Urine - Catheterized Urine Culture - Preliminary Escherichia Coli Klebsiella Pneumoniae Proteus Mirabilis Group D Strep Or Entero Coccus vancopand zosyn h/o klebsileea ESBL on contact isolation Code(s): A41.9 - SEPSIS, UNSPECIFIED ORGANISM
[2019-02-18 10:36] VITALS: BP 132/76; PULSE 94; TEMP 99.2
[2019-02-18] MEDS: HEPARIN NA (PORCINE) 5,000 UNITS/ML 1ML VIAL SQ SCH (11:44)
--- NOTE | 2019-02-18 12:35 | PN ---
Progress Note, Physician History of Present Illness: Pt appears comfortable. - Current Medication List Current Medications: Active Medications Acetaminophen (Ofirmev Injection -) 1,000 mg IVPB Q6H PRN PRN Reason: PAIN LEVEL 1-5 Last Admin: 02/15/19 13:49 Dose: 1,000 mg Heparin Sodium (Porcine) (Heparin -) 5,000 unit SQ BID JOSSE Last Admin: 02/18/19 11:44 Dose: 5,000 unit Piperacillin Sod/Tazobactam (Sod 3.375 gm/ Dextrose) 50 mls @ 100 mls/hr IVPB Q8H-IV JOSSE Last Admin: 02/18/19 11:44 Dose: 100 mls/hr Vancomycin HCl (Vancomycin (Pre-Docked)) 1,000 mg in 250 mls @ 166.667 mls/hr IVPB Q12H JOSSE; Protocol Last Admin: 02/18/19 04:09 Dose: 166.667 mls/hr Potassium Chloride/Dextrose/Sod Cl (D5-1/2ns+20 Meq Kcl -) 20 meq in 1,000 mls @ 75 mls/hr IV ASDIR JOSSE Last Admin: 02/17/19 16:51 Dose: 75 mls/hr - Objective Vital Signs: Vital Signs Temperature 99.2 F 02/18/19 09:00 Pulse Rate 94 H 02/18/19 09:00 Respiratory Rate 20 02/18/19 09:00 Blood Pressure 132/76 02/18/19 09:00 O2 Sat by Pulse Oximetry (%) 96 02/18/19 09:00 Constitutional: Yes: Calm Eyes: Yes: Conjunctiva Clear HENT: Yes: Atraumatic Cardiovascular: Yes: S1, S2 Respiratory: Yes: CTA Bilaterally Gastrointestinal: Yes: Other (peg) Genitourinary: Yes: Incontinence Musculoskeletal: Yes: Muscle Weakness Edema: No Neurological: Yes: Pre-Existing Deficit Labs: CBC, BMP 02/17/19 05:05 02/17/19 05:05 INR, PTT INR 1.00 (0.83-1.09) 02/17/19 05:05 Problem List - Problems (1) Hypokalemia Code(s): E87.6 - HYPOKALEMIA (2) Gastrostomy malfunction Code(s): K94.23 - GASTROSTOMY MALFUNCTION (3) HTN (hypertension) Code(s): I10 - ESSENTIAL (PRIMARY) HYPERTENSION (4) Anoxic brain damage Code(s): G93.1 - ANOXIC BRAIN DAMAGE, NOT ELSEWHERE CLASSIFIED (5) Lactic acid acidosis Code(s): E87.2 - ACIDOSIS Assessment/Plan Current Medications Generic Name Dose Route Start Last Admin Trade Name Freq PRN Reason Stop Dose Admin Acetaminophen 1,000 mg 02/14/19 23:50 02/15/19 13:49 Ofirmev Injection - IVPB 1,000 mg Q6H PRN Administration PAIN LEVEL 1-5 Heparin Sodium (Porcine) 5,000 unit 02/15/19 10:00 02/18/19 11:44 Heparin - SQ 5,000 unit BID JOSSE Administration Piperacillin Sod/Tazobactam 50 mls @ 100 mls/hr 02/15/19 18:00 02/18/19 11:44 Sod 3.375 gm/ Dextrose IVPB 100 mls/hr Q8H-IV JOSSE Administration Vancomycin HCl 1,000 mg in 250 mls @ 166.667 mls/hr 02/15/19 15:00 02/18/19 04:09 Vancomycin (Pre-Docked) IVPB 166.667 mls/hr Q12H JOSSE Administration Protocol Potassium Chloride/Dextrose/Sod Cl 20 meq in 1,000 mls @ 75 mls/hr 02/16/19 16 :45 02/17/19 16:51 D5-1/2ns+20 Meq Kcl - IV 75 mls/hr ASDIR JOSSE Administration Impression 1. hypokalemia 2. anoxic brain injury 3. peg tube malfunciton 4. epilepsy Plan - pt on fluids - discussed with nursing, pt has application for [place] - will follow PRN - rest per medical team
--- NOTE | 2019-02-18 12:39 | DS ---
Physical Examination Vital Signs: Vital Signs Temperature 99.2 F 02/18/19 09:00 Pulse Rate 94 H 02/18/19 09:00 Respiratory Rate 20 02/18/19 09:00 Blood Pressure 132/76 02/18/19 09:00 O2 Sat by Pulse Oximetry (%) 96 02/18/19 09:00 Labs: CBC, BMP 02/17/19 05:05 02/17/19 05:05 Discharge Summary Reason For Visit: GASTROSTOMY MALFUNCTION SEPSIS Current Active Problems Constipation (Acute) Gastrostomy malfunction (Acute) HTN (hypertension) (Acute) Hypokalemia (Acute) Sepsis (Acute) Hospital Course: 58 year old female with PMHx of dementia, CVA, anoxic brain injury, seizure disorder and s/p PEG tube replaced 01/15/19, arrived [facility] for PEG tube malfunction. As per daughter at beside at [place] yesterday patient aspirated on peg feeds yesterday, so [place] held feeding and started on IV fluids, infected GT- now out bacteremia-contaminant Microbiology 02/14/19 19:25 Blood - Peripheral Venous Blood Culture - Preliminary Staphylococcus Epidermidis 02/14/19 19:20 Blood - Peripheral Venous Blood Culture - Preliminary Pending Organism 02/14/19 19:11 Urine - Urine - Catheterized Urine Culture - Final Escherichia Coli Klebsiella Pneumoniae Proteus Mirabilis Vr Ec Faecium # seizures # HTN # dementia # anoxia brain injury history of MRSA and Klebsiella ESBL-contact isolation Condition: Stable - Instructions Disposition: TRANSFER ACUTE CARE/OTHER HOSP - Home Medications Comprehensive Discharge Medication List: Ambulatory Orders Acetaminophen Injection [Ofirmev Injection -] 1,000 mg IVPB Q6H PRN vial Heparin - 5,000 unit SQ BID vial 02/18/19 Morphine Sulfate 1 mg IVPUSH Q6H PRN vial MDD 6 02/18/19 Piperacillin/Tazob 3.375 gm [Zosyn -] 3.375 gm IVPB Q8H-IV vial 02/18/19
== END 2019-02-18 13:49 | disposition hospice, inpatient (51) | DRG 393 ==
LOC: JER 12:35 → JERBED 20:02 → J4W 23:19
PROVIDERS: ADMIT Family Medicine; ATTEND Family Medicine
DX: K94.22 Gastrostomy infection (principal); A41.9 Sepsis, unspecified organism; G93.1 Anoxic brain damage, not elsewhere classified; R47.01 Aphasia; E87.2 Acidosis; E87.6 Hypokalemia; F03.90 Unspecified dementia, unspecified severity, without behavioral disturbance, psychotic disturbance, mood disturbance, and anxiety; G40.909 Epilepsy, unspecified, not intractable, without status epilepticus; Z66 Do not resuscitate; I10 Essential (primary) hypertension; E66.9 Obesity, unspecified; K59.00 Constipation, unspecified; R13.10 Dysphagia, unspecified; Z68.31 Body mass index [BMI] 31.0-31.9, adult; Y83.8 Other surgical procedures as the cause of abnormal reaction of the patient, or of later complication, without mention of misadventure at the time of the procedure
CPT/HCPCS: 36415; 71045-TC-FY; 71046-TC-FY; 74177-TC; 80048; 80053; 81003; 82803; 82962; 83605; 83735; 84484; 85025; 85027; 85610; 85730; 87040; 87077; 87086; 87186; 93005; 93010; 99283-25; J0131; J1644; J7030